=== PATIENT | male | born 1945 | race African-American/Black ===

== ENCOUNTER 2018-09-29 15:06 | Inpatient (IN) | payer MEDICARE, OTHER ==
[~2018-09-29] VITALS: Ht 177.8 cm; Wt 102.1 kg
--- NOTE | 2018-09-29 16:23 | NUR ---
REPORT GIVEN TO ISIDRO SANDOVAL FOR THAIS
[2018-09-29] MEDS ORDERED: ACET-73 PO (17:44)
[2018-09-29] MEDS ORDERED: AMLO10TA7 PO (17:44)
[2018-09-29] MEDS ORDERED: QUET25TA PO ×2 (17:44)
[2018-09-29] MEDS ORDERED: HYDR-3028 PO (17:44)
[2018-09-29] MEDS ORDERED: LOSA25TA27 PO (17:44)
[2018-09-29] MEDS ORDERED: PRED20TA PO (17:44)
[2018-09-29] MEDS ORDERED: MAG HYDROX/AL HYDROX/SIMETH 30 ML UDC PO PRN (18:30)
[2018-09-29] MEDS ORDERED: LORAZEPAM 0.5 MG TABLET PO PRN (18:30)
[2018-09-29] MEDS ORDERED: ACETAMINOPHEN 325 MG TABLET PO PRN (18:30)
--- NOTE | 2018-09-29 18:49 | NUR ---
GPS/RN-NOTES ADMITTED 73 YEARS OLD MALE PATIENT FROM [facility]. PATIENT ON 5150 FOR DTS AND GD. UPON FACE TO FACE INTERVIEW, PATIENT ALERT ORIENTED X2,GUARDED ,FLAT AFFECT, WHEELCHAIR BOUND,NEED ONE ASSIST WITH TRANSFER FROM WHEELCHAIR TO BED. PATIENT IS CALM AND COOPERATIVE DURING ADMISSION PROCESS. PATIENT DID NOT VERBALIZE SI/HI,DENIES VISUAL/AUDITORY HALLUCINATIONS AT THIS TIME. PARTIAL BODY ASSESSMENT DONE. MRSA DONE AND SEND TO LAB.PATIENT'S RIGHT WAS REVIEWED WITH PATIENT AND HANDBOOK WAS GIVEN TO THE PATIENT. PATIENT WAS ORIENTED IN THE UNIT AND UNIT POLICIES. CALL WOOD WITHIN REACH. DR. TALLEY( PSYCHIATRIST) MADE AWARE OF PATIENT ADMISSION WITH ORDERS. AAYUSH CHEN MADE AWARE OF THE ADMISSION. PATIENT'S BROTHER ALTHEA NAVARRETE [phone] MADE AWARE OF THE ADMISSION. ENDORSE TO INCOMING NURSE FOR CONTINUITY OF CARE AND ADMISSION PROCESS.
--- NOTE | 2018-09-29 20:00 | NUR ---
GPS RN NOTE, PATIENT SPO2 % 92 PAGED AASHISH CHUA. AASHISH CHUA ORDERED TO GIVE 2 LITERS OF O2 VIA NASAL CANNULA TO KEEP SPO2 ABOVE 94 % AND TO GIVE A ONE TO ONE SITTER IN THE MORNING. ALL ORDERS NOTED AND CARRIED OUT. WILL CONTINUE TO MONITOR THIS PATIENT.
[2018-09-29 20:08] VITALS: BP 156/56
[2018-09-29] MEDS: ZOLPIDEM TARTRATE 5 MG TABLET PO PRN (20:55)
--- NOTE | 2018-09-29 22:00 | NUR ---
AAYUSH Gomez came on the floor told him about med recon needs to be done for this patient, AAYUSH Holt said ok he will look at it. will endorse to the oncoming nurse to follow up.
[2018-09-30 08:00] VITALS: BP 139/87
--- NOTE | 2018-09-30 11:49 | NUR ---
BERLIN called Margarita ([phone]), button reclaimer of the pt's Independent Living, and confirmed that the pt can return upon his discharge from the hospital. She stated that she would like appropriate medication adjustments to be made before the pt can return to her facility. BERLIN stated that she will keep her updated in terms of his behavior.
--- NOTE | 2018-09-30 12:18 | NUR ---
GPS/RN-NOTES PATIENT SCREAMING AND YELLING WITH DR. TALLEY. PATIENT REFUSED LAB DRAW AND MEALS. STATED" YOU ALL WANT TO KILL ME". EXPLAINED RISK AND BENEFITS BUT PATIENT GETS ANGRY AND VERBALLY ABUSIVE WITH STAFF. DR. TALLEY ORDERED IM MEDICATIONS.
[2018-09-30] MEDS ORDERED: OLANZAPINE 10 MG VIAL IM ONE (12:30)
--- NOTE | 2018-09-30 16:12 | NUR ---
SW called the pt's brother, Demarcus ([phone]), and discussed the initial treatment plan and discharge plan. SW informed him about the objectives and the SW interventions. Pts brother stated that he understood and accepts the plan.
--- NOTE | 2018-09-30 16:19 | NUR ---
Initial Discharge Planning: Pt currently resides at an Independent Living located at [address] [place] [address]. Per pt, he would like to return to his home. BERLIN will work with the pt and the MD regarding appropriate discharge planning. SW will form a safe and proper discharge.
--- NOTE | 2018-09-30 16:42 | NUR ---
GPS/RN-NOTES PATIENT REFUSED LAB DRAW TODAY DESPITE FEW ATTEMPT BY THE LAB STAFF. EXPLAINED RISK AND BENEFITS BUT PATIENT STATED" I DON'T WANT ANYTHING FROM ANYBODY, DON'T CARE JUST LEAVE ME ALONE".
[2018-09-30] MEDS: BENZTROPINE MESYLATE (1 MG) 1 MG TABLET PO SCH (17:00)
[2018-09-30] MEDS: HALOPERIDOL 5 MG TABLET PO SCH (17:00)
--- NOTE | 2018-09-30 17:34 | NUR ---
GPS/RN-NOTES PATIENT REFUSED ALL 1700 MEDICATIONS DESPITE EXPLANATIONS RISK AND BENEFITS. PATIENT STATED" DON'T GIVE ME ANY MEDICATIONS,THAT'S ILLEGAL,I DON'T WANT IT". OFFERED X3 AAYUSH WRIGHT IN THE UNIT AND MADE AWARE OF PATIENT 'S BEHAVIOR. ALSO PER BREAD ICER HE WILL RECONCILE PT'S. MEDICATIONS. Addendum: 09/30/18 at 1809 by SWATHI LLAMAS RN IN ADDITION TO MY ABOVE NOTES AAYUSH WRIGHT GAVE T.O OF GIVE OXYGEN AT 2L/MIN TO KEEP O2 SATURATION ABOVE 90%.NOTED AND CARRIED OUT.
--- NOTE | 2018-09-30 18:55 | NUR ---
GPS/RN-NOTES PATIENT REFUSED TO EAT TODAY ,ATE ONLY OWN DONUT AND DRINK . EXPLAINED RISK AND BENEFITS OF PROPER MEAL BUT PATIENT GETS ANGRY AND ARGUMENTATIVE. PATIENT ALSO HAVE EPISODE OF DESATURATION, OXYGEN 2L/MIN NC GIVEN PRN ORDER.ENDORSE TO INCOMING NURSE FOR CONTINUITY OF CARE.
[2018-09-30 20:33] VITALS: BP 138/88
[2018-09-30] MEDS: DIVALPROEX SODIUM 500 MG TABLET.DR PO SCH (21:31)
[2018-10-01] MEDS: MAGNESIUM HYDROXIDE 30 ML UDC PO PRN (01:37)
[2018-10-01 08:00] VITALS: BP 157/74
[2018-10-01] MEDS: BENZTROPINE MESYLATE (1 MG) 1 MG TABLET PO SCH ×2 (08:33→16:55)
[2018-10-01] MEDS: AMLODIPINE BESYLATE 10 MG TABLET PO SCH (08:33)
[2018-10-01] MEDS: HALOPERIDOL 5 MG TABLET PO SCH ×2 (08:33→16:55)
[2018-10-01] MEDS: LOSARTAN POTASSIUM 25 MG TABLET PO SCH (08:34)
--- NOTE | 2018-10-01 15:59 | NUR ---
SW attempted to provide social service supportive counseling through individual therapy but the pt refused.
[2018-10-01 16:00] VITALS: BP 110/62
[2018-10-01] MEDS ORDERED: IPRATROPIUM NEB FS 0.5 MG/2.5 ML AMPUL.NEB NEB PRN (17:00)
[2018-10-01] MEDS ORDERED: ALBUTEROL FS 2.5 MG/0.5 ML VIAL.NEB NEB PRN (17:00)
[2018-10-01] MEDS: LEVOFLOXACIN (750 MG) 750 MG TABLET PO SCH (17:20)
--- NOTE | 2018-10-01 18:55 | NUR ---
RN NOTE: PATIENT REMAINS ALERT AWAKE ORIENTED. ON 2LPM O2 VIA NC, NO BREATHING DISTRESS NOTED. DENIES PAIN & DISCOMFORT. VERBALIZE FEELING WEAKNESS. CHEST X-RAY RESULTS RELAYED TO MD, RECEIVED NEW ORDERS, WILL FOLLOW. SAFETY MEASURES OBSERVED. 1:1 SITTER AT BEDSIDE.
[2018-10-01 20:00] VITALS: BP 137/71
[2018-10-01 20:28] LABS: CALCIUM, SERUM 8.2 mg/dL (8.5-10.1); CARBON DIOXIDE 29 mmol/L (21-32); CHLORIDE 110 mmol/L (98-107); CREATININE 1.4 mg/dL (0.6-1.3); GLUCOSE 97 mg/dL (74-106); POTASSIUM 3.8 mmol/L (3.5-5.1); SODIUM SERUM 146 mmol/L (136-145); UREA NITROGEN, BLOOD 29 mg/dL (7-18)
[2018-10-01 21:00] LABS: BASOPHILS % (AUTO) 0.7 % (0.0-2.0); EOSINOPHILS % (AUTO) 5.8 % (0.0-6.0); HEMATOCRIT 37 % (39-51); HEMOGLOBIN 12.2 g/dL (13.5-17.5); LYMPHOCYTES # (AUTO) 1.1 /CMM (0.8-4.8); LYMPHOCYTES % (AUTO) 26.3 % (20.0-44.0); MEAN CORPUSCULAR HGB CONC 33 g/dl (31.0-36.0); MEAN CORPUSCULAR VOLUME 90 fL (80-96); MONOCYTES # (AUTO) 0.4 /CMM (0.1-1.30); MONOCYTES % (AUTO) 10.2 % (2.0-12.0); NEUTROPHILS # (AUTO) 2.5 /CMM (1.8-8.9); PLATELET COUNT (AUTO) 167 /CMM (150-450); RED BLOOD CELL COUNT(AUTO) 4.11 MIL/uL (4.5-6.0); WHITE BLOOD COUNT (AUTO) 4.3 K/uL (4.3-11.0)
[2018-10-01] MEDS: DIVALPROEX SODIUM 500 MG TABLET.DR PO SCH (21:31)
[2018-10-01 21:42] LABS: THYROID STIMULATING HORMONE 1.514 uIU/mL (0.358-3.74)
[2018-10-02 08:00] VITALS: BP 130/74
[2018-10-02] MEDS: BENZTROPINE MESYLATE (1 MG) 1 MG TABLET PO SCH ×2 (09:19→17:19)
[2018-10-02] MEDS: LOSARTAN POTASSIUM 25 MG TABLET PO SCH (09:19)
[2018-10-02] MEDS: HALOPERIDOL 5 MG TABLET PO SCH ×2 (09:19→17:19)
[2018-10-02] MEDS: AMLODIPINE BESYLATE 10 MG TABLET PO SCH (09:19)
[2018-10-02 16:00] VITALS: BP 117/67
[2018-10-02 20:00] VITALS: BP 127/70
--- NOTE | 2018-10-02 20:29 | NUR ---
JAIME NOTES - LORAZEPAM 1MG RETURNED, WITNESSED BY RICCI GUZMÁN. Addendum: 10/02/18 at 2030 by PANCHO GROVE RN RECEIPT INCLUDED IN THE DRAWER UPON THE RETURN OF MED.
[2018-10-02] MEDS: DIVALPROEX SODIUM 500 MG TABLET.DR PO SCH (21:29)
[2018-10-02] MEDS: ZOLPIDEM TARTRATE 5 MG TABLET PO PRN (21:30)
[2018-10-03] MEDS: AMLODIPINE BESYLATE 10 MG TABLET PO SCH (07:59)
[2018-10-03 08:00] VITALS: BP 153/80
[2018-10-03] MEDS: HALOPERIDOL 5 MG TABLET PO SCH ×2 (08:00→16:26)
[2018-10-03] MEDS: LOSARTAN POTASSIUM 25 MG TABLET PO SCH (08:00)
[2018-10-03] MEDS: BENZTROPINE MESYLATE (1 MG) 1 MG TABLET PO SCH ×2 (08:00→16:26)
[2018-10-03 16:00] VITALS: BP 127/74
[2018-10-03] MEDS: LEVOFLOXACIN (750 MG) 750 MG TABLET PO SCH (16:26)
[2018-10-03 20:00] VITALS: BP 131/57
[2018-10-03] MEDS: DIVALPROEX SODIUM 500 MG TABLET.DR PO SCH (21:31)
[2018-10-04 08:00] VITALS: BP 117/74
[2018-10-04] MEDS: BENZTROPINE MESYLATE (1 MG) 1 MG TABLET PO SCH ×2 (09:11→17:24)
[2018-10-04] MEDS: HALOPERIDOL 5 MG TABLET PO SCH ×2 (09:12→17:23)
[2018-10-04] MEDS: LOSARTAN POTASSIUM 25 MG TABLET PO SCH (09:12)
[2018-10-04] MEDS: AMLODIPINE BESYLATE 10 MG TABLET PO SCH (09:13)
[2018-10-04 12:44] LABS: BASOPHILS % (AUTO) 0.5 % (0.0-2.0); EOSINOPHILS % (AUTO) 6.1 % (0.0-6.0); HEMATOCRIT 39 % (39-51); HEMOGLOBIN 12.8 g/dL (13.5-17.5); LYMPHOCYTES # (AUTO) 1.2 /CMM (0.8-4.8); LYMPHOCYTES % (AUTO) 27.3 % (20.0-44.0); MEAN CORPUSCULAR HGB CONC 33 g/dl (31.0-36.0); MEAN CORPUSCULAR VOLUME 90 fL (80-96); MONOCYTES # (AUTO) 0.4 /CMM (0.1-1.30); NEUTROPHILS # (AUTO) 2.5 /CMM (1.8-8.9); NEUTROPHILS % (AUTO) 56.1 % (43.0-81.0); PLATELET COUNT (AUTO) 159 /CMM (150-450); WHITE BLOOD COUNT (AUTO) 4.4 K/uL (4.3-11.0)
[2018-10-04 12:58] LABS: CALCIUM, SERUM 8.8 mg/dL (8.5-10.1); CARBON DIOXIDE 28 mmol/L (21-32); CHLORIDE 108 mmol/L (98-107); CREATININE 1.7 mg/dL (0.6-1.3); GLUCOSE 99 mg/dL (74-106); POTASSIUM 3.9 mmol/L (3.5-5.1); SODIUM SERUM 144 mmol/L (136-145); UREA NITROGEN, BLOOD 35 mg/dL (7-18)
[2018-10-04 16:00] VITALS: BP 116/58
[2018-10-04 19:53] VITALS: BP 119/70
[2018-10-04 20:00] VITALS: BP 119/70
[2018-10-04] MEDS: DIVALPROEX SODIUM 500 MG TABLET.DR PO SCH (22:12)
[2018-10-05] MEDS: ZOLPIDEM TARTRATE 5 MG TABLET PO PRN (01:56)
--- NOTE | 2018-10-05 01:56 | NUR ---
RN GPS NOTES PATIENT UNABLE TO SLEEP SUGGESTED SLEEP AIDE TO ASSIST IN SLEEPING PATIENT AGREED AND WANTS TO TAKE IT. AMBIEN PRN GIVEN ORDERED, WILL CONTINUE TO MONITOR FOR EFFECTIVENESS.
[2018-10-05 08:00] VITALS: BP 121/73
[2018-10-05] MEDS: LOSARTAN POTASSIUM 25 MG TABLET PO SCH (08:58)
[2018-10-05] MEDS: HALOPERIDOL 5 MG TABLET PO SCH ×2 (08:58→16:49)
[2018-10-05] MEDS: AMLODIPINE BESYLATE 10 MG TABLET PO SCH (08:59)
[2018-10-05] MEDS: BENZTROPINE MESYLATE (1 MG) 1 MG TABLET PO SCH ×2 (09:00→16:48)
[2018-10-05 16:00] VITALS: BP 109/65
[2018-10-05] MEDS: LEVOFLOXACIN (750 MG) 750 MG TABLET PO SCH (16:49)
[2018-10-05 20:11] VITALS: BP 117/68
[2018-10-05] MEDS: DIVALPROEX SODIUM 500 MG TABLET.DR PO SCH (21:28)
[2018-10-06] MEDS: ZOLPIDEM TARTRATE 5 MG TABLET PO PRN (00:32)
--- NOTE | 2018-10-06 01:06 | NUR ---
RN GPS NOTES PATIENT UNABLE TO SLEEP . MEDICATED WITH AMBIEN 1 TAB NEEDED GIVEN ORDERED. WILL CONTINUE TO MONITOR FOR EFFECTIVENESS.
[2018-10-06 08:00] VITALS: BP 189/92
[2018-10-06] MEDS: BENZTROPINE MESYLATE (1 MG) 1 MG TABLET PO SCH ×2 (09:21→17:23)
[2018-10-06] MEDS: HALOPERIDOL 5 MG TABLET PO SCH ×2 (09:21→17:23)
[2018-10-06] MEDS: DIVALPROEX SODIUM 250 MG TABLET.DR PO SCH (09:22)
[2018-10-06] MEDS: LOSARTAN POTASSIUM 25 MG TABLET PO SCH (09:22)
[2018-10-06] MEDS: AMLODIPINE BESYLATE 10 MG TABLET PO SCH (09:22)
--- NOTE | 2018-10-06 11:46 | NUR ---
SW spoke with the pts rights advocate about the pt needing a higher level of care and discussed the possibility of a SNF instead of the Independent Living that the pt came from because the pt does not appear to be fit to take care of himself at this time with his medical and physical needs.
--- NOTE | 2018-10-06 11:47 | NUR ---
BERLIN called Margarita ([phone]), director regulatory agency of the pt's Independent Living, and informed her that she may come to assess the pt on Thursday but also informed her that we are considering a SNF placement for him due to his medical and physical needs.
--- NOTE | 2018-10-06 13:00 | NUR ---
RN NOTES PATIENT REFUSED ANTIBIOTIC PRESCRIBED. PATIENT STATE "I DO NOT HAVE A INFECTION". CONTINUED MONITORING.
--- NOTE | 2018-10-06 13:13 | NUR ---
BERLIN faxed a referral to [facility] with attention to Yolanda to the fax number: [phone].
[2018-10-06] MEDS ORDERED: CLONIDINE HCL 0.1 MG TABLET PO PRN (16:00)
--- NOTE | 2018-10-06 16:17 | NUR ---
Group Therapy: SW prompted the pt to go to group but the pt refused due to his medical conditions (low oxygen).
--- NOTE | 2018-10-06 16:59 | NUR ---
RN NOTES TRANSFERRED PATIENT TO THE [facility] ROOM 325 BED 2, PATIENT STABLE, NO ACUTE RESPIRATORY DISTRESS, PATIENT ON 02-2L NC, REFUSED SOB AT THIS TIME, REFUSED PAIN. PATIENT TOTAL CARE, INCONTINENT. 1:1 SITTER NEXT TO THE BED FOR SAFETY. PATIENT MED COMPLIANT. REPORT GIVEN PRICILLA SANDOVAL FOR CONTINUES PLAN OF CARE.
--- NOTE | 2018-10-06 17:00 | NUR ---
RN NOTES PATIENT CAME FROM GPS, GPS OVERFLOW, A/OX2, NO DISTRESS NOTED AT THIS TIME, SITTER AT BEDSIDE. PATIENT CALM AND COOPERATIVE AT THIS TIME. PATIENT KEPT COMFORTABLE, WILL CONTINUE TO MONITOR.
--- NOTE | 2018-10-06 18:12 | NUR ---
PATIENT IN NO SIGNIFICANT DISTRESS. SITTER AT BEDSIDE, WILL ENDORSE TO BULK SUGAR HANDLER FOR THAIS.
[2018-10-06 18:23] VITALS: BP 112/59
--- NOTE | 2018-10-06 19:30 | NUR ---
MS RN NOTE RECEIVED PT IN STABLE CONDITION A&O X2, PT IS CURRENTLY ON 5250 HOLD WITH SITTER AT BEDSIDE. NO SIGNS OF SOB, OR DISTRESS, NO SI NOTED. PT IS CURRENTLY IN BED WATCHING TV. ALL NEEDS ATTENDED TO. SAFETY PRECAUTIONS IN PLACE: BED LOW, LOCKED, UPPER RAILS UP, AND CALL LIGHT WITHIN REACH. WILL CONT TO MONITOR.
[2018-10-06] MEDS: DIVALPROEX SODIUM 500 MG TABLET.DR PO SCH (21:16)
--- NOTE | 2018-10-07 06:37 | NUR ---
MS RN NOTE PT IN STABLE CONDITION A&O X2, PT IS CURRENTLY ON 5250 HOLD WITH SITTER AT BEDSIDE. NO SIGNS OF SOB, OR DISTRESS, NO SI/HI NOTED. PT IS CURRENTLY IN BED WATCHING TV. ALL NEEDS ATTENDED TO. Q15 MIN MONITORING DONE THROUGHOUT SHIFT. PT REPOSITIONED Q2H.SAFETY PRECAUTIONS IN PLACE: BED LOW, LOCKED, UPPER RAILS UP, AND CALL LIGHT WITHIN REACH. WILL CONT TO MONITOR, AND ENDORSE TO NEXT SHIFT FOR THAIS.
[2018-10-07 08:00] VITALS: BP 119/73
--- NOTE | 2018-10-07 08:06 | NUR ---
RN OPENING NOTE PT WAS RECEIVED IN BED AT LOWEST AND LOCKED POSITION WITH SIDE RAILS UP X2, A/O X2-3 WITH SITTER PRESENT AT BEDSIDE, NOTED TO HAVE LEFT SIDED WEAKNESS, NO S/S OF ANY DISTRESS OR PAIN, NO IV IN PLACE DUE TO GPS PROTOCOL AND MD AWARE. SAFETY PRECAUTIONS IN PLACE, CALL LIGHT WITHIN REACH, WILL MONITOR ACCORDINGLY
--- NOTE | 2018-10-07 08:25 | NUR ---
Emmie ([phone]) from [facility] stated that their facility would like to evaluate the pt before they can accept him. SW stated that was acceptable and set up a meeting for today.
[2018-10-07] MEDS: LOSARTAN POTASSIUM 25 MG TABLET PO SCH (08:34)
[2018-10-07] MEDS: AMLODIPINE BESYLATE 10 MG TABLET PO SCH (08:34)
[2018-10-07] MEDS: HALOPERIDOL 5 MG TABLET PO SCH ×2 (08:34→16:14)
[2018-10-07] MEDS: BENZTROPINE MESYLATE (1 MG) 1 MG TABLET PO SCH ×2 (08:34→16:14)
[2018-10-07] MEDS: DIVALPROEX SODIUM 250 MG TABLET.DR PO SCH (08:34)
--- NOTE | 2018-10-07 15:14 | NUR ---
Moira ([phone]) from [facility] contacted the SW and stated that the pt was accepted to their facility and his needs can be accommodated. SW informed her that the pt will be discharged to their facility on Thursday.
[2018-10-07 16:00] VITALS: BP 127/64
--- NOTE | 2018-10-07 18:51 | NUR ---
RN CLOSING NOTE PT IN BED AT LOWEST AND LOCKED POSITION WITH SIDE RAILS UP X2, A/O X2-3 WITH SITTER PRESENT AT BEDSIDE, NO S/S OF ANY DISTRESS OR PAIN, CURRENTLY SLEEPING IN BED. SAFETY PRECAUTIONS IN PLACE, CALL LIGHT WITHIN REACH, WILL ENDORSE TO ONCOMING HEAD OF ICT RN FOR THAIS.
--- NOTE | 2018-10-07 19:22 | NUR ---
RN OPENING NOTES RECEIVED BEDSIDE REPORT, PT IN BED, SLEEPING, EASILY AROUSED TO NAME CALL, BREATHING EVEN AND UNLABORED ON ROOM AIR. IN NO APPARENT PAIN OR DISCOMFORT AT THIS TIME. NO IV ACCESS PER GPS PROTOCOL. SITTER AT BEDSIDE, BED IN LOCKED POSITION, BED ALARM ACTIVATED, CALL LIGHT WITHIN REACH AT ALL TIMES, WILL CONTINUE TO MONITOR FREQUENTLY.
[2018-10-07] MEDS: DIVALPROEX SODIUM 500 MG TABLET.DR PO SCH (21:35)
[2018-10-08 01:29] VITALS: BP 102/58
--- NOTE | 2018-10-08 06:20 | NUR ---
RN CLOSING NOTES PT REMAINS IN BED, SLEEPING, EASILY AROUSED TO NAME CALL, BREATHING EVEN AND UNLABORED ON ROOM AIR. IN NO APPARENT PAIN OR DISCOMFORT AT THIS TIME. NO IV ACCESS PER GPS PROTOCOL. SITTER AT BEDSIDE, BED IN LOCKED POSITION, BED ALARM ACTIVATED, PT MAINTAINED CLEAN AND DRY. CALL LIGHT WITHIN REACH AT ALL TIMES, WILL ENDORSE TO DAY NURSE FOR THAIS
--- NOTE | 2018-10-08 07:30 | NUR ---
GPS RN Opening Notes Patient currently asleep, resting in bed. Semi-Fowlers position, supine. Alert and oriented x2-3, able to make needs known. Patient is legally blind. No complaints of shortness of breath or chest pain at this time. Respirations even and unlabored on room air, no acute distress noted. No peripheral IV access per GPS protocol. Updated patient on current plan of care and safety measures. Safety and fall precautions in place: bed in lowest and locked position, side rails up x2, bed alarm on, call light within reach. Room well lit and floor clear of items. GPS safety checks per protocol, 1:1 sitter at bedside for safety. Patient denies SI and/or HI at this time. [address] in [address] at this time. Patient currently clean, dry and comfortable. Will continue to monitor and intervene as needed. Addendum: 10/08/18 at 0818 by SKYLAR DICKSON RN Correction: patient is not legally blind, note for wrong patient.
[2018-10-08 08:00] VITALS: BP 128/71
--- NOTE | 2018-10-08 08:39 | NUR ---
gps asbestos worker: md visit seen and examined by abdi (acnp) at this time.
[2018-10-08] MEDS: BENZTROPINE MESYLATE (1 MG) 1 MG TABLET PO SCH ×2 (08:46→17:04)
[2018-10-08] MEDS: DIVALPROEX SODIUM 250 MG TABLET.DR PO SCH (08:46)
[2018-10-08] MEDS: LOSARTAN POTASSIUM 25 MG TABLET PO SCH (08:47)
[2018-10-08] MEDS: HALOPERIDOL 5 MG TABLET PO SCH ×2 (08:47→17:04)
[2018-10-08] MEDS: AMLODIPINE BESYLATE 10 MG TABLET PO SCH (08:47)
[2018-10-08] MEDS ORDERED: diphenhydrAMINE HCL/ZINC ACET CREAM 28.3 GM TUBE TP PRN (09:30)
--- NOTE | 2018-10-08 14:06 | NUR ---
BERLIN called Margarita ([phone]), line haul owner operator of the pt's Independent Living, and informed her that the pt will be discharged to a SNF on Thursday.
--- NOTE | 2018-10-08 14:15 | NUR ---
BERLIN called the pt's brother, Demarcus ([phone]), and informed him that the pt is going to be discharged [facility] on Thursday and he stated that he accepts the placement option.
[2018-10-08 16:00] VITALS: BP 123/62
--- NOTE | 2018-10-08 18:00 | NUR ---
gps radio tower technician: notes urine collected via clean catch. lab called, spoke maxx to bean picker machine operator specimen in refrigerator.
--- NOTE | 2018-10-08 18:21 | NUR ---
GPS RN Closing Notes Patient currently awake, resting in bed. Semi-Fowlers position, supine. Alert and oriented x2-3, able to make needs known. No complaints of shortness of breath or chest pain at this time. Respirations even and unlabored on room air, no acute distress noted. No peripheral IV access per GPS protocol. Updated patient on current plan of care and safety measures. Safety and fall precautions in place: bed in lowest and locked position, side rails up x2, bed alarm on, call light within reach. Room well lit and floor clear of items. GPS safety checks per protocol, 1:1 sitter at bedside for safety. Patient denies SI and/or HI at this time. [address] at this time. Patient currently clean, dry and comfortable. Respositioned every 2 hours for skin integrity. No acute events this shift, vital signs stable. Will endorse to assistant shift supervisor RN for continuity of care.
[2018-10-08 18:53] LABS: APPEARANCE,URINE SL CLOUDY (CLEAR); BILIRUBIN,URINE NEGATIVE (NEGATIVE); BLOOD, URINE NEGATIVE Ery/uL (NEGATIVE); COLOR,URINE DARK YELLO (YELLOW); KETONES,URINE 1+ (NEGATIVE); LEUKOCYTE ESTERASE ,URINE NEGATIVE (NEGATIVE); NITRITE, URINE NEGATIVE (NEGATIVE); PROTEIN,URINE TRACE mg/dl (NEGATIVE); UGLUCOSE NEGATIVE (NEGATIVE)
[2018-10-08 18:59] LABS: URINE TOTAL PROTEIN 23.4 mg/dL (0-11.9)
[2018-10-08 19:22] LABS: RBC,URINE 0-2 /HPF (0-2); WBC,URINE 0-2 /HPF (0-3)
[2018-10-08 19:23] LABS: BACTERIA,URINE Rare /HPF (None Seen); SQUAMOUS EPITHELIAL CELL,UR Few /HPF (None Seen)
[2018-10-08 19:49] VITALS: BP 111/60
[2018-10-08 20:16] LABS: EOSINOPHIL,URINE None Seen
[2018-10-08] MEDS: DIVALPROEX SODIUM 500 MG TABLET.DR PO SCH (21:20)
--- NOTE | 2018-10-09 07:30 | NUR ---
PT RECEIVED RESTING COMFORTABLY IN BED. NO S/S OR C/O PAIN OR DISTRESS NOTED. SIDE RAILS UP X2, CALL LIGHT LEFT WITHIN REACH. WILL CONTINUE PLAN OF CARE.
[2018-10-09 08:00] VITALS: BP 119/72
[2018-10-09] MEDS: LOSARTAN POTASSIUM 25 MG TABLET PO SCH (08:38)
[2018-10-09] MEDS: HALOPERIDOL 5 MG TABLET PO SCH ×2 (08:38→18:01)
[2018-10-09] MEDS: DIVALPROEX SODIUM 250 MG TABLET.DR PO SCH (08:38)
[2018-10-09] MEDS: AMLODIPINE BESYLATE 10 MG TABLET PO SCH (08:39)
[2018-10-09] MEDS: BENZTROPINE MESYLATE (1 MG) 1 MG TABLET PO SCH ×2 (08:39→18:01)
[2018-10-09 10:06] LABS: BASOPHILS % (AUTO) 0.5 % (0.0-2.0); EOSINOPHILS % (AUTO) 5.3 % (0.0-6.0); HEMATOCRIT 39 % (39-51); HEMOGLOBIN 12.9 g/dL (13.5-17.5); LYMPHOCYTES # (AUTO) 1.1 /CMM (0.8-4.8); LYMPHOCYTES % (AUTO) 26.9 % (20.0-44.0); MEAN CORPUSCULAR HGB CONC 33 g/dl (31.0-36.0); MEAN CORPUSCULAR VOLUME 89 fL (80-96); MONOCYTES # (AUTO) 0.4 /CMM (0.1-1.30); MONOCYTES % (AUTO) 9.8 % (2.0-12.0); NEUTROPHILS # (AUTO) 2.4 /CMM (1.8-8.9); NEUTROPHILS % (AUTO) 57.5 % (43.0-81.0); PLATELET COUNT (AUTO) 147 /CMM (150-450); RED BLOOD CELL COUNT(AUTO) 4.38 MIL/uL (4.5-6.0); WHITE BLOOD COUNT (AUTO) 4.2 K/uL (4.3-11.0)
[2018-10-09 10:34] LABS: ALANINE AMINOTRANSFERASE 21 U/L (12-78); ALBUMIN 2.9 g/dL (3.4-5.0); ALKALINE PHOSPHATASE 87 U/L (46-116); ASPARTATE AMINOTRANSFERASE 19 U/L (15-37); BILIRUBIN,TOTAL 0.5 mg/dL (0.2-1.0); CALCIUM, SERUM 8.7 mg/dL (8.5-10.1); CARBON DIOXIDE 27 mmol/L (21-32); CHLORIDE 109 mmol/L (98-107); CREATININE 1.2 mg/dL (0.6-1.3); GLUCOSE 120 mg/dL (74-106); MAGNESIUM 2.2 mg/dL (1.8-2.4); PHOSPHORUS 2.6 mg/dL (2.5-4.9); POTASSIUM 3.6 mmol/L (3.5-5.1); SODIUM SERUM 145 mmol/L (136-145); TOTAL PROTEIN, SERUM 6.7 g/dL (6.4-8.2); UREA NITROGEN, BLOOD 26 mg/dL (7-18)
[2018-10-09 10:49] LABS: VALPROIC ACID 54 ug/mL (50-100)
[2018-10-09 11:26] LABS: CREATINE KINASE, TOTAL 58 U/L (39-308)
[2018-10-09 16:00] VITALS: BP 108/60
--- NOTE | 2018-10-09 18:59 | NUR ---
CHANGE OF SHIFT REPORT PT RESTING COMFORTABLY IN BED. NO S/S OR C/O PAIN OR DISTRESS NOTED. SIDE RAILS UP X2, CALL LIGHT LEFT WITHIN REACH. NO SIGNIFICANT CHANGES SINCE PREVIOUS SHIFT. WILL GIVE REPORT TO HUMPHREY SANDOVAL.
[2018-10-09 20:00] VITALS: BP 115/72
[2018-10-09] MEDS: DIVALPROEX SODIUM 500 MG TABLET.DR PO SCH (21:32)
--- NOTE | 2018-10-10 06:24 | NUR ---
CHANGE OF SHIFT REPORT Patient in bed, slept well approximately 6 hours. Stable oxygen saturation on RA, denies SOB. Patient is irritable with angry behavior when medication is given, denies SI, no c/o pain. On 5250 Hold, danger to self and grave disability. Safety check continuous, 1:1 sitter. DC planning, CM following.
[2018-10-10 08:00] VITALS: BP 132/73
--- NOTE | 2018-10-10 08:00 | NUR ---
RN NOTES RECEIVED PATIENT IN THE BED A/O X2/3, PATIENT STABLE, V/S TAKEN, PATIENT HAS NO ACUTE RESPIRATORY DISTRESS. PATIENT DENIED SI/HI AT THIS TIME. PATIENT COOPERATIVE, REDIRECTABLE, ADMINISTERED SCHEDULED MEDICATION. ASSIST BY FURNITURE REPAIRER TO EAT. 1:1 SITTER NEXT TO THE BED FOR SAFETY. ASSIST TURN AND REPOSTION Q 2 HR. PATIENT INCONTINENT APPLIED Z-GUARD. CALL LIGHT WITHIN TO REACH. OFFERED FLUIDS TOLERATED. SAFETY PRECAUTION MAINTAINED ALL THE TIME.
[2018-10-10] MEDS: LOSARTAN POTASSIUM 25 MG TABLET PO SCH (10:13)
[2018-10-10] MEDS: HALOPERIDOL 5 MG TABLET PO SCH ×2 (10:13→17:20)
[2018-10-10] MEDS: DIVALPROEX SODIUM 250 MG TABLET.DR PO SCH (10:14)
[2018-10-10] MEDS: BENZTROPINE MESYLATE (1 MG) 1 MG TABLET PO SCH ×2 (10:14→17:20)
[2018-10-10] MEDS: AMLODIPINE BESYLATE 10 MG TABLET PO SCH (10:14)
[2018-10-10] MEDS: MAGNESIUM HYDROXIDE 30 ML UDC PO PRN (10:17)
--- NOTE | 2018-10-10 10:17 | NUR ---
RN NOTES ADMINISTERED MILK OF MAGNESIA FOR CONSTIPATION PER PATIENT REQUEST, CONTINUED MONITORING.
--- NOTE | 2018-10-10 13:00 | NUR ---
RN NOTES PATIENT STABLE RESTING IN THE BED, PATIENT EAT 20 % BECAUSE DOES NOT LIKE FOOD. ASSIST TURN AND REPOSTION Q 2 HR. PATIENT 5250 HOLD. PATIENT STABLE, REDIRECTABLE, ASSIST TURN AND REPOSTION Q 2 HR. ENCOURAGED TO INCREASE FLUID INTAKE TOLERATED. 1;1 SITTER NEXT TO THE BED FOR SAFETY. CONTINUED MONITORING.
--- NOTE | 2018-10-10 18:30 | NUR ---
RN NOTES PATIENT MED COMPLAINT, V/S STABLE,EAT DINNER 30%. MEDICATION WERE ADMINISTERED FOR CONSTIPATION NOT WORK YET. ASSIST TURN AND REPOSTION Q 2 HR. CALL LIGHT WITHIN TO REACH. ENDORSED ONCOMING NURSE FOR PLAN OF CARE.
--- NOTE | 2018-10-10 19:30 | NUR ---
RN OPENING NOTES PT RECEIVED ASLEEP, OPENS EYES TO NAME. CALM AT THIS TIME. NO BEHAVIORAL ISSUES NOTED. SITTER AT BEDSIDE. NO IV ACCESS PER PROTOCOL. ON ROOM AIR, BREATHING EVEN AND UNLABORED. IN NO ACUTE DISTRESS. NO FACIAL GRIMACING OR SIGNS OF PAIN AT THIS TIME. BED IN LOW/LOCKED POSITION WITH CALL LIGHT IN REACH, SIDE RAILS UPX3 AND BED ALARM ON FOR SAFETY. WILL CONTINUE TO MONITOR
[2018-10-10 20:00] VITALS: BP 118/56
[2018-10-10] MEDS: DIVALPROEX SODIUM 500 MG TABLET.DR PO SCH (21:45)
--- NOTE | 2018-10-11 07:22 | NUR ---
RN CLOSING NOTES PT AWAKE, RESTING COMFORTABLY IN BED. SITTER AT BEDSIDE. REMAINS ON ROOM AIR, BREATHING EVEN AND UNLABORED. DENIES SOB AND PAIN, IN NO ACUTE DISTRESS. NO IV ACCESS PER PROTOCOL. SLEPT WELL DURING SHIFT. ALL NEEDS MET. BED REMAINS IN LOW/LOCKED POSITION WITH CALL LIGHT IN REACH, SIDE RAILS UPX3 AND BED ALARM ON FOR SAFETY. ENDORSED TO DAY SHIFT RN THAIS.
[2018-10-11 08:00] VITALS: BP 122/68
--- NOTE | 2018-10-11 08:00 | NUR ---
gps insole reinforcer: initial assessment received pt in bed awake, a/ox3. no c/o pain or any discomfort. sitter at bedside. no distress noted. denies si/hi at this time. denies auditory/visual hallucinations at this time. will continue to monitor.
[2018-10-11] MEDS: DIVALPROEX SODIUM 250 MG TABLET.DR PO SCH (08:10)
[2018-10-11] MEDS: HALOPERIDOL 5 MG TABLET PO SCH (08:10)
[2018-10-11] MEDS: BENZTROPINE MESYLATE (1 MG) 1 MG TABLET PO SCH (08:11)
[2018-10-11] MEDS: LOSARTAN POTASSIUM 25 MG TABLET PO SCH (08:11)
[2018-10-11] MEDS: AMLODIPINE BESYLATE 10 MG TABLET PO SCH (08:11)
--- NOTE | 2018-10-11 09:29 | NUR ---
GPS LIAISON INSPECTION LABORATORY ASSISTANT: PSYCHE F/U SEEN BY DR. TALLEY WITH ORDER TO DISCHARGE BACK TO SNF. ORDER ACKNOWLEDGED. PT STABLE FOR DISCHARGE. PT DENIES SI/HI. NO AUDITORY/HALLUCINATIONS NOTED AT THIS TIME. ETA FOR AMBULANCE MAGNETOMETER OPERATOR THAT WAS ARRANGE BY STRAW HAT MACHINE OPERATOR IS AT 1445. PT AWARE. WILL CONTINUE TO MONITOR.
--- NOTE | 2018-10-11 10:00 | NUR ---
gps motor electrician: notes dr. bergeron here and informed md that pt is for discharge to [facility] at 1445 with order to continue home medications. orders carried out. sitter remains at bedside. will continue to monitor.
[2018-10-11 11:09] LABS: *SPE A/G RATIO 0.9 (0.7-1.7); *SPE ALPHA-1-GLOBULIN 0.2 g/dL (0.0-0.4); *SPE ALPHA-2-GLOBULIN 0.7 g/dL (0.4-1.0); *SPE GLOBULIN, TOTAL 3.2 g/dL (2.2-3.9); *SPE M-SPIKE Not Observed g/dL (Not Observed); *SPEGAMMA GLOBULIN 1.3 g/dL (0.4-1.8)
--- NOTE | 2018-10-11 11:34 | NUR ---
Pt was worried about his belonging that were left at his independent living. SW called Margarita ([phone]), vice president tax of the pt's Independent Living, and was informed that Margarita is to bring pts belonging with her when she visits pt at SNF.
--- NOTE | 2018-10-11 12:00 | NUR ---
m/s splicer operator: notes having lunch at this time. sitter remains at bedside. hob elevated. will continue to monitor.
--- NOTE | 2018-10-11 13:25 | NUR ---
gps washing machine mechanic: notes ambulance here and report given to one of the crew. pt stable for discharge. denies si/hi and auditory/visual hallucinations at time of discharge. all belongings returned and surrendered to emt. needs attended.
--- NOTE | 2018-10-11 14:00 | NUR ---
gps origination specialist: notes pt unable to sign all d'c papers due to cognitive impairment. 2 licensed staff signed all d'c papers. valuables returned to pt and will surrender to emt to give it to the nurse. report given to ashwini (bridgett) for continuity of care.
--- NOTE | 2018-10-11 15:15 | NUR ---
gps tire worker: notes donta (social work nurse) notified and informed her that ambulance is 30 minutes late and will f/u as stated. pt waiting in chair at this time. no distress noted. will monitor.
--- NOTE | 2018-10-11 15:30 | NUR ---
gps key worker: notes ambulance here and report given to one of the crew. pt stable for discharge. pt denies si/hi at time of discharge. denies auditory/visual hallucinations at time of discharge. all belongings/valuables returned to pt.
--- NOTE | 2018-10-11 15:39 | NUR ---
gps fire range technician: discharged discharged pt to snf in stable condition via gurney accompanied by 2 emt.
[2018-10-11 15:52] VITALS: BP 130/70
--- NOTE | 2018-10-11 16:06 | NUR ---
DISCHARGE NOTE: Pt was discharged at 3:30 to [facility] (SNF) [place] at [address] [place] [address]; ([phone]). Pt was transported via [facility] (Trip #[id number]) . Rm 22A. Pts brother, Demarcus ([phone]), was informed of the discharge. Vendors choice has been signed and completed, original filed in pts chart. Psychiatrist: Dr. Nielsen ([id number] [facility] [id number], [place] [address]; . Receivable Executive: Dr. Starkey ([id number] [facility], [id number], [place] [address], ). Pts mood was euthymic with congruent affect. Pt denies visual/auditory hallucination and denied suicidal/homicidal ideations. The multidisciplinary exit care form was done, printed, signed and given to pt.
[2018-10-12 13:08] LABS: PTH, INTACT 48 pg/mL (15-65)
== END 2018-10-11 15:40 | DRG 885 ==
LOC: ER 15:06 → GPS 16:23 → GPSOV 10-06 16:22 → MED 10-09 08:54 → GPSOV 10-09 13:35
PROVIDERS: ADMIT Psychiatry & Neurology Psychiatry; ATTEND Nurse Practitioner Acute Care
DX: F25.0 Schizoaffective disorder, bipolar type (principal); N18.9 Chronic kidney disease, unspecified; N17.9 Acute kidney failure, unspecified; J18.9 Pneumonia, unspecified organism; E87.0 Hyperosmolality and hypernatremia; E44.1 Mild protein-calorie malnutrition; F29 Unspecified psychosis not due to a substance or known physiological condition; F41.9 Anxiety disorder, unspecified; J44.9 Chronic obstructive pulmonary disease, unspecified; D64.9 Anemia, unspecified; I12.9 Hypertensive chronic kidney disease with stage 1 through stage 4 chronic kidney disease, or unspecified chronic kidney disease; Z68.32 Body mass index [BMI] 32.0-32.9, adult
CPT/HCPCS: 36415; 71045-TC; 76770-TC; 80048-TC; 80053-TC; 80164-TC; 81000-TC; 82550-TC; 82570-TC; 83735-TC; 83970; 84100-TC; 84155; 84155-TC; 84165; 84300-TC; 84443-TC; 85025-TC; 87081-TC; J3490

== ENCOUNTER 2018-10-30 09:00 | Inpatient (IN) | payer MEDICARE, OTHER ==
[~2018-10-30] VITALS: Ht 182.9 cm; Wt 91.6 kg
[~2018-10-30 09:00] MED LIST: ACET-73 PO; AMLO10TA7 PO; HYDR-3028 PO; LOSA25TA27 PO; PRED20TA PO; QUET25TA PO
--- NOTE | 2018-10-30 09:10 | NUR ---
PT FELICITA FROM [facility] C/O L SIDED PAIN (CHRONIC) PT STATES BEEN HURTING FOR THE PAST 3 YEARS. PER REPORT, PT ASKED TO GO TO HOSPITAL. GOWNED AND PLACED ON MONITOR. AWAITING MD DURÁN.
--- NOTE | 2018-10-30 09:11 | NUR ---
DR MCCRARY AT BEDSIDE FOR EVAL.
--- NOTE | 2018-10-30 09:20 | NUR ---
IV LINE STARTED BLOOD DRAWN AND SENT TO LAB.
[2018-10-30] MEDS ORDERED: HALO5TAB8 PO (09:26)
[2018-10-30] MEDS ORDERED: NA P133E RC (09:26)
[2018-10-30] MEDS ORDERED: BENZ0.5T43 PO (09:26)
[2018-10-30] MEDS ORDERED: ACET-868 PO (09:26)
[2018-10-30] MEDS ORDERED: CLON0.1T PO (09:26)
[2018-10-30] MEDS ORDERED: AMLO10TA4 PO (09:26)
[2018-10-30] MEDS ORDERED: DOCU-141 PO (09:26)
[2018-10-30] MEDS ORDERED: LORA-259 PO (09:26)
[2018-10-30] MEDS ORDERED: ZOLP5TAB2 PO (09:26)
[2018-10-30] MEDS ORDERED: [UNRECOGNIZED DRUG - CODE] PO (09:26)
[2018-10-30] MEDS ORDERED: BISA10SU8 RC (09:26)
[2018-10-30] MEDS ORDERED: IPRA3AMP23 IH (09:26)
[2018-10-30] MEDS ORDERED: AMIN30LI27 PO (09:26)
[2018-10-30] MEDS ORDERED: DIVA250T4 PO (09:26)
[2018-10-30] MEDS ORDERED: DIVA500T2 PO (09:26)
[2018-10-30] MEDS ORDERED: MAGN400O6 PO (09:26)
[2018-10-30] MEDS ORDERED: IV NS 0.9% 500 ML BAG IV ONE (09:30)
[2018-10-30 09:35] LABS: BASOPHILS % (AUTO) 0.6 % (0.0-2.0); EOSINOPHILS % (AUTO) 2.6 % (0.0-6.0); HEMATOCRIT 36 % (39-51); HEMOGLOBIN 11.7 g/dL (13.5-17.5); LYMPHOCYTES # (AUTO) 0.8 /CMM (0.8-4.8); LYMPHOCYTES % (AUTO) 14.6 % (20.0-44.0); MEAN CORPUSCULAR HGB CONC 33 g/dl (31.0-36.0); MEAN CORPUSCULAR VOLUME 91 fL (80-96); MONOCYTES # (AUTO) 0.6 /CMM (0.1-1.30); MONOCYTES % (AUTO) 9.7 % (2.0-12.0); NEUTROPHILS # (AUTO) 4.1 /CMM (1.8-8.9); NEUTROPHILS % (AUTO) 72.5 % (43.0-81.0); PLATELET COUNT (AUTO) 241 /CMM (150-450); RED BLOOD CELL COUNT(AUTO) 3.95 MIL/uL (4.5-6.0); WHITE BLOOD COUNT (AUTO) 5.7 K/uL (4.3-11.0)
--- NOTE | 2018-10-30 09:49 | NUR ---
RADIOLOGY AT BEDSIDE FOR CHEST XRAY.
[2018-10-30 09:58] LABS: CALCIUM, SERUM 8.8 mg/dL (8.5-10.1); CARBON DIOXIDE 31 mmol/L (21-32); CHLORIDE 106 mmol/L (98-107); CREATININE 1.2 mg/dL (0.6-1.3); GLUCOSE 106 mg/dL (74-106); SODIUM SERUM 143 mmol/L (136-145); UREA NITROGEN, BLOOD 24 mg/dL (7-18)
[2018-10-30 10:12] LABS: B-TYPE NATRIURETIC PEPTIDE 144 PG/ML (0-125)
[2018-10-30] MEDS ORDERED: IV NS 0.9% 1,000 ML IV PRN (10:13)
--- NOTE | 2018-10-30 10:17 | NUR ---
REPORT GIVEN TO DEMETRA SANDOVAL. PT AWAITING TRANSFER TO FLOOR.
[2018-10-30] MEDS ORDERED: HYDROCODONE/APAP 5/325MG 1 EACH TABLET PO PRN (10:30)
[2018-10-30] MEDS ORDERED: MAG HYDROX/AL HYDROX/SIMETH 30 ML UDC PO PRN (10:30)
[2018-10-30] MEDS ORDERED: ALBUTEROL FS 2.5 MG/3 ML VIAL.NEB NEB PRN (10:30)
[2018-10-30] MEDS ORDERED: MAGNESIUM HYDROXIDE 30 ML UDC PO PRN ×2 (10:30)
[2018-10-30] MEDS ORDERED: CLONIDINE HCL 0.1 MG TABLET PO PRN (10:30)
[2018-10-30] MEDS ORDERED: ACETAMINOPHEN 325 MG TABLET PO PRN ×2 (10:30)
[2018-10-30] MEDS ORDERED: BISACODYL SUPP (10 MG) 10 MG/SUPP.RECT SUPP.RECT RC PRN (10:30)
[2018-10-30] MEDS ORDERED: LORAZEPAM 1 MG TABLET PO PRN (10:30)
[2018-10-30] MEDS ORDERED: ZOLPIDEM TARTRATE 5 MG TABLET PO PRN (10:30)
[2018-10-30] MEDS ORDERED: IPRATROPIUM NEB FS 0.5 MG/2.5 ML AMPUL.NEB NEB PRN (10:30)
[2018-10-30] MEDS ORDERED: ONDANSETRON HCL/PF 4 MG/2 ML VIAL IVP PRN (10:30)
[2018-10-30 11:20] VITALS: BP 141/73
[2018-10-30 11:48] VITALS: BP 141/73
[2018-10-30] MEDS: ENSURE ENLIVE CHOC 237 ML CAN PO SCH ×2 (12:00→17:21)
[2018-10-30] MEDS: PANTOPRAZOLE 40 MG TABLET.DR PO SCH (13:42)
[2018-10-30] MEDS: DIVALPROEX SODIUM 250 MG TABLET.DR PO SCH (13:42)
[2018-10-30 16:00] VITALS: BP 134/61
[2018-10-30] MEDS: DOCUSATE SODIUM 100 MG CAPSULE PO SCH (17:13)
[2018-10-30] MEDS: HALOPERIDOL 5 MG TABLET PO SCH (17:13)
[2018-10-30] MEDS: BENZTROPINE MESYLATE (1 MG) 1 MG TABLET PO SCH (17:14)
--- NOTE | 2018-10-30 19:55 | NUR ---
MS RN RECEIVING NOTE PATIENT RECEIVED FROM ER. PATIENT A/O X 2-3, NO SOB OR ACUTE DISTRESS NOTED. PATIENT ON RA, SLEEPY, SKIN INTACT, RESTING COMFORTABLY. R HAND SL INTACT AND PATENT. WILL FOLLOW UP FOR NEW ORDERS AND MONITOR PATIENT.
--- NOTE | 2018-10-30 19:59 | NUR ---
MS RN CLOSING NOTE PATIENT IN BED. A/O X 2-3, NO SOB OR ACUTE DISTRESS NOTED. PATIENT ON RA, SLEEPY, SKIN INTACT, RESTING COMFORTABLY. R HAND SL INTACT AND PATENT. CARE ENDORSED TO GEOTHERMAL OPERATING ENGINEER RN..
[2018-10-30 20:00] VITALS: BP_SYST 122; BP_SYST 126; BP_DIAS 64; BP_DIAS 80
--- NOTE | 2018-10-30 20:00 | NUR ---
RN INITIAL NOTE PATIENT RECEIVED PATIENT IN BED. A/O X 2-3. NO SOB OR ACUTE DISTRESS NOTED. PATIENT ON RA, SLEEPY, SKIN INTACT, RESTING COMFORTABLY. R HAND SL INTACT AND PATENT. WILL CONT TO MONITOR.
[2018-10-30 21:00] VITALS: BP 142/70
[2018-10-30] MEDS: DIVALPROEX SODIUM 500 MG TABLET.DR PO SCH ×2 (22:00→23:43)
[2018-10-30] MEDS ORDERED: TEMAZEPAM 15 MG CAPSULE PO PRN (22:00)
[2018-10-30 22:45] VITALS: BP 142/70
[2018-10-31 05:00] VITALS: BP 133/65
[2018-10-31 06:56] LABS: BASOPHILS % (AUTO) 0.4 % (0.0-2.0); EOSINOPHILS % (AUTO) 2.3 % (0.0-6.0); HEMATOCRIT 33 % (39-51); HEMOGLOBIN 10.7 g/dL (13.5-17.5); LYMPHOCYTES # (AUTO) 1.2 /CMM (0.8-4.8); LYMPHOCYTES % (AUTO) 18.6 % (20.0-44.0); MEAN CORPUSCULAR HGB CONC 32 g/dl (31.0-36.0); MEAN CORPUSCULAR VOLUME 90 fL (80-96); MONOCYTES # (AUTO) 0.6 /CMM (0.1-1.30); MONOCYTES % (AUTO) 9.8 % (2.0-12.0); NEUTROPHILS # (AUTO) 4.4 /CMM (1.8-8.9); NEUTROPHILS % (AUTO) 68.9 % (43.0-81.0); PLATELET COUNT (AUTO) 191 /CMM (150-450); RED BLOOD CELL COUNT(AUTO) 3.67 MIL/uL (4.5-6.0); WHITE BLOOD COUNT (AUTO) 6.4 K/uL (4.3-11.0)
--- NOTE | 2018-10-31 07:00 | NUR ---
MS RN OPENING NOTES RECEIVED PT LYING ON BED,SLEEPY.ALERT/ORIENTED X1.ON ROOM AIR,TOLERATING WELL.NO SOB AND ACUTE DISTRESS NOTED.NO IV LINE PER BIOMEDICAL EQUIPMENT SUPPORT SPECIALIST RN,PT IS REFUSING TO INSERT AN IV.SAFETY IS MAINTAINED AT ALL TIMES.BED ALARM IS ON.BED IS IN LOW POSITION AND LOCKED.CALL LIGHT IS WITHIN REACH.WILL CONTINUE TO MONITOR THE PT CLOSELY.
[2018-10-31 07:07] LABS: CALCIUM, SERUM 8.8 mg/dL (8.5-10.1); CARBON DIOXIDE 26 mmol/L (21-32); CHLORIDE 108 mmol/L (98-107); CREATININE 1.3 mg/dL (0.6-1.3); GLUCOSE 84 mg/dL (74-106); MAGNESIUM 2.1 mg/dL (1.8-2.4); PHOSPHORUS 3.1 mg/dL (2.5-4.9); POTASSIUM 4.2 mmol/L (3.5-5.1); SODIUM SERUM 144 mmol/L (136-145); UREA NITROGEN, BLOOD 22 mg/dL (7-18)
--- NOTE | 2018-10-31 07:20 | NUR ---
RN NOTES NO IV PRESENT ON ASSESSMENT
--- NOTE | 2018-10-31 07:20 | NUR ---
RN CLOSING NOTE RECEIVED PATIENT IN BED. A/O X 1-2, NO SOB OR ACUTE DISTRESS NOTED. PATIENT ON RA, WILL ENDORSE TO AM SHIFT RN..
[2018-10-31 08:00] VITALS: BP 127/72
[2018-10-31] MEDS: PANTOPRAZOLE 40 MG TABLET.DR PO SCH (08:02)
[2018-10-31] MEDS: HALOPERIDOL 5 MG TABLET PO SCH ×2 (08:49→17:28)
[2018-10-31] MEDS: BENZTROPINE MESYLATE (1 MG) 1 MG TABLET PO SCH ×2 (08:49→17:28)
[2018-10-31] MEDS: DIVALPROEX SODIUM 250 MG TABLET.DR PO SCH (08:49)
[2018-10-31] MEDS: LOSARTAN POTASSIUM 25 MG TABLET PO SCH (08:49)
[2018-10-31] MEDS: PROSOURCE / PROSTAT (PYXIS) 30 ML UDC PO SCH (08:50)
[2018-10-31] MEDS: ENSURE ENLIVE CHOC 237 ML CAN PO SCH ×3 (08:50→18:13)
[2018-10-31] MEDS: AMLODIPINE BESYLATE 10 MG TABLET PO SCH (08:50)
--- NOTE | 2018-10-31 09:06 | NUR ---
MS RN NOTES OFFERED TO INSERT AN IV LINE,PT REFUSED.EXPLAIN THE RISK AND BENEFITS,STILL REFUSED.
[2018-10-31 09:50] VITALS: BP 127/72
--- NOTE | 2018-10-31 11:11 | NUR ---
MS RN NOTES PT STILL REFUSED TO REINSERT THE IV LINE,MD PORTILLO MADE AWARE.
--- NOTE | 2018-10-31 13:16 | NUR ---
MS RN NOTES MD BANDAR WRIGHT SEEN THE PT AND ORDERED PLAN TO D/C TOMORROW AND D/C IV NORMAL SALINE PT REFUSED TO HAVE IV INSERTION.
[2018-10-31 16:00] VITALS: BP 126/71
[2018-10-31] MEDS: DOCUSATE SODIUM 100 MG CAPSULE PO SCH (17:28)
--- NOTE | 2018-10-31 18:47 | NUR ---
MS RN CLOSING NOTES PT IS LYING ON BED.ON ROOM AIR,TOLERATING WELL.NO SOB AND ACUTE DISTRESS NOTED.NO PAIN NOTED.NO SIGNIFICANT CHANGES NOTED IN THE SHIFT.RESPIRATION IS EVEN AND NONLABORED .ENDORSED TO SPEEDER FRAME TENDER RN FOR THAIS.
--- NOTE | 2018-10-31 19:58 | NUR ---
MS RN NOTES RECEIVED PATIENT IS LYING IN BED.ON ROOM AIR,TOLERATING WELL.NO SOB NO SIGNS OF ACUTE RESPIRATORY DISTRESS NOTED, DENIES ANY PAIN AT THIS TIME.REPOSITIONED FOR COMFORT, SAFETY MEASURES IN PLACED, ASPIRATION PRECAUTION EMPHASIZED, ALL NEEDS ATTENDED, WILL CONTINUE TO MONITOR ACCORDINGLY.
[2018-10-31 21:00] VITALS: BP 122/64
[2018-10-31] MEDS: DIVALPROEX SODIUM 500 MG TABLET.DR PO SCH (21:51)
[2018-11-01] VITALS (7 sets, daily range): BP systolic 114–145; BP diastolic 65–79
--- NOTE | 2018-11-01 06:17 | NUR ---
RN NOTES ALL NEEDS ATTENDED AND MET, ABLE TO REST AND SLEEP AT INTERVALS, DENIES ANY PAIN OR DISCOMFORT, SAFETY MEASURES IN PLACED, ASPIRATION PRECAUTION EMPHASIZED, WILL ENDORSE TO AM NURSE FOR CONTINUITY OF CARE.
--- NOTE | 2018-11-01 07:30 | NUR ---
MS RN OPENING NOTE RECEIVED PT IN BED, ALERT AND ORIENTED X1-2. NO ACUTE DISTRESS NOTED AT THIS TIME, BREATHING IS EVEN AND UNLABORED ON ROOM AIR. PT HAS NO IV ACCESS, MD IS AWARE. ASPIRATION PRECAUTIONS MAINTAINED. BED IS LOCKED AND IN LOWEST POSITION, SIDE RAILS UP X2, BED ALARM ON, CALL LIGHT AND POSSESSIONS WITHIN REACH.
[2018-11-01] MEDS: DIVALPROEX SODIUM 250 MG TABLET.DR PO SCH (08:26)
[2018-11-01] MEDS: PANTOPRAZOLE 40 MG TABLET.DR PO SCH (08:26)
[2018-11-01] MEDS: HALOPERIDOL 5 MG TABLET PO SCH ×2 (08:26→16:31)
[2018-11-01] MEDS: BENZTROPINE MESYLATE (1 MG) 1 MG TABLET PO SCH ×2 (08:26→16:31)
[2018-11-01] MEDS: AMLODIPINE BESYLATE 10 MG TABLET PO SCH (08:26)
[2018-11-01] MEDS: PROSOURCE / PROSTAT (PYXIS) 30 ML UDC PO SCH (08:27)
[2018-11-01] MEDS: LOSARTAN POTASSIUM 25 MG TABLET PO SCH (08:27)
[2018-11-01] MEDS: ENSURE ENLIVE CHOC 237 ML CAN PO SCH ×3 (08:27→16:31)
--- NOTE | 2018-11-01 11:22 | NUR ---
MS RN NOTE PER DIETITIAN, CHANGE DIET TO 2GM NA DUE TO PT PAST MEDICAL HX. ORDERS CONFIRMED AND INITIATED.
--- NOTE | 2018-11-01 12:21 | NUR ---
MS RN PT TRANSFER PT TRANSFERRED TO 204-1. REPORT GIVEN TO JAIME ORTIZ FOR CONTINUITY OF CARE.
--- NOTE | 2018-11-01 12:25 | NUR ---
MS RN NOTES PATIENT TRANSFERRED TO ROOM 204-1 FROM [facility], REPORT RECEIVED FROM ERNIE SANDOVAL. PATIENT AWAKE, ALERT AND ORIENTED, VERBALLY RESPONSIVE AND RESPONDS TO VERBAL AND TACTILE STIMULI. NO ACUTE DISTRESS. DENIES ANY PAIN OR DISCOMFORT. NO IV ACCESS ON PATIENT, BANDAR WRIGHT DNP PRESENT AT UNIT AND AWARE. PATIENT ORIENTED TO UNIT, STAFF, PLAN OF CARE AND VERBALIZED UNDERSTANDING. WILL CONTINUE TO MONITOR. BED LOCKED AND IN LOW POSITION. BILATERAL UPPER SIDE RAILS UP AND LOCKED. CALL LIGHT WITHIN EASY REACH
[2018-11-01] MEDS: DOCUSATE SODIUM 100 MG CAPSULE PO SCH (17:17)
--- NOTE | 2018-11-01 18:50 | NUR ---
MS RN NOTES PATIENT RESTING INSIDE ROOM. AWAKE, ALERT AND ORIENTED, VERBALLY RESPONSIVE AND RESPONDS TO VERBAL AND TACTILE STIMULI. BREATHING EVEN AND UNLABORED. NO ACUTE DISTRESS, DENIES ANY PAIN OR DISCOMFORT AT THIS TIME. PATIENT KEPT CLEAN, DRY AND COMFORTABLE. PROVIDED WITH CALM, SAFE, HAZARD-FREE ENVIRONMENT. WILL ENDORSE TO INCOMING SHIFT FOR THAIS. BED LOCKED AND IN LOW POSITION. BILATERAL UPPER SIDE RAILS UP AND LOCKED. CALL LIGHT WITHIN EASY REACH
--- NOTE | 2018-11-01 19:45 | NUR ---
MS RN NOTE: PATIENT RESTING IN BED, NO ACUTE DISTRESS NOTED. BREATHING EVEN AND UNLABORED, NO SOB NOTED. BED LOCKED AND IN LOWEST POSITION, CALL LIGHT IN REACH. WILL CONTINUE TO MONITOR.
[2018-11-01] MEDS: DIVALPROEX SODIUM 500 MG TABLET.DR PO SCH (21:16)
--- NOTE | 2018-11-01 22:45 | NUR ---
MS RN NOTE: PATIENT AGITATED AND ANXIOUS, ATIVAN 1MG ORAL GIVEN PER MD ORDER. WILL CONTINUE TO MONITOR.
--- NOTE | 2018-11-02 06:15 | NUR ---
MS RN NOTE: PATIENT RESTING IN BED, NO ACUTE DISTRESS NOTED. BREATHING EVEN AND UNLABORED, NO SOB NOTED. BED LOCKED AND IN LOWEST POSITION, CALL LIGHT IN REACH. WILL ENDORSE TO DAY NURSE TO CONTINUE WITH PLAN OF CARE.
--- NOTE | 2018-11-02 07:57 | NUR ---
MS RN NOTES PATIENT RECEIVED RESTING INSIDE ROOM. SLEEPING, EASILY AROUSABLE THROUGH VERBAL AND TACTILE STIMULI. BREATHING EVEN AND UNLABORED. NO ACUTE DISTRESS NOTED AT THIS TIME. NO IV ACCESS, MD AWARE AND OK. SAFETY PRECAUTIONS IN PLACE. WILL CONTINUE TO MONITOR. BED LOCKED AND IN LOW POSITION. BILATERAL UPPER SIDE RAILS UP AND LOCKED. CALL LIGHT WITHIN EASY REACH
[2018-11-02 08:00] VITALS: BP 147/78
[2018-11-02] MEDS: ENSURE ENLIVE CHOC 237 ML CAN PO SCH ×3 (08:27→17:03)
[2018-11-02] MEDS: PROSOURCE / PROSTAT (PYXIS) 30 ML UDC PO SCH (08:27)
[2018-11-02] MEDS: HALOPERIDOL 5 MG TABLET PO SCH ×2 (08:27→17:03)
[2018-11-02] MEDS: LOSARTAN POTASSIUM 25 MG TABLET PO SCH (08:27)
[2018-11-02] MEDS: BENZTROPINE MESYLATE (1 MG) 1 MG TABLET PO SCH ×2 (08:28→17:03)
[2018-11-02] MEDS: DIVALPROEX SODIUM 250 MG TABLET.DR PO SCH (08:28)
[2018-11-02] MEDS: AMLODIPINE BESYLATE 10 MG TABLET PO SCH (08:28)
[2018-11-02] MEDS: PANTOPRAZOLE 40 MG TABLET.DR PO SCH (08:28)
[2018-11-02 16:00] VITALS: BP 135/74
--- NOTE | 2018-11-02 16:18 | NUR ---
MS RN NOTES PLACED CALL TO [facility] ([phone]), SPOKE TO ELOY SANDOVAL AND GAVE REPORT
[2018-11-02] MEDS: DOCUSATE SODIUM 100 MG CAPSULE PO SCH (17:03)
--- NOTE | 2018-11-02 17:55 | NUR ---
MS RN NOTES PATIENT TO DISCHARGE TODAY TO [facility]. DISCHARGE INSTRUCTIONS AND EDUCATION PROVIDED. PATIENT LEFT UNIT AT 1750 VIA GURNEY WITH EMT. PATIENT IN STABLE CONDITION. NO ACUTE DISTRESS. DENIES ANY PAIN OR DISCOMFORT. NO NEW SKIN BREAKDOWN. NO MISSING BELONGINGS ON DISCHARGE. MD AWARE
== END 2018-11-02 18:04 | DRG 682 ==
LOC: ER 09:04 → MEDSG1 10:15 → MEDSG2 11-01 12:22
PROVIDERS: ADMIT Nurse Practitioner Acute Care; ATTEND Internal Medicine
DX: N17.0 Acute kidney failure with tubular necrosis (principal); G93.41 Metabolic encephalopathy; D68.59 Other primary thrombophilia; E86.0 Dehydration; D63.8 Anemia in other chronic diseases classified elsewhere; I10 Essential (primary) hypertension; J44.9 Chronic obstructive pulmonary disease, unspecified; I70.0 Atherosclerosis of aorta; F29 Unspecified psychosis not due to a substance or known physiological condition; Z74.09 Other reduced mobility; Z79.899 Other long term (current) drug therapy; R09.02 Hypoxemia; F20.9 Schizophrenia, unspecified; F31.9 Bipolar disorder, unspecified
CPT/HCPCS: 36415; 71045-TC; 80048-TC; 83735-TC; 83880; 84100-TC; 84484-TC; 85025-TC; 85730-TC; 87081-TC; 97110-TC; 97530-TC; G0378; J7040

== ENCOUNTER 2018-11-14 15:16 | Inpatient (IN) | payer MEDICARE, OTHER ==
[~2018-11-14] VITALS: Ht 177.8 cm; Wt 84.4 kg
[~2018-11-14 15:16] MED LIST changes: -ACET-73 PO; +ACET-868 PO; +AMIN30LI27 PO; +AMLO10TA4 PO; -AMLO10TA7 PO; +BENZ0.5T43 PO; +BISA10SU8 RC; +CLON0.1T PO; +DIVA250T4 PO; +DIVA500T2 PO; +DOCU-141 PO; +HALO5TAB8 PO; -HYDR-3028 PO; +IPRA3AMP23 IH; +LORA-259 PO; +MAGN400O6 PO; +NA P133E RC; -PRED20TA PO; -QUET25TA PO; +ZOLP5TAB2 PO; +[UNRECOGNIZED DRUG - CODE] PO
--- NOTE | 2018-11-14 15:24 | NUR ---
PT BIBRA FROM SNF FOR GEN WEAKNESS, PT AAOX2-3, PT ON MONITOR, PT TO BED 8, VSS, NAD NOTED. PENDING MD DURÁN
[2018-11-14 16:00] LABS: BASOPHILS # (AUTO) 0.1 /CMM (0.0-0.2); BASOPHILS % (AUTO) 0.7 % (0.0-2.0); EOSINOPHILS % (AUTO) 5.2 % (0.0-6.0); HEMATOCRIT 38 % (39-51); LYMPHOCYTES # (AUTO) 1.5 /CMM (0.8-4.8); LYMPHOCYTES % (AUTO) 18.8 % (20.0-44.0); MEAN CORPUSCULAR HGB CONC 32 g/dl (31.0-36.0); MEAN CORPUSCULAR VOLUME 92 fL (80-96); MONOCYTES # (AUTO) 0.9 /CMM (0.1-1.30); MONOCYTES % (AUTO) 10.8 % (2.0-12.0); NEUTROPHILS # (AUTO) 5.3 /CMM (1.8-8.9); NEUTROPHILS % (AUTO) 64.5 % (43.0-81.0); PLATELET COUNT (AUTO) 162 /CMM (150-450); WHITE BLOOD COUNT (AUTO) 8.1 K/uL (4.3-11.0)
[2018-11-14] MEDS ORDERED: IV NS 0.9% 500 ML BAG IV ONE (16:00)
[2018-11-14 16:06] LABS: CARBON DIOXIDE 27 mmol/L (21-32); CHLORIDE 111 mmol/L (98-107); CREATININE 1.9 mg/dL (0.6-1.3); GLUCOSE 138 mg/dL (74-106); POTASSIUM 4.6 mmol/L (3.5-5.1); SODIUM SERUM 149 mmol/L (136-145); UREA NITROGEN, BLOOD 67 mg/dL (7-18)
[2018-11-14] MEDS ORDERED: PANT40TA2 PO (16:06)
[2018-11-14] MEDS ORDERED: ONDA4TAB5 PO (16:06)
[2018-11-14] MEDS ORDERED: HYDR-4384 PO (16:06)
[2018-11-14] MEDS ORDERED: MAG30ORA PO (16:06)
[2018-11-14 16:12] LABS: ALANINE AMINOTRANSFERASE 25 U/L (12-78); ALKALINE PHOSPHATASE 75 U/L (46-116); ASPARTATE AMINOTRANSFERASE 47 U/L (15-37); BILIRUBIN,DIRECT 0.1 mg/dL (0.0-0.2); BILIRUBIN,TOTAL 0.4 mg/dL (0.2-1.0); TOTAL PROTEIN, SERUM 7.8 g/dL (6.4-8.2)
[2018-11-14 16:13] LABS: ALCOHOL, BLOOD < 3 mg/dL (0-0)
[2018-11-14 16:32] LABS: SERUM AMMONIA < 11 umol/L (11-32)
[2018-11-14 16:43] LABS: THYROID STIMULATING HORMONE 2.407 uIU/mL (0.358-3.74)
[2018-11-14] MEDS ORDERED: IV NS 0.9% 1,000 ML BAG IV ONE (17:00)
--- NOTE | 2018-11-14 17:12 | NUR ---
EPIC PAGED ANDONIAN FOR ADMISSION
--- NOTE | 2018-11-14 17:28 | NUR ---
PT IS MORE AWAKE,UNABLE TO PROVIDE URINE SAMPLE AT THIS TIME, DR LINDSEY MADE AWARE. WILL TRY AGAIN FOR URINE COLLECTION
--- NOTE | 2018-11-14 17:29 | NUR ---
PER DR. LINDSEY, CANCEL ORDER FOR STRAIGHT CATH, AND JUST WAIT UNTIL PT IS ABLE TO GIVE URINE SAMPLE
--- NOTE | 2018-11-14 17:32 | NUR ---
113-2 TELE DX ENCEPHALOPATHY, DEHYDRATION, ANDONIAN MD
[2018-11-14] MEDS ORDERED: LORAZEPAM 1 MG TABLET PO PRN (18:00)
[2018-11-14] MEDS ORDERED: Medication Not On Formulary EA (Ondansetron Hcl (Zofran) 4 MG) PO PRN (18:00)
[2018-11-14] MEDS ORDERED: HYDROCODONE/APAP 5/325MG 1 EACH TABLET PO PRN ×2 (18:00)
[2018-11-14] MEDS ORDERED: ACETAMINOPHEN 325 MG TABLET PO PRN ×2 (18:00)
[2018-11-14] MEDS ORDERED: MAGNESIUM HYDROXIDE 30 ML UDC PO PRN ×2 (18:00)
[2018-11-14] MEDS ORDERED: BISACODYL SUPP (10 MG) 10 MG/SUPP.RECT SUPP.RECT RC PRN (18:00)
[2018-11-14] MEDS ORDERED: CLONIDINE HCL 0.1 MG TABLET PO PRN (18:00)
[2018-11-14] MEDS ORDERED: ZOLPIDEM TARTRATE 5 MG TABLET PO PRN ×2 (18:00)
[2018-11-14] MEDS ORDERED: Z GUARD REMEDY 2 OZ OINT TP PRN (18:00)
[2018-11-14] MEDS ORDERED: MAG HYDROX/AL HYDROX/SIMETH 30 ML UDC PO PRN ×2 (18:00)
[2018-11-14] MEDS ORDERED: ONDANSETRON HCL/PF 4 MG/2 ML VIAL IVP PRN (18:00)
[2018-11-14] MEDS ORDERED: NA PHOS,M-B/NA PHOS,DI-BA 1 EA ENEMA RC PRN (18:00)
--- NOTE | 2018-11-14 18:41 | NUR ---
REPORT GIVEN TO JAIME MACHUCA FOR THAIS; PT WILL BE TRANSPORTED TO 1ST FLOOR VIA ACLS PROTOCOL
[2018-11-14 18:49] LABS: BILIRUBIN,URINE Negative (NEGATIVE); BLOOD, URINE Trace-intact Ery/uL (NEGATIVE); COLOR,URINE Yellow (YELLOW); KETONES,URINE Trace (NEGATIVE); LEUKOCYTE ESTERASE ,URINE Moderate (NEGATIVE); NITRITE, URINE Negative (NEGATIVE); PROTEIN,URINE Trace mg/dl (NEGATIVE); UGLUCOSE Negative (NEGATIVE); UROBILINOGEN,URINE 0.2 EU/dL (0.2)
--- NOTE | 2018-11-14 18:49 | NUR ---
RECEIVED REPORT FROM AARON ZELAYA. WILL ENDORSE TO NOC.
[2018-11-14 18:51] LABS: APPEARANCE,URINE SLIGHTLY CLOUDY (CLEAR)
[2018-11-14 19:00] LABS: BACTERIA,URINE Many /HPF (None Seen); SQUAMOUS EPITHELIAL CELL,UR Few /HPF (None Seen); WBC,URINE 21-50 /HPF (0-3)
[2018-11-14] MEDS ORDERED: IPRATROPIUM NEB FS 0.5 MG/2.5 ML AMPUL.NEB NEB PRN (19:00)
--- NOTE | 2018-11-14 19:00 | NUR ---
URINE COLLECTED AND SENT TO LAB
--- NOTE | 2018-11-14 19:10 | NUR ---
CLINICAL SPECIALIST NOTE: PT ADMITTED FROM ER VIA [facility] WITH ADMITTING DIAGNOSIS OF ACUTE ENCEPHALOPATHY. PT IS ALERT AND ORIENTED X2, ABLE TO MAKE NEEDS KNOWN. NO APPARENT DISTRESS NOTED AT THIS TIME. DENIES PAIN AND DISCOMFORT AT THIS TIME. ON ROOM AIR, SATURATING WELL. ON TELE MONITOR SINUS RHYTHM 84BPM. PT HAS AN IV ON HIS RIGHT ANTECUBITAL #20 INTACT AND PATENT, FLUSHING WELL. PERTINENT ASSESSMENTS DONE. SKIN IS INTACT. BELONGINGS LIST DONE. CALL LIGHT PLACED WITHIN REACH. KEPT CLEAN, DRY AND COMFORTABLE. SAFETY AND FALL PRECAUTIONS OBSERVED AND MAINTAINED. WILL CONTINUE TO MONITOR PT.
--- NOTE | 2018-11-14 19:19 | NUR ---
REPORT ENDORSED TO NOC
[2018-11-14 20:00] VITALS: BP 108/71
[2018-11-14] MEDS: IV NS 0.9% 1,000 ML IV SCH (20:03)
[2018-11-14] MEDS: PROSOURCE / PROSTAT (PYXIS) 30 ML UDC PO SCH (20:06)
[2018-11-14] MEDS: DIVALPROEX SODIUM 500 MG TABLET.DR PO SCH (21:12)
[2018-11-15] VITALS: BP 138/85
[2018-11-15 04:00] VITALS: BP 123/72
[2018-11-15] MEDS: IV NS 0.9% 1,000 ML IV SCH (04:05)
[2018-11-15 06:27] LABS: BASOPHILS % (AUTO) 0.4 % (0.0-2.0); EOSINOPHILS % (AUTO) 5.9 % (0.0-6.0); HEMATOCRIT 36 % (39-51); HEMOGLOBIN 11.5 g/dL (13.5-17.5); LYMPHOCYTES # (AUTO) 1.3 /CMM (0.8-4.8); LYMPHOCYTES % (AUTO) 20.9 % (20.0-44.0); MEAN CORPUSCULAR HGB CONC 32 g/dl (31.0-36.0); MEAN CORPUSCULAR VOLUME 92 fL (80-96); MONOCYTES # (AUTO) 0.7 /CMM (0.1-1.30); MONOCYTES % (AUTO) 10.4 % (2.0-12.0); NEUTROPHILS % (AUTO) 62.4 % (43.0-81.0); PLATELET COUNT (AUTO) 137 /CMM (150-450); RED BLOOD CELL COUNT(AUTO) 3.96 MIL/uL (4.5-6.0); WHITE BLOOD COUNT (AUTO) 6.3 K/uL (4.3-11.0)
--- NOTE | 2018-11-15 06:41 | NUR ---
CARTON FILLING MACHINE OPERATOR NOTE: NO CHANGES NOTED THROUGHOUT THE SHIFT. NO APPARENT DISTRESS NOTED. NO COMPLAINTS OF PAIN OR DISCOMFORT AT THIS TIME. ON TELE MONITOR SINUS RHYTHM 86BPM. IV ON RIGHT ANTECUBITAL #20 INTACT AND PATENT, IVF INFUSING WELL. CALL LIGHT PLACED WITHIN REACH. KEPT CLEAN, DRY AND COMFORTABLE. SIDE RAILS UP X3. BED ALARM ON. BED LOCKED AND IN LOWEST POSITION. WILL ENDORSE TO DAY SHIFT RN FOR CONTINUITY OF CARE.
[2018-11-15 06:51] LABS: CALCIUM, SERUM 8.3 mg/dL (8.5-10.1); CARBON DIOXIDE 28 mmol/L (21-32); CHLORIDE 114 mmol/L (98-107); CREATININE 1.4 mg/dL (0.6-1.3); GLUCOSE 103 mg/dL (74-106); MAGNESIUM 2.6 mg/dL (1.8-2.4); PHOSPHORUS 3.3 mg/dL (2.5-4.9); POTASSIUM 4.5 mmol/L (3.5-5.1); SODIUM SERUM 150 mmol/L (136-145); UREA NITROGEN, BLOOD 59 mg/dL (7-18)
[2018-11-15 06:58] LABS: CHOLESTEROL 142 mg/dL (<200); HDL CHOLESTEROL 29 mg/dL (40-60); LDL 97 mg/dL (0-99); TRIGLYCERIDES 104 mg/dL (30-150)
--- NOTE | 2018-11-15 07:00 | NUR ---
RN NOTES RECEIVED PT ON BED, ALERT AND ORIENTED X2, ABLE TO MAKE NEEDS KNOWN. ON RA , NO SOB NOTED, ON TELE MONITOR SINUS RHYTHM HR IN 80'S , R AC IV SITE G 20 CLEAN, DRY AND INTACT WITH NS AT 100CC/HR RUNNING ,SR UP x3, CALL LIGHT WITHIN EASY REACH, BED LOCKED AND IN LOWEST POSITION , SAFETY AND FALL PRECAUTIONS OBSERVED AND MAINTAINED. WILL CONTINUE TO MONITOR CLOSELY.
[2018-11-15 08:00] VITALS: BP_SYST 128; BP_SYST 129; BP_DIAS 81
[2018-11-15] MEDS: ENSURE CLEAR 237 ML LIQUID (MIX BERRY) PO SCH ×4 (08:00→16:31)
[2018-11-15] MEDS: HALOPERIDOL 5 MG TABLET PO SCH ×2 (08:32→16:29)
[2018-11-15] MEDS: DOCUSATE SODIUM 100 MG CAPSULE PO SCH (08:32)
[2018-11-15] MEDS: BENZTROPINE MESYLATE (1 MG) 1 MG TABLET PO SCH ×2 (08:32→16:29)
[2018-11-15] MEDS: DIVALPROEX SODIUM 250 MG TABLET.DR PO SCH (08:33)
[2018-11-15] MEDS: AMLODIPINE BESYLATE 10 MG TABLET PO SCH (08:34)
[2018-11-15] MEDS: PANTOPRAZOLE 40 MG TABLET.DR PO SCH (08:34)
[2018-11-15] MEDS: LOSARTAN POTASSIUM 25 MG TABLET PO SCH (08:34)
[2018-11-15] MEDS: PROSOURCE / PROSTAT (PYXIS) 30 ML UDC PO SCH (08:38)
--- NOTE | 2018-11-15 11:00 | NUR ---
RN NOTES PT APPETITE, DR SMITH NOTIFIED , ENCOURAGED PO INTAKE .
[2018-11-15] MEDS: IV D5/0.45 NACL 1,000 ML IV SCH ×2 (11:39→21:15)
[2018-11-15] MEDS: CEFTRIAXONE 1 G in IV D5W 50 ML IV SCH (11:47)
[2018-11-15 12:00] VITALS: BP 124/72
[2018-11-15 16:00] VITALS: BP 131/82
--- NOTE | 2018-11-15 18:38 | NUR ---
RN NOTES NO SIGNIFICANT CHANGES NOTED ON THIS SHIFT, WILL ENDORSE TO TELEPHONE SERVICES SALES REPRESENTATIVE NURSE FOR CONTINUITY OF CARE
--- NOTE | 2018-11-15 19:57 | NUR ---
VASCULAR MANAGER NOTE: RECEIVED PT ON BED ALERT AND ORIENTED TO HIMSELF. NO APPARENT DISTRESS NOTED. NO COMPLAINTS OF PAIN OR DISCOMFORT AT THIS TIME. NO SOB NOTED. SINUS RHYTHM ON TELE MONITOR HR 90BPM. IV ON RIGHT ANTECUBITAL #20 INTACT AND PATENT, IVF INFUSING WELL. CALL LIGHT PLACED WITHIN REACH. KEPT CLEAN, DRY AND COMFORTABLE. SAFETY AND FALL PRECAUTIONS OBSERVED AND MAINTAINED. WILL CONTINUE TO MONITOR PT.
[2018-11-15 20:00] VITALS: BP 136/71
[2018-11-15] MEDS: DIVALPROEX SODIUM 500 MG TABLET.DR PO SCH (21:17)
[2018-11-16] VITALS: BP 118/65
[2018-11-16 04:00] VITALS: BP 130/65
--- NOTE | 2018-11-16 06:49 | NUR ---
SENIOR BENEFITS ANALYST NOTE: NO CHANGES NOTED THROUGHOUT THE SHIFT. PT HAD EPISODES OF AGITATION BUT NO COMPLAINTS OF PAIN OR DISCOMFORT AT THIS TIME. ON TELE MONITOR SINUS RHYTHM 80BPM. IV ON RIGHT ANTECUBITAL #20 INTACT AND PATENT, IVF INFUSING WELL. CALL LIGHT PLACED WITHIN REACH. KEPT CLEAN, DRY AND COMFORTABLE. SIDE RAILS UP X3. BED ALARM ON. BED LOCKED AND IN LOWEST POSITION. WILL ENDORSE TO DAY SHIFT RN FOR CONTINUITY OF CARE.
[2018-11-16] MEDS: IV D5/0.45 NACL 1,000 ML IV SCH (06:54)
--- NOTE | 2018-11-16 07:36 | NUR ---
DIAGNOSTICS TECH NOTE RECEIVED PT IN BED, ALERT AND ORIENTED TO SELF. NO ACUTE DISTRESS NOTED, BREATHING IS EVEN AND UNLABORED ON ROOM AIR. PT IS ON INDUSTRIAL AUTOMATION ENGINEER WITH SINUS RHYTHM WITH OCCASIONAL PVC, HR 86. RIGHT AC #20G IV IS INFUSING 1/2 NS @ 100ML/HR WITHOUT REDNESS OR SWELLING. PT IS REFUSING LAB DRAW AT THIS TIME, LEAD C DEVELOPER WILL ATTEMPT REDRAW LATER THIS MORNING. ASPIRATION PRECAUTIONS MAINTAINED. BED IS LOCKED AND IN LOWEST POSITION, SIDE RAILS UP X3, BED ALARM ON, CALL LIGHT AND POSSESSIONS WITHIN REACH.
[2018-11-16 07:48] LABS: BASOPHILS % (AUTO) 0.6 % (0.0-2.0); EOSINOPHILS % (AUTO) 4.5 % (0.0-6.0); HEMATOCRIT 37 % (39-51); HEMOGLOBIN 11.8 g/dL (13.5-17.5); LYMPHOCYTES # (AUTO) 1.3 /CMM (0.8-4.8); LYMPHOCYTES % (AUTO) 20.5 % (20.0-44.0); MEAN CORPUSCULAR HGB CONC 32 g/dl (31.0-36.0); MEAN CORPUSCULAR VOLUME 92 fL (80-96); MONOCYTES # (AUTO) 0.7 /CMM (0.1-1.30); MONOCYTES % (AUTO) 10.7 % (2.0-12.0); NEUTROPHILS % (AUTO) 63.7 % (43.0-81.0); PLATELET COUNT (AUTO) 128 /CMM (150-450); RED BLOOD CELL COUNT(AUTO) 4.06 MIL/uL (4.5-6.0); WHITE BLOOD COUNT (AUTO) 6.3 K/uL (4.3-11.0)
[2018-11-16 08:00] VITALS: BP 147/86
[2018-11-16] MEDS: HALOPERIDOL 5 MG TABLET PO SCH ×2 (08:19→16:27)
[2018-11-16] MEDS: PANTOPRAZOLE 40 MG TABLET.DR PO SCH (08:19)
[2018-11-16] MEDS: DOCUSATE SODIUM 100 MG CAPSULE PO SCH (08:20)
[2018-11-16] MEDS: DIVALPROEX SODIUM 250 MG TABLET.DR PO SCH (08:20)
[2018-11-16] MEDS: LOSARTAN POTASSIUM 25 MG TABLET PO SCH (08:20)
[2018-11-16] MEDS: AMLODIPINE BESYLATE 10 MG TABLET PO SCH (08:20)
[2018-11-16] MEDS: BENZTROPINE MESYLATE (1 MG) 1 MG TABLET PO SCH ×2 (08:20→16:27)
[2018-11-16] MEDS: ENSURE CLEAR 237 ML LIQUID (MIX BERRY) PO SCH ×3 (08:20→16:27)
[2018-11-16] MEDS: PROSOURCE / PROSTAT (PYXIS) 30 ML UDC PO SCH (08:21)
--- NOTE | 2018-11-16 10:00 | NUR ---
GRASSROOTS ORGANIZER NOTE INFORMED BY LAB THAT BLOOD SAMPLE HEMOLYZED AND ADDITIONAL LAB DRAW REQUIRED. PT REFUSING LAB DRAW AT THIS TIME. TECH WILL ATTEMPT AGAIN LATER.
--- NOTE | 2018-11-16 10:36 | NUR ---
HIGHWAY PAINTER NOTE PT STILL REFUSING LABS. WILL INFORM HOSPITALIST.
[2018-11-16] MEDS ORDERED: IV D5/0.45 NACL 1,000 ML IV PRN (11:00)
[2018-11-16] MEDS: CEFTRIAXONE 1 G in IV D5W 50 ML IV SCH (11:01)
[2018-11-16 12:00] VITALS: BP 146/90
[2018-11-16] MEDS: MEROPENEM 1 G in IV NS 0.9% 100 ML IV SCH ×2 (13:24→21:25)
[2018-11-16 16:00] VITALS: BP 140/78
--- NOTE | 2018-11-16 18:19 | NUR ---
SPOOL WINDER CLOSING NOTE PT IN BED, ALERT AND ORIENTED TO SELF. NO ACUTE DISTRESS NOTED, BREATHING IS EVEN AND UNLABORED ON ROOM AIR. PT IS ON AGRONOMY INTERNSHIP WITH SINUS TACH WITH OCCASIONAL PVC, HR 102 THROUGHOUT THE SHIFT. RIGHT AC #20G IV IS INFUSING 1/2 NS @ 100ML/HR WITHOUT REDNESS OR SWELLING. ADLS PROVIDED AND PT ASSISTED TO TURN AND REPOSITION Q2H FOR THE DURATION OF THE SHIFT. ASPIRATION PRECAUTIONS MAINTAINED. BED IS LOCKED AND IN LOWEST POSITION, SIDE RAILS UP X3, BED ALARM ON, CALL LIGHT AND POSSESSIONS WITHIN REACH. WILL ENDORSE TO UI LEAD DEVELOPER NURSE FOR CONTINUITY OF CARE.
--- NOTE | 2018-11-16 19:30 | NUR ---
INSTRUCTOR MILITARY SCIENCE NOTE: RECEIVED PT ON BED ALERT AND ORIENTED TO HIMSELF. NO APPARENT DISTRESS NOTED. NO COMPLAINTS OF PAIN OR DISCOMFORT AT THIS TIME. NO SOB NOTED. SINUS RHYTHM ON TELE MONITOR HR 75BPM. IV LINE GOT INFILTRATED, REINSERTED NEW IV LINE ON LEFT WRIST #22, NO SIGNS/SYMPOTMS OF INFILTRATION NOTED, FLUSHING WELL. CALL LIGHT PLACED WITHIN REACH. KEPT CLEAN, DRY AND COMFORTABLE. SAFETY AND FALL PRECAUTIONS OBSERVED AND MAINTAINED. WILL CONTINUE TO MONITOR PT.
[2018-11-16 20:00] VITALS: BP 135/74
[2018-11-16] MEDS: DIVALPROEX SODIUM 500 MG TABLET.DR PO SCH (21:25)
[2018-11-16 23:35] LABS: CALCIUM, SERUM 8.4 mg/dL (8.5-10.1); CARBON DIOXIDE 28 mmol/L (21-32); CHLORIDE 110 mmol/L (98-107); CREATININE 1.2 mg/dL (0.6-1.3); GLUCOSE 143 mg/dL (74-106); POTASSIUM 3.5 mmol/L (3.5-5.1); SODIUM SERUM 146 mmol/L (136-145); UREA NITROGEN, BLOOD 33 mg/dL (7-18)
[2018-11-17] VITALS: BP 123/69
[2018-11-17 04:00] VITALS: BP 144/70
[2018-11-17] MEDS: MEROPENEM 1 G in IV NS 0.9% 100 ML IV SCH ×2 (04:44→12:56)
--- NOTE | 2018-11-17 06:44 | NUR ---
CARTON COUNTER FEEDER NOTE: NO CHANGES NOTED THROUGHOUT THE SHIFT. NO APPARENT DISTRESS NOTED. DENIES PAIN AND DISCOMFORT AT THIS TIME. ON TELE MONITOR SINUS RHYTHM 80BPM. IV ON LEFT WRIST #22 INTACT AND PATENT, IVF INFUSING WELL. CALL LIGHT PLACED WITHIN REACH. KEPT CLEAN, DRY AND COMFORTABLE. SIDE RAILS UP X3. BED ALARM ON. BED LOCKED AND IN LOWEST POSITION. WILL ENDORSE TO DAY SHIFT RN FOR CONTINUITY OF CARE.
--- NOTE | 2018-11-17 07:10 | NUR ---
TRUCK ENGINE TECHNICIAN OPENING NOTES REPORT RECEIVED. NO CHANGES NOTED THROUGHOUT THE SHIFT. NO APPARENT DISTRESS NOTED. DENIES PAIN AND DISCOMFORT AT THIS TIME. ON TELE MONITOR SINUS RHYTHM 80BPM. IV ON LEFT WRIST #22 INTACT AND PATENT, IVF INFUSING WELL. CALL LIGHT PLACED WITHIN REACH. KEPT CLEAN, DRY AND COMFORTABLE. SIDE RAILS UP X3. BED ALARM ON. BED LOCKED AND IN LOWEST POSITION. WILL CONTINUE TO MONITOR.
[2018-11-17 08:00] VITALS: BP 144/77
[2018-11-17 09:32] VITALS: BP 144/77
[2018-11-17] MEDS: HALOPERIDOL 5 MG TABLET PO SCH (09:32)
[2018-11-17] MEDS: LOSARTAN POTASSIUM 25 MG TABLET PO SCH (09:32)
[2018-11-17] MEDS: AMLODIPINE BESYLATE 10 MG TABLET PO SCH (09:32)
[2018-11-17] MEDS: DIVALPROEX SODIUM 250 MG TABLET.DR PO SCH (09:32)
[2018-11-17] MEDS: BENZTROPINE MESYLATE (1 MG) 1 MG TABLET PO SCH (09:32)
[2018-11-17] MEDS: DOCUSATE SODIUM 100 MG CAPSULE PO SCH (09:32)
[2018-11-17] MEDS: PANTOPRAZOLE 40 MG TABLET.DR PO SCH (09:32)
[2018-11-17] MEDS: ENSURE CLEAR 237 ML LIQUID (MIX BERRY) PO SCH ×2 (09:33→12:56)
[2018-11-17] MEDS: PROSOURCE / PROSTAT (PYXIS) 30 ML UDC PO SCH (09:33)
--- NOTE | 2018-11-17 15:53 | NUR ---
RN D/C NOTES PT SKIN INTACT. REPORT GIVEN TO LEAH SANDOVAL AT [facility] RECEIVING [facility]AC[facility]. PT IV REMOVED. BELONGINGS GIVEN TO EMT'S WAS REPORT AND EXITCARE. PT DENIES ANY SOB AT PRESENT TIME. LAST VITALS TAKEN BP 138/78 HR78 SPO2 98% RR18. PT IS BEING TRANSPORTED BY AMBULANCE.
== END 2018-11-17 15:55 | DRG 682 ==
LOC: ER 15:17 → TELE1 18:07
PROVIDERS: ADMIT Family Medicine; ATTEND Nurse Practitioner Acute Care
DX: N17.0 Acute kidney failure with tubular necrosis (principal); G93.41 Metabolic encephalopathy; N39.0 Urinary tract infection, site not specified; E44.1 Mild protein-calorie malnutrition; E87.0 Hyperosmolality and hypernatremia; I69.354 Hemiplegia and hemiparesis following cerebral infarction affecting left non-dominant side; N18.9 Chronic kidney disease, unspecified; I12.9 Hypertensive chronic kidney disease with stage 1 through stage 4 chronic kidney disease, or unspecified chronic kidney disease; R26.9 Unspecified abnormalities of gait and mobility; Z91.018 Allergy to other foods; Z79.899 Other long term (current) drug therapy; E86.1 Hypovolemia; R73.9 Hyperglycemia, unspecified; F20.9 Schizophrenia, unspecified; F41.9 Anxiety disorder, unspecified; F31.9 Bipolar disorder, unspecified; J44.9 Chronic obstructive pulmonary disease, unspecified; E83.41 Hypermagnesemia; D63.8 Anemia in other chronic diseases classified elsewhere; B96.89 Other specified bacterial agents as the cause of diseases classified elsewhere; W05.0XXA Fall from non-moving wheelchair, initial encounter; Y92.129 Unspecified place in nursing home as the place of occurrence of the external cause
CPT/HCPCS: 36415; 70450-TC; 71045-TC; 72125-TC; 80048-TC; 80061-TC; 80076-TC; 80164-TC; 80305; 81000-TC; 82140-TC; 83735-TC; 84100-TC; 84443-TC; 84484-TC; 85025-TC; 85730-TC; 87081-TC; 87086-TC; 87186-TC; G0378; G0480; J0696; J2185; J3490; J7030; J7040; J7050; J7060

== ENCOUNTER 2018-11-28 12:38 | Inpatient (IN) | payer MEDICARE, OTHER ==
[~2018-11-28] VITALS: Ht 182.9 cm; Wt 86.6 kg
[~2018-11-28 12:38] MED LIST changes: +BISA10SU11 RC; -BISA10SU8 RC; +HYDR-4384 PO; +MAG30ORA PO; +ONDA4TAB5 PO; +PANT40TA2 PO
--- NOTE | 2018-11-28 12:47 | NUR ---
PT BIBPA FROM SNF FOR LETHARGY AND POOR PO INTAKE; PT VERBALLY RESPONSIVE, PT TO BED 6, PT ON MONITOR, VSS, NAD NOTED, PENDING MD DURÁN
[2018-11-28] MEDS ORDERED: PIPERACILLIN /TAZOBACTAM 3.375 G in IV D5W 50 ML IV ONE (13:00)
[2018-11-28] MEDS ORDERED: PIPERACILLIN /TAZOBACTAM 3.375 G VIAL IV ONE (13:27)
[2018-11-28 13:43] LABS: BASOPHILS % (AUTO) 0.5 % (0.0-2.0); EOSINOPHILS % (AUTO) 1.9 % (0.0-6.0); HEMATOCRIT 40 % (39-51); HEMOGLOBIN 12.9 g/dL (13.5-17.5); LYMPHOCYTES # (AUTO) 0.9 /CMM (0.8-4.8); LYMPHOCYTES % (AUTO) 11.1 % (20.0-44.0); MEAN CORPUSCULAR HGB CONC 32 g/dl (31.0-36.0); MEAN CORPUSCULAR VOLUME 89 fL (80-96); MONOCYTES # (AUTO) 0.7 /CMM (0.1-1.30); MONOCYTES % (AUTO) 7.9 % (2.0-12.0); NEUTROPHILS # (AUTO) 6.7 /CMM (1.8-8.9); NEUTROPHILS % (AUTO) 78.6 % (43.0-81.0); PLATELET COUNT (AUTO) 281 /CMM (150-450); RED BLOOD CELL COUNT(AUTO) 4.48 MIL/uL (4.5-6.0); WHITE BLOOD COUNT (AUTO) 8.5 K/uL (4.3-11.0)
--- NOTE | 2018-11-28 13:53 | NUR ---
CALLED [facility]. SENIOR ECONOMIST WAS PAGED
[2018-11-28 13:54] LABS: CALCIUM, SERUM 9.1 mg/dL (8.5-10.1); CARBON DIOXIDE 24 mmol/L (21-32); CHLORIDE 104 mmol/L (98-107); CREATININE 1.1 mg/dL (0.6-1.3); GLUCOSE 106 mg/dL (74-106); POTASSIUM 4.3 mmol/L (3.5-5.1); SODIUM SERUM 142 mmol/L (136-145); UREA NITROGEN, BLOOD 23 mg/dL (7-18)
--- NOTE | 2018-11-28 13:54 | NUR ---
Dawood goodson in [facility] - 11/28/18 at 1354 by VICKIE CALLED [employer]OO[address]OR[address] DR GISELLE BAR
[2018-11-28 13:59] LABS: ALANINE AMINOTRANSFERASE 50 U/L (12-78); ALBUMIN 2.4 g/dL (3.4-5.0); ALKALINE PHOSPHATASE 86 U/L (46-116); ASPARTATE AMINOTRANSFERASE 28 U/L (15-37); BILIRUBIN,DIRECT 0.2 mg/dL (0.0-0.2); BILIRUBIN,TOTAL 0.7 mg/dL (0.2-1.0); TOTAL PROTEIN, SERUM 7.4 g/dL (6.4-8.2)
--- NOTE | 2018-11-28 14:01 | NUR ---
CALLED [facility] FOR TELE BED
[2018-11-28 14:14] LABS: APPEARANCE,URINE Clear (CLEAR); BILIRUBIN,URINE SMALL (NEGATIVE); BLOOD, URINE Negative Ery/uL (NEGATIVE); COLOR,URINE Yellow (YELLOW); KETONES,URINE 40 (NEGATIVE); LEUKOCYTE ESTERASE ,URINE Negative (NEGATIVE); NITRITE, URINE Negative (NEGATIVE); PROTEIN,URINE 100 mg/dl (NEGATIVE); UGLUCOSE Negative (NEGATIVE); UROBILINOGEN,URINE 0.2 EU/dL (0.2)
--- NOTE | 2018-11-28 14:28 | NUR ---
TELE BED 312-1 GIVEN
--- NOTE | 2018-11-28 14:45 | NUR ---
DEMETRIUS TGIVEN TO FARHAT SANDOVAL FOR THAIS; PT WILL BE TRANSPORTED TO [address] [place] [address] VIA ACLS PROTOCOL
[2018-11-28 15:00] VITALS: BP 137/94
[2018-11-28] MEDS ORDERED: BISACODYL SUPP (10 MG) 10 MG/SUPP.RECT SUPP.RECT RC PRN (15:00)
[2018-11-28] MEDS ORDERED: CEFTRIAXONE 1 G in IV D5W 50 ML IV SCH (15:00)
[2018-11-28] MEDS ORDERED: NA PHOS,M-B/NA PHOS,DI-BA 1 EA ENEMA RC PRN (15:00)
[2018-11-28] MEDS ORDERED: CLONIDINE HCL 0.1 MG TABLET PO PRN (15:00)
[2018-11-28] MEDS ORDERED: ZOLPIDEM TARTRATE 5 MG TABLET PO PRN (15:00)
[2018-11-28] MEDS ORDERED: ACETAMINOPHEN 325 MG TABLET PO PRN (15:00)
[2018-11-28] MEDS ORDERED: Z GUARD REMEDY 2 OZ OINT TP PRN (15:00)
[2018-11-28] MEDS ORDERED: MAG HYDROX/AL HYDROX/SIMETH 30 ML UDC PO PRN ×2 (15:00)
[2018-11-28] MEDS ORDERED: MAGNESIUM HYDROXIDE 30 ML UDC PO PRN ×2 (15:00)
[2018-11-28] MEDS ORDERED: ONDANSETRON HCL/PF 4 MG/2 ML VIAL IVP PRN (15:00)
[2018-11-28] MEDS ORDERED: HYDROCODONE/APAP 5/325MG 1 EACH TABLET PO PRN (15:00)
[2018-11-28] MEDS ORDERED: LORAZEPAM 1 MG TABLET PO PRN (15:00)
--- NOTE | 2018-11-28 15:05 | NUR ---
BASEBALL PITCHER NOTES RECEIVED REPORT FROM AARON SANDOVAL FOR THAIS. RECEIVED PATIENT IN BED, AWAKE AND RESPONSIVE TO VERBAL STIMULI. PATIENT IS ALERT TO SELF. PATIENT SPEECH IS INCOHERENT WITH MUMBLING SPEECH. PATIENT ON OXYGEN NC 2L SATURATING AT 100%. PATIENT BREATHING IS EVEN. PATIENT IN NO ACUTE DISTRESS. VITAL SIGNS STABLE. PATIENT ON CARDIAC MONITORING, SINUS TACHYCARDIA 122. CONTACTED MD OF PATIENTS ARRIVAL. PATIENT BED IS LOCKED AND IN LOWEST POSITION. BED ALARM ON. PATIENT CALL LIGHT IS WITHIN REACH. WILL CONTINUE TO MONITOR.
[2018-11-28] MEDS ORDERED: ALBUTEROL FS 2.5 MG/3 ML VIAL.NEB NEB PRN (15:30)
[2018-11-28 16:00] VITALS: BP 123/72
[2018-11-28] MEDS ORDERED: MEROPENEM 500 MG in IV NS 0.9% 50 ML IV ONE (16:30)
[2018-11-28] MEDS: IV D5/0.45 NACL 1,000 ML IV PRN (16:47)
[2018-11-28] MEDS: PROSOURCE / PROSTAT (PYXIS) 30 ML UDC PO SCH (17:00)
[2018-11-28] MEDS: HALOPERIDOL 5 MG TABLET PO SCH (18:27)
[2018-11-28] MEDS: BENZTROPINE MESYLATE (1 MG) 1 MG TABLET PO SCH (18:27)
[2018-11-28] MEDS: ENOXAPARIN SODIUM 40 MG/0.4 ML DISP.SYRIN SQ SCH (18:28)
--- NOTE | 2018-11-28 19:39 | NUR ---
TELE/RN OPENING NOTES RECEIVED PATIENT IN BED. RESTING COMFORTABLY IN BED, RESPIRATIONS EVEN AND UNLABORED. SKIN WARM TO TOUCH, ON OXYGEN VIA NASAL CANULA AT 2L, TELE ST 112, INCONTINENTM SOME MOOD CHANGES DUE TO PSYCH HISTORY, BIPOLAR, REQUIRE ASSISTANCE AND MONITORING, WILL KEEP SKIN INTACT AND DRY, RECEIVED REPORT FROM AM RN FOR THAIS. IN ON LEFT HAND PATENT WITH IV D5 1/2 NS AT 75 CC/HR, . BED LOCKED, CALL LIGHTS, BED ALARM ON.
--- NOTE | 2018-11-28 19:40 | NUR ---
OPTOMECHANICAL TECHNICIAN NOTES PATIENT RESTING IN BED, PATIENT BREATHING ON OXYGEN NC AT 2L. PATIENT BREATHING IS EVEN AND UNLABORED. PATIENT IN NO ACUTE DISTRESS. NO SOB NOTED. PATIENT KEPT CLEAN, DRY, AND COMFORTABLE. PATIENT IV IS INTACT. PATIENT BED ALARM IS ON. PATIENT IS ON CARDIAC MONITORING WITH SINUS TACHYCARDIA 117. PATIENT BED IS LOCKED AND IN LOW POSITION. ALL NURSING NEEDS MET. SAFETY PRECAUTIONS IN PLACE. PATIENT CALL LIGHT WITHIN REACH. ENDORSED CARE TO PM SHIFT FOR THAIS.
[2018-11-28 20:00] VITALS: BP 113/67
[2018-11-28 20:13] VITALS: BP 113/67
[2018-11-28] MEDS: DIVALPROEX SODIUM 500 MG TABLET.DR PO SCH (21:18)
[2018-11-29] VITALS (7 sets, daily range): BP systolic 113–141; BP diastolic 66–76
--- NOTE | 2018-11-29 02:01 | NUR ---
TELE/READING PATIENT ASLEEP ,INCONTINENT HAD URINATED IN DIAPER.
[2018-11-29] MEDS: MEROPENEM 500 MG in IV NS 0.9% 100 ML IV SCH ×2 (05:16→16:58)
--- NOTE | 2018-11-29 05:21 | NUR ---
TELE/READING ANDONIAN MADE AWARE REGARDING PATIENT COMPLAIN OF ABDOMINAL PAIN, , UNABLE TO URINATE ADEQUATELY DURING THE SHIFT, S/P MD AKIL ORDER FOR BLADDER SCAN AND MAY USE STRAIGHT CATHERIZATION IF URINE RETENTION IS GRATER OR EQUAL TO 200 CC, PATINET URINE RETENTION OF 273 AND STRAIGHT CATHERIZATION DONE WITH URINE OUT PUT OF 300ML. PATIENT TOLERATED PROCEDURE. WILL MONITOR.
[2018-11-29 06:33] LABS: BASOPHILS % (AUTO) 0.3 % (0.0-2.0); EOSINOPHILS % (AUTO) 5.5 % (0.0-6.0); HEMATOCRIT 33 % (39-51); HEMOGLOBIN 10.6 g/dL (13.5-17.5); LYMPHOCYTES # (AUTO) 1.5 /CMM (0.8-4.8); LYMPHOCYTES % (AUTO) 17.5 % (20.0-44.0); MEAN CORPUSCULAR HGB CONC 32 g/dl (31.0-36.0); MEAN CORPUSCULAR VOLUME 88 fL (80-96); MONOCYTES # (AUTO) 0.8 /CMM (0.1-1.30); MONOCYTES % (AUTO) 9.5 % (2.0-12.0); NEUTROPHILS # (AUTO) 5.6 /CMM (1.8-8.9); NEUTROPHILS % (AUTO) 67.2 % (43.0-81.0); PLATELET COUNT (AUTO) 250 /CMM (150-450); RED BLOOD CELL COUNT(AUTO) 3.74 MIL/uL (4.5-6.0); WHITE BLOOD COUNT (AUTO) 8.3 K/uL (4.3-11.0)
[2018-11-29 06:39] LABS: APPEARANCE,URINE SL CLOUDY (CLEAR); BILIRUBIN,URINE 1+ (NEGATIVE); BLOOD, URINE 2+ Ery/uL (NEGATIVE); KETONES,URINE TRACE (NEGATIVE); LEUKOCYTE ESTERASE ,URINE NEGATIVE (NEGATIVE); NITRITE, URINE NEGATIVE (NEGATIVE); PROTEIN,URINE TRACE mg/dl (NEGATIVE); UGLUCOSE NEGATIVE (NEGATIVE); UROBILINOGEN,URINE 0.2 EU/dL (0.2)
[2018-11-29 06:44] LABS: CALCIUM, SERUM 8.3 mg/dL (8.5-10.1); CARBON DIOXIDE 26 mmol/L (21-32); CHLORIDE 107 mmol/L (98-107); CREATININE 1.2 mg/dL (0.6-1.3); GLUCOSE 112 mg/dL (74-106); PHOSPHORUS 3.9 mg/dL (2.5-4.9); POTASSIUM 3.7 mmol/L (3.5-5.1); SODIUM SERUM 142 mmol/L (136-145); UREA NITROGEN, BLOOD 27 mg/dL (7-18)
[2018-11-29 06:53] LABS: COLOR,URINE DARK YELLOW (YELLOW)
[2018-11-29 06:56] LABS: BACTERIA,URINE Few /HPF (None Seen); HYALINE CASTS, URINE Few /LPF (None Seen); MUCUS,URINE Few /LPF (None Seen); RBC,URINE 51-80 /HPF (0-2); SQUAMOUS EPITHELIAL CELL,UR Few /HPF (None Seen)
--- NOTE | 2018-11-29 07:34 | NUR ---
312-1T/TELE/RN NOTES PATIENT ABLE TO SLEEP DURING THE NIGHT, MONITORED FOR ANY CHANGES, KEPT COMFORTABLE, IV FLUIDS RUNNING, REQUIRE MONITORING. BED LOCKED, CALL LIGHTS WITHIN REACH. WILL ENDORSE TO AM RN FOR THAIS.
[2018-11-29] MEDS: IV D5/0.45 NACL 1,000 ML IV PRN (07:56)
--- NOTE | 2018-11-29 08:00 | NUR ---
INTERNAL CONTROL MANAGER OPENING NOTES Received Patient asleep and comfortable in bed. A/O x 1. VS stable with no acute distress. Breathing even and unlabored on 2LPM via NC SPO2 94%. Denies pain. Telemonitor in place and operational, reading SINUS TACH HR-108. 20g PIV on LEFT HAND clean, dry, intact and flushing well with IVF D51/2NS running at 75ml/hr. Sacral wound noted. Applied Z-guard and Mepilex on Sacrum and repositioned on right side. Safety precautions in place. Bed locked and set to lowest position with side rails x 3 up. All needs rendered at this time. Will continue to monitor.
[2018-11-29] MEDS: BENZTROPINE MESYLATE (1 MG) 1 MG TABLET PO SCH ×2 (08:56→16:58)
[2018-11-29] MEDS: PANTOPRAZOLE 40 MG TABLET.DR PO SCH (08:56)
[2018-11-29] MEDS: DOCUSATE SODIUM 100 MG CAPSULE PO SCH (08:56)
[2018-11-29] MEDS: HALOPERIDOL 5 MG TABLET PO SCH ×2 (08:57→16:58)
[2018-11-29] MEDS: DIVALPROEX SODIUM 250 MG TABLET.DR PO SCH (08:57)
[2018-11-29] MEDS: AMLODIPINE BESYLATE 10 MG TABLET PO SCH (08:57)
[2018-11-29] MEDS: LOSARTAN POTASSIUM 25 MG TABLET PO SCH (08:58)
[2018-11-29] MEDS: PROSOURCE / PROSTAT (PYXIS) 30 ML UDC PO SCH (09:07)
--- NOTE | 2018-11-29 10:00 | NUR ---
MS RN NOTES Noted LEFT HEEL DTI. Pictures taken and placed in chart. Will continue to monitor.
[2018-11-29] MEDS: MULTIVITAMINS,THERAGRAN 1 UDTAB TABLET PO SCH (10:30)
[2018-11-29] MEDS: ENSURE ENLIVE 237 ML LIQUID (VANILLA) PO SCH ×2 (10:30→16:58)
[2018-11-29] MEDS: HYDROGEL DRESSING 90 GM TUBE TP SCH ×2 (18:13→21:10)
[2018-11-29] MEDS: NEOMY SULF/BACITRAC ZN/POLY 15 GM TUBE TP SCH (18:14)
--- NOTE | 2018-11-29 19:26 | NUR ---
MS RN NOTES Performed Bladder Scan, resulted 329ml. Performed In N Out Cath, removed 400ml of tea coloured urine. Patient tolerated well. Will continue to monitor.
--- NOTE | 2018-11-29 19:27 | NUR ---
MS RN CLOSING NOTES Patient resting in bed. A/O x 1. VS stable with no acute distress. Breathing even and unlabored on 2LPM via NC SPO2 94%. Denies pain. 20g PIV on LEFT HAND clean, dry, intact and flushing well with IVF D51/2NS running at 40ml/hr. Safety precautions in place. Bed locked and set to lowest position with side rails x 3 up. All needs rendered at this time. Will endorse plan of care to oncoming shift.
--- NOTE | 2018-11-29 19:30 | NUR ---
MS RN OPENING NOTES Patient A/O x1, asleep, easily awaken on bed. On O2 inhalation via NC @ 2LPM, saturating well, no SOB/respiratory distress noted. Kept bed low and locked, siderails up, call light within easy reach. Will continue to monitor accordingly.
[2018-11-29] MEDS: ENOXAPARIN SODIUM 40 MG/0.4 ML DISP.SYRIN SQ SCH (21:00)
[2018-11-29] MEDS: DIVALPROEX SODIUM 500 MG TABLET.DR PO SCH (21:10)
[2018-11-30] MEDS: MEROPENEM 500 MG in IV NS 0.9% 100 ML IV SCH (04:04)
--- NOTE | 2018-11-30 06:29 | NUR ---
MS RN CLOSING NOTES Patient remained clean and dry throughout the shift. Scanned bladder, >300ml urinary retention noted. Straight catheter done, no urine outp noted. upon pulling off the catheter, blood clots noted plugging the catheter, patient then noted with gush of tea colored urine about 300ml. Perineal care done, changed diaper. Kept patient clean, dry and comfortable. On fall precautions, call light within easy reach. No new unusualities noted. Afebrile the whole shift. Endorsed to the next shift.
[2018-11-30 06:38] LABS: BASOPHILS % (AUTO) 0.6 % (0.0-2.0); EOSINOPHILS % (AUTO) 6.8 % (0.0-6.0); HEMATOCRIT 30 % (39-51); HEMOGLOBIN 9.8 g/dL (13.5-17.5); LYMPHOCYTES # (AUTO) 1.4 /CMM (0.8-4.8); LYMPHOCYTES % (AUTO) 20.8 % (20.0-44.0); MEAN CORPUSCULAR HGB CONC 33 g/dl (31.0-36.0); MEAN CORPUSCULAR VOLUME 89 fL (80-96); MONOCYTES # (AUTO) 0.6 /CMM (0.1-1.30); MONOCYTES % (AUTO) 8.7 % (2.0-12.0); NEUTROPHILS # (AUTO) 4.1 /CMM (1.8-8.9); NEUTROPHILS % (AUTO) 63.1 % (43.0-81.0); PLATELET COUNT (AUTO) 231 /CMM (150-450); RED BLOOD CELL COUNT(AUTO) 3.35 MIL/uL (4.5-6.0); WHITE BLOOD COUNT (AUTO) 6.5 K/uL (4.3-11.0)
[2018-11-30 07:15] LABS: CARBON DIOXIDE 28 mmol/L (21-32); CHLORIDE 109 mmol/L (98-107); CREATININE 0.9 mg/dL (0.6-1.3); GLUCOSE 102 mg/dL (74-106); MAGNESIUM 2.1 mg/dL (1.8-2.4); PHOSPHORUS 3.5 mg/dL (2.5-4.9); POTASSIUM 3.7 mmol/L (3.5-5.1); SODIUM SERUM 144 mmol/L (136-145); UREA NITROGEN, BLOOD 25 mg/dL (7-18)
--- NOTE | 2018-11-30 07:30 | NUR ---
MS RN NOTES RECEIVED PT IN BED, A/OX1. PT IS STABLE WITH D5 1/2 NS RUNNING VIA [employer] #20. C/D/P/I. WILL TRY TO CONTACT FAMILY TODAY FOR PROCEDURAL CONSENT. PT IS ABLE TO MAKE NEEDS KNOWN. BED IN LOCKED/LOWEST POSITION. CALL LIGHT IN REACH. WILL CONT TO MONITOR.
[2018-11-30 08:00] VITALS: BP 128/70
[2018-11-30] MEDS: ENSURE ENLIVE 237 ML LIQUID (VANILLA) PO SCH ×2 (08:34→16:24)
[2018-11-30] MEDS: HALOPERIDOL 5 MG TABLET PO SCH ×2 (08:34→16:24)
[2018-11-30] MEDS: BENZTROPINE MESYLATE (1 MG) 1 MG TABLET PO SCH ×2 (08:35→16:24)
[2018-11-30] MEDS: DIVALPROEX SODIUM 250 MG TABLET.DR PO SCH (08:35)
[2018-11-30] MEDS: DOCUSATE SODIUM 100 MG CAPSULE PO SCH (08:35)
[2018-11-30] MEDS: AMLODIPINE BESYLATE 10 MG TABLET PO SCH (08:36)
[2018-11-30] MEDS: PANTOPRAZOLE 40 MG TABLET.DR PO SCH (08:36)
[2018-11-30] MEDS: MULTIVITAMINS,THERAGRAN 1 UDTAB TABLET PO SCH (08:37)
[2018-11-30] MEDS: HYDROGEL DRESSING 90 GM TUBE TP SCH ×2 (08:37→21:03)
[2018-11-30] MEDS: LOSARTAN POTASSIUM 25 MG TABLET PO SCH (08:37)
[2018-11-30] MEDS: PROSOURCE / PROSTAT (PYXIS) 30 ML UDC PO SCH (08:37)
[2018-11-30] MEDS: NEOMY SULF/BACITRAC ZN/POLY 15 GM TUBE TP SCH ×2 (08:38→16:25)
--- NOTE | 2018-11-30 13:45 | NUR ---
MS RN NOTES PT TOLERATED BEDSIDE BUTTOCKS DEBRIDEMENT.
[2018-11-30] MEDS: IV D5/0.45 NACL 1,000 ML IV PRN (15:34)
[2018-11-30 16:00] VITALS: BP 90/50
--- NOTE | 2018-11-30 18:16 | NUR ---
MS RN NOTES SWALLOW EVAL DONE BY THERAPIST: PT CAN TOLERATE NECTAR THICK LIQUIDS WITH SOFT DIET.
--- NOTE | 2018-11-30 18:29 | NUR ---
MS RN END OF SHIFT NOTES PT STABLE IN BED. NO C/O PAIN. NO S/SX OF RESP DISTRESS. WILL ENDORSE TO PM NURSE FOR THAIS.
[2018-11-30 20:00] VITALS: BP 112/60
[2018-11-30] MEDS: DIVALPROEX SODIUM 500 MG TABLET.DR PO SCH (21:02)
[2018-11-30] MEDS: ENOXAPARIN SODIUM 40 MG/0.4 ML DISP.SYRIN SQ SCH (21:04)
--- NOTE | 2018-11-30 22:41 | NUR ---
MS/RN ON INITIAL ROUND AT 1930, PATIENT WAS AWAKE, ALERT, ORIENTED TO PERSON ONLY, COMFORTABLE, NO C/O PAIN, NO DISTRESS NOTED, CALL LIGHT IN REACH. FALL PRECAUTION PER PROTOCOL. WILL MONITOR.
--- NOTE | 2018-12-01 | NUR ---
MS/RN PATIENT IS SLEEPING AT THIS TIME, AROUSABLE, APPEAR COMFORTABLE, NO SIGNS OF DISTRESS NOTED, CALL LIGHT IN REACH. WILL CONTINUE TO MONITOR.
--- NOTE | 2018-12-01 07:04 | NUR ---
MS/RN PATIENT IS AWAKE AND ALERT, COMFORTABLE, NO SIGNS OF DISTRESS NOTED, BLADDER SCAN DONE ORDERED, 201 MLS. STRAIGHT CATH WAS DONE, 250 MARY KAY URINE OUTPUT. ALL NEEDS ATTENDED AT THIS TIME, WILL CONTINUE TO MONITOR.
[2018-12-01] MEDS: PANTOPRAZOLE 40 MG TABLET.DR PO SCH (07:30)
[2018-12-01 08:00] VITALS: BP 143/78
[2018-12-01] MEDS: AMLODIPINE BESYLATE 10 MG TABLET PO SCH (08:49)
[2018-12-01] MEDS: MULTIVITAMINS,THERAGRAN 1 UDTAB TABLET PO SCH (08:49)
[2018-12-01] MEDS: DOCUSATE SODIUM 100 MG CAPSULE PO SCH (08:49)
[2018-12-01] MEDS: LOSARTAN POTASSIUM 25 MG TABLET PO SCH (08:50)
[2018-12-01] MEDS: BENZTROPINE MESYLATE (1 MG) 1 MG TABLET PO SCH ×2 (08:50→17:16)
[2018-12-01] MEDS: DIVALPROEX SODIUM 250 MG TABLET.DR PO SCH (08:50)
[2018-12-01] MEDS: HALOPERIDOL 5 MG TABLET PO SCH ×2 (08:50→17:16)
[2018-12-01] MEDS: PROSOURCE / PROSTAT (PYXIS) 30 ML UDC PO SCH (09:26)
[2018-12-01] MEDS: NEOMY SULF/BACITRAC ZN/POLY 15 GM TUBE TP SCH ×2 (09:26→17:16)
[2018-12-01] MEDS: HYDROGEL DRESSING 90 GM TUBE TP SCH ×2 (09:26→22:28)
[2018-12-01] MEDS: ENSURE ENLIVE 237 ML LIQUID (VANILLA) PO SCH ×2 (09:26→17:16)
--- NOTE | 2018-12-01 11:09 | NUR ---
WOUND CARE CONSULT WOUND CARE RECEIVED CONSULT FOR RIGHT HEEL DTI AND SACRAL WOUND. WOUND CARE WILL DEFER CONSULT AND TREATMENT PLANS TO PLASTIC SURGICAL TEAM INCLUDING DPM DR PAZ WHO ARE CURRENTLY FOLLOWING THIS PATIENT. PATIENT WITH WHITLEY AT 7, ALL PRESSURE ULCER PREVENTION MEASURES ARE NOTED TO BE IN PLACE. WILL SEE PRN.
[2018-12-01 16:00] VITALS: BP 138/75
[2018-12-01 20:00] VITALS: BP 134/64
--- NOTE | 2018-12-01 20:02 | NUR ---
MS/RN RECEIVE PATIENT AWAKE, ALERT, CONFUSED, NO C/O PAIN, NO DISTRESS NOTED, CALL LIGHT IN REACH. FALL PRECAUTIONS PER PROTOCOL. WILL MONITOR.
[2018-12-01] MEDS: DIVALPROEX SODIUM 500 MG TABLET.DR PO SCH (22:25)
[2018-12-01] MEDS: ENOXAPARIN SODIUM 40 MG/0.4 ML DISP.SYRIN SQ SCH (22:27)
--- NOTE | 2018-12-02 01:12 | NUR ---
MS/RN PATIENT IS SLEEPING AT THIS TIME, AROUSABLE, APPEAR COMFORTABLE, NO SIGNS OF DISTRESS NOTED, CALL LIGHT IN REACH. WILL CONTINUE TO MONITOR.
--- NOTE | 2018-12-02 06:00 | NUR ---
MS/RN PATIENT IS AWAKE, ALERT, COMFORTABLE, NO C/O PAIN, NO DISTRESS NOTED. REFUSED BLADDER SCAN ALL NEEDS ATTENDED AT THIS TIME, WILL CONTINUE TO MONITOR.
--- NOTE | 2018-12-02 07:36 | NUR ---
RN OPENING NOTES PT RESTING IN BED. NO APPARENT S/S OF PAIN, DISTRESS OR SOB AT THIS TIME. PT HAS LEFT HAND #20 IV RUNNING D5 1/2NS @40 ML/HR. PER DAY SHIFT NURSE PT REFUSED BLADDER SCAN, WILL CONTINUE TO FOLLOW UP. SAFETY PRECAUTIONS IN PLACE, BED IN LOWEST LOCKED POSITION, X3 SIDE RAILS UP AND CALL LIGHT WITHIN REACH. WILL CONTINUE TO MONITOR.
[2018-12-02 08:00] VITALS: BP 144/70
[2018-12-02] MEDS: PANTOPRAZOLE 40 MG TABLET.DR PO SCH (08:15)
[2018-12-02] MEDS: HYDROGEL DRESSING 90 GM TUBE TP SCH ×2 (08:21→21:15)
[2018-12-02] MEDS: NEOMY SULF/BACITRAC ZN/POLY 15 GM TUBE TP SCH ×2 (08:21→16:44)
[2018-12-02] MEDS: PROSOURCE / PROSTAT (PYXIS) 30 ML UDC PO SCH (08:21)
[2018-12-02] MEDS: ENSURE ENLIVE 237 ML LIQUID (VANILLA) PO SCH ×2 (08:21→16:44)
[2018-12-02] MEDS: DOCUSATE SODIUM 100 MG CAPSULE PO SCH (08:24)
[2018-12-02] MEDS: MULTIVITAMINS,THERAGRAN 1 UDTAB TABLET PO SCH (08:24)
[2018-12-02] MEDS: LOSARTAN POTASSIUM 25 MG TABLET PO SCH (08:25)
[2018-12-02] MEDS: BENZTROPINE MESYLATE (1 MG) 1 MG TABLET PO SCH ×2 (08:25→16:47)
[2018-12-02] MEDS: DIVALPROEX SODIUM 250 MG TABLET.DR PO SCH (08:25)
[2018-12-02] MEDS: AMLODIPINE BESYLATE 10 MG TABLET PO SCH (08:25)
[2018-12-02] MEDS: HALOPERIDOL 5 MG TABLET PO SCH ×2 (08:25→16:44)
[2018-12-02] MEDS: IV D5/0.45 NACL 1,000 ML IV PRN (17:28)
--- NOTE | 2018-12-02 18:37 | NUR ---
RN CLOSING NOTES PT RESTING IN BED. NO COMPLAINTS OF PAIN, DISTRESS OR SOB DURING SHIFT. PT HAS LEFT HAND #20 IV RUNNING D5 1/2NS @40 ML/HR. PT TOLERATING WELL. PT ALLOWED BLADDER SCAN, <200. STRAIGHT CATHETER OUTPUT OF 300ML. PT CONTINUES TO HAVE POOR PO INTACT, ONLY DRINKING ENSURE AND A FEW BITES OF BREAKFAST. ALL PATIENT NEEDS MET DURING SHIFT. SAFETY PRECAUTIONS IN PLACE, BED IN LOWEST LOCKED POSITION, X3 SIDE RAILS UP AND CALL LIGHT WITHIN REACH. WILL ENDORSE TO BLUEPRINT MACHINE OPERATOR NURSE FOR CONTINUITY OF CARE.
--- NOTE | 2018-12-02 19:23 | NUR ---
MS RN RECEIVE PT IN BED A/O X 1-2, RESPIRATIONS EVEN AND UNLABORED,STABLE, NO S/S OF DISTRESS, SAFETY MEASURES IN PLACE. WILL CONTINUE TO MONITOR
--- NOTE | 2018-12-02 19:52 | NUR ---
ENDORSE TO NEXT SHIFT RN PLAN OF CARE
--- NOTE | 2018-12-02 19:55 | NUR ---
RN NOTES REPORT GIVEN BY JAIME BARRIOS, RECEIVED PATIENT IN BED ALERT ORIENTED X 1-2, RESPIRATIONS EVEN AND UNLABORED, NO SIGNS OF ACUTE RESPIRATORY DISTRESS NOTED, NO APPARENT DISTRESS AT THIS TIME, SAFETY MEASURES IN PLACE. ASPIRATION PRECAUTION EMPHASIZE, WILL CONTINUE TO MONITOR ACCORDINGLY.
[2018-12-02 20:00] VITALS: BP 157/71
[2018-12-02] MEDS: ENOXAPARIN SODIUM 40 MG/0.4 ML DISP.SYRIN SQ SCH (21:12)
--- NOTE | 2018-12-02 21:18 | NUR ---
RN NOTES DUE MEDS GIVEN, PATIENT C/O GENERALIZED PAIN 12/29, NORCO 5-325MG GIVEN PRN PER MD ORDER, ALL NEEDS ATTENDED, SAFETY MEASURES IN PLACE, CALL LIGHT WITHIN EASY REACH. WILL MONITOR.
[2018-12-02] MEDS: DIVALPROEX SODIUM 500 MG TABLET.DR PO SCH (21:53)
--- NOTE | 2018-12-02 22:00 | NUR ---
RN INITIAL NOTES RECEIVED PT RESTING IN BED. NO APPARENT S/S OF PAIN, DISTRESS OR SOB AT THIS TIME. PT HAS LEFT HAND #20 IV RUNNING D5 1/2NS @40 ML/HR. SAFETY PRECAUTIONS IN PLACE, BED IN LOWEST LOCKED POSITION, X3 SIDE RAILS UP AND CALL LIGHT WITHIN REACH. WILL CONTINUE TO MONITOR.
--- NOTE | 2018-12-02 22:00 | NUR ---
RN NOTES REPORT GIVEN TO JAIME MINA. ALL NEEDS ATTENDED, PATIENT RESTING COMFORTABLY AT THIS TIME, ENDORSED FOR CONTINUITY OF CARE.
[2018-12-03] MEDS: IV D5/0.45 NACL 1,000 ML IV PRN ×2 (05:09→16:59)
--- NOTE | 2018-12-03 05:50 | NUR ---
Rn notes BS SHOWS 250 , STRAIGHT CATH [id number]
--- NOTE | 2018-12-03 06:40 | NUR ---
RN CLOSING NOTES PT RESTING IN BED. NO COMPLAINTS OF PAIN, DISTRESS OR SOB DURING SHIFT. PT HAS LEFT HAND #20 IV RUNNING D5 1/2NS @40 ML/HR. BLADDER SCAN, <200. STRAIGHT CATHETER OUTPUT OF 400ML. ALL NEEDS MET DURING SHIFT. SAFETY PRECAUTIONS IN PLACE, BED IN LOWEST LOCKED POSITION, X3 SIDE RAILS UP AND CALL LIGHT WITHIN REACH. WILL ENDORSE TO AM SHIFT NURSE FOR CONTINUITY OF CARE.
[2018-12-03 06:46] LABS: BASOPHILS % (AUTO) 0.4 % (0.0-2.0); EOSINOPHILS % (AUTO) 8.3 % (0.0-6.0); HEMATOCRIT 27 % (39-51); LYMPHOCYTES # (AUTO) 1.2 /CMM (0.8-4.8); LYMPHOCYTES % (AUTO) 27.2 % (20.0-44.0); MEAN CORPUSCULAR HGB CONC 33 g/dl (31.0-36.0); MEAN CORPUSCULAR VOLUME 88 fL (80-96); MONOCYTES # (AUTO) 0.5 /CMM (0.1-1.30); MONOCYTES % (AUTO) 10.3 % (2.0-12.0); NEUTROPHILS # (AUTO) 2.5 /CMM (1.8-8.9); NEUTROPHILS % (AUTO) 53.8 % (43.0-81.0); PLATELET COUNT (AUTO) 197 /CMM (150-450); RED BLOOD CELL COUNT(AUTO) 3.09 MIL/uL (4.5-6.0); WHITE BLOOD COUNT (AUTO) 4.6 K/uL (4.3-11.0)
[2018-12-03 07:08] LABS: CALCIUM, SERUM 8.1 mg/dL (8.5-10.1); CARBON DIOXIDE 30 mmol/L (21-32); CHLORIDE 107 mmol/L (98-107); CREATININE 0.8 mg/dL (0.6-1.3); GLUCOSE 104 mg/dL (74-106); PHOSPHORUS 3.3 mg/dL (2.5-4.9); POTASSIUM 3.5 mmol/L (3.5-5.1); SODIUM SERUM 144 mmol/L (136-145); UREA NITROGEN, BLOOD 22 mg/dL (7-18)
--- NOTE | 2018-12-03 07:27 | NUR ---
Nurse Notes: received report from the night nurse Alexandra Kumar RN. patient is asleep, IV is infusing at 40 cc per hour, new bag was not changed, 500 cc left in bag at present time. In no respiratory distress. oxygen on nasal cannula 2 liter per minute.
--- NOTE | 2018-12-03 07:40 | NUR ---
Rn notes iv fluids was scanned but was not started because it was scanned too early.
[2018-12-03 07:50] VITALS: BP 112/65
[2018-12-03 08:00] VITALS: BP_SYST 112; BP_DIAS 63; BP_DIAS 65
[2018-12-03] MEDS: LOSARTAN POTASSIUM 25 MG TABLET PO SCH (08:08)
[2018-12-03 09:15] VITALS: BP 125/65
[2018-12-03] MEDS: DOCUSATE SODIUM 100 MG CAPSULE PO SCH (09:28)
[2018-12-03] MEDS: HALOPERIDOL 5 MG TABLET PO SCH ×2 (09:28→17:15)
[2018-12-03] MEDS: MULTIVITAMINS,THERAGRAN 1 UDTAB TABLET PO SCH (09:30)
[2018-12-03] MEDS: BENZTROPINE MESYLATE (1 MG) 1 MG TABLET PO SCH ×2 (09:30→17:15)
--- NOTE | 2018-12-03 09:30 | NUR ---
Nurse Notes: sleeping all morning, awakened, and will take pills whole on applesauce. Nurse fed patient pancakes, and meds given in applsauce.
[2018-12-03] MEDS: DIVALPROEX SODIUM 250 MG TABLET.DR PO SCH (09:31)
[2018-12-03] MEDS: AMLODIPINE BESYLATE 10 MG TABLET PO SCH (09:31)
[2018-12-03] MEDS: ENSURE ENLIVE 237 ML LIQUID (VANILLA) PO SCH ×2 (09:32→17:18)
[2018-12-03] MEDS: NEOMY SULF/BACITRAC ZN/POLY 15 GM TUBE TP SCH ×2 (09:36→17:18)
[2018-12-03] MEDS: PROSOURCE / PROSTAT (PYXIS) 30 ML UDC PO SCH (09:41)
[2018-12-03] MEDS: PANTOPRAZOLE 40 MG TABLET.DR PO SCH (09:41)
[2018-12-03] MEDS: HYDROGEL DRESSING 90 GM TUBE TP SCH ×2 (09:42→20:52)
--- NOTE | 2018-12-03 15:30 | NUR ---
Nurse Notes: patient had no bowel movement or urine, patient was dry, linen was changed by MARKETING EFFECTIVENESS MANAGER, remains on IV fluids at 40 cc per hour.
[2018-12-03 16:00] VITALS: BP 127/64
--- NOTE | 2018-12-03 17:18 | NUR ---
Nurse Notes: report given to Adrian SANDOVAL, patient taking his evening medications. Patient needs to be bladder scan at 1800, straight cath needs to be done at 1800. No complaints of pain given.
--- NOTE | 2018-12-03 17:31 | NUR ---
RN NOTES REPORT RECEIVED FROM NURSE MATEUS JENSEN FOR CONTINUITY OF CARE. PT IN BED AWAKE AND ALERT WITH NO SIGNS OF DISTRESS NOTED. WILL CONTINUE TO MONITOR.
--- NOTE | 2018-12-03 17:56 | NUR ---
RN NOTES BLADDER SCAN DONE AND SHOWED 370 ML. STRAIGHT CATHETERIZATION DONE ORDERED AND OBTAINED 500ML CLEAR YELLOW URINE OUTPUT. WILL CONTINUE TO MONITOR.
--- NOTE | 2018-12-03 18:37 | NUR ---
MS RN CLOSING NOTES PT IN BED LYING AT MODERATE HIGH BACKREST POSITION. A/O X2-3. VERBALLY RESPONSIVE. ON SUPPLEMENTAL 02 VIA N/C AT 2LPM, TOLERATING WELL WITH NO ACUTE RESPIRATORY DISTRESS NOTED. IV ACCESS ON LEFT HAND G#20 INTACT AND PATENT, IVF OF D5 1/2NS @ 40 ML/HR INFUSING WELL, NO S/S OF INFILTRATIONS NOTED. ALL DUE NURSING CARE DONE. SAFETY PRECAUTIONS IN PLACE. BED IN LOWEST LOCKED POSITION WITH SIDE-RAILS UP X3. CALL LIGHT WITHIN REACH. WILL ENDORSE TO COMMUNICATIONS DEPARTMENT CHAIR NURSE FOR CONTINUITY OF CARE.
--- NOTE | 2018-12-03 19:18 | NUR ---
MS RN RECEIVE PT IN BED A/O X 2. RESPIRATIONS EVEN AND UNLABORED, STABLE, NO S/S OF DISTRESS, SAFETY MEASURES IN PLACE. WILL CONTINUE TO MONITOR
[2018-12-03 20:00] VITALS: BP 133/68
[2018-12-03] MEDS: ENOXAPARIN SODIUM 40 MG/0.4 ML DISP.SYRIN SQ SCH (20:51)
[2018-12-03] MEDS: DIVALPROEX SODIUM 500 MG TABLET.DR PO SCH (21:04)
--- NOTE | 2018-12-04 06:17 | NUR ---
MS RN ASLEEP AND EASILY AWAKEN, RESPIRATION EVEN AND UNLABORED. TREATMENT ORDERED, GOOD SKIN CARE PROVIDED. NO SIGNIFICANT CHANGES THROUGHOUT THE SHIFT. KEPT CLEAN AND DRY AND COMFORTABLE. NEEDS ATTENDED AND ANTICIPATED, NURSING CARE RENDERED, REPOSITIONED EVERY 2 HOURS, OFFLOAD HEELS AND ELBOWS. SAFETY MEASURES AT ALL TIMES. ENDORSE TO THE NEXT SHIFT.
--- NOTE | 2018-12-04 06:30 | NUR ---
BLADDER SCAN DONE 240 ML. STRAIGHT CATHETERIZATION 250 ML ORDERED STERILE TECHNIQUE CLEAR YELLOW URINE OUTPUT.
--- NOTE | 2018-12-04 07:30 | NUR ---
Nurse Notes: report from the night nurse Lennie Liang RN, patient was received awakened, no complaints of pain given, In no respiratory distress. IV is infusing at 40 cc per hour.
[2018-12-04 07:39] LABS: BASOPHILS % (AUTO) 0.7 % (0.0-2.0); EOSINOPHILS % (AUTO) 8.5 % (0.0-6.0); HEMATOCRIT 29 % (39-51); HEMOGLOBIN 9.5 g/dL (13.5-17.5); LYMPHOCYTES % (AUTO) 23.3 % (20.0-44.0); MEAN CORPUSCULAR HGB CONC 33 g/dl (31.0-36.0); MEAN CORPUSCULAR VOLUME 89 fL (80-96); MONOCYTES # (AUTO) 0.4 /CMM (0.1-1.30); MONOCYTES % (AUTO) 10.1 % (2.0-12.0); NEUTROPHILS # (AUTO) 2.4 /CMM (1.8-8.9); NEUTROPHILS % (AUTO) 57.4 % (43.0-81.0); PLATELET COUNT (AUTO) 212 /CMM (150-450); RED BLOOD CELL COUNT(AUTO) 3.29 MIL/uL (4.5-6.0); WHITE BLOOD COUNT (AUTO) 4.1 K/uL (4.3-11.0)
[2018-12-04 07:50] LABS: CALCIUM, SERUM 8.3 mg/dL (8.5-10.1); CARBON DIOXIDE 31 mmol/L (21-32); CHLORIDE 105 mmol/L (98-107); CREATININE 0.7 mg/dL (0.6-1.3); GLUCOSE 102 mg/dL (74-106); MAGNESIUM 1.9 mg/dL (1.8-2.4); PHOSPHORUS 3.1 mg/dL (2.5-4.9); POTASSIUM 3.8 mmol/L (3.5-5.1); SODIUM SERUM 142 mmol/L (136-145); UREA NITROGEN, BLOOD 20 mg/dL (7-18)
[2018-12-04 08:00] VITALS: BP 140/72
[2018-12-04] MEDS: PANTOPRAZOLE 40 MG TABLET.DR PO SCH (08:15)
[2018-12-04] MEDS: PROSOURCE / PROSTAT (PYXIS) 30 ML UDC PO SCH (09:00)
[2018-12-04] MEDS: AMLODIPINE BESYLATE 10 MG TABLET PO SCH (09:03)
[2018-12-04] MEDS: HALOPERIDOL 5 MG TABLET PO SCH ×2 (09:03→17:51)
[2018-12-04] MEDS: BENZTROPINE MESYLATE (1 MG) 1 MG TABLET PO SCH ×2 (09:04→17:51)
[2018-12-04] MEDS: DIVALPROEX SODIUM 250 MG TABLET.DR PO SCH (09:05)
[2018-12-04] MEDS: MULTIVITAMINS,THERAGRAN 1 UDTAB TABLET PO SCH (09:05)
[2018-12-04] MEDS: DOCUSATE SODIUM 100 MG CAPSULE PO SCH (09:05)
[2018-12-04] MEDS: LOSARTAN POTASSIUM 25 MG TABLET PO SCH (09:06)
[2018-12-04] MEDS: HYDROGEL DRESSING 90 GM TUBE TP SCH ×2 (09:08→21:41)
[2018-12-04] MEDS: ENSURE ENLIVE 237 ML LIQUID (VANILLA) PO SCH ×2 (09:12→17:51)
--- NOTE | 2018-12-04 10:30 | NUR ---
Nurse Notes: IV is leaking, patient is very mobiled, moving hands and turning self. IV was turn off.
[2018-12-04] MEDS: NEOMY SULF/BACITRAC ZN/POLY 15 GM TUBE TP SCH ×2 (10:48→17:51)
--- NOTE | 2018-12-04 11:45 | NUR ---
MS RN NOTES RECEIVED PATIENT LYING IN BED, NO ACUTE DISTRESS NOTED. REPORT GIVEN BY MATEUS SANDOVAL. SAFETY MEASURES IN PLACE. CALL LIGHT WITHIN REACH. WILL CONTINUE TO MONITOR ACCORDINGLY.
--- NOTE | 2018-12-04 11:45 | NUR ---
Nurse Notes: report given to [place] SANDOVAL, IV line needs to be changed. Nurse is flex off at 1130, next nurse needs to start IV line, T-connector was changed, still leaking at the skin site. Patient wants to move his bowels, [employer] is aware.
--- NOTE | 2018-12-04 12:00 | NUR ---
MS RN NOTES INSERTED IV LINE TO RIGHT FOREARM G20 X 1 ATTEMPT WITH GOOD BLOOD RETURN. PATIENT TOLERATED WELL. SECURED WITH TRANSPARENT DRESSING , SIGNED AND DATED.
[2018-12-04 16:00] VITALS: BP 133/69
--- NOTE | 2018-12-04 19:00 | NUR ---
MS RN NOTES PATIENT IN BED ALERT ORIENTED X 1-2. NO ACUTE DISTRESS NOTED. BREATHING UNLABORED. NO SOB NOTED. DENIED ANY PAIN AT THIS TIME. IV ACCESS PATENT AND INTACT, NO REDNESS OR SWELLING NOTED. DUE MEDICATIONS GIVEN, NO ASE NOTED. NEEDS ATTENDED AND ANTICIPATED. SAFETY MEASURES IN PLACE. CALL LIGHT WITHIN REACH. WILL ENDORSE TO NIGHT NURSE FOR CONTINUITY OF CARE.
--- NOTE | 2018-12-04 19:31 | NUR ---
MS RN RECEIVE PT IN BED AWAKE WATCHING TV NO SOB A/O X 1, STABLE, NO S/S OF DISTRESS, SAFETY MEASURES IN PLACE. WILL CONTINUE TO MONITOR
[2018-12-04 20:00] VITALS: BP 151/82
[2018-12-04] MEDS: IV D5/0.45 NACL 1,000 ML IV PRN (20:58)
[2018-12-04] MEDS: ENOXAPARIN SODIUM 40 MG/0.4 ML DISP.SYRIN SQ SCH (21:38)
[2018-12-04] MEDS: DIVALPROEX SODIUM 500 MG TABLET.DR PO SCH (21:38)
--- NOTE | 2018-12-05 06:19 | NUR ---
BLADDER SCAN ORDERED 120 ML.
--- NOTE | 2018-12-05 06:20 | NUR ---
MS RN ASLEEP AND EASILY AWAKEN, AM CARE RENDERED. TREATMENT ORDERED, GOOD SKIN CARE PROVIDED. SLEPT WELL THROUGHOUT THE NIGHT. KEPT CLEAN AND DRY AND COMFORTABLE. NEEDS ATTENDED AND ANTICIPATED, REPOSITIONED EVERY 2 HOURS, OFFLOAD HEELS AND ELBOWS. SAFETY MEASURES AT ALL TIMES. ENDORSE TO THE NEXT SHIFT. PT REFUSING AM LABS BLOOD DRAW PER PATIENT "TRY AGAIN IN THE MORNING" DESPITE EXPLAINING RISKS AND BENEFITS. WILL TRY AGAIN LATER AND ENDORSE
[2018-12-05 07:18] LABS: BASOPHILS % (AUTO) 0.4 % (0.0-2.0); EOSINOPHILS % (AUTO) 6.7 % (0.0-6.0); HEMATOCRIT 29 % (39-51); HEMOGLOBIN 9.7 g/dL (13.5-17.5); LYMPHOCYTES # (AUTO) 1.3 /CMM (0.8-4.8); LYMPHOCYTES % (AUTO) 26.7 % (20.0-44.0); MEAN CORPUSCULAR HGB CONC 33 g/dl (31.0-36.0); MEAN CORPUSCULAR VOLUME 88 fL (80-96); MONOCYTES # (AUTO) 0.5 /CMM (0.1-1.30); MONOCYTES % (AUTO) 10.8 % (2.0-12.0); NEUTROPHILS # (AUTO) 2.7 /CMM (1.8-8.9); NEUTROPHILS % (AUTO) 55.4 % (43.0-81.0); PLATELET COUNT (AUTO) 231 /CMM (150-450); RED BLOOD CELL COUNT(AUTO) 3.35 MIL/uL (4.5-6.0)
[2018-12-05 07:23] LABS: CALCIUM, SERUM 8.2 mg/dL (8.5-10.1); CARBON DIOXIDE 30 mmol/L (21-32); CHLORIDE 105 mmol/L (98-107); CREATININE 0.8 mg/dL (0.6-1.3); GLUCOSE 103 mg/dL (74-106); MAGNESIUM 1.8 mg/dL (1.8-2.4); PHOSPHORUS 3.2 mg/dL (2.5-4.9); POTASSIUM 3.8 mmol/L (3.5-5.1); SODIUM SERUM 142 mmol/L (136-145); UREA NITROGEN, BLOOD 15 mg/dL (7-18)
--- NOTE | 2018-12-05 07:35 | NUR ---
M/S RN NOTES PATIENT RESTING, LYING IN BED. ALERT AND ORIENTED X 2, NO RESPIRATORY DISTRESS NOTED. NO C/O PAIN AT THIS TIME. IV OF D5 1/2NS INFUSING ON THE RFA #20G AT 40ML/HR. IV SITE INTACT AND PATENT, NO REDNESS, NO INFILTRATION. SKIN WARM TO TOUCH. PATIENT'S NEEDS ATTENDED. BED ON LOWEST LOCKED POSITION, CALL LIGHT WITHIN REACH. WILL CONTINUE TO MONITOR.
[2018-12-05 08:18] VITALS: BP 148/87
[2018-12-05 08:22] VITALS: BP 148/87
[2018-12-05] MEDS: DOCUSATE SODIUM 100 MG CAPSULE PO SCH (08:22)
[2018-12-05] MEDS: LOSARTAN POTASSIUM 25 MG TABLET PO SCH (08:22)
[2018-12-05] MEDS: DIVALPROEX SODIUM 250 MG TABLET.DR PO SCH (08:22)
[2018-12-05] MEDS: PANTOPRAZOLE 40 MG TABLET.DR PO SCH (08:22)
[2018-12-05] MEDS: HALOPERIDOL 5 MG TABLET PO SCH (08:22)
[2018-12-05] MEDS: AMLODIPINE BESYLATE 10 MG TABLET PO SCH (08:22)
[2018-12-05] MEDS: BENZTROPINE MESYLATE (1 MG) 1 MG TABLET PO SCH (08:23)
[2018-12-05] MEDS: MULTIVITAMINS,THERAGRAN 1 UDTAB TABLET PO SCH (08:23)
[2018-12-05] MEDS: ENSURE ENLIVE 237 ML LIQUID (VANILLA) PO SCH (09:31)
[2018-12-05] MEDS: HYDROGEL DRESSING 90 GM TUBE TP SCH (09:31)
[2018-12-05] MEDS: PROSOURCE / PROSTAT (PYXIS) 30 ML UDC PO SCH (09:31)
[2018-12-05] MEDS: NEOMY SULF/BACITRAC ZN/POLY 15 GM TUBE TP SCH (09:32)
--- NOTE | 2018-12-05 16:25 | NUR ---
M/R FINANCIAL ADVISOR TRAINEE NOTES PATIENT DISCHARGED IN STABLE CONDITION. VSS, NO RESPIRATORY DISTRESS, NO C/O PAIN. PATIENT'S IV REMOVED AND APPLIED PRESSURE DRESSING. SKIN ASSESSED AND PHOTOS TAKEN AND PLACED IN THE CHART. WOUND TX DONE AND DRESSINGS CLEAN, DRY AND INTACT. REPORT GIVEN TO JAIME JULIEN AT [facility] AND ALSO TO AMBULANCE STAFF. PATIENT LEFT VIA GURNEY AND ESCORTED BY TWO AMBULANCE STAFF.
[2018-12-18] MEDS ORDERED: MERO1VIA IV (11:07)
== END 2018-12-05 16:15 | DRG 622 ==
LOC: ER 12:44 → TELE 14:47 → MED 11-29 10:59
PROVIDERS: ADMIT Internal Medicine; ATTEND Internal Medicine
PROC: 0JB90ZZ Excision of Buttock Subcutaneous Tissue and Fascia, Open Approach (ICD-10-PCS; principal; 2018-11-30)
DX: R62.7 Adult failure to thrive (principal); L89.313 Pressure ulcer of right buttock, stage 3; L89.323 Pressure ulcer of left buttock, stage 3; N17.0 Acute kidney failure with tubular necrosis; G81.94 Hemiplegia, unspecified affecting left nondominant side; E87.2 Acidosis; I12.9 Hypertensive chronic kidney disease with stage 1 through stage 4 chronic kidney disease, or unspecified chronic kidney disease; N18.9 Chronic kidney disease, unspecified; I25.10 Atherosclerotic heart disease of native coronary artery without angina pectoris; F41.9 Anxiety disorder, unspecified; E78.5 Hyperlipidemia, unspecified; Z86.73 Personal history of transient ischemic attack (TIA), and cerebral infarction without residual deficits; Z79.899 Other long term (current) drug therapy; Z74.01 Bed confinement status; R26.9 Unspecified abnormalities of gait and mobility; Z91.018 Allergy to other foods; Z79.51 Long term (current) use of inhaled steroids; F20.9 Schizophrenia, unspecified; F31.9 Bipolar disorder, unspecified; S00.81XA Abrasion of other part of head, initial encounter; X58.XXXA Exposure to other specified factors, initial encounter; Y92.9 Unspecified place or not applicable; L89.620 Pressure ulcer of left heel, unstageable; L89.610 Pressure ulcer of right heel, unstageable; F03.90 Unspecified dementia, unspecified severity, without behavioral disturbance, psychotic disturbance, mood disturbance, and anxiety
CPT/HCPCS: 36415; 71045-TC; 80048-TC; 80076-TC; 81000-TC; 83605-TC; 83735-TC; 84100-TC; 84484-TC; 85025-TC; 85730-TC; 87040-TC; 87081-TC; 87086-TC; 92526; 92611-TC; 94799-TC; 97530-TC; A4216; A6248; G0378; J0696; J1650; J2185; J2543; J3490; J7030; J7042; J7060; J7070

== ENCOUNTER 2018-12-12 15:31 | Inpatient (IN) | payer MEDICARE, OTHER ==
[~2018-12-12] VITALS: Ht 182.9 cm; Wt 84.4 kg
[~2018-12-12 15:31] MED LIST changes: -BISA10SU11 RC; +BISA10SU8 RC; -ONDA4TAB5 PO
--- NOTE | 2018-12-12 15:36 | NUR ---
FELICITA FROM [facility] FOR FAILURE TO THRIVE, POOR PO INTAKE X1 WEEK. TO ER BED 4, HOOKED TO MONITOR, CHANGED TO GOWN, COOLING MEASURES DONE, AWAITING MD DURÁN.
--- NOTE | 2018-12-12 15:52 | NUR ---
DR LINDSEY AT BEDSIDE
[2018-12-12] MEDS ORDERED: ONDANSETRON HCL/PF 4 MG/2 ML VIAL IVP ONE (16:00)
[2018-12-12] MEDS ORDERED: ACETAMINOPHEN ES 500 MG TABLET PO ONE (16:00)
[2018-12-12] MEDS ORDERED: ACETAMINOPHEN ES 500 MG TABLET ONE ×2 (16:00→16:03)
[2018-12-12] MEDS ORDERED: ONDANSETRON HCL/PF 4 MG/2 ML VIAL ONE (16:00)
[2018-12-12] MEDS ORDERED: IV NS 0.9% 1,000 ML BAG IV ONE (16:00)
[2018-12-12 16:02] LABS: BASOPHILS # (AUTO) 0.1 /CMM (0.0-0.2); BASOPHILS % (AUTO) 0.8 % (0.0-2.0); EOSINOPHILS % (AUTO) 4.6 % (0.0-6.0); HEMATOCRIT 30 % (39-51); HEMOGLOBIN 9.7 g/dL (13.5-17.5); LYMPHOCYTES # (AUTO) 1.5 /CMM (0.8-4.8); MEAN CORPUSCULAR HGB CONC 33 g/dl (31.0-36.0); MEAN CORPUSCULAR VOLUME 89 fL (80-96); MONOCYTES # (AUTO) 0.9 /CMM (0.1-1.30); MONOCYTES % (AUTO) 9.9 % (2.0-12.0); NEUTROPHILS # (AUTO) 5.8 /CMM (1.8-8.9); NEUTROPHILS % (AUTO) 67.7 % (43.0-81.0); PLATELET COUNT (AUTO) 233 /CMM (150-450); RED BLOOD CELL COUNT(AUTO) 3.34 MIL/uL (4.5-6.0); WHITE BLOOD COUNT (AUTO) 8.6 K/uL (4.3-11.0)
[2018-12-12] MEDS ORDERED: ZINC220C8 PO (16:08)
[2018-12-12] MEDS ORDERED: ACET-868 PO (16:08)
[2018-12-12] MEDS ORDERED: MULT-24 PO (16:08)
[2018-12-12] MEDS ORDERED: MIRT15TA7 PO (16:08)
[2018-12-12] MEDS ORDERED: ASCO500T9 PO (16:08)
[2018-12-12 16:13] LABS: CALCIUM, SERUM 8.8 mg/dL (8.5-10.1); CARBON DIOXIDE 28 mmol/L (21-32); CHLORIDE 107 mmol/L (98-107); CREATININE 0.8 mg/dL (0.6-1.3); GLUCOSE 94 mg/dL (74-106); SODIUM SERUM 144 mmol/L (136-145); UREA NITROGEN, BLOOD 25 mg/dL (7-18)
[2018-12-12 16:25] LABS: ALANINE AMINOTRANSFERASE 21 U/L (12-78); ALBUMIN 2.2 g/dL (3.4-5.0); ALKALINE PHOSPHATASE 70 U/L (46-116); ASPARTATE AMINOTRANSFERASE 21 U/L (15-37); BILIRUBIN,DIRECT 0.1 mg/dL (0.0-0.2); BILIRUBIN,TOTAL 0.5 mg/dL (0.2-1.0); LIPASE 325 U/L (73-393); TOTAL PROTEIN, SERUM 7.1 g/dL (6.4-8.2)
--- NOTE | 2018-12-12 16:33 | NUR ---
URINE SAMPLE SENT TO LAB
[2018-12-12 16:38] LABS: APPEARANCE,URINE Clear (CLEAR); BILIRUBIN,URINE Negative (NEGATIVE); BLOOD, URINE Trace-lysed Ery/uL (NEGATIVE); COLOR,URINE Yellow (YELLOW); KETONES,URINE 80 (NEGATIVE); LEUKOCYTE ESTERASE ,URINE Small (NEGATIVE); NITRITE, URINE Positive (NEGATIVE); PROTEIN,URINE 30 mg/dl (NEGATIVE); UGLUCOSE Negative (NEGATIVE)
[2018-12-12 16:47] LABS: BACTERIA,URINE 1+ /HPF (None Seen); SQUAMOUS EPITHELIAL CELL,UR Rare /HPF (None Seen)
[2018-12-12] MEDS ORDERED: CEFTRIAXONE 1GM BAG (ER ONLY) 1 GM/50 ML PIGGYBACK IV ONE (17:00)
[2018-12-12] MEDS ORDERED: CEFTRIAXONE 1GM BAG (ER ONLY) 50 ML IV ONE (17:13)
--- NOTE | 2018-12-12 17:15 | NUR ---
CALLED [facility], PAGED EMELINA
--- NOTE | 2018-12-12 17:45 | NUR ---
REPORT GIVEN TO ALICIA SANDOVAL OF TELE UNIT
--- NOTE | 2018-12-12 18:30 | NUR ---
PATIENT ARRIVED TO UNIT, ADM TO ROOM 323-2, TELE. SR 84. ON O2 2L VIA NC SATURATING ABOVE 96%. VS ARE STABLE , AFEBRILE. PATIENT ORIENTED X1.PATIENT CLEANED AND NOTE WITH SACRAL ULCER. WILL ENDOESE TO NEXT SHIFT FOR THAIS.
[2018-12-12 19:00] VITALS: BP 133/75
[2018-12-12] MEDS ORDERED: HYDROCODONE/APAP 5/325MG 1 EACH TABLET PO PRN (19:00)
[2018-12-12] MEDS ORDERED: ONDANSETRON HCL/PF 4 MG/2 ML VIAL IVP PRN (19:00)
[2018-12-12] MEDS ORDERED: ACETAMINOPHEN 325 MG TABLET PO PRN (19:00)
[2018-12-12] MEDS ORDERED: MAG HYDROX/AL HYDROX/SIMETH 30 ML UDC PO PRN (19:00)
[2018-12-12] MEDS ORDERED: IPRATROPIUM NEB FS 0.5 MG/2.5 ML AMPUL.NEB NEB PRN (19:00)
[2018-12-12] MEDS ORDERED: ZOLPIDEM TARTRATE 5 MG TABLET PO PRN (19:00)
[2018-12-12] MEDS ORDERED: MAGNESIUM HYDROXIDE 30 ML UDC PO PRN (19:00)
[2018-12-12] MEDS ORDERED: Z GUARD REMEDY 2 OZ OINT TP PRN (19:00)
[2018-12-12] MEDS ORDERED: ALBUTEROL FS 2.5 MG/3 ML VIAL.NEB NEB PRN (19:00)
--- NOTE | 2018-12-12 19:10 | NUR ---
RN MS OPENING ADMISSION NOTES RECEIVED PATIENT IN BED AWAKE ALERT AND ORIENTED X1-2 , NOTED WITH PERIODS OF FORGETFULNESS AND CONFUSION , ABLE TO ANSWER SIMPLE QUESTIONS, AND FOLLOW SIMPLE DIRECTIONS, ON 2L VIA NC NO SOB, RESPIRATIONS EVEN AND UNLABORED WITH EQUAL RISE AND FALL OF CHEST, APPEARS TO BE COMFORTABLE, MD AWARE OF ADMISSION AWAITING MD ORDERS, INCONTINENT, BODY ASSESSMENT DONE NOTED WITH SACRAL PRESSURE , BOTH HEELS WITH DTI'S AND SCATTERED DTI TO LEFT AND RIGHT FOOT, AND RASH, ON CONTACT PRECAUTIONS AT THIS TIME FOR RASH, R/O SCABIES, BELONGINGS LIST DONE NONE, WOUND PHOTOS TAKEN, ALL NEEDS ATTENDED AT THIS TIME, REPOSITIONED AND CLEANED, WILL CONTINUE TO MONITOR AND ATTEND TO NEEDS, REPOSITIONED OFFLOADED HEELS.
[2018-12-12] MEDS ORDERED: NA PHOS,M-B/NA PHOS,DI-BA 1 EA ENEMA RC PRN (19:30)
[2018-12-12] MEDS ORDERED: CLONIDINE HCL 0.1 MG TABLET PO PRN (19:30)
[2018-12-12] MEDS ORDERED: LORAZEPAM 1 MG TABLET PO PRN (19:30)
[2018-12-12] MEDS: MIRTAZAPINE 15 MG TABLET PO SCH (21:57)
[2018-12-12] MEDS: DIVALPROEX SODIUM 250 MG TABLET.DR PO SCH (21:57)
--- NOTE | 2018-12-12 22:00 | NUR ---
CLARIFICATION OF NOTE DATE 12/12/18 AT 2200. ADMISSION NOTES Addendum: 12/13/18 at 0011 by JUAN RAMON YAN RN Amended: Links added.
[2018-12-13] VITALS: BP 156/84
[2018-12-13 04:00] VITALS: BP 122/75
--- NOTE | 2018-12-13 06:34 | NUR ---
RN MS CLOSING NOTES PATIENT IN BED AWAKE ALERT AND ORIENTED X1-2 , NOTED WITH PERIODS OF FORGETFULNESS AND CONFUSION , ABLE TO ANSWER SIMPLE QUESTIONS, AND FOLLOW SIMPLE DIRECTIONS, ON 2L VIA NC NO SOB, RESPIRATIONS EVEN AND UNLABORED WITH EQUAL RISE AND FALL OF CHEST, APPEARS TO BE COMFORTABLE, INCONTINENT, PERINEAL CARE PROVIDED NEEDED, SACRAL PRESSURE , BOTH HEELS WITH DTI'S AND SCATTERED DTI TO LEFT AND RIGHT FOOT, DRESSINGS CLEAN DRY AND INTACT AND RASH, ON CONTACT PRECAUTIONS AT THIS TIME FOR RASH, R/O SCABIES, ALL NEEDS ATTENDED AT THIS TIME, REPOSITIONED AND CLEANED, WILL CONTINUE TO MONITOR AND ATTEND TO NEEDS, REPOSITIONED OFFLOADED HEELS REMAINS COMFORTABLE , AFEBRILE THROUGHOUT SHIFT. WILL CONTINUE TO MONITOR AND ENDORSE TO NEXT SHIFT
--- NOTE | 2018-12-13 07:48 | NUR ---
rn initial notes received pt awake, noted with confusion. no acute distress noted, on o2 inh. saline lock in place. call light within reach and bed alarm on, safety ensured. positioned for comofort. remains on isolation precaution.
[2018-12-13 08:00] VITALS: BP 130/71
[2018-12-13 08:45] LABS: BASOPHILS % (AUTO) 0.2 % (0.0-2.0); EOSINOPHILS % (AUTO) 2.5 % (0.0-6.0); HEMATOCRIT 29 % (39-51); HEMOGLOBIN 9.4 g/dL (13.5-17.5); LYMPHOCYTES # (AUTO) 0.8 /CMM (0.8-4.8); LYMPHOCYTES % (AUTO) 8.3 % (20.0-44.0); MEAN CORPUSCULAR HGB CONC 32 g/dl (31.0-36.0); MEAN CORPUSCULAR VOLUME 89 fL (80-96); MONOCYTES # (AUTO) 0.8 /CMM (0.1-1.30); MONOCYTES % (AUTO) 8.7 % (2.0-12.0); NEUTROPHILS # (AUTO) 7.7 /CMM (1.8-8.9); NEUTROPHILS % (AUTO) 80.3 % (43.0-81.0); PLATELET COUNT (AUTO) 231 /CMM (150-450); RED BLOOD CELL COUNT(AUTO) 3.28 MIL/uL (4.5-6.0); WHITE BLOOD COUNT (AUTO) 9.5 K/uL (4.3-11.0)
[2018-12-13] MEDS: HALOPERIDOL 5 MG TABLET PO SCH ×2 (08:58→17:59)
[2018-12-13] MEDS: DIVALPROEX SODIUM 250 MG TABLET.DR PO SCH ×2 (08:58→21:32)
[2018-12-13] MEDS: DOCUSATE SODIUM 100 MG CAPSULE PO SCH (08:58)
[2018-12-13] MEDS: MULTIVITAMINS,THERAGRAN 1 UDTAB TABLET PO SCH (08:59)
[2018-12-13] MEDS: AMLODIPINE BESYLATE 10 MG TABLET PO SCH (08:59)
[2018-12-13] MEDS: LOSARTAN POTASSIUM 25 MG TABLET PO SCH (08:59)
[2018-12-13] MEDS: BENZTROPINE MESYLATE (1 MG) 1 MG TABLET PO SCH ×2 (09:00→18:00)
[2018-12-13] MEDS: PANTOPRAZOLE 40 MG TABLET.DR PO SCH (09:03)
[2018-12-13 09:15] LABS: CHOLESTEROL 136 mg/dL (<200); HDL CHOLESTEROL 26 mg/dL (40-60); LDL 91 mg/dL (0-99); THYROID STIMULATING HORMONE 1.544 uIU/mL (0.358-3.74); TRIGLYCERIDES 88 mg/dL (30-150)
[2018-12-13 09:19] LABS: ALANINE AMINOTRANSFERASE 20 U/L (12-78); ALKALINE PHOSPHATASE 64 U/L (46-116); ASPARTATE AMINOTRANSFERASE 17 U/L (15-37); BILIRUBIN,TOTAL 0.4 mg/dL (0.2-1.0); CALCIUM, SERUM 8.7 mg/dL (8.5-10.1); CARBON DIOXIDE 28 mmol/L (21-32); CHLORIDE 107 mmol/L (98-107); CREATININE 0.9 mg/dL (0.6-1.3); GLUCOSE 96 mg/dL (74-106); MAGNESIUM 1.9 mg/dL (1.8-2.4); PHOSPHORUS 3.8 mg/dL (2.5-4.9); SODIUM SERUM 145 mmol/L (136-145); TOTAL PROTEIN, SERUM 6.6 g/dL (6.4-8.2); UREA NITROGEN, BLOOD 20 mg/dL (7-18)
[2018-12-13] MEDS: HYDROGEL DRESSING 90 GM TUBE TP SCH ×2 (11:39→21:40)
[2018-12-13 16:00] VITALS: BP 131/80
[2018-12-13] MEDS ORDERED: CEFTRIAXONE 1 G in IV D5W 50 ML IV SCH (17:00)
[2018-12-13] MEDS: ENSURE CLEAR 237 ML LIQUID (MIX BERRY) PO SCH ×2 (17:00→17:59)
[2018-12-13] MEDS: ZINC SULFATE 220 MG CAPSULE PO SCH (17:59)
[2018-12-13] MEDS: ASCORBIC ACID 500 MG TABLET PO SCH (18:00)
--- NOTE | 2018-12-13 19:00 | NUR ---
RN MS OPENING NOTES RECEIVED PATIENT IN BED AWAKE ALERT AND VERBALLY RESPONSIVE, X1, ON 2 L VIA NC, RESPIRATIONS EVEN AND UNLABORED WITH EQUAL RISE AND FALL OF CHEST, APPEARS TO BE COMFORTABLE AT THIS TIME, NO FACIAL GRIMACING PRESENT, DENIES PAIN AT THIS TIME , WILL CONTINUE TO MONITOR AND REPOSITION. ON CONTACT PRECAUTIONS FOR RASH, BOTH HEELS OFFLOADED WITH PILLOWS, HEAD OF BED ELEVATED FOR ASPIRATION PRECAUTIONS, IV SITE TO LEFT HAND #20G SL , NO REDNESS, NO INFILTRATION , INTACT AND PATENT AND FLUSHING WELL, OFFERED FLUIDS, ALL NEEDS ATTENDED AT THIS TIME, WILL CONTINUE TO MONITOR AND ATTEND TO NEEDS, WILL CONTINUE TO MONITOR.
--- NOTE | 2018-12-13 19:40 | NUR ---
RN CLOSING NOTES NO SIGNIFICANT CHANGE DURING THIS SHIFT. TURNED AND REPOSITIONED. MEDS GIVEN. ENDORSED TO NEXT SHIFT RN FOR CONTINUITY OF CARE IN STABLE CONDITION
[2018-12-13 20:00] VITALS: BP 149/90
--- NOTE | 2018-12-13 21:08 | NUR ---
RN MS NOTES CALLED FAMILY PROVIDED ON FACESHEET ALTHEA AT [phone] ATTEMPTED TO OBTAIN CONSENT FOR DEBRIDEMENT OF SACRUM AND BILATERAL BUTTOCKS , UNABLE TO REACH, MAILBOX IF FULL UNABLE TO LEAVE CALL BACK NUMBER.
[2018-12-13] MEDS: MIRTAZAPINE 15 MG TABLET PO SCH (21:32)
--- NOTE | 2018-12-14 06:34 | NUR ---
RN MS CLOSING NOTES PATIENT IN BED AWAKE ALERT AND VERBALLY RESPONSIVE, X1, ON 2 L VIA NC, RESPIRATIONS EVEN AND UNLABORED WITH EQUAL RISE AND FALL OF CHEST, APPEARS TO BE COMFORTABLE AT THIS TIME, NO FACIAL GRIMACING PRESENT, DENIES PAIN AT THIS TIME , REPOSITIONED AND OFFLOADED AFFECTED WOUND SITES AND HEELS, DRESSING REMAIN CLEAN DRY AND INTACT, DONE ORDERED, TOLERATED WELL. ON CONTACT PRECAUTIONS FOR RASH, BOTH HEELS OFFLOADED WITH PILLOWS, HEAD OF BED ELEVATED FOR ASPIRATION PRECAUTIONS, IV SITE TO LEFT HAND #20G SL , NO REDNESS, NO INFILTRATION , INTACT AND PATENT AND FLUSHING WELL, OFFERED FLUIDS THROUGHOUT SHIFT , ORAL CARE PROVIDED, ALL NEEDS ATTENDED AT THIS TIME, WILL CONTINUE TO MONITOR AND ENDORSE TO NEXT SHIFT, PATIENT LEFT SAFE , NO CHANGES THROUGHOUT SHIFT.
--- NOTE | 2018-12-14 07:24 | NUR ---
RN MS OPENING NOTES RECEIVED PATIENT IN BED ASLEEP, ON 2 L VIA NC, RESPIRATIONS EVEN AND UNLABORED APPEARS TO BE COMFORTABLE AT THIS TIME, DRESSING REMAIN CLEAN DRY AND INTACT. ON CONTACT PRECAUTIONS FOR RASH, BOTH HEELS OFFLOADED WITH PILLOWS, HEAD OF BED ELEVATED FOR ASPIRATION PRECAUTIONS, IV SITE ON LEFT HAND #20G SL , NO REDNESS, NO INFILTRATION , INTACT AND PATENT AND FLUSHING WELL. ALL NEEDS ATTENDED AT THIS TIME, WILL CONTINUE TO MONITOR.
[2018-12-14 07:35] LABS: BASOPHILS % (AUTO) 0.2 % (0.0-2.0); EOSINOPHILS % (AUTO) 3.6 % (0.0-6.0); HEMATOCRIT 28 % (39-51); HEMOGLOBIN 8.9 g/dL (13.5-17.5); LYMPHOCYTES % (AUTO) 12.1 % (20.0-44.0); MEAN CORPUSCULAR HGB CONC 32 g/dl (31.0-36.0); MEAN CORPUSCULAR VOLUME 88 fL (80-96); MONOCYTES # (AUTO) 0.9 /CMM (0.1-1.30); MONOCYTES % (AUTO) 11.4 % (2.0-12.0); NEUTROPHILS # (AUTO) 5.7 /CMM (1.8-8.9); NEUTROPHILS % (AUTO) 72.7 % (43.0-81.0); PLATELET COUNT (AUTO) 238 /CMM (150-450); RED BLOOD CELL COUNT(AUTO) 3.17 MIL/uL (4.5-6.0); WHITE BLOOD COUNT (AUTO) 7.9 K/uL (4.3-11.0)
[2018-12-14] MEDS: PANTOPRAZOLE 40 MG TABLET.DR PO SCH (07:41)
[2018-12-14 07:43] LABS: CALCIUM, SERUM 8.6 mg/dL (8.5-10.1); CARBON DIOXIDE 30 mmol/L (21-32); CHLORIDE 108 mmol/L (98-107); CREATININE 0.9 mg/dL (0.6-1.3); GLUCOSE 87 mg/dL (74-106); POTASSIUM 3.7 mmol/L (3.5-5.1); SODIUM SERUM 146 mmol/L (136-145); UREA NITROGEN, BLOOD 26 mg/dL (7-18)
--- NOTE | 2018-12-14 07:59 | NUR ---
MS RN NOTES TRIED TO CALL FAMILY (ALTHEA) AT [phone] TO ASKED FOR CONSENT FOR DEBRIDMENT OF SACRAL WOUND BUT IT WAS STRAIGHT TO VOICEMAIL AND THE VOICEMAIL WAS FULL, WILL FOLLOW UP AGAIN.
[2018-12-14 08:00] VITALS: BP 126/66
[2018-12-14] MEDS: ENSURE CLEAR 237 ML LIQUID (MIX BERRY) PO SCH (08:05)
[2018-12-14] MEDS: MULTIVITAMINS,THERAGRAN 1 UDTAB TABLET PO SCH (08:32)
[2018-12-14] MEDS: LOSARTAN POTASSIUM 25 MG TABLET PO SCH (08:32)
[2018-12-14] MEDS: HALOPERIDOL 5 MG TABLET PO SCH ×2 (08:32→16:59)
[2018-12-14] MEDS: DOCUSATE SODIUM 100 MG CAPSULE PO SCH (08:33)
[2018-12-14] MEDS: DIVALPROEX SODIUM 250 MG TABLET.DR PO SCH ×2 (08:33→21:27)
[2018-12-14] MEDS: BENZTROPINE MESYLATE (1 MG) 1 MG TABLET PO SCH ×2 (08:33→16:59)
[2018-12-14] MEDS: HYDROGEL DRESSING 90 GM TUBE TP SCH ×2 (08:34→21:27)
[2018-12-14] MEDS: AMLODIPINE BESYLATE 10 MG TABLET PO SCH (08:36)
--- NOTE | 2018-12-14 12:44 | NUR ---
WOUND CARE CONSULT: PT FOLLOWED BY PLASTIC SURGERY TEAM AND PODIATRY TEAM FOR WOUNDS. DEFER TO SURGICAL TEAMS FOR WOUND TREATMENT PLAN. WILL SEE PRN. SKIN PROTECTION DISCUSSED WITH NURSING STAFF. CURRENT WHITLEY SCORE IS 11. Addendum: 12/14/18 at 1301 by NEVILLE WALTERS WNDNU FIRST STEP LOW AIRLOSS MATTRESS ORDERED.
--- NOTE | 2018-12-14 13:28 | NUR ---
RN NOTES PATIENT WAS PLACED TO ISOFLEX BED PER WOUND NURSE. WILL CONTINUE TO MONITOR.
--- NOTE | 2018-12-14 14:12 | NUR ---
RN NOTES PT FOR WOUND DEBRIDEMENT OF SACRAL AND B/L BUTTOCKS. UN-ABLE TO GET CONSENT FROM PT'S FAMILY. CONSENT SIGNED BY TWO MD'S. DEBRIDEMENT DONE BY JACOBO ARCHULETA WILL CONTINUE TO MONITOR
--- NOTE | 2018-12-14 14:48 | NUR ---
RN NOTES CONSENT FOR SKIN BIOPSY AND SCRAPPING FOR SCABIES SIGNED BY TWO MD'S. DR. VAUGHN OBTAINED SPECIMEN FROM LEFT UPPER BACK, INCISION SITE SUTURED AND DRESSING APPLIED. WILL MONITOR INCISION SITE FOR BLEEDING.
[2018-12-14 16:00] VITALS: BP 98/58
[2018-12-14] MEDS ORDERED: MEROPENEM 1 G in IV NS 0.9% 100 ML IV ONE (16:00)
--- NOTE | 2018-12-14 16:01 | NUR ---
RN NOTES RECEIVED CALL FROM LAB AND WAS INFORMED THAT PT IS NEGATIVE FOR SCABIES.
[2018-12-14] MEDS: ZINC SULFATE 220 MG CAPSULE PO SCH (16:59)
[2018-12-14] MEDS: ASCORBIC ACID 500 MG TABLET PO SCH (16:59)
[2018-12-14] MEDS: PROSOURCE / PROSTAT (PYXIS) 30 ML UDC GT SCH (17:12)
[2018-12-14] MEDS: ENSURE CLEAR 237 ML LIQUID (MIX BERRY) GT SCH (17:13)
--- NOTE | 2018-12-14 18:42 | NUR ---
RN MS CLOSING NOTES PATIENT IN BED AWAKE ALERT AND VERBALLY RESPONSIVE, X1, ON 2 L VIA NC, RESPIRATIONS EVEN AND UNLABORED, APPEARS TO BE COMFORTABLE AT THIS TIME. DENIES PAIN AT THIS TIME , REPOSITIONED AND OFFLOADED AFFECTED WOUND SITES AND HEELS, DRESSING REMAIN CLEAN DRY AND INTACT, DONE ORDERED, TOLERATED WELL. HEAD OF BED ELEVATED FOR ASPIRATION PRECAUTIONS, IV SITE TO LEFT HAND #20G SL , NO REDNESS, NO INFILTRATION , INTACT AND PATENT AND FLUSHING WELL. ALL NEEDS ATTENDED AT THIS TIME, WILL CONTINUE TO MONITOR AND ENDORSE TO RADIATION / CHEMISTRY TECHNICIAN FOR THAIS.
[2018-12-14 20:00] VITALS: BP 126/68
--- NOTE | 2018-12-14 20:32 | NUR ---
MS JAIME NOTES RECEIVED PATIENT IN BED ASLEEP BUT AWOKEN VERBALLY OR BY TOUCH. PT A/O X1. RESPIRATIONS EVEN AND UNLABORED WITH NO S/S OF ACUTE DISTRESS OR SOB NOTED. PT DENIES PAIN AT THIS TIME. PT ON 2 L VIA NC TOLERATING WELL. PT WITH LAC#20G PATENT AND INTACT SL. BED IN LOWEST LOCKED POSITION WITH SIDE RAILS UP X2. CALL LIGHT WITHIN REACH. WILL CONTINUE TO MONITOR. Addendum: 12/14/18 at 2037 by VERONICA ANGULO RN PT WITH LHAND #20G SL.
[2018-12-14] MEDS: MIRTAZAPINE 15 MG TABLET PO SCH (21:27)
[2018-12-14] MEDS: MEROPENEM 1 G in IV NS 0.9% 100 ML IV SCH (23:01)
--- NOTE | 2018-12-15 07:41 | NUR ---
RN MS NOTES Patient remains on 1L o2, no sob noted. Patient shows no s/s of pain at this time. Patient's LAC #20 gauge intact and is working. bed in lowest setting, call light within reach.
--- NOTE | 2018-12-15 07:45 | NUR ---
MS RN NOTES PATIENT IN BED ASLEEP BUT AWOKEN VERBALLY OR BY TOUCH. PT A/O X1-2 WITH PERIODS OF CONFUSION. RESPIRATIONS EVEN AND UNLABORED WITH NO S/S OF ACUTE DISTRESS OR SOB NOTED THROUGHOUT SHIFT. PT DENIES PAIN AT THIS TIME. PT ON 1 L VIA NC TOLERATING WELL. PT WITH LHAND #20G PATENT AND INTACT SL. BED IN LOWEST LOCKED POSITION WITH SIDE RAILS UP X2. PT KEPT CLEAN, DRY, AND COMFORTABLE. PT TURNED Q2HRS. CALL LIGHT WITHIN REACH. WILL ENDORSE TO ONCOMING NURSE FOR THAIS.
[2018-12-15 08:00] VITALS: BP 128/71
[2018-12-15] MEDS: MULTIVITAMINS,THERAGRAN 1 UDTAB TABLET PO SCH (08:46)
[2018-12-15] MEDS: AMLODIPINE BESYLATE 10 MG TABLET PO SCH (08:46)
[2018-12-15] MEDS: HALOPERIDOL 5 MG TABLET PO SCH ×2 (08:46→16:56)
[2018-12-15] MEDS: BENZTROPINE MESYLATE (1 MG) 1 MG TABLET PO SCH ×2 (08:46→16:56)
[2018-12-15] MEDS: PANTOPRAZOLE 40 MG TABLET.DR PO SCH (08:47)
[2018-12-15] MEDS: DIVALPROEX SODIUM 250 MG TABLET.DR PO SCH ×2 (08:47→21:21)
[2018-12-15] MEDS: LOSARTAN POTASSIUM 25 MG TABLET PO SCH (08:47)
[2018-12-15] MEDS: DOCUSATE SODIUM 100 MG CAPSULE PO SCH (08:48)
[2018-12-15] MEDS: PROSOURCE / PROSTAT (PYXIS) 30 ML UDC GT SCH ×3 (08:49→16:56)
[2018-12-15] MEDS: HYDROGEL DRESSING 90 GM TUBE TP SCH ×2 (08:49→21:21)
[2018-12-15] MEDS: ENSURE CLEAR 237 ML LIQUID (MIX BERRY) GT SCH ×3 (08:49→16:57)
[2018-12-15] MEDS: MEROPENEM 1 G in IV NS 0.9% 100 ML IV SCH ×2 (08:53→15:09)
[2018-12-15] MEDS ORDERED: IV NS 0.9% 500 ML IV ONE (10:00)
[2018-12-15] MEDS: IV 1/2NS 1000 ML 1,000 ML IV PRN (12:50)
--- NOTE | 2018-12-15 14:09 | NUR ---
RN MS NOTES Patient refuses blood draw, this is the third time that the patient has refused blood draw. Explained to the patient that it is necessary, but patient still refuses.
[2018-12-15 16:00] VITALS: BP 110/62
[2018-12-15] MEDS: ZINC SULFATE 220 MG CAPSULE PO SCH (16:56)
[2018-12-15] MEDS: ASCORBIC ACID 500 MG TABLET PO SCH (16:56)
--- NOTE | 2018-12-15 18:24 | NUR ---
RN MS CLOSING NOTES Patient remains on 2L nasal cannula, no sob noted. Patient denies pain at this time. Left hand #20 gauge remains intact and is free flowing, no obstruction noted. Currently infusing 80 mL per hour of 1/2 NS solution. Patient refused blood draw today, 3x. Explained to the patient the benefits, patient still refused. Bed at the lowest setting, call light within reach.
--- NOTE | 2018-12-15 19:30 | NUR ---
RN NOTES RECEIVED PT. AWAKE ON BED, A/OX2, NO PAIN NOTED AT THIS TIME, NO SOB, CALL LIGHT WITHIN REACH, CALL [id number] WITHIN REACH,.SIDERAILSUPX2, CONTINUE TO MONITOR
[2018-12-15 20:00] VITALS: BP 100/44
[2018-12-15] MEDS: MIRTAZAPINE 15 MG TABLET PO SCH (21:21)
[2018-12-16] MEDS: MEROPENEM 1 G in IV NS 0.9% 100 ML IV SCH ×3 (00:12→17:21)
[2018-12-16] MEDS: IV 1/2NS 1000 ML 1,000 ML IV PRN (00:17)
--- NOTE | 2018-12-16 06:23 | NUR ---
RN NOTES SLEEPING BUT AROUSABLE, NO PAIN NOTED, NO SOB, MORNING CARE RENDERED, SIDERAILSUPX2, PT. NEEDS ATTENDED
[2018-12-16 06:24] LABS: BASOPHILS % (AUTO) 0.4 % (0.0-2.0); EOSINOPHILS % (AUTO) 4.8 % (0.0-6.0); HEMATOCRIT 25 % (39-51); HEMOGLOBIN 8.1 g/dL (13.5-17.5); LYMPHOCYTES # (AUTO) 1.3 /CMM (0.8-4.8); LYMPHOCYTES % (AUTO) 14.3 % (20.0-44.0); MEAN CORPUSCULAR HGB CONC 32 g/dl (31.0-36.0); MEAN CORPUSCULAR VOLUME 88 fL (80-96); MONOCYTES # (AUTO) 0.7 /CMM (0.1-1.30); MONOCYTES % (AUTO) 7.2 % (2.0-12.0); NEUTROPHILS # (AUTO) 6.7 /CMM (1.8-8.9); NEUTROPHILS % (AUTO) 73.3 % (43.0-81.0); PLATELET COUNT (AUTO) 228 /CMM (150-450); RED BLOOD CELL COUNT(AUTO) 2.84 MIL/uL (4.5-6.0); WHITE BLOOD COUNT (AUTO) 9.2 K/uL (4.3-11.0)
[2018-12-16 06:35] LABS: CALCIUM, SERUM 8.2 mg/dL (8.5-10.1); CARBON DIOXIDE 29 mmol/L (21-32); CHLORIDE 109 mmol/L (98-107); CREATININE 0.9 mg/dL (0.6-1.3); GLUCOSE 115 mg/dL (74-106); PHOSPHORUS 3.1 mg/dL (2.5-4.9); SODIUM SERUM 145 mmol/L (136-145); UREA NITROGEN, BLOOD 31 mg/dL (7-18)
--- NOTE | 2018-12-16 07:30 | NUR ---
MS RN RECEIVED ON BED, AWAKE,ALERT,ORIENTED X2,CONFUSED AT TIMES, NOT IN ANY FORM OF DISTRESS, RESPIRATIONS EVEN AND UNLABORED,O SOB NOTED, LUNGS ARE CLEAR,ABDOMEN SOFT,POSITIVE BOWEL SOUNDS,DENIES PAIN AT THIS TIME, WILL MONITOR PATIENT'S CONDITION.
[2018-12-16 08:00] VITALS: BP 128/71
--- NOTE | 2018-12-16 09:30 | NUR ---
MS SANDOVAL BREAKFAST SERVED,DUE MEDS GIVEN,TOLERATED WELL.
--- NOTE | 2018-12-16 10:00 | NUR ---
MS RN DID PT, ONLY SITTING ON BEDSIDE,NO DISTRESS NOTED.
[2018-12-16] MEDS: POTASSIUM CHLORIDE 20 MEQ TAB.PRT.SR PO SCH ×3 (10:03→17:21)
[2018-12-16] MEDS: MULTIVITAMINS,THERAGRAN 1 UDTAB TABLET PO SCH (10:03)
[2018-12-16] MEDS: DOCUSATE SODIUM 100 MG CAPSULE PO SCH (10:03)
[2018-12-16] MEDS: HALOPERIDOL 5 MG TABLET PO SCH ×2 (10:03→17:20)
[2018-12-16] MEDS: BENZTROPINE MESYLATE (1 MG) 1 MG TABLET PO SCH ×2 (10:03→17:20)
[2018-12-16] MEDS: DIVALPROEX SODIUM 250 MG TABLET.DR PO SCH ×2 (10:03→21:14)
[2018-12-16] MEDS: LOSARTAN POTASSIUM 25 MG TABLET PO SCH (10:04)
[2018-12-16] MEDS: AMLODIPINE BESYLATE 10 MG TABLET PO SCH (10:04)
[2018-12-16] MEDS: PANTOPRAZOLE 40 MG TABLET.DR PO SCH (10:07)
[2018-12-16] MEDS: PROSOURCE / PROSTAT (PYXIS) 30 ML UDC GT SCH ×3 (10:11→17:23)
[2018-12-16] MEDS: ENSURE CLEAR 237 ML LIQUID (MIX BERRY) GT SCH ×3 (10:11→17:25)
[2018-12-16 16:00] VITALS: BP 127/66
[2018-12-16] MEDS: ZINC SULFATE 220 MG CAPSULE PO SCH (17:20)
[2018-12-16] MEDS: ASCORBIC ACID 500 MG TABLET PO SCH (17:20)
[2018-12-16] MEDS: HYDROGEL DRESSING 90 GM TUBE TP SCH ×2 (17:28→21:15)
--- NOTE | 2018-12-16 19:30 | NUR ---
MS RN NOTES RECEIVED ON BED A/O X1-2,PALE LOOKING,IV ACCIDENTALLY PULLED OUT.NEW SALINE LOCK PLACE ON RIGHT HAND #22.SAME IV ABX RE STARTED.WITH IVF 1/2 NS AT 80ML/HR RATE.ISOLATION PRECAUTION FOR ESBL URINE.BILATERAL FOOT DRESSING INTACT AND DRY.ON GEL BED FOR WOUND MANAGEMENT.CALL LIGHT IN REACH,NEEDS ANTICIPATED.
[2018-12-16 20:00] VITALS: BP 141/67
[2018-12-16 20:14] VITALS: BP 141/67
[2018-12-16] MEDS: MIRTAZAPINE 15 MG TABLET PO SCH (21:15)
--- NOTE | 2018-12-17 | NUR ---
MS RN NOTES DUE IV ABX MERREM AZIZA,INFUSING AT 33.3ML/HR RATE VIA IV PUMP ON RIGHT HAND.
[2018-12-17] MEDS: MEROPENEM 1 G in IV NS 0.9% 100 ML IV SCH ×4 (00:06→23:16)
[2018-12-17] MEDS: IV 1/2NS 1000 ML 1,000 ML IV PRN ×2 (02:57→23:20)
--- NOTE | 2018-12-17 03:05 | NUR ---
MS RN NOTES MORNING CARE RENDERED,TOLERATED WELL.DRESSING CHANGE ON SACRAL AREA,REPOSITION PER PROTOCOL.BILATERAL FOOT ELEVATED ON PILLOWS,OFFLOAD FROM BED MATTRESS.
--- NOTE | 2018-12-17 06:06 | NUR ---
MS RN NOTES LAYING COMFORTABLY ON BED,BREATHING NON LABORED.O2 IN USED TO KEEP O2 SAT ABOVE 90%.IVF IN PROGRESS.REPOSITION PER PROTOCOL.BOTH LEGS ELEVATED ON PILLOWS.IN NO ACUTE DISTRESS.WILL ENDORSE TO DAY NURSE FOR CONTINUITY OF CARE.
--- NOTE | 2018-12-17 07:25 | NUR ---
MS/RN OPENING NOTE PATIENT IN BED IN STABLE CONDITION. A/O X 1-2. NO SIGNS OF ACUTE DISTRESS. NO COMPLAIN OF PAIN OR DISCOMFORT. ON CONTACT ISOLATION SECONDARY TO ESBL/ECOLI OF URINE. ALL NEEDS ATTENDED TO. CALL LIGHT WITHIN REACH. WILL CONTINUE TO MONITOR TO ENSURE SAFETY.
[2018-12-17 08:00] VITALS: BP 126/79
[2018-12-17] MEDS: BENZTROPINE MESYLATE (1 MG) 1 MG TABLET PO SCH ×3 (08:27→16:53)
[2018-12-17] MEDS: PROSOURCE / PROSTAT (PYXIS) 30 ML UDC GT SCH ×4 (08:27→16:53)
[2018-12-17] MEDS: DOCUSATE SODIUM 100 MG CAPSULE PO SCH (08:27)
[2018-12-17] MEDS: PANTOPRAZOLE 40 MG TABLET.DR PO SCH (08:27)
[2018-12-17] MEDS: LOSARTAN POTASSIUM 25 MG TABLET PO SCH (08:28)
[2018-12-17] MEDS: DIVALPROEX SODIUM 250 MG TABLET.DR PO SCH ×3 (08:28→22:04)
[2018-12-17] MEDS: AMLODIPINE BESYLATE 10 MG TABLET PO SCH (08:28)
[2018-12-17] MEDS: HALOPERIDOL 5 MG TABLET PO SCH ×3 (08:28→16:53)
[2018-12-17] MEDS: ENSURE CLEAR 237 ML LIQUID (MIX BERRY) GT SCH ×3 (08:28→16:45)
[2018-12-17] MEDS: MULTIVITAMINS,THERAGRAN 1 UDTAB TABLET PO SCH (08:28)
[2018-12-17] MEDS: HYDROGEL DRESSING 90 GM TUBE TP SCH ×2 (08:29→22:05)
[2018-12-17 11:05] LABS: BASOPHILS % (AUTO) 0.6 % (0.0-2.0); EOSINOPHILS % (AUTO) 7.8 % (0.0-6.0); HEMATOCRIT 27 % (39-51); HEMOGLOBIN 8.6 g/dL (13.5-17.5); LYMPHOCYTES # (AUTO) 1.1 /CMM (0.8-4.8); LYMPHOCYTES % (AUTO) 16.5 % (20.0-44.0); MEAN CORPUSCULAR HGB CONC 32 g/dl (31.0-36.0); MEAN CORPUSCULAR VOLUME 88 fL (80-96); MONOCYTES # (AUTO) 0.6 /CMM (0.1-1.30); MONOCYTES % (AUTO) 8.9 % (2.0-12.0); NEUTROPHILS # (AUTO) 4.5 /CMM (1.8-8.9); NEUTROPHILS % (AUTO) 66.2 % (43.0-81.0); PLATELET COUNT (AUTO) 252 /CMM (150-450); RED BLOOD CELL COUNT(AUTO) 3.02 MIL/uL (4.5-6.0); WHITE BLOOD COUNT (AUTO) 6.9 K/uL (4.3-11.0)
[2018-12-17 11:30] LABS: CALCIUM, SERUM 8.5 mg/dL (8.5-10.1); CARBON DIOXIDE 29 mmol/L (21-32); CHLORIDE 110 mmol/L (98-107); CREATININE 0.9 mg/dL (0.6-1.3); GLUCOSE 106 mg/dL (74-106); MAGNESIUM 1.9 mg/dL (1.8-2.4); PHOSPHORUS 2.8 mg/dL (2.5-4.9); POTASSIUM 3.2 mmol/L (3.5-5.1); SODIUM SERUM 146 mmol/L (136-145); UREA NITROGEN, BLOOD 24 mg/dL (7-18)
[2018-12-17] MEDS: POTASSIUM CHLORIDE 20 MEQ TAB.PRT.SR PO SCH ×2 (12:11→13:10)
[2018-12-17 16:00] VITALS: BP 142/71
[2018-12-17] MEDS: ASCORBIC ACID 500 MG TABLET PO SCH ×2 (16:45→16:53)
[2018-12-17] MEDS: ZINC SULFATE 220 MG CAPSULE PO SCH ×2 (16:45→16:53)
--- NOTE | 2018-12-17 17:00 | NUR ---
MS/RN REFUSE EVENING MEDICATION AND PO MEAL INTAKE OFFERED X 3 WITH RISKS AND BENEFITS EXPLAINED CONTINUE TO REFUSE, AND PATIENT REFUSE TO OPEN HIS MOUTH. WILL CONTINUE TO MONITOR TO ENSURE SAFETY AND FOR FURTHER CHANGES.
--- NOTE | 2018-12-17 18:15 | NUR ---
MS/RN CLOSING NOTE PATIENT IN BED IN STABLE CONDITION. A/O X 1-2, NO SIGNS OF ACUTE DISTRESS. NO COMPLAIN OF PAIN OR DISCOMFORT. ON CONTACT ISOLATION SECONDARY TO ESBL AND ECOLI OF URINE. ALL NEEDS ATTENDED TO. CALL LIGHT WITHIN REACH. WILL ENDORSE TO NEXT SHIFT FOR CONTINUITY OF CARE.
[2018-12-17 20:00] VITALS: BP 126/65
[2018-12-17 20:30] VITALS: BP 126/65
[2018-12-17] MEDS: MIRTAZAPINE 15 MG TABLET PO SCH ×2 (22:00→22:04)
[2018-12-18 01:26] VITALS: BP 126/65
--- NOTE | 2018-12-18 06:38 | NUR ---
MS RN CLOSING NOTES: PATIENT IS IN BED COMFORTABLE, AWAKE, ALERT AND ORIENTED X2. NO SOB NOTED. TURNED TO SIDES AND CHANGED POSITION DURING THE SHIFT. SLEPT THROUGHOUT THE NIGHT. NO ACUTE EVENTS OVERNIGHT. BED IN LOW AND LOCKED POSITION. CALL LIGHT WITHIN REACH. SACRAL DRESSING MEPILEX CHANGED THIS AM. BED ALARM ON. HEMODYNAMICS AND RESPIRATORY STATUS ARE STABLE.
[2018-12-18] MEDS: PANTOPRAZOLE 40 MG TABLET.DR PO SCH ×2 (07:30→08:44)
--- NOTE | 2018-12-18 07:43 | NUR ---
MS RN OPENING NOTES PATIENT IN BED RESTING COMFORTABLY. PATIENT IS AWAKE, ALERT AND ORIENTED X2. PATIENT BREATHING ON OXYGEN NC AT 3L. PATIENT SATURATING AT >95% 02. PATIENT BREATHING IS EVEN AND UNLABORED. PATIENT IN NO ACUTE DISTRESS. NO FACIAL GRIMACING NOTED. PATIENT MAINTAINED ON CONTACT ISOLATION PRECAUTIONS. BED IS LOCKED AND IN LOWEST POSITION. PATIENT CALL LIGHT WITHIN REACH. WILL CONTINUE TO MONITOR.
[2018-12-18 07:49] LABS: CALCIUM, SERUM 8.5 mg/dL (8.5-10.1); CARBON DIOXIDE 27 mmol/L (21-32); CHLORIDE 109 mmol/L (98-107); CREATININE 0.8 mg/dL (0.6-1.3); GLUCOSE 103 mg/dL (74-106); POTASSIUM 3.7 mmol/L (3.5-5.1); SODIUM SERUM 144 mmol/L (136-145); UREA NITROGEN, BLOOD 23 mg/dL (7-18)
[2018-12-18 08:00] VITALS: BP 132/66
[2018-12-18] MEDS: DOCUSATE SODIUM 100 MG CAPSULE PO SCH ×2 (08:44→09:00)
[2018-12-18] MEDS: DIVALPROEX SODIUM 250 MG TABLET.DR PO SCH ×2 (08:44→09:00)
[2018-12-18] MEDS: BENZTROPINE MESYLATE (1 MG) 1 MG TABLET PO SCH ×2 (08:45→09:00)
[2018-12-18] MEDS: HALOPERIDOL 5 MG TABLET PO SCH ×2 (08:45→09:00)
[2018-12-18] MEDS: MULTIVITAMINS,THERAGRAN 1 UDTAB TABLET PO SCH ×2 (08:45→09:00)
[2018-12-18] MEDS: LOSARTAN POTASSIUM 25 MG TABLET PO SCH ×2 (08:47→09:00)
[2018-12-18] MEDS: AMLODIPINE BESYLATE 10 MG TABLET PO SCH ×2 (08:47→09:00)
[2018-12-18 09:00] VITALS: BP 139/70
[2018-12-18] MEDS: ENSURE CLEAR 237 ML LIQUID (MIX BERRY) GT SCH ×2 (09:00→13:00)
[2018-12-18] MEDS: PROSOURCE / PROSTAT (PYXIS) 30 ML UDC GT SCH ×2 (09:00→13:00)
--- NOTE | 2018-12-18 09:07 | NUR ---
MS RN NOTES PATIENT REFUSED AM MEDICATIONS. EXPLAINED RISKS AND BENEFITS. PATIENT CONTINUED TO REFUSE AFTER OFFERING MEDICATIONS MULTIPLE TIMES. PATIENT STATES " I DONT WANT YOU GIVING ME ANY OF THOSE MEDICATIONS". PATIENT IS IN NO ACUTE DISTRESS. WILL CONTINUE TO MONITOR.
[2018-12-18] MEDS: MEROPENEM 1 G in IV NS 0.9% 100 ML IV SCH (09:50)
[2018-12-18] MEDS: HYDROGEL DRESSING 90 GM TUBE TP SCH (09:51)
[2018-12-18] MEDS ORDERED: MERO1VIA IV (11:07)
--- NOTE | 2018-12-18 13:30 | NUR ---
MS RN NOTES PATIENT KEPT CLEAN, DRY, AND REPOSITIONED. PATIENT IS RESTING COMFORTABLY IN BED. PATIENT IN NO ACUTE DISTRESS. DRESSINGS KEPT CLEAN AND DRY. PATIENT REFUSED PROSTAT AND ENSURE. WILL CONTINUE TO MONITOR
--- NOTE | 2018-12-18 14:00 | NUR ---
MS RN NOTES PATIENT NOTED WITH LEFT UPPER BACK SKIN BIOPSY INCISION. SUTURES IN PLACE. DRESSING KEPT CLEAN AND DRY. SURROUNDING SKIN KEPT CLEAN AND DRY. PICTURE TAKEN. NO SIGNS OF SWELLING. WILL CONTINUE TO MONITOR.
--- NOTE | 2018-12-18 16:00 | NUR ---
MS RN CLOSING NOTES PATIENT IN STABLE CONDITION. REPORT GIVEN TO YOVANI SANDOVAL AT [facility]. PATIENT IN NO ACUTE DISTRESS. NO SOB NOTED. PATIENT BREATHING IS EVEN AND UNLABORED. PATIENT WAS KEPT CLEAN, DRY, AND REPOSITIONED DURING HOSPITALIZATION. DRESSINGS ON PATIENT KEPT CLEAN AND DRY. PATIENT WAS NONCOMPLIANT DURING MY SHIFT WITH AM MEDICATIONS, PATIENT REFUSED. PATIENT VERBALIZED YES TO THE IV ANTIBIOTICS. IV IS INTACT FOR CONTINUED IV ANTIBIOTICS AT [facility]. PATIENT ID BAND REMOVED. BELONGINGS LIST IS SIGNED BY TWO NURSES, DUE TO PATIENT UNABLE TO SIGN. DISCHARGE PACKET WAS SIGNED BY TWO NURSES DUE TO PATIENT UNABLE TO SIGN. PATIENT GIVEN DISCHARGE INSTRUCTIONS, PATIENT UNABLE TO COMPREHEND. SKIN WAS ASSESSED, NO NEW SKIN BREAKDOWN. REPORT GIVEN TO EMT. PATIENT LEFT IN A GURNEY WITH EMT. MD AWARE OF DISCHARGE.
== END 2018-12-18 16:15 | DRG 673 ==
LOC: ER 15:33 → TELE 17:23 → MED 12-13 08:43
PROVIDERS: ADMIT Hospitalist; ATTEND Nurse Practitioner Acute Care
PROC: 0JB70ZZ Excision of Back Subcutaneous Tissue and Fascia, Open Approach (ICD-10-PCS; principal; 2018-12-14)
PROC: 0JB90ZZ Excision of Buttock Subcutaneous Tissue and Fascia, Open Approach (ICD-10-PCS; 2018-12-14)
DX: N39.0 Urinary tract infection, site not specified (principal); L89.153 Pressure ulcer of sacral region, stage 3; L89.323 Pressure ulcer of left buttock, stage 3; L89.313 Pressure ulcer of right buttock, stage 3; E43 Unspecified severe protein-calorie malnutrition; I69.354 Hemiplegia and hemiparesis following cerebral infarction affecting left non-dominant side; R65.10 Systemic inflammatory response syndrome (SIRS) of non-infectious origin without acute organ dysfunction; E87.0 Hyperosmolality and hypernatremia; E86.0 Dehydration; F03.90 Unspecified dementia, unspecified severity, without behavioral disturbance, psychotic disturbance, mood disturbance, and anxiety; F41.9 Anxiety disorder, unspecified; I25.10 Atherosclerotic heart disease of native coronary artery without angina pectoris; I12.9 Hypertensive chronic kidney disease with stage 1 through stage 4 chronic kidney disease, or unspecified chronic kidney disease; N18.9 Chronic kidney disease, unspecified; R26.9 Unspecified abnormalities of gait and mobility; R62.7 Adult failure to thrive; Z91.018 Allergy to other foods; Z79.899 Other long term (current) drug therapy; D63.8 Anemia in other chronic diseases classified elsewhere; J44.9 Chronic obstructive pulmonary disease, unspecified; E78.5 Hyperlipidemia, unspecified; F31.9 Bipolar disorder, unspecified; F20.9 Schizophrenia, unspecified; F29 Unspecified psychosis not due to a substance or known physiological condition; L89.620 Pressure ulcer of left heel, unstageable; L89.610 Pressure ulcer of right heel, unstageable; L89.890 Pressure ulcer of other site, unstageable; Z74.01 Bed confinement status; Z74.09 Other reduced mobility; G89.29 Other chronic pain; Z16.12 Extended spectrum beta lactamase (ESBL) resistance; B96.20 Unspecified Escherichia coli [E. coli] as the cause of diseases classified elsewhere; E87.6 Hypokalemia; E83.51 Hypocalcemia
CPT/HCPCS: 36415; 71045-TC; 80048-TC; 80053-TC; 80061-TC; 80076-TC; 81000-TC; 83605-TC; 83690-TC; 83735-TC; 84100-TC; 84443-TC; 85025-TC; 87040-TC; 87081-TC; 87086-TC; 87186-TC; 88305-TC; 88312-TC; 94799-TC; 97110-TC; 97112-TC; 97530-TC; A6248; A6402; A6403; G0378; J0696; J2185; J2405; J3490; J7030; J7040; J7060

== ENCOUNTER 2018-12-30 10:07 | Inpatient (IN) | payer MEDICARE, OTHER ==
[~2018-12-30] VITALS: Ht 182.9 cm; Wt 76.7 kg
[~2018-12-30 10:07] MED LIST changes: +ASCO500T9 PO; -BISA10SU8 RC; -DIVA500T2 PO; +MERO1VIA IV; +MIRT15TA7 PO; +MULT-24 PO; +ZINC220C8 PO
--- NOTE | 2018-12-30 10:16 | NUR ---
PT ERWIN FROM SNF FOR POSSIBLE PEG PLACEMENT; PT AAOX0, -SOB, NAD NOTED. PT TO BED 13, VSS, PENDING MD DURÁN
[2018-12-30 11:48] LABS: BASOPHILS # (AUTO) 0.1 /CMM (0.0-0.2); BASOPHILS % (AUTO) 0.5 % (0.0-2.0); EOSINOPHILS % (AUTO) 6.4 % (0.0-6.0); HEMATOCRIT 35 % (39-51); HEMOGLOBIN 10.4 g/dL (13.5-17.5); LYMPHOCYTES # (AUTO) 1.3 /CMM (0.8-4.8); LYMPHOCYTES % (AUTO) 9.6 % (20.0-44.0); MEAN CORPUSCULAR HGB CONC 30 g/dl (31.0-36.0); MEAN CORPUSCULAR VOLUME 92 fL (80-96); MONOCYTES % (AUTO) 7.1 % (2.0-12.0); NEUTROPHILS # (AUTO) 10.2 /CMM (1.8-8.9); NEUTROPHILS % (AUTO) 76.4 % (43.0-81.0); PLATELET COUNT (AUTO) 256 /CMM (150-450); RED BLOOD CELL COUNT(AUTO) 3.79 MIL/uL (4.5-6.0); WHITE BLOOD COUNT (AUTO) 13.4 K/uL (4.3-11.0)
[2018-12-30 11:57] LABS: CALCIUM, SERUM 8.9 mg/dL (8.5-10.1); CARBON DIOXIDE 30 mmol/L (21-32); CHLORIDE 113 mmol/L (98-107); CREATININE 1.2 mg/dL (0.6-1.3); GLUCOSE 117 mg/dL (74-106); SODIUM SERUM 154 mmol/L (136-145); UREA NITROGEN, BLOOD 39 mg/dL (7-18)
[2018-12-30 12:04] LABS: ALANINE AMINOTRANSFERASE 34 U/L (12-78); ALBUMIN 2.1 g/dL (3.4-5.0); ALKALINE PHOSPHATASE 75 U/L (46-116); ASPARTATE AMINOTRANSFERASE 94 U/L (15-37); BILIRUBIN,DIRECT 0.1 mg/dL (0.0-0.2); BILIRUBIN,TOTAL 0.6 mg/dL (0.2-1.0); TOTAL PROTEIN, SERUM 8.3 g/dL (6.4-8.2)
[2018-12-30] MEDS ORDERED: IV NS 0.9% 1,000 ML BAG IV ONE (12:30)
[2018-12-30 13:17] LABS: APPEARANCE,URINE CLOUDY (CLEAR); COLOR,URINE ORANGE (YELLOW)
[2018-12-30 13:18] LABS: BILIRUBIN,URINE 1+ (NEGATIVE); BLOOD, URINE 3+ Ery/uL (NEGATIVE); KETONES,URINE TRACE (NEGATIVE); PH,URINE 5.5 (5.0-8.0); PROTEIN,URINE 2+ mg/dl (NEGATIVE); UGLUCOSE NEG (NEGATIVE); UROBILINOGEN,URINE 0.2 EU/dL (0.2)
[2018-12-30 13:19] LABS: LEUKOCYTE ESTERASE ,URINE 2+ (NEGATIVE); NITRITE, URINE POSITIVE (NEGATIVE)
[2018-12-30] MEDS ORDERED: BISA10SU11 RC (13:37)
--- NOTE | 2018-12-30 13:51 | NUR ---
CALLED PSYCHIATRIC, PAGED MD ELI
[2018-12-30 13:53] LABS: BACTERIA,URINE Few /HPF (None Seen); SQUAMOUS EPITHELIAL CELL,UR Rare /HPF (None Seen)
--- NOTE | 2018-12-30 13:58 | NUR ---
BED 329 M/S
--- NOTE | 2018-12-30 14:00 | NUR ---
AUBREY LOONEY PICC/MID LINE NURSE AT BEDSIDE
--- NOTE | 2018-12-30 14:18 | NUR ---
LT UPPER ARM 18G MID LINE STARTED
--- NOTE | 2018-12-30 14:25 | NUR ---
REPORT GIVEN TO MARIA SANDOVAL FOR THAIS; PT WILL BE TRANSPORTED TO 3RD FLOOR VIA ACLS PROTOCOL
[2018-12-30] MEDS ORDERED: MAGNESIUM HYDROXIDE 30 ML UDC PO PRN ×2 (15:30)
[2018-12-30] MEDS ORDERED: CLONIDINE HCL 0.1 MG TABLET PO PRN (15:30)
[2018-12-30] MEDS ORDERED: ACETAMINOPHEN 325 MG TABLET PO PRN ×2 (15:30)
[2018-12-30] MEDS ORDERED: ONDANSETRON HCL/PF 4 MG/2 ML VIAL IVP PRN (15:30)
[2018-12-30] MEDS ORDERED: Z GUARD REMEDY 2 OZ OINT TP PRN (15:30)
[2018-12-30] MEDS ORDERED: Medication Not On Formulary EA (Ipratropium/Albuterol Sulfate (Duoneb 2.5-0.5 Mg/3 Ml So IH PRN (15:30)
[2018-12-30] MEDS ORDERED: HYDROCODONE/APAP 5/325MG 1 EACH TABLET PO PRN (15:30)
[2018-12-30] MEDS ORDERED: BISACODYL SUPP (10 MG) 10 MG/SUPP.RECT SUPP.RECT RC PRN (15:30)
[2018-12-30] MEDS ORDERED: MAG HYDROX/AL HYDROX/SIMETH 30 ML UDC PO PRN ×2 (15:30)
[2018-12-30] MEDS ORDERED: ZOLPIDEM TARTRATE 5 MG TABLET PO PRN (15:30)
[2018-12-30] MEDS ORDERED: NA PHOS,M-B/NA PHOS,DI-BA 1 EA ENEMA RC PRN (15:30)
[2018-12-30] MEDS ORDERED: LORAZEPAM 1 MG TABLET PO PRN (15:30)
--- NOTE | 2018-12-30 16:00 | NUR ---
ADMISSION NOTE PT BROUGHT UP AT THIS TIME VIA GURNEY. A/O X2 BREATHING EVEN AND UNALBORED ON 3L VIA NC, NO CURRENT COMPLAINT OF ANY DISTRESS OR PAIN, JOSEFINA MIDLINE IS PATENT AND INTACT, ADMITTED TO [facility], NOTED TO HAVE SACRAL WOUND AND BLE HEEL REDNESS, SAFETY PRECAUTIONS IN PLACE, CALL LIGHT WITHIN REACH, WILL MONITOR ACCORDINGLY
[2018-12-30] MEDS ORDERED: IPRATROPIUM NEB FS 0.5 MG/2.5 ML AMPUL.NEB NEB PRN (16:30)
[2018-12-30] MEDS ORDERED: ALBUTEROL FS 2.5 MG/0.5 ML VIAL.NEB NEB PRN (16:30)
[2018-12-30] MEDS: ASCORBIC ACID 500 MG TABLET PO SCH (16:50)
[2018-12-30] MEDS: ZINC SULFATE 220 MG CAPSULE PO SCH (16:50)
[2018-12-30] MEDS: BENZTROPINE MESYLATE (1 MG) 1 MG TABLET PO SCH (16:50)
[2018-12-30] MEDS: HALOPERIDOL 5 MG TABLET PO SCH (16:50)
[2018-12-30] MEDS ORDERED: ENSURE ENLIVE 237 ML LIQUID (VANILLA) PO SCH (17:00)
--- NOTE | 2018-12-30 18:47 | NUR ---
RN CLOSING NOTE PT IN BED AT LOWEST AND LOCKED POSITION WITH SIDE RAILS UP X2, A/O X1-2 BREATHING EVEN AND UNLABORED ON 3L VIA N/C, NO S/S OF ANY DISTRESS OR PAIN, MIDLINE IS PATENT AND INTACT, WOUNDS WERE DRESSED AND TREATED WITH WOUND CONSULT ORDERED, SAFETY PRECAUTIONS IN PLACE, CALL LIGHT WITHIN REACH, ALL NEEDS ATTENDED TO, WILL ENDORSE TO NIGHT RN FOR THAIS.
[2018-12-30 20:00] VITALS: BP 128/68
[2018-12-30] MEDS: MIRTAZAPINE 15 MG TABLET PO SCH (21:24)
--- NOTE | 2018-12-31 01:00 | NUR ---
MS RN NOTES PT SLEEPING. EASILY AROUSABLE. NOT IN ANY DISTRESS. NO SOB NOTED. NO S/X OF ANY PAIN OR DISCOMFORT AT THIS TIME. WITH MIDLINE PATENT & INTACT. MONITORED ACCORDINGLY. CALL LIGHT WITHIN REACH. BED IN LOWEST POSITION. SR UP X 3 FOR SAFETY. REPORT GIVEN TO PAMELA SANDOVAL FOR CONTINUITY OF CARE.
--- NOTE | 2018-12-31 01:05 | NUR ---
MS/RN NOTES RECEIVED REPORT AND PATIENT FROM JAIME PARSONS. PT. IS LYING IN BED RESTING. BREATHING EVEN AND UNLABORED ON 4LPM O2 VIA NC. NO SOB, RESPIRATORY DISTRESS OR S/S OF PAIN NOTED AT THIS TIME. BED LOCKED AND IN LOWEST POSITION, SIDE RAILS UP X3, BED ALARM ON, CALL LIGHT WITHIN REACH, WILL CONTINUE TO MONITOR.
[2018-12-31 06:53] LABS: CALCIUM, SERUM 8.5 mg/dL (8.5-10.1); CARBON DIOXIDE 31 mmol/L (21-32); CHLORIDE 116 mmol/L (98-107); CREATININE 1.2 mg/dL (0.6-1.3); GLUCOSE 121 mg/dL (74-106); MAGNESIUM 2.3 mg/dL (1.8-2.4); PHOSPHORUS 3.6 mg/dL (2.5-4.9); POTASSIUM 3.5 mmol/L (3.5-5.1); UREA NITROGEN, BLOOD 39 mg/dL (7-18)
[2018-12-31 06:55] LABS: CHOLESTEROL 97 mg/dL (<200); HDL CHOLESTEROL 24 mg/dL (40-60); LDL 60 mg/dL (0-99); TRIGLYCERIDES 86 mg/dL (30-150)
[2018-12-31 07:01] LABS: SODIUM SERUM 156 mmol/L (136-145)
--- NOTE | 2018-12-31 07:05 | NUR ---
MS/RN NOTES PT. IS LYING IN BED RESTING. BREATHING EVEN AND UNLABORED ON 4LPM O2 VIA NC. NO SOB, RESPIRATORY DISTRESS OR S/S OF PAIN NOTED AT THIS TIME. PT. WITH MIDLINE PRESENT, PATENT AND INTACT. ALL PT. NEEDS MET. PT. OFFLOADED, TURNED AND REPOSITIONED Q2H AND NEEDED. BED LOCKED AND IN LOWEST POSITION, SIDE RAILS UP X3, BED ALARM ON, CALL LIGHT WITHIN REACH, WILL ENDORSE TO DAYSHIFT NURSE FOR CONTINUITY OF CARE.
[2018-12-31 07:08] LABS: BASOPHILS % (AUTO) 0.2 % (0.0-2.0); EOSINOPHILS % (AUTO) 2.6 % (0.0-6.0); HEMATOCRIT 28 % (39-51); HEMOGLOBIN 8.5 g/dL (13.5-17.5); LYMPHOCYTES # (AUTO) 1.1 /CMM (0.8-4.8); LYMPHOCYTES % (AUTO) 9.1 % (20.0-44.0); MEAN CORPUSCULAR HGB CONC 31 g/dl (31.0-36.0); MEAN CORPUSCULAR VOLUME 89 fL (80-96); MONOCYTES # (AUTO) 1.2 /CMM (0.1-1.30); MONOCYTES % (AUTO) 10.1 % (2.0-12.0); NEUTROPHILS # (AUTO) 9.6 /CMM (1.8-8.9); PLATELET COUNT (AUTO) 217 /CMM (150-450); WHITE BLOOD COUNT (AUTO) 12.3 K/uL (4.3-11.0)
--- NOTE | 2018-12-31 07:45 | NUR ---
M/S RN NOTES PATIENT AWAKE IN BED, ALERT AND ORIENTED X1, NO RESPIRATORY DISTRESS, NO C/O PAIN AT THIS TIME. SKIN WARM TO TOUCH. PATIENT'S NEEDS ATTENDED. ISOLATION PRECAUTION MAINTAINED. BED ON LOWEST LOCKED POSITION, CALL LIGHT WITHIN REACH.
[2018-12-31 08:00] VITALS: BP 117/70
[2018-12-31] MEDS ORDERED: IV D5W 1,000 ML IV SCH (08:00)
[2018-12-31] MEDS: PANTOPRAZOLE 40 MG TABLET.DR PO SCH (08:27)
[2018-12-31] MEDS ORDERED: ENSURE CLEAR 237 ML LIQUID (MIX BERRY) PO SCH ×2 (08:30→08:38)
[2018-12-31] MEDS: MULTIVITAMINS,THERAGRAN 1 UDTAB TABLET PO SCH (09:14)
[2018-12-31] MEDS: HALOPERIDOL 5 MG TABLET PO SCH ×2 (09:14→16:14)
[2018-12-31] MEDS: DOCUSATE SODIUM 100 MG CAPSULE PO SCH (09:16)
[2018-12-31] MEDS: BENZTROPINE MESYLATE (1 MG) 1 MG TABLET PO SCH ×2 (09:16→16:14)
[2018-12-31] MEDS: ACETAMINOPHEN 325 MG TABLET PO SCH (09:16)
[2018-12-31] MEDS: PROSOURCE / PROSTAT (PYXIS) 30 ML UDC PO SCH (09:17)
[2018-12-31] MEDS: AMLODIPINE BESYLATE 10 MG TABLET PO SCH (09:17)
--- NOTE | 2018-12-31 09:30 | NUR ---
M/S RN NOTES PATIENT ATE 50% OF BREAKFAST PLUS ENSURE AND PROSTAT, TOLERATED WELL.
[2018-12-31] MEDS ORDERED: CEFEPIME 1 GM VIAL IM SCH (14:00)
[2018-12-31] MEDS ORDERED: CEFEPIME 1 GM in IV D5W 50 ML IV SCH (15:00)
[2018-12-31 16:00] VITALS: BP 121/70
[2018-12-31] MEDS: ASCORBIC ACID 500 MG TABLET PO SCH (16:14)
[2018-12-31] MEDS: ZINC SULFATE 220 MG CAPSULE PO SCH (16:14)
[2018-12-31] MEDS: ENSURE ENLIVE 237 ML LIQUID (VANILLA) PO SCH (16:19)
--- NOTE | 2018-12-31 16:45 | NUR ---
Patient has hx of dementia and schizophrenia. He resides at [facility] [phone]. He is confined to chair and requires max assist with adl's. Current dc plan is to return to SNF once discharge. Addendum: 12/31/18 at 1645 by LYNDA LOPEZ RN Amended: Links added.
--- NOTE | 2018-12-31 18:45 | NUR ---
M/S RN NOTES PATIENT RESTING, LYING IN BED, NO RESPIRATORY DISTRESS, NO C/O PAIN. SKIN WARM TO TOUCH. PATIENT DRANK 25% OF ENSURE VANILLA FOR DINNER. IV ACCESS SITE INTACT AND PATENT. PATIENT'S NEEDS ATTENDED. BED ON LOWEST LOCKED POSITION, CALL LIGHT WITHIN REACH. WILL ENDORSE TO ONCOMING NURSE.
--- NOTE | 2018-12-31 19:35 | NUR ---
MSRN ASLEEP, APPEARS COMFORTABLE. CLOSELY WATCHED. TO CONTINUE
[2018-12-31 20:15] VITALS: BP 114/63
--- NOTE | 2018-12-31 20:20 | NUR ---
MSRN NEED CONSENT FOR DEBRIDEMENT OF SACRAL WOUND. PLACED CALL TO BROTHER OF PATIENT ALTHEA NAVARRETE TEL NO. . LEFT MESSAGE.
--- NOTE | 2018-12-31 22:35 | NUR ---
MSRN HS CARE STARTED, SACRAL WOUND CLEANSED WITH SALINE, PAT DRY COVERED WITH MEPILEX ORDERED.. REPOSITIONED, KEPT DRY CLEAN AND COMFORTABLE. BOTH HEELS OFFLOAD MATRESS.
[2018-12-31] MEDS: HYDROGEL DRESSING 90 GM TUBE TP SCH (22:57)
[2018-12-31] MEDS: MIRTAZAPINE 15 MG TABLET PO SCH (23:00)
--- NOTE | 2018-12-31 23:00 | NUR ---
msrn refused to take remeron. refused to take anything by mouth at this time
[2019-01-01] MEDS: IV D5W 1,000 ML IV PRN ×2 (03:21→19:15)
--- NOTE | 2019-01-01 06:00 | NUR ---
MSRN REMAINS UNCHANGE CLOSELY WATCHED.
--- NOTE | 2019-01-01 07:04 | NUR ---
YESSI VALDEZ TO DRAW PATIENT LATER. WILL ENDORSE TO INCOMING RN.
[2019-01-01 07:50] LABS: BASOPHILS % (AUTO) 0.4 % (0.0-2.0); EOSINOPHILS % (AUTO) 9.4 % (0.0-6.0); HEMATOCRIT 29 % (39-51); HEMOGLOBIN 8.8 g/dL (13.5-17.5); MEAN CORPUSCULAR HGB CONC 31 g/dl (31.0-36.0); MEAN CORPUSCULAR VOLUME 90 fL (80-96); MONOCYTES # (AUTO) 0.8 /CMM (0.1-1.30); MONOCYTES % (AUTO) 7.9 % (2.0-12.0); NEUTROPHILS # (AUTO) 7.1 /CMM (1.8-8.9); NEUTROPHILS % (AUTO) 72.3 % (43.0-81.0); PLATELET COUNT (AUTO) 221 /CMM (150-450); RED BLOOD CELL COUNT(AUTO) 3.18 MIL/uL (4.5-6.0); WHITE BLOOD COUNT (AUTO) 9.8 K/uL (4.3-11.0)
--- NOTE | 2019-01-01 07:54 | NUR ---
MS RN NOTES RECEIVED PATIENT IN BED RESTING COMFORTABLY. PATIENT ALERT, ORIENTED X1-2. ON IVF OF D5W ON JOSEFINA MIDLINE @50ML/HR . INTACT AND PATENT. ON OXYGEN 2LPM VIA NASAL CANULA. SAFETY MEASURES IN PLACE, BED IN LOW LOCKED POSITION, CALL LIGHT WITHIN REACH, WILL CONTINUE TO MONITOR ACCORDINGLY.
[2019-01-01 08:02] LABS: CALCIUM, SERUM 8.6 mg/dL (8.5-10.1); CARBON DIOXIDE 33 mmol/L (21-32); CHLORIDE 114 mmol/L (98-107); GLUCOSE 127 mg/dL (74-106); MAGNESIUM 2.4 mg/dL (1.8-2.4); POTASSIUM 3.5 mmol/L (3.5-5.1); UREA NITROGEN, BLOOD 37 mg/dL (7-18)
[2019-01-01 08:06] LABS: SODIUM SERUM 157 mmol/L (136-145)
[2019-01-01 08:23] VITALS: BP 127/65
[2019-01-01] MEDS: ACETAMINOPHEN 325 MG TABLET PO SCH (09:19)
[2019-01-01] MEDS: DOCUSATE SODIUM 100 MG CAPSULE PO SCH (09:20)
[2019-01-01] MEDS: HALOPERIDOL 5 MG TABLET PO SCH ×2 (09:20→17:34)
[2019-01-01] MEDS: AMLODIPINE BESYLATE 10 MG TABLET PO SCH (09:20)
[2019-01-01] MEDS: PROSOURCE / PROSTAT (PYXIS) 30 ML UDC PO SCH (09:20)
[2019-01-01] MEDS: MULTIVITAMINS,THERAGRAN 1 UDTAB TABLET PO SCH (09:20)
[2019-01-01] MEDS: ENSURE ENLIVE 237 ML LIQUID (VANILLA) PO SCH ×3 (09:21→17:35)
[2019-01-01] MEDS: PANTOPRAZOLE 40 MG TABLET.DR PO SCH (09:26)
[2019-01-01] MEDS: HYDROGEL DRESSING 90 GM TUBE TP SCH ×2 (09:28→21:50)
[2019-01-01] MEDS: BENZTROPINE MESYLATE (1 MG) 1 MG TABLET PO SCH ×2 (09:40→17:35)
--- NOTE | 2019-01-01 11:06 | NUR ---
MS RN NOTES PATIENT SEEN AND EXAMINED BY DR. ELI, AWARE OF SODIUM LEVEL OF 157. WITH NEW ORDER TO INCREASE D5W FROM 50 TO 100CC/HR. ORDER NOTED AND CARRIED OUT. PATIENT MADE AWARE AND VERBALIZED UNDERSTANDING. WILL CONTINUE TO MONITOR
[2019-01-01] MEDS: MEROPENEM 1 G in IV NS 0.9% 100 ML IV SCH ×2 (12:38→19:51)
[2019-01-01 16:00] VITALS: BP 122/70
--- NOTE | 2019-01-01 17:05 | NUR ---
MS RN NOTES PLACED CALL TO [facility] ([phone]) AND LEFT MESSAGE ON VOICEMAIL, AWAITING CALL BACK
[2019-01-01] MEDS: ZINC SULFATE 220 MG CAPSULE PO SCH (17:34)
[2019-01-01] MEDS: ASCORBIC ACID 500 MG TABLET PO SCH (17:35)
--- NOTE | 2019-01-01 19:02 | NUR ---
MS RN NOTES MAITAINED ISOLATION PRECAUTIONS. WILL ENDORSE TO INCOMING SHIFT FOR THAIS
--- NOTE | 2019-01-01 19:05 | NUR ---
MS RN CLOSING NOTES PATIENT IN ROOM RESTING IN BED AT MODERATE HIGH BACK REST POSITION. A/O X 2-3. ON OXYGEN 3LPM VIA NC. NO SOB NOTED. IV ACCESS ON LEFT UPPER ARM MIDLINE WITH D5W @100ML/HR. PATENT AND INTACT. NO S/S OF INFILTRATED NOTED. ALL NEEDS AND CARE ATTENDED WELL. SAFETY MEASURES KEPT IN PLACE. BED IN LOW LOCKED POSITION WITH SIDE RAILS X2. BEDSIDE TABLE AND CALL LIGHT WITHIN EASY REACH. WILL ENDORSE TO FLOW WORKER NURSE FOR THAIS.
[2019-01-01 20:00] VITALS: BP 124/60
--- NOTE | 2019-01-01 20:19 | NUR ---
RN NOTES CALLED ALTHEA NAVARRETE , PATIENT NEXT OF KIN AND LEFT A LEFT A MESSAGE TO CALL US BACK..(FOR CONSENT OF SACRUM DEBRIDEMENT)
[2019-01-01] MEDS: MIRTAZAPINE 15 MG TABLET PO SCH ×2 (21:50→22:00)
--- NOTE | 2019-01-01 22:00 | NUR ---
RN NOTES PT. REFUSED HIS REMERON 15MG PO.." PT STATED THAT WERE GIVING HIM TOO MUCH MEDICATION", EXPLAINED THE BENEFITS AND IMPORTANCE OF THIS MEDICATION BUT PT. STILL REFUSING
[2019-01-02] MEDS: MEROPENEM 1 G in IV NS 0.9% 100 ML IV SCH ×3 (04:51→20:11)
[2019-01-02] MEDS: IV D5W 1,000 ML IV PRN (06:05)
--- NOTE | 2019-01-02 06:40 | NUR ---
RN NOTES SLEEPING BUT AROUSABLE, NO PAIN NOTED, MORNING CARE RENDERED, NO SOB, CALL LIGHT WITHIN REACH, [id number], PT. NEEDS ATTENDED
[2019-01-02 07:24] LABS: BASOPHILS % (AUTO) 0.2 % (0.0-2.0); EOSINOPHILS % (AUTO) 12.8 % (0.0-6.0); HEMATOCRIT 24 % (39-51); HEMOGLOBIN 7.6 g/dL (13.5-17.5); LYMPHOCYTES # (AUTO) 0.8 /CMM (0.8-4.8); MEAN CORPUSCULAR HGB CONC 32 g/dl (31.0-36.0); MEAN CORPUSCULAR VOLUME 88 fL (80-96); MONOCYTES # (AUTO) 0.6 /CMM (0.1-1.30); MONOCYTES % (AUTO) 7.3 % (2.0-12.0); NEUTROPHILS # (AUTO) 5.3 /CMM (1.8-8.9); NEUTROPHILS % (AUTO) 68.7 % (43.0-81.0); PLATELET COUNT (AUTO) 196 /CMM (150-450); RED BLOOD CELL COUNT(AUTO) 2.72 MIL/uL (4.5-6.0); WHITE BLOOD COUNT (AUTO) 7.7 K/uL (4.3-11.0)
--- NOTE | 2019-01-02 07:28 | NUR ---
MS RN NOTES PATIENT RECEIVED RESTING INSIDE ROOM. SLEEPING, AROUSABLE THROUGH VERBAL AND TACTILE STIMULI. ALERT AND ORIENTED X 2, VERBALLY RESPONSIVE. NO ACUTE DISTRESS. DENIES ANY PAIN OR DISCOMFORT. MAINTAINED ISOLATION PRECAUTIONS. WILL CONTINUE TO MONITOR. BED LOCKED AND IN LOW POSITION. BILATERAL UPPER SIDE RAILS UP AND LOCKED. CALL LIGHT WITHIN EASY REACH
[2019-01-02] MEDS: PANTOPRAZOLE 40 MG TABLET.DR PO SCH (07:41)
[2019-01-02 07:48] LABS: CALCIUM, SERUM 8.1 mg/dL (8.5-10.1); CARBON DIOXIDE 31 mmol/L (21-32); CHLORIDE 110 mmol/L (98-107); GLUCOSE 133 mg/dL (74-106); MAGNESIUM 2.1 mg/dL (1.8-2.4); PHOSPHORUS 3.1 mg/dL (2.5-4.9); POTASSIUM 3.1 mmol/L (3.5-5.1); SODIUM SERUM 149 mmol/L (136-145); UREA NITROGEN, BLOOD 30 mg/dL (7-18)
[2019-01-02 08:00] VITALS: BP 127/71
--- NOTE | 2019-01-02 08:26 | NUR ---
MS RN NOTES PATIENT SEEN AND EXAMINED BY DR HEARN. WITH NEW ORDERS TO INCREASE REMERON TO 30MG PO QHS, POTASSIUM 40 MEQ PO X 1, DC HALDOL, AND FOR STOOL OB. ORDERS NOTED AND CARRIED OUT. PATIENT MADE AWARE AND VERBALIZED UNDERSTANDING. WILL CONTINUE TO MONITOR
[2019-01-02] MEDS ORDERED: POTASSIUM CHLORIDE 20 MEQ TAB.PRT.SR PO ONE (08:30)
[2019-01-02] MEDS: BENZTROPINE MESYLATE (1 MG) 1 MG TABLET PO SCH ×2 (08:53→17:09)
[2019-01-02] MEDS: AMLODIPINE BESYLATE 10 MG TABLET PO SCH (08:53)
[2019-01-02] MEDS: ACETAMINOPHEN 325 MG TABLET PO SCH (08:54)
[2019-01-02] MEDS: DOCUSATE SODIUM 100 MG CAPSULE PO SCH (08:54)
[2019-01-02] MEDS: MULTIVITAMINS,THERAGRAN 1 UDTAB TABLET PO SCH (08:54)
[2019-01-02] MEDS: PROSOURCE / PROSTAT (PYXIS) 30 ML UDC PO SCH (08:55)
[2019-01-02] MEDS: HYDROGEL DRESSING 90 GM TUBE TP SCH ×2 (08:56→20:13)
[2019-01-02] MEDS: ENSURE ENLIVE 237 ML LIQUID (VANILLA) PO SCH ×3 (08:56→17:10)
[2019-01-02] MEDS: Potassium Chloride 40 MEQ in IV D5W 1,000 ML IV PRN (12:53)
[2019-01-02 16:00] VITALS: BP 111/45
[2019-01-02] MEDS: MUPIROCIN OINT 2% 22 GM TUBE SCH ×2 (17:09→20:13)
[2019-01-02] MEDS: ZINC SULFATE 220 MG CAPSULE PO SCH (17:10)
[2019-01-02] MEDS: ASCORBIC ACID 500 MG TABLET PO SCH (17:10)
--- NOTE | 2019-01-02 18:45 | NUR ---
MS RN CLOSING NOTES PATIENT RESTING COMFORTABLY IN BED AT MODERATE HIGH BACK REST POSITION. A/O X 2. ON OXYGEN 3LPM VIA NC. NO SIGNS OF RESPIRATORY DISTRESS. NO SIGNS OF SHORTNESS OF BREATH. NO SIGNS OF FACIAL GRIMACING OR DISCOMFORT TO INDICATE PAIN. IVF ON LEFT UA MIDLINE D5W WITH POTASSIUM CHLORIDE 40 MEQ @ 100MLS/HR. PATENT AND INTACT. NO INFILTRATION NOTED. PATIENT KEPT CLEAN DRY, AND COMFORTABLE. SAFETY PRECAUTIONS IMPLEMENTED; CALL LIGHT WITHIN REACH, BED LOW, BED LOCKED, SIDE RAILS UP. WILL ENDORSE TO ENERGY ECONOMIST NURSE FOR CONTINUITY OF CARE.
--- NOTE | 2019-01-02 19:15 | NUR ---
MS RN NOTE RECEIVED PT IN STABLE CONDITION, A&O X2, WITH TIMES OF CONFUSION. CURRENTLY RESTING IN BED. NO SIGNS OF SOB OR DISTRESS, NO INDICATION OF PAIN. ON O2 NC 3L TOLERATING WELL. MIDLINE IN L ARM PATENT, WITH IVF INFUSING. ALL CURRENT NEEDS MET. BED LOW, LOCKED, UPPER RAILS UP, AND CALL LIGHT WITHIN REACH. WILL REPOSITION PT. PER UNIT PROTOCOL. WILL CONT. TO MONITOR. STILL AWAITING FOR BROTHER TO CALL FOR PROCEDURAL CONSENTS. WILL CONT TO MONITOR.
[2019-01-02 20:00] VITALS: BP 125/62
[2019-01-02 20:25] VITALS: BP 125/62
[2019-01-02] MEDS: MIRTAZAPINE 15 MG TABLET PO SCH (22:24)
[2019-01-03] MEDS: Potassium Chloride 40 MEQ in IV D5W 1,000 ML IV PRN ×2 (02:08→20:46)
[2019-01-03] MEDS: MEROPENEM 1 G in IV NS 0.9% 100 ML IV SCH ×3 (04:06→20:45)
--- NOTE | 2019-01-03 06:21 | NUR ---
MS RN NOTE PT IN STABLE CONDITION, A&O X2, WITH TIMES OF CONFUSION. CURRENTLY RESTING IN BED. NO SIGNS OF SOB OR DISTRESS, NO INDICATION OF PAIN. ON O2 NC 3L TOLERATING WELL. MIDLINE IN L ARM PATENT, WITH IVF INFUSING. ALL CURRENT NEEDS MET. BED LOW, LOCKED, UPPER RAILS UP, AND CALL LIGHT WITHIN REACH. PT. REPOSITIONED PER UNIT PROTOCOL. WILL CONT. TO MONITOR AND ENDORSE TO NEXT SHIFT FOR THAIS.
--- NOTE | 2019-01-03 07:42 | NUR ---
MS RN OPENING NOTES RECEIVED PATIENT RESTING COMFORTABLY IN BED AT MODERATE HIGH BACK REST POSITION. A/O X 2. ON OXYGEN 3LPM VIA NC. NO SIGNS OF RESPIRATORY DISTRESS. NO SIGNS OF SHORTNESS OF BREATH. NO SIGNS OF FACIAL GRIMACING OR DISCOMFORT TO INDICATE PAIN AT THIS TIME. IVF ON LEFT UA MIDLINE D5W WITH POTASSIUM CHLORIDE 40 MEQ @ 100MLS/HR. PATENT AND INTACT. NO INFILTRATION NOTED. CALL LIGHT WITHIN REACH, BED LOW, BED LOCKED, SIDE RAILS UP. WILL CONTINUE TO MONITOR.
[2019-01-03 08:00] VITALS: BP 142/80
[2019-01-03] MEDS: PROSOURCE / PROSTAT (PYXIS) 30 ML UDC PO SCH (08:04)
[2019-01-03] MEDS: PANTOPRAZOLE 40 MG TABLET.DR PO SCH (08:04)
[2019-01-03] MEDS: ENSURE ENLIVE 237 ML LIQUID (VANILLA) PO SCH ×4 (08:04→21:00)
[2019-01-03] MEDS: MULTIVITAMINS,THERAGRAN 1 UDTAB TABLET PO SCH (08:05)
[2019-01-03] MEDS: ACETAMINOPHEN 325 MG TABLET PO SCH (08:05)
[2019-01-03] MEDS: BENZTROPINE MESYLATE (1 MG) 1 MG TABLET PO SCH ×2 (08:05→17:03)
[2019-01-03] MEDS: DOCUSATE SODIUM 100 MG CAPSULE PO SCH (08:06)
[2019-01-03] MEDS: AMLODIPINE BESYLATE 10 MG TABLET PO SCH (08:07)
[2019-01-03] MEDS: MUPIROCIN OINT 2% 22 GM TUBE SCH ×2 (08:13→20:48)
[2019-01-03] MEDS: HYDROGEL DRESSING 90 GM TUBE TP SCH ×2 (08:14→21:13)
[2019-01-03 09:19] LABS: CALCIUM, SERUM 8.3 mg/dL (8.5-10.1); CARBON DIOXIDE 31 mmol/L (21-32); CHLORIDE 106 mmol/L (98-107); CREATININE 0.8 mg/dL (0.6-1.3); GLUCOSE 123 mg/dL (74-106); POTASSIUM 4.4 mmol/L (3.5-5.1); SODIUM SERUM 144 mmol/L (136-145); UREA NITROGEN, BLOOD 24 mg/dL (7-18)
[2019-01-03 16:00] VITALS: BP 135/82
[2019-01-03] MEDS: ZINC SULFATE 220 MG CAPSULE PO SCH (17:03)
[2019-01-03] MEDS: ASCORBIC ACID 500 MG TABLET PO SCH (17:03)
[2019-01-03 18:13] LABS: OCCULT BLOOD STOOL NEGATIVE (NEGATIVE)
--- NOTE | 2019-01-03 19:06 | NUR ---
MS RN NOTE PT IN STABLE CONDITION, A&O X2, WITH TIMES OF CONFUSION. CURRENTLY RESTING IN BED. NO SIGNS OF SOB OR DISTRESS, NO INDICATION OF PAIN. ON O2 NC 3L TOLERATING WELL. MIDLINE IN L ARM PATENT, WITH IVF INFUSING. ALL CURRENT NEEDS MET. BED LOW, LOCKED, UPPER RAILS UP, AND CALL LIGHT WITHIN REACH. WILL REPOSITION PT. PER UNIT PROTOCOL. WILL CONT. TO MONITOR. STILL AWAITING FOR BROTHER TO CALL FOR PROCEDURAL CONSENTS. WILL CONT TO MONITOR.
--- NOTE | 2019-01-03 19:30 | NUR ---
MS RN NOTES PATIENT RESTING INSIDE ROOM. AWAKE, ALERT AND ORIENTED X 2, VERBALLY RESPONSIVE AND RESPONDS TO VERBAL AND TACTILE STIMULI. PATIENT KEPT CLEAN, DRY AND COMFORTABLE. MAINTAINED ASPIRATION PRECAUTIONS. MAINTAINED ISOLATION PRECAUTIONS. WOUND TX DONE ORDERED. ENDORSED TO INCOMING SHIFT FOR THAIS.BED LOCEKD AND IN LOW POSITION. BILATERAL UPPER SIDE RAILS UP AND LOCKED. CALL LIGHT WITHIN EASY REACH
[2019-01-03 20:00] VITALS: BP 147/77
[2019-01-03 20:14] VITALS: BP 147/77
--- NOTE | 2019-01-03 20:26 | NUR ---
MS/RN NOTES BEDSIDE REPORT RECEIVED FROM RNWERNER. PT IS ASLEEP, RESPONSIVE TO NAME. A/OX2. ON 3L O2 VIA NC, BREATHING EVEN AND UNLABORED. NO S/S OF SOB OR NO FACIAL GRIMACING. PT DENIES PAIN AT THIS TIME. JOSEFINA MIDLINE RUNNING IVF ORDERED. HOB ELEVATED. BED IN LOW/LOCKED POSITION WITH CALL LIGHT IN REACH. SIDE RAILS UPX3 AND BED ALARM ON FOR SAFETY. WILL CONTINUE TO MONITOR
[2019-01-03] MEDS: MIRTAZAPINE 15 MG TABLET PO SCH (21:16)
--- NOTE | 2019-01-04 03:58 | NUR ---
MS/RN NOTES PT ASLEEP, BREATHING EVEN AND UNLABORED. IN NO ACUTE DISTRESS. HOB ELEVATED. WILL CONTINUE TO MONITOR
[2019-01-04] MEDS: MEROPENEM 1 G in IV NS 0.9% 100 ML IV SCH ×2 (04:15→12:46)
--- NOTE | 2019-01-04 06:38 | NUR ---
MS/RN CLOSING NOTES PT AWAKE, SITTING UP IN BED WATCHING TV. A/OX2. ON 3L O2 VIA NC, BREATHING EVEN AND UNLABORED. DENIES PAIN, NO SOB OR ACUTE RESPIRATORY DISTRESS NOTED. JOSEFINA MIDLINE PATENT AND INTACT RUNNING IVF ORDERED. TURNED/REPOSITIONED Q2H. HEELS OFFLOADED. FREQUENTLY ENCOURAGED PO INTAKE, ONLY ATE 1 VANILLA PUDDING AND APPROX 300 CC OF CRANBERRY JUICE AND WATER. ASPIRATION AND ISOLATION PRECAUTIONS IMPLEMENTED. ALL NEEDS MET AND ANTICIPATED. BED REMAINS IN LOW/LOCKED POSITION WITH CALL LIGHT IN REACH. HOB ELEVATED, SIDE RAILS UPX3. WILL ENDORSE TO DAY SHIFT RN THAIS.
--- NOTE | 2019-01-04 07:53 | NUR ---
MS RN OPENING NOTES RECEIVED REPORT FROM PM NURSE.PATIENT RESTING COMFORTABLY IN BED . A/O X 2. ON OXYGEN 3LPM VIA NC. NO SIGNS OF RESPIRATORY DISTRESS. NO SIGNS OF SHORTNESS OF BREATH. NO SIGNS OF FACIAL GRIMACING OR DISCOMFORT TO INDICATE PAIN AT THIS TIME. IVF ON LEFT UA MIDLINE D5W WITH POTASSIUM CHLORIDE 40 MEQ @ 100MLS/HR. PATENT AND INTACT. NO INFILTRATION NOTED. CALL LIGHT WITHIN REACH, BED LOW, BED LOCKED, SIDE RAILS UP. WILL CONTINUE TO MONITOR.
[2019-01-04 08:00] VITALS: BP 158/74
--- NOTE | 2019-01-04 08:00 | NUR ---
MS RN NOTE SEEN BY ,GOT NEW ORDER FOR DISCHARGE.
[2019-01-04] MEDS: MULTIVITAMINS,THERAGRAN 1 UDTAB TABLET PO SCH (08:50)
[2019-01-04] MEDS: DOCUSATE SODIUM 100 MG CAPSULE PO SCH (08:50)
[2019-01-04] MEDS: BENZTROPINE MESYLATE (1 MG) 1 MG TABLET PO SCH (08:50)
[2019-01-04] MEDS: ACETAMINOPHEN 325 MG TABLET PO SCH (08:50)
[2019-01-04 08:51] VITALS: BP 158/74
[2019-01-04] MEDS: ENSURE ENLIVE 237 ML LIQUID (VANILLA) PO SCH ×2 (08:51→13:00)
[2019-01-04] MEDS: PANTOPRAZOLE 40 MG TABLET.DR PO SCH (08:51)
[2019-01-04] MEDS: AMLODIPINE BESYLATE 10 MG TABLET PO SCH (08:51)
[2019-01-04] MEDS: HYDROGEL DRESSING 90 GM TUBE TP SCH (08:52)
[2019-01-04] MEDS: MUPIROCIN OINT 2% 22 GM TUBE SCH (08:52)
[2019-01-04] MEDS: PROSOURCE / PROSTAT (PYXIS) 30 ML UDC PO SCH (09:00)
[2019-01-04] MEDS: Potassium Chloride 40 MEQ in IV D5W 1,000 ML IV PRN (09:55)
--- NOTE | 2019-01-04 13:15 | NUR ---
MS RN NOTE REPORT GIVEN TO LEAH SANDOVAL AT [facility].MADE AWARE ABOUT TO CONTINUE ANTIBIOTICS FOR X7 MORE DAYS AND PLAN OF CARE.WILL CONTINUE TO MONITOR.
--- NOTE | 2019-01-04 15:55 | NUR ---
MS BUSINESS DEAN NOTE PATIENT DISCHARGED TO [facility] IN STABLE CONDITION.PATIENT AXOX2.ON 3L NASAL CANULA.NO SOB NO DISTRESS NOTED. 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
== END 2019-01-04 15:55 | DRG 640 ==
LOC: ER 10:13 → MED 14:03
PROVIDERS: ADMIT Internal Medicine; ATTEND Internal Medicine
PROC: 05HC33Z Insertion of Infusion Device into Left Basilic Vein, Percutaneous Approach (ICD-10-PCS; principal; 2018-12-30)
DX: E87.0 Hyperosmolality and hypernatremia (principal); L89.153 Pressure ulcer of sacral region, stage 3; N39.0 Urinary tract infection, site not specified; E44.1 Mild protein-calorie malnutrition; I69.354 Hemiplegia and hemiparesis following cerebral infarction affecting left non-dominant side; R62.7 Adult failure to thrive; I12.9 Hypertensive chronic kidney disease with stage 1 through stage 4 chronic kidney disease, or unspecified chronic kidney disease; N18.9 Chronic kidney disease, unspecified; I25.10 Atherosclerotic heart disease of native coronary artery without angina pectoris; F41.9 Anxiety disorder, unspecified; R13.10 Dysphagia, unspecified; E86.0 Dehydration; R26.9 Unspecified abnormalities of gait and mobility; Z91.018 Allergy to other foods; Z79.51 Long term (current) use of inhaled steroids; Z79.899 Other long term (current) drug therapy; G30.9 Alzheimer's disease, unspecified; B96.20 Unspecified Escherichia coli [E. coli] as the cause of diseases classified elsewhere; F20.9 Schizophrenia, unspecified; F31.9 Bipolar disorder, unspecified; J44.9 Chronic obstructive pulmonary disease, unspecified; K21.9 Gastro-esophageal reflux disease without esophagitis; Z74.01 Bed confinement status; T14.8XXA Other injury of unspecified body region, initial encounter; X58.XXXA Exposure to other specified factors, initial encounter; Y92.129 Unspecified place in nursing home as the place of occurrence of the external cause; L89.620 Pressure ulcer of left heel, unstageable; Z86.59 Personal history of other mental and behavioral disorders; L89.610 Pressure ulcer of right heel, unstageable; L89.890 Pressure ulcer of other site, unstageable; F02.80 Dementia in other diseases classified elsewhere, unspecified severity, without behavioral disturbance, psychotic disturbance, mood disturbance, and anxiety; Z22.322 Carrier or suspected carrier of Methicillin resistant Staphylococcus aureus; E78.5 Hyperlipidemia, unspecified; Z16.12 Extended spectrum beta lactamase (ESBL) resistance; F39 Unspecified mood [affective] disorder
CPT/HCPCS: 36415; 71045-TC; 80048-TC; 80061-TC; 80076-TC; 81000-TC; 82272-TC; 83605-TC; 83735-TC; 84100-TC; 84484-TC; 85025-TC; 85730-TC; 87040-TC; 87081-TC; 87086-TC; 87186-TC; 94799-TC; A6248; A6253; A6402; A6403; G0378; J0692; J2185; J3480; J7030; J7050; J7060; J7070

== ENCOUNTER 2019-01-24 11:22 | Inpatient (IN) | payer MEDICARE, OTHER ==
[~2019-01-24] VITALS: Ht 177.8 cm; Wt 83.5 kg
[~2019-01-24 11:22] MED LIST changes: +BISA10SU11 RC; -DIVA250T4 PO; -MERO1VIA IV
--- NOTE | 2019-01-24 11:43 | NUR ---
ERWIN FROM [facility], SENT BY PMD DUE TO ABNORMAL LAB K 2.7. HAS BARNARD CATH AND 18G PICC LINE IN PLACE. SKIN INTACT, NO ACUTE DISTRESS NOTED. ON 4L O2 VIA NC. LEGS CONTRACTED. PRESSURE ULCERS ON BILATERAL HEELS PER FACILITY, WRAPPED IN GAUZE. NO COMPLAINTS AT THIS TIME. ON MONITOR, MADE COMFORTABLE AND READY FOR EVAL.
[2019-01-24] MEDS ORDERED: CRAN3875 PO (11:52)
[2019-01-24] MEDS ORDERED: CRAN450C PO (11:52)
[2019-01-24] MEDS ORDERED: FERR325T23 PO (11:52)
[2019-01-24 12:08] LABS: BASOPHILS % (AUTO) 0.6 % (0.0-2.0); EOSINOPHILS % (AUTO) 19.5 % (0.0-6.0); HEMATOCRIT 28 % (39-51); HEMOGLOBIN 8.8 g/dL (13.5-17.5); LYMPHOCYTES # (AUTO) 1.3 /CMM (0.8-4.8); LYMPHOCYTES % (AUTO) 22.3 % (20.0-44.0); MEAN CORPUSCULAR HGB CONC 32 g/dl (31.0-36.0); MEAN CORPUSCULAR VOLUME 85 fL (80-96); MONOCYTES # (AUTO) 0.5 /CMM (0.1-1.30); MONOCYTES % (AUTO) 7.7 % (2.0-12.0); NEUTROPHILS # (AUTO) 2.9 /CMM (1.8-8.9); NEUTROPHILS % (AUTO) 49.9 % (43.0-81.0); PLATELET COUNT (AUTO) 214 /CMM (150-450); RED BLOOD CELL COUNT(AUTO) 3.27 MIL/uL (4.5-6.0); WHITE BLOOD COUNT (AUTO) 5.9 K/uL (4.3-11.0)
[2019-01-24 12:28] LABS: ALANINE AMINOTRANSFERASE 12 U/L (12-78); ALBUMIN 1.7 g/dL (3.4-5.0); ALKALINE PHOSPHATASE 92 U/L (46-116); ASPARTATE AMINOTRANSFERASE 18 U/L (15-37); B-TYPE NATRIURETIC PEPTIDE 523 PG/ML (0-125); BILIRUBIN,DIRECT 0.1 mg/dL (0.0-0.2); BILIRUBIN,TOTAL 0.4 mg/dL (0.2-1.0); CALCIUM, SERUM 7.9 mg/dL (8.5-10.1); CARBON DIOXIDE 31 mmol/L (21-32); CHLORIDE 109 mmol/L (98-107); CREATININE 0.6 mg/dL (0.6-1.3); GLUCOSE 103 mg/dL (74-106); SODIUM SERUM 146 mmol/L (136-145); TOTAL PROTEIN, SERUM 5.9 g/dL (6.4-8.2); UREA NITROGEN, BLOOD 4 mg/dL (7-18)
[2019-01-24 12:38] LABS: POTASSIUM 2.5 mmol/L (3.5-5.1)
[2019-01-24] MEDS ORDERED: POTASSIUM CL. PREMIX PERIPHER. 100 ML ONE (12:53)
[2019-01-24] MEDS: POTASSIUM CL. PREMIX PERIPHER. 50 ML IV SCH ×2 (12:55→14:05)
--- NOTE | 2019-01-24 12:55 | NUR ---
MED GIVEN PER ORDER, PT TOLERATING WELL. WILL CONT TO MONITOR.
--- NOTE | 2019-01-24 13:12 | NUR ---
CALLED [employer] SENIOR POWER PLANT OPERATOR WAS PAGED.
--- NOTE | 2019-01-24 13:54 | NUR ---
GOT BED 313-1
--- NOTE | 2019-01-24 14:54 | NUR ---
REPORT GIVEN TO JAIME GONZALEZ FOR 313-1 TELE.
--- NOTE | 2019-01-24 15:45 | NUR ---
[facility]
--- NOTE | 2019-01-24 15:50 | NUR ---
MS MATERIAL LIAISON NOTES Received Patient resting in bed. A/O x 3. VS stable with no acute distress. Breathing even and unlabored on 4LPM via NC, SPO2 100%. Denies pain. Wound assessment pictures done and placed in chart. Toussaint Cath in place and operational with clear yellow output noted. PICC Line on NANCY clean, dry, intact and flushing well with NS running at 75ml/hr. Safety precautions in place. Bed locked and set to lowest position with side rails x 2 up. All needs rendered at this time. Will continue to monitor.
[2019-01-24] MEDS ORDERED: CLONIDINE HCL 0.1 MG TABLET PO PRN (17:30)
[2019-01-24] MEDS ORDERED: NA PHOS,M-B/NA PHOS,DI-BA 1 EA ENEMA RC PRN (17:30)
[2019-01-24] MEDS ORDERED: BISACODYL SUPP (10 MG) 10 MG/SUPP.RECT SUPP.RECT RC PRN (17:30)
[2019-01-24] MEDS ORDERED: ONDANSETRON HCL/PF 4 MG/2 ML VIAL IVP PRN (17:30)
[2019-01-24] MEDS ORDERED: IPRATROPIUM NEB FS 0.5 MG/2.5 ML AMPUL.NEB NEB PRN (17:30)
[2019-01-24] MEDS ORDERED: MAGNESIUM HYDROXIDE 30 ML UDC PO PRN (17:30)
[2019-01-24] MEDS ORDERED: MAG HYDROX/AL HYDROX/SIMETH 30 ML UDC PO PRN (17:30)
[2019-01-24] MEDS ORDERED: Z GUARD REMEDY 2 OZ OINT TP PRN (17:30)
[2019-01-24] MEDS ORDERED: HYDROCODONE/APAP 5/325MG 1 EACH TABLET PO PRN (17:30)
[2019-01-24] MEDS ORDERED: ALBUTEROL FS 2.5 MG/3 ML VIAL.NEB NEB PRN (17:30)
[2019-01-24] MEDS ORDERED: ACETAMINOPHEN 325 MG TABLET PO PRN (17:30)
[2019-01-24] MEDS: BENZTROPINE MESYLATE (1 MG) 1 MG TABLET PO SCH (18:42)
[2019-01-24] MEDS: ENSURE CLEAR 237 ML LIQUID (MIX BERRY) PO SCH (18:42)
--- NOTE | 2019-01-24 19:34 | NUR ---
MS RN CLOSING NOTES Patient resting and asleep in bed. A/O x 3. VS stable with no acute distress. Breathing even and unlabored on 4LPM via NC, SPO2 100%. Denies pain. Wound dressings clean, dry and intact. Toussaint Cath in place and operational with clear yellow output noted. PICC Line on NANCY clean, dry, intact and flushing well with NS running at 75ml/hr. Safety precautions in place. Bed locked and set to lowest position with side rails x 2 up. All needs rendered at this time. Will endorse plan of care to oncoming shift.
[2019-01-24] MEDS: IV NS 0.9% 1,000 ML IV PRN (19:39)
--- NOTE | 2019-01-24 19:43 | NUR ---
RN OPENING NOTES RECEIVED PATIENT RESTING IN BED COMFORTABLY. PATIENT IS ASLEEP AT THIS TIME. NO SIGNS OF RESPIRATORY DISTRESS. NO SIGNS OF SHORTNESS OF BREATH AT THIS TIME. NO SIGNS OF FACIAL GRIMACING INDICATING PAIN OR DISCOMFORT AT THIS TIME. BARNARD CATHETER IN PLACE, DRAINING CLEAR YELLOW OUTPUT. PICC LINE ON NANCY CLEAN, DRY, AND INTACT AND FLUSHING WELL. SAFETY PRECAUTIONS IMPLEMENTED; CALL LIGHT WITHIN REACH, BED LOW, BED LOCKED, SIDE RAILS UP X2. WILL CONTINUE TO MONITOR PATIENT.
[2019-01-24 20:04] VITALS: BP 145/73
[2019-01-24] MEDS: MIRTAZAPINE 15 MG TABLET PO SCH (21:18)
[2019-01-25 06:37] LABS: BASOPHILS % (AUTO) 0.6 % (0.0-2.0); EOSINOPHILS % (AUTO) 15.3 % (0.0-6.0); HEMATOCRIT 27 % (39-51); HEMOGLOBIN 8.5 g/dL (13.5-17.5); LYMPHOCYTES % (AUTO) 16.6 % (20.0-44.0); MEAN CORPUSCULAR HGB CONC 32 g/dl (31.0-36.0); MEAN CORPUSCULAR VOLUME 85 fL (80-96); MONOCYTES # (AUTO) 0.5 /CMM (0.1-1.30); MONOCYTES % (AUTO) 7.5 % (2.0-12.0); NEUTROPHILS # (AUTO) 3.7 /CMM (1.8-8.9); PLATELET COUNT (AUTO) 229 /CMM (150-450); RED BLOOD CELL COUNT(AUTO) 3.17 MIL/uL (4.5-6.0); WHITE BLOOD COUNT (AUTO) 6.2 K/uL (4.3-11.0)
--- NOTE | 2019-01-25 06:47 | NUR ---
RN CLOSING NOTES PATIENT RESTING IN BED COMFORTABLY, ASLEEP. AROUSABLE TO VERBAL STIMULI. PATIENT CURRENTLY STABLE. NO SIGNS OF RESPIRATORY DISTRESS. BREATHING EVEN AND UNLABORED. NO SIGNS OF FACIAL GRIMACING OR DISCOMFORT INDICATING PAIN AT THIS TIME. WOUND DRESSINGS CLEAN, DRY AND INTACT. BARNARD CATHETER IN PLACE WITH CLEAR YELLOW URINE NOTED, LAST OUTPUT:550 ML. PICC LINE ON NANCY CLEAN, DRY, INTACT AND FLUSHING WELL WITH NS RUNNING AT 75 ML/HR, NO SIGNS OF INFECTION. SAFETY PRECAUTIONS IMPLEMENTED; CALL LIGHT WITHIN REACH, BED LOWEST POSITION, BED LOCKED, SIDE RAILS UP X2. PATIENT TURNED EVERY 2 HOURS. ALL NEEDS ATTENDED TO AT THIS TIME. WILL ENDORSE TO DAY RN FOR CONTINUITY OF CARE.
[2019-01-25 07:04] LABS: ALANINE AMINOTRANSFERASE 15 U/L (12-78); ALBUMIN 1.7 g/dL (3.4-5.0); ALKALINE PHOSPHATASE 87 U/L (46-116); ASPARTATE AMINOTRANSFERASE 19 U/L (15-37); BILIRUBIN,TOTAL 0.5 mg/dL (0.2-1.0); CALCIUM, SERUM 7.7 mg/dL (8.5-10.1); CARBON DIOXIDE 30 mmol/L (21-32); CHLORIDE 102 mmol/L (98-107); CREATININE 0.5 mg/dL (0.6-1.3); GLUCOSE 86 mg/dL (74-106); PHOSPHORUS 3.1 mg/dL (2.5-4.9); SODIUM SERUM 144 mmol/L (136-145); UREA NITROGEN, BLOOD 4 mg/dL (7-18)
[2019-01-25 07:11] LABS: CHOLESTEROL 124 mg/dL (<200); HDL CHOLESTEROL 22 mg/dL (40-60); LDL 85 mg/dL (0-99); THYROID STIMULATING HORMONE 1.662 uIU/mL (0.358-3.74); TRIGLYCERIDES 93 mg/dL (30-150)
[2019-01-25 07:32] LABS: MAGNESIUM 0.9 mg/dL (1.8-2.4); POTASSIUM 2.4 mmol/L (3.5-5.1)
--- NOTE | 2019-01-25 07:50 | NUR ---
m/s metal lather: notes called epic at 0740 and was on hold for a couple of times and finally isobutylene operator chief pick up driver the call and lyric echavarria ([facility]) was paged re: critical labs.
--- NOTE | 2019-01-25 07:54 | NUR ---
m/s outpatient physical therapist: notes lyric echavarria ([facility]) called back and made aware of abnormal labs with order to give magnesium sulfate 3 grams iv, potassium chloride 40meq iv and potassium chloride 40 meq po x 1. orders read back and carried out and acknowledged.
[2019-01-25 08:00] VITALS: BP 151/81
[2019-01-25] MEDS: POTASSIUM CL. PREMIX PERIPHER. 50 ML IV SCH ×4 (08:25→11:36)
[2019-01-25] MEDS: PANTOPRAZOLE 40 MG TABLET.DR PO SCH (08:31)
[2019-01-25] MEDS: BENZTROPINE MESYLATE (1 MG) 1 MG TABLET PO SCH ×2 (08:31→16:40)
[2019-01-25] MEDS: MULTIVITAMINS,THERAGRAN 1 UDTAB TABLET PO SCH (08:32)
[2019-01-25] MEDS: HALOPERIDOL 5 MG TABLET PO SCH ×2 (08:32→16:40)
[2019-01-25] MEDS: FERROUS SULFATE (325 MG) 325 MG/TAB TABLET PO SCH ×2 (08:32→16:40)
[2019-01-25] MEDS: AMLODIPINE BESYLATE 10 MG TABLET PO SCH (08:32)
[2019-01-25] MEDS: DOCUSATE SODIUM 100 MG CAPSULE PO SCH (08:32)
[2019-01-25] MEDS: LOSARTAN POTASSIUM 25 MG TABLET PO SCH (08:38)
[2019-01-25] MEDS: IV NS 0.9% 1,000 ML IV PRN (08:38)
[2019-01-25] MEDS: Magnesium 1GM/D5W 100ML PREMIX 100 ML IV SCH ×3 (08:49→11:02)
[2019-01-25] MEDS ORDERED: POTASSIUM CHLORIDE 20 MEQ TAB.PRT.SR PO ONE (09:00)
--- NOTE | 2019-01-25 09:00 | NUR ---
m/s junior architect: md visit seen and [facility]
[2019-01-25] MEDS: ENSURE CLEAR 237 ML LIQUID (MIX BERRY) PO SCH ×2 (09:14→17:00)
--- NOTE | 2019-01-25 12:00 | NUR ---
m/s training administrator: notes turned and repositioned. kept comfortable. lunch served with hob elevated and assisted by human resources trainee. will continue to monitor.
--- NOTE | 2019-01-25 13:50 | NUR ---
m/s window installation subcontractor: dpm consult seen and examined by dr. PAZ with tx orders. orders acknowledged. tx done as ordered.
--- NOTE | 2019-01-25 14:00 | NUR ---
m/s radial drill press operator for plastic: plastic surgeon consult seen and examined by KATHE REYES PAC with tx order. order carried out and acknowledged. initial tx done as ordered. turned and repositioned. kept comfortable. hydrogel ordered. kci mattress ordered. will continue to monitor.
[2019-01-25] MEDS: IV D5/ 0.9% NACL 1,000 ML IV PRN (15:19)
[2019-01-25 16:00] VITALS: BP 142/80
--- NOTE | 2019-01-25 16:00 | NUR ---
m/s cathodic protection technician: notes incontinent care rendered. kept clean and dry. kci mattress provided, kept comfortable. will continue to monitor.
[2019-01-25] MEDS: ZINC SULFATE 220 MG CAPSULE PO SCH (16:40)
[2019-01-25] MEDS: ASCORBIC ACID 500 MG TABLET PO SCH (16:40)
[2019-01-25] MEDS: HYDROGEL DRESSING 90 GM TUBE TP SCH (16:44)
--- NOTE | 2019-01-25 18:00 | NUR ---
m/s email marketing manager: notes resting comfortable in bed. needs attended. will continue to monitor.
--- NOTE | 2019-01-25 19:25 | NUR ---
m/s correction officer: notes bedside report given to albina (rn) for continuity of care.
--- NOTE | 2019-01-25 19:42 | NUR ---
RN NOTES WOUND DRESSING ON BILATERAL LOWER EXTREMITIES INTACT AND PATENT, OFFLOADING, MEPILEX INTACT AND IN PLACE ON HIS SACRAL AREA, KEEP AREA CLEAN AND DRY,WILL MONITOR ACCORDINGLY.
--- NOTE | 2019-01-25 19:50 | NUR ---
RN NOTES RECEIVED PATIENT AWAKE RESTING COMFORTABLY, NO SIGNS OF DISTRESS, IV ACCESS INTACT AND PATENT, BARNARD CATHETER INTACT AND PATENT, SAFETY MEASURES IN PLACE, ASPIRATION PRECAUTION EMPHASIZE, ALL NEEDS ATTENDED CALL LIGHT WITHIN EASY REACH, WILL MONITOR ACCORDINGLY.
[2019-01-25 20:30] VITALS: BP 141/70
[2019-01-25] MEDS ORDERED: LIDOCAINE 1%-EPI 1:100,000 20 ML VIAL TP ONE (21:30)
[2019-01-25] MEDS: MIRTAZAPINE 15 MG TABLET PO SCH (22:41)
[2019-01-26] MEDS: IV D5/ 0.9% NACL 1,000 ML IV PRN (05:00)
[2019-01-26 06:19] LABS: BASOPHILS # (AUTO) 0.1 /CMM (0.0-0.2); BASOPHILS % (AUTO) 0.8 % (0.0-2.0); EOSINOPHILS % (AUTO) 12.9 % (0.0-6.0); HEMATOCRIT 28 % (39-51); LYMPHOCYTES # (AUTO) 1.1 /CMM (0.8-4.8); LYMPHOCYTES % (AUTO) 13.5 % (20.0-44.0); MEAN CORPUSCULAR HGB CONC 32 g/dl (31.0-36.0); MEAN CORPUSCULAR VOLUME 85 fL (80-96); MONOCYTES # (AUTO) 0.6 /CMM (0.1-1.30); MONOCYTES % (AUTO) 6.9 % (2.0-12.0); NEUTROPHILS # (AUTO) 5.5 /CMM (1.8-8.9); NEUTROPHILS % (AUTO) 65.9 % (43.0-81.0); PLATELET COUNT (AUTO) 236 /CMM (150-450); RED BLOOD CELL COUNT(AUTO) 3.36 MIL/uL (4.5-6.0); WHITE BLOOD COUNT (AUTO) 8.4 K/uL (4.3-11.0)
--- NOTE | 2019-01-26 06:51 | NUR ---
RN NOTES ALL NEEDS ATTENDED, CALLED PATIENT'S BROTHER ALTHEA NAVARRETE ) TO OBTAIN CONSENT FOR WOUND DEBRIDEMENT OF SACRUM, ALTHEA NOT AVAILABLE, PHONE DOESN'T WANT TO RECEIVE VOICE MESSAGES. WILL ENDORSE TO AM NURSE FOR CONTINUITY OF CARE.
[2019-01-26 07:13] LABS: CALCIUM, SERUM 7.6 mg/dL (8.5-10.1); CARBON DIOXIDE 31 mmol/L (21-32); CHLORIDE 107 mmol/L (98-107); CREATININE 0.5 mg/dL (0.6-1.3); GLUCOSE 118 mg/dL (74-106); MAGNESIUM 1.4 mg/dL (1.8-2.4); SODIUM SERUM 144 mmol/L (136-145); UREA NITROGEN, BLOOD 3 mg/dL (7-18)
[2019-01-26 07:27] LABS: POTASSIUM 2.6 mmol/L (3.5-5.1)
--- NOTE | 2019-01-26 07:30 | NUR ---
MS RN OPENING NOTES RECEIVED PATIENT ALERT AND AWAKE, VERBALLY RESPONSIVE. HOB ELEVATED. DENIES ANY C/O PAIN NOR DISCOMFORT AT THIS TIME. NANCY PICC AGGIE INTACT AND PATENT INFUSING D5 NS @ 75 ML/HR. BED IN LOWEST POSITION, CALL LIGHT WITHIN REACH. BED ALARM ON. ON SAÚL MATTRESS IN PLACE.
[2019-01-26 08:00] VITALS: BP 145/73
--- NOTE | 2019-01-26 08:00 | NUR ---
MS RN NOTES CALLED [facility] AND SPOKE TO LEAH SANDOVAL SUP REGARDING IF THEY HAD ANY CONTACT WITH PATIENT'S BROTHER DUE TO CONSENT NEEDED FOR DEBRIDEMENT OF WOUND. PER LEAH THEY HAVE BEEN TRYING TO GET A HOLD OF THE BROTHER ALTHEA BUT TO NO AVAIL. SPOKE TO CONSTRUCTION ESTIMATOR CATHIE Capellan AT [facility], PER CATHIE, IT HAS BEEN SEVERAL MONTHS THEIR FACILITY HAS BEEN TRYING TO GET A HOLD OF PATIENT'S BROTHER AND THE ONLY CONTACT NUMBER THEY HAVE IS THE ONE ON FILE. PATIENT IS UNDER FACILITY IDT AND PER SAVANNA THEY HAD REFERRED PATIENT TO [facility] 2-3 WEEKS AGO AND IS CURRENTLY WAITING FOR RESPONSE FROM [facility].
[2019-01-26] MEDS: PANTOPRAZOLE 40 MG TABLET.DR PO SCH (08:37)
[2019-01-26] MEDS: HYDROGEL DRESSING 90 GM TUBE TP SCH (10:13)
[2019-01-26] MEDS: BENZTROPINE MESYLATE (1 MG) 1 MG TABLET PO SCH ×2 (10:14→17:55)
[2019-01-26] MEDS: DOCUSATE SODIUM 100 MG CAPSULE PO SCH (10:14)
[2019-01-26] MEDS: HALOPERIDOL 5 MG TABLET PO SCH ×2 (10:14→17:54)
[2019-01-26] MEDS: AMLODIPINE BESYLATE 10 MG TABLET PO SCH (10:14)
[2019-01-26] MEDS: MULTIVITAMINS,THERAGRAN 1 UDTAB TABLET PO SCH (10:14)
[2019-01-26] MEDS: FERROUS SULFATE (325 MG) 325 MG/TAB TABLET PO SCH ×2 (10:14→17:54)
[2019-01-26] MEDS: LOSARTAN POTASSIUM 25 MG TABLET PO SCH (10:15)
[2019-01-26] MEDS: ENSURE CLEAR 237 ML LIQUID (MIX BERRY) PO SCH ×2 (10:15→17:55)
[2019-01-26] MEDS: Magnesium 1GM/D5W 100ML PREMIX 100 ML IV SCH ×4 (11:23→16:09)
[2019-01-26] MEDS ORDERED: POTASSIUM CHLORIDE 20 MEQ TAB.PRT.SR PO ONE (11:30)
[2019-01-26 11:40] LABS: APPEARANCE,URINE SL CLOUDY (CLEAR); BILIRUBIN,URINE NEGATIVE (NEGATIVE); BLOOD, URINE TRACE Ery/uL (NEGATIVE); COLOR,URINE YELLOW (YELLOW); KETONES,URINE NEGATIVE (NEGATIVE); LEUKOCYTE ESTERASE ,URINE 3+ (NEGATIVE); NITRITE, URINE POSITIVE (NEGATIVE); PROTEIN,URINE NEGATIVE (NEGATIVE); UGLUCOSE NEGATIVE (NEGATIVE); UROBILINOGEN,URINE 0.2 EU/dL (0.2)
[2019-01-26 11:56] LABS: BACTERIA,URINE Many /HPF (None Seen)
[2019-01-26 11:57] LABS: SQUAMOUS EPITHELIAL CELL,UR Few /HPF (None Seen); URINE AMORPHOUS URATE Few /HPF (None Seen)
[2019-01-26] MEDS: POTASSIUM CL. PREMIX PERIPHER. 50 ML IV SCH ×4 (12:14→14:52)
[2019-01-26 16:00] VITALS: BP 143/75
[2019-01-26] MEDS: ZINC SULFATE 220 MG CAPSULE PO SCH (17:54)
[2019-01-26] MEDS: ASCORBIC ACID 500 MG TABLET PO SCH (17:54)
--- NOTE | 2019-01-26 18:45 | NUR ---
MS RN CLOSING NOTES PATIENT ALERT AND AWAKE X1. ORIENTED TO SELF. VERBALLY RESPONSIVE. HOB ELEVATED. NO SOB OBSERVED. DENIES ANY C/O PAIN NOR DISCOMFORT AT THIS TIME. NANCY PICC LINE INTACT AND PATENT INFUSING D5 NS @ 75 ML/HR. BARNARD CATHETER INTACT AND PATENT DRAINING YELLOW COLORED URINE VIA BEDSIDE, VIA GRAVITY. MAGNESIUM SULFATE ORDERED REPLACED TOTAL OF 4 BAGS AND POTASSIUM CHLORIDE ORDERED REPLACED. X4 BAGS JUAN WELL WIHTOUT S/S OF COMPLICATIONS OBSERVED. BED IN LOWEST POSITION, CALL LIGHT WITHIN REACH. BED ALARM ON. ON SAÚL MATTRESS IN PLACE. IN NO APPARENT DISTRESS.
--- NOTE | 2019-01-26 19:20 | NUR ---
RN OPEN NOTES RECEIVED PATIENT RESTING IN BED, EASILY AROUSABLE. A/OX1. NO SIGNS OF DISTRESS OR DISCOMFORT. BREATHING EVEN AND UNLABORED. HAS NANCY PICC LINE WITH D5NS INFUSING, PATENT AND INTACT, NO SIGNS OF REDNESS OR INFILTRATION. HAS F/C INTACT DRAINING CLEAR YELLOW FLUID. BED IN LOW LOCKED POSITION WITH SIDE RAILS X2. HOB ELEVATED. CALL LIGHT WITHIN REACH. WILL CONTINUE TO MONITOR.
[2019-01-26 20:00] VITALS: BP 133/57
[2019-01-26] MEDS: MIRTAZAPINE 15 MG TABLET PO SCH (21:28)
[2019-01-27] MEDS: IV D5/ 0.9% NACL 1,000 ML IV PRN (04:47)
--- NOTE | 2019-01-27 07:40 | NUR ---
RN CLOSING NOTES PATIENT RESTING IN BED, EASILY AROUSABLE. A/OX1. NO SIGNS OF DISTRESS OR DISCOMFORT. BREATHING EVEN AND UNLABORED. ON 2LPM O2 VIA NC. HAS NANCY PICC LINE WITH D5NS INFUSING, PATENT AND INTACT, NO SIGNS OF REDNESS OR INFILTRATION. HAS F/C INTACT DRAINING CLEAR YELLOW FLUID. ALL NEEDS MET. NO SIGNIFICANT CHANGES THROUGH THE NIGHT. REPOSITIONED Q2H AND PRN. BED IN LOW LOCKED POSITION WITH SIDE RAILS X2. HOB ELEVATED. CALL LIGHT WITHIN REACH. ENDORSED TO AM SHIFT FOR THAIS.
[2019-01-27 08:00] VITALS: BP 147/73
--- NOTE | 2019-01-27 08:00 | NUR ---
MS RN OPENING NOTES Received Patient resting and asleep in bed. A/O x 1 with episodes of confusion. VS stable with no acute distress. Breathing even and unlabored on 2LPM via NC with no respiratory distress. Denies pain. Toussaint Cath in place and operational. PICC Line on NANCY clean, dry, intact and flushing well with D5NS running at 75ml/hr. Safety precautions in place. Bed locked and set to lowest position with side rails x 3 up. All needs rendered at this time. Call light within reach. Will continue to monitor.
[2019-01-27] MEDS: BENZTROPINE MESYLATE (1 MG) 1 MG TABLET PO SCH ×2 (09:13→16:47)
[2019-01-27] MEDS: PANTOPRAZOLE 40 MG TABLET.DR PO SCH (09:13)
[2019-01-27] MEDS: DOCUSATE SODIUM 100 MG CAPSULE PO SCH (09:14)
[2019-01-27] MEDS: LOSARTAN POTASSIUM 25 MG TABLET PO SCH (09:14)
[2019-01-27] MEDS: FERROUS SULFATE (325 MG) 325 MG/TAB TABLET PO SCH ×2 (09:14→16:47)
[2019-01-27] MEDS: HALOPERIDOL 5 MG TABLET PO SCH ×2 (09:14→16:47)
[2019-01-27] MEDS: MULTIVITAMINS,THERAGRAN 1 UDTAB TABLET PO SCH (09:14)
[2019-01-27] MEDS: AMLODIPINE BESYLATE 10 MG TABLET PO SCH (09:14)
[2019-01-27] MEDS: HYDROGEL DRESSING 90 GM TUBE TP SCH (09:15)
[2019-01-27] MEDS: ENSURE CLEAR 237 ML LIQUID (MIX BERRY) PO SCH ×2 (09:15→17:15)
[2019-01-27 10:54] LABS: CALCIUM, SERUM 7.7 mg/dL (8.5-10.1); CARBON DIOXIDE 31 mmol/L (21-32); CHLORIDE 104 mmol/L (98-107); CREATININE 0.6 mg/dL (0.6-1.3); GLUCOSE 148 mg/dL (74-106); MAGNESIUM 1.6 mg/dL (1.8-2.4); PHOSPHORUS 2.9 mg/dL (2.5-4.9); POTASSIUM 2.9 mmol/L (3.5-5.1); SODIUM SERUM 142 mmol/L (136-145); UREA NITROGEN, BLOOD 1 mg/dL (7-18)
[2019-01-27 11:43] LABS: BASOPHILS % (AUTO) 0.3 % (0.0-2.0); EOSINOPHILS % (AUTO) 9.1 % (0.0-6.0); HEMATOCRIT 26 % (39-51); HEMOGLOBIN 8.2 g/dL (13.5-17.5); LYMPHOCYTES # (AUTO) 1.2 /CMM (0.8-4.8); LYMPHOCYTES % (AUTO) 11.7 % (20.0-44.0); MEAN CORPUSCULAR HGB CONC 32 g/dl (31.0-36.0); MEAN CORPUSCULAR VOLUME 85 fL (80-96); MONOCYTES # (AUTO) 0.8 /CMM (0.1-1.30); NEUTROPHILS # (AUTO) 7.4 /CMM (1.8-8.9); NEUTROPHILS % (AUTO) 70.9 % (43.0-81.0); PLATELET COUNT (AUTO) 248 /CMM (150-450); RED BLOOD CELL COUNT(AUTO) 3.06 MIL/uL (4.5-6.0); WHITE BLOOD COUNT (AUTO) 10.5 K/uL (4.3-11.0)
[2019-01-27] MEDS: Magnesium 1GM/D5W 100ML PREMIX 100 ML IV SCH ×2 (15:03→16:08)
[2019-01-27] MEDS: POTASSIUM CL. PREMIX PERIPHER. 50 ML IV SCH ×4 (15:03→20:24)
[2019-01-27 16:00] VITALS: BP 154/89
[2019-01-27] MEDS: ZINC SULFATE 220 MG CAPSULE PO SCH (16:47)
[2019-01-27] MEDS: ASCORBIC ACID 500 MG TABLET PO SCH (16:47)
--- NOTE | 2019-01-27 19:35 | NUR ---
MS RN OPENING NOTES Received patient resting in bed, asleep, easily arousable. Breathing even and unlabored. Not in any distress. On O2 at 2LPM via nasal cannula. NANCY PICC line, intact and patent with IV of potassium chloride infusing at 100mL/Hr. Toussaint catheter in place, draining well. Safety measures in place; call light within reach. Bed in low, locked position. Patient for discharge to [facility]. Report was already given by JAIME Don to JAIME Hurley. Will continue to monitor accordingly
--- NOTE | 2019-01-27 20:00 | NUR ---
MS RN NOTES Prepared discharge paperworks. Wound assessment pictures taken and placed in chart. Report given to Mei SANDOVAL from [facility]. Will endorse discharge plan to oncoming shift.
--- NOTE | 2019-01-27 20:01 | NUR ---
MS RN CLOSING NOTES Patient resting and asleep in bed. A/O x 2-3 with episodes of confusion. VS stable with no acute distress. Breathing even and unlabored on 2LPM via NC with no respiratory distress. Denies pain. Toussaint Cath in place and operational with cloudy yellow urine output. PICC Line on NANCY clean, dry, intact and flushing well. Safety precautions in place. Bed locked and set to lowest position with side rails x 3 up. All needs rendered at this time. Call light within reach. Discharge paperworks completed. Wound care done and wound assessment pictures taken and placed in chart. [facility] Will endorse continuation of discharge plan to oncoming shift.
[2019-01-27] MEDS: MIRTAZAPINE 15 MG TABLET PO SCH (21:37)
--- NOTE | 2019-01-27 21:50 | NUR ---
MS DICE TABLE PERSON NOTES Patient discharged to [facility]. Discharge papers given to [facility] staff. ID band removed. Discharged in stable condition
== END 2019-01-27 21:50 | DRG 640 ==
LOC: ER 11:22 → MED 15:26
PROVIDERS: ADMIT Hospitalist; ATTEND Hospitalist
PROC: 02HV33Z Insertion of Infusion Device into Superior Vena Cava, Percutaneous Approach (ICD-10-PCS; principal; 2019-01-24)
PROC: B548ZZA Ultrasonography of Superior Vena Cava, Guidance (ICD-10-PCS; 2019-01-24)
DX: E87.6 Hypokalemia (principal); L89.153 Pressure ulcer of sacral region, stage 3; E43 Unspecified severe protein-calorie malnutrition; I69.354 Hemiplegia and hemiparesis following cerebral infarction affecting left non-dominant side; I13.0 Hypertensive heart and chronic kidney disease with heart failure and stage 1 through stage 4 chronic kidney disease, or unspecified chronic kidney disease; D68.59 Other primary thrombophilia; F02.80 Dementia in other diseases classified elsewhere, unspecified severity, without behavioral disturbance, psychotic disturbance, mood disturbance, and anxiety; D63.8 Anemia in other chronic diseases classified elsewhere; N18.9 Chronic kidney disease, unspecified; R62.7 Adult failure to thrive; Z91.19 Patient's noncompliance with other medical treatment and regimen; R26.9 Unspecified abnormalities of gait and mobility; Z91.018 Allergy to other foods; Z79.51 Long term (current) use of inhaled steroids; Z79.899 Other long term (current) drug therapy; I25.10 Atherosclerotic heart disease of native coronary artery without angina pectoris; I50.9 Heart failure, unspecified; J44.9 Chronic obstructive pulmonary disease, unspecified; G30.9 Alzheimer's disease, unspecified; F31.9 Bipolar disorder, unspecified; E78.5 Hyperlipidemia, unspecified; E83.42 Hypomagnesemia; E87.0 Hyperosmolality and hypernatremia; F20.9 Schizophrenia, unspecified; F41.9 Anxiety disorder, unspecified; F29 Unspecified psychosis not due to a substance or known physiological condition; L89.629 Pressure ulcer of left heel, unspecified stage; L89.619 Pressure ulcer of right heel, unspecified stage; L89.510 Pressure ulcer of right ankle, unstageable; L89.890 Pressure ulcer of other site, unstageable; Z74.01 Bed confinement status; Z74.09 Other reduced mobility
CPT/HCPCS: 36415; 71045-TC; 80048-TC; 80053-TC; 80061-TC; 80076-TC; 81000-TC; 83735-TC; 83880; 84100-TC; 84443-TC; 84484-TC; 85025-TC; 85730-TC; 87081-TC; 87086-TC; 87186-TC; A6248; A6253; G0378; J3475; J3480; J3490; J7030; J7042; J7050

== ENCOUNTER 2019-02-01 19:47 | Inpatient (IN) | payer MEDICARE, OTHER ==
[~2019-02-01] VITALS: Ht 177.8 cm; Wt 76.2 kg
[~2019-02-01 19:47] MED LIST changes: +CRAN3875 PO; +CRAN450C PO; +FERR325T23 PO; -LORA-259 PO; -ZOLP5TAB2 PO
--- NOTE | 2019-02-01 19:55 | NUR ---
LAWSON FROM SNF FOR C/O SOB. PT ON NON- REBREATHER AT 10LPM SATTING 88-89%. alert and responsive. f/c in place draining. placed on a monitor,
[2019-02-01] MEDS ORDERED: CLINDAMYCIN 600 MG in IV D5W 100 ML IV ONE (20:00)
[2019-02-01] MEDS ORDERED: IV NS 0.9% 1,000 ML BAG IV ONE (20:00)
[2019-02-01] MEDS ORDERED: CEFTRIAXONE 1GM BAG (ER ONLY) 50 ML IV ONE (20:00)
[2019-02-01 20:19] LABS: BASOPHILS % (AUTO) 0.3 % (0.0-2.0); EOSINOPHILS % (AUTO) 0.5 % (0.0-6.0); HEMATOCRIT 24 % (39-51); HEMOGLOBIN 7.6 g/dL (13.5-17.5); LYMPHOCYTES # (AUTO) 1.7 /CMM (0.8-4.8); LYMPHOCYTES % (AUTO) 11.8 % (20.0-44.0); MEAN CORPUSCULAR HGB CONC 31 g/dl (31.0-36.0); MEAN CORPUSCULAR VOLUME 85 fL (80-96); MONOCYTES # (AUTO) 1.8 /CMM (0.1-1.30); MONOCYTES % (AUTO) 12.2 % (2.0-12.0); NEUTROPHILS # (AUTO) 10.8 /CMM (1.8-8.9); NEUTROPHILS % (AUTO) 75.2 % (43.0-81.0); PLATELET COUNT (AUTO) 291 /CMM (150-450); RED BLOOD CELL COUNT(AUTO) 2.87 MIL/uL (4.5-6.0); WHITE BLOOD COUNT (AUTO) 14.4 K/uL (4.3-11.0)
[2019-02-01 20:31] LABS: CALCIUM, SERUM 8.2 mg/dL (8.5-10.1); CARBON DIOXIDE 34 mmol/L (21-32); CHLORIDE 107 mmol/L (98-107); CREATININE 0.9 mg/dL (0.6-1.3); GLUCOSE 122 mg/dL (74-106); POTASSIUM 3.3 mmol/L (3.5-5.1); SODIUM SERUM 148 mmol/L (136-145); UREA NITROGEN, BLOOD 32 mg/dL (7-18)
[2019-02-01] MEDS ORDERED: ACETAMINOPHEN ES 500 MG TABLET ONE (20:41)
[2019-02-01 20:46] LABS: ALANINE AMINOTRANSFERASE 27 U/L (12-78); ALBUMIN 1.7 g/dL (3.4-5.0); ALKALINE PHOSPHATASE 95 U/L (46-116); ASPARTATE AMINOTRANSFERASE 57 U/L (15-37); BILIRUBIN,DIRECT 0.2 mg/dL (0.0-0.2); BILIRUBIN,TOTAL 0.6 mg/dL (0.2-1.0); TOTAL PROTEIN, SERUM 6.4 g/dL (6.4-8.2)
--- NOTE | 2019-02-01 20:55 | NUR ---
RECIEVED BED 102
[2019-02-01 20:58] LABS: APPEARANCE,URINE Cloudy (CLEAR); BILIRUBIN,URINE MODERATE (NEGATIVE); BLOOD, URINE Large Ery/uL (NEGATIVE); COLOR,URINE Dark (YELLOW); KETONES,URINE Trace (NEGATIVE); LEUKOCYTE ESTERASE ,URINE Large (NEGATIVE); NITRITE, URINE Positive (NEGATIVE); PH,URINE 5.5 (5.0-8.0); PROTEIN,URINE 100 mg/dl (NEGATIVE); UGLUCOSE Negative (NEGATIVE)
[2019-02-01] MEDS ORDERED: ACETAMINOPHEN ES 500 MG TABLET PO ONE (21:00)
[2019-02-01 21:07] LABS: BACTERIA,URINE Many /HPF (None Seen); RBC,URINE 21-50 /HPF (0-2); SQUAMOUS EPITHELIAL CELL,UR Few /HPF (None Seen); WBC,URINE 21-50 /HPF (0-3)
[2019-02-01 21:08] LABS: MUCUS,URINE Moderate /LPF (None Seen)
--- NOTE | 2019-02-01 21:11 | NUR ---
report given sofie osman at [facility]
--- NOTE | 2019-02-01 21:55 | NUR ---
RN BLUE ADMITTING NOTE PT RECEIVED FROM ER, PRIMARY IMPRESSION ASPIRATION PNA, AOX1, UNCLEAR SPEECH, NO SIGN OF PAIN, SR ON MONITOR, NANCY PICC LINE NOTED FROM FACILITY, INDWELLING F/C FROM SNF NOTED WITH TEA COLOR URINE, PT UA (+) FOR UTI, SKIN ISSUES NOTED, SACRAL AND BILAT LE ULCERS, PHOTOS TAKEN, ADMITTING ORDERS ENTERED BY MD KIANA Dumont,PER PROTOCOL, KEPT CLEAN AND DRY, WELL REPOSITIONED, SAFETY PROTOCOL FOLLOWED.
--- NOTE | 2019-02-01 21:57 | NUR ---
[facility] PT WILL BE ADMITTED
--- NOTE | 2019-02-01 21:58 | NUR ---
PT WAS TRANSFERRED TO [facility] UNDER ACLS PROTOCOL
[2019-02-01 22:00] VITALS: BP 134/74
[2019-02-01] MEDS ORDERED: NA PHOS,M-B/NA PHOS,DI-BA 1 EA ENEMA RC PRN (22:00)
[2019-02-01] MEDS ORDERED: BISACODYL SUPP (10 MG) 10 MG/SUPP.RECT SUPP.RECT RC PRN (22:00)
[2019-02-01] MEDS ORDERED: CLONIDINE HCL 0.1 MG TABLET PO PRN (22:00)
[2019-02-01] MEDS ORDERED: IPRATROPIUM NEB FS 0.5 MG/2.5 ML AMPUL.NEB NEB PRN (22:30)
[2019-02-01] MEDS ORDERED: MAG HYDROX/AL HYDROX/SIMETH 30 ML UDC PO PRN (22:30)
[2019-02-01] MEDS ORDERED: HYDROCODONE/APAP 5/325MG 1 EACH TABLET PO PRN (22:30)
[2019-02-01] MEDS ORDERED: POTASSIUM CHLORIDE 20 MEQ TAB.PRT.SR PO ONE (22:30)
[2019-02-01] MEDS ORDERED: Z GUARD REMEDY 2 OZ OINT TP PRN (22:30)
[2019-02-01] MEDS ORDERED: ALBUTEROL FS 2.5 MG/3 ML VIAL.NEB NEB PRN (22:30)
[2019-02-01] MEDS ORDERED: ZOLPIDEM TARTRATE 5 MG TABLET PO PRN (22:30)
[2019-02-01] MEDS ORDERED: ONDANSETRON HCL/PF 4 MG/2 ML VIAL IVP PRN (22:30)
[2019-02-01] MEDS ORDERED: MAGNESIUM HYDROXIDE 30 ML UDC PO PRN (22:30)
[2019-02-01] MEDS ORDERED: MORPHINE SULFATE INJ 2 MG/ML DISP.SYRIN IV PRN (22:30)
[2019-02-01] MEDS ORDERED: ACETAMINOPHEN 325 MG TABLET PO PRN (22:30)
[2019-02-01] MEDS ORDERED: PIPERACILLIN /TAZOBACTAM 3.375 G in IV D5W 50 ML IV SCH (23:00)
[2019-02-01] MEDS ORDERED: PIPERACILLIN /TAZOBACTAM 3.375 G VIAL IV ONE (23:54)
[2019-02-02] VITALS (8 sets, daily range): BP systolic 104–133; BP diastolic 56–74
[2019-02-02] MEDS ORDERED: PIPERACILLIN /TAZOBACTAM 3.375 G in IV D5W 50 ML IV SCH ×2
[2019-02-02] MEDS ORDERED: AZITHROMYCIN 500 MG VIAL ONE (00:08)
[2019-02-02] MEDS: MIRTAZAPINE 15 MG TABLET PO SCH ×2 (00:17→21:15)
[2019-02-02] MEDS: AZITHROMYCIN 500 MG in IV D5W 250 ML IV SCH ×2 (00:18→21:31)
[2019-02-02] MEDS: PIPERACILLIN /TAZOBACTAM 3.375 G in IV D5W 50 ML IV SCH ×2 (00:19→05:41)
[2019-02-02] MEDS: ENOXAPARIN SODIUM 40 MG/0.4 ML DISP.SYRIN SQ SCH ×2 (00:21→21:32)
[2019-02-02] MEDS ORDERED: PIPERACILLIN /TAZOBACTAM 3.375 G VIAL IV ONE (05:11)
--- NOTE | 2019-02-02 06:01 | NUR ---
RN BLUE CLOSING NOTE ENDORSED PT CONT' ON NONREBREATHER MASK, TRIED TO TITRATE TO SIMPLE MASK, NOT ABLE TO TOLERATE, DESAT' TO 73%, WILL CONT' TO TITRATE TOLERATED, NO SIGN OF PAIN NOTED, APPEARS CONGESTED, WILL ENDORSE TO AM RN TO F/U WITH RT FOR POSSIBLE SUCTION NASAL, TO IMPROVE SAT'.
[2019-02-02 06:32] LABS: BASOPHILS % (AUTO) 0.4 % (0.0-2.0); EOSINOPHILS % (AUTO) 1.3 % (0.0-6.0); HEMATOCRIT 28 % (39-51); HEMOGLOBIN 8.6 g/dL (13.5-17.5); LYMPHOCYTES # (AUTO) 0.9 /CMM (0.8-4.8); LYMPHOCYTES % (AUTO) 9.7 % (20.0-44.0); MEAN CORPUSCULAR HGB CONC 31 g/dl (31.0-36.0); MEAN CORPUSCULAR VOLUME 85 fL (80-96); MONOCYTES # (AUTO) 1.1 /CMM (0.1-1.30); MONOCYTES % (AUTO) 11.9 % (2.0-12.0); NEUTROPHILS # (AUTO) 7.2 /CMM (1.8-8.9); NEUTROPHILS % (AUTO) 76.7 % (43.0-81.0); PLATELET COUNT (AUTO) 217 /CMM (150-450); RED BLOOD CELL COUNT(AUTO) 3.25 MIL/uL (4.5-6.0); WHITE BLOOD COUNT (AUTO) 9.4 K/uL (4.3-11.0)
[2019-02-02 06:51] LABS: ALANINE AMINOTRANSFERASE 32 U/L (12-78); ALBUMIN 1.6 g/dL (3.4-5.0); ALKALINE PHOSPHATASE 95 U/L (46-116); ASPARTATE AMINOTRANSFERASE 60 U/L (15-37); BILIRUBIN,TOTAL 0.6 mg/dL (0.2-1.0); CARBON DIOXIDE 29 mmol/L (21-32); CHLORIDE 108 mmol/L (98-107); CREATININE 0.8 mg/dL (0.6-1.3); GLUCOSE 106 mg/dL (74-106); MAGNESIUM 1.6 mg/dL (1.8-2.4); PHOSPHORUS 3.4 mg/dL (2.5-4.9); POTASSIUM 3.3 mmol/L (3.5-5.1); SODIUM SERUM 146 mmol/L (136-145); TOTAL PROTEIN, SERUM 6.2 g/dL (6.4-8.2); UREA NITROGEN, BLOOD 29 mg/dL (7-18)
[2019-02-02] MEDS: BENZTROPINE MESYLATE (1 MG) 1 MG TABLET PO SCH ×2 (08:25→17:17)
[2019-02-02] MEDS: AMLODIPINE BESYLATE 10 MG TABLET PO SCH (08:27)
[2019-02-02] MEDS: DOCUSATE SODIUM 100 MG CAPSULE PO SCH (08:27)
[2019-02-02] MEDS: HALOPERIDOL 5 MG TABLET PO SCH ×2 (08:28→17:17)
[2019-02-02] MEDS: FERROUS SULFATE (325 MG) 325 MG/TAB TABLET PO SCH ×2 (08:28→17:17)
[2019-02-02] MEDS: MULTIVITAMINS,THERAGRAN 1 UDTAB TABLET PO SCH (08:28)
[2019-02-02] MEDS: PANTOPRAZOLE 40 MG TABLET.DR PO SCH (08:28)
[2019-02-02] MEDS: LOSARTAN POTASSIUM 25 MG TABLET PO SCH (08:28)
[2019-02-02] MEDS: PROSOURCE / PROSTAT (PYXIS) 30 ML UDC PO SCH (09:00)
[2019-02-02] MEDS: ENSURE ENLIVE 237 ML LIQUID (VANILLA) PO SCH ×2 (09:00→18:36)
--- NOTE | 2019-02-02 09:58 | NUR ---
JADEN FROM LAB CALLED RE: BLOOD CULTURE RESULTS. CALL PLACED TO EPIC
[2019-02-02] MEDS ORDERED: PIPERACILLIN /TAZOBACTAM 3.375 G in IV D5W 100 ML IV SCH (10:00)
--- NOTE | 2019-02-02 10:09 | NUR ---
BOBBY VAUGHN DNP ON UNIT, MADE AWARE OF BLOOD CULTURE RESULTS.
[2019-02-02] MEDS: Magnesium 1GM/D5W 100ML PREMIX 100 ML IV SCH ×3 (11:32→20:30)
[2019-02-02] MEDS ORDERED: KETOROLAC TROMETHAMINE 15 MG/ML VIAL ONE (11:36)
[2019-02-02] MEDS ORDERED: POTASSIUM CHLORIDE 20 MEQ TAB.PRT.SR PO SCH (12:00)
[2019-02-02] MEDS: HYDROGEL DRESSING 90 GM TUBE TP SCH (13:08)
--- NOTE | 2019-02-02 13:53 | NUR ---
BERLIN contacted [facility] and spoke to Emmie in admitting inquiring if pt. has a public guardian. Per Emmie, they have applied for a Public Guardian two to three weeks ago and is pending. At the [facility], the Interdisciplinary team makes medical decisions for the pt and consents when needed. Pt. requires peg placement and there is no public guardian assigned at this time, bioethics needs to be arranged for consent for peg placement. BERLIN informed wrapper caser Patricia who will consult with NAE Brownlee and Dr. Orozco.
[2019-02-02] MEDS ORDERED: FEE PK DOSING 1 MIN EA MC ONE (15:14)
[2019-02-02] MEDS: VANCOMYCIN 0.75 GM in IV D5W 250 ML IV SCH (17:07)
[2019-02-02] MEDS: ASCORBIC ACID 500 MG TABLET PO SCH (17:17)
[2019-02-02] MEDS: ZINC SULFATE 220 MG CAPSULE PO SCH (17:17)
--- NOTE | 2019-02-02 18:00 | NUR ---
AKIL GONZALEZ NP ORDER Addendum: 02/02/19 at 2004 by CHARLEEN DUNCAN RN CHARTED IN ERROR
--- NOTE | 2019-02-02 18:01 | NUR ---
choi was replaced per ID RADIO REPAIR TEACHER order.
[2019-02-02] MEDS: MEROPENEM 1 G in IV NS 0.9% 100 ML IV SCH (18:36)
--- NOTE | 2019-02-02 19:20 | NUR ---
PYRIDINE OPERATOR NOTES, PATIENT IN BED RESTING COMFORTABLY AT THIS TIME. NO S/S OF ACUTE DISTRESS NOTED. RESPIRATION EVEN AND UNLABORED. NO SOB NOTED. PATIENT ALERT AND ORIENTED X2, DENIES ANY PAIN OR DISCOMFORT AT THIS TIME. PATIENT ON O2 5 LPM VIA NC, SATURATING 96 % AT THIS TIME. F/C IN PLACE, PATENT, DRAINING WELL WITH CLEAR, YELLOW URINE. NANCY PICC LINE IN PLACE, PATENT, NO S/S OF INFECTION NOTED AT THE SITE, RUNNING WITH NS @75 ML/HR. PATIENT ON TELE MONITORING WITH SINUS TACHY AT 102. HOB KEPT ELEVATED AT ALL THE TIME. SAFETY MAINTAINED, BED AT THE LOWEST LOCKED POSITION. CALL LIGHT WITHIN REACH. WILL CONTINUE TO MONITOR PATIENT CONDITION PER PLAN OF CARE. Addendum: 02/02/19 at 2039 by TAMIKO CALVO RN CHARTED BY ERROR
[2019-02-03] VITALS (8 sets, daily range): BP systolic 94–136; BP diastolic 56–78
[2019-02-03] MEDS: MEROPENEM 1 G in IV NS 0.9% 100 ML IV SCH ×3 (01:36→19:33)
[2019-02-03] MEDS: IV NS 0.9% 1,000 ML IV PRN (01:44)
[2019-02-03] MEDS: VANCOMYCIN 0.75 GM in IV D5W 250 ML IV SCH ×2 (04:39→16:54)
[2019-02-03 06:33] LABS: BASOPHILS % (AUTO) 0.3 % (0.0-2.0); EOSINOPHILS % (AUTO) 2.5 % (0.0-6.0); HEMATOCRIT 21 % (39-51); LYMPHOCYTES # (AUTO) 1.2 /CMM (0.8-4.8); LYMPHOCYTES % (AUTO) 12.8 % (20.0-44.0); MEAN CORPUSCULAR HGB CONC 31 g/dl (31.0-36.0); MEAN CORPUSCULAR VOLUME 85 fL (80-96); MONOCYTES # (AUTO) 0.7 /CMM (0.1-1.30); MONOCYTES % (AUTO) 7.4 % (2.0-12.0); NEUTROPHILS # (AUTO) 7.5 /CMM (1.8-8.9); PLATELET COUNT (AUTO) 250 /CMM (150-450); RED BLOOD CELL COUNT(AUTO) 2.45 MIL/uL (4.5-6.0); WHITE BLOOD COUNT (AUTO) 9.7 K/uL (4.3-11.0)
--- NOTE | 2019-02-03 06:51 | NUR ---
SIDEHAND EXIT NOTES, PATIENT IN BED RESTING COMFORTABLY AT THIS TIME. NO S/S OF ACUTE DISTRESS NOTED. RESPIRATION EVEN AND UNLABORED. NO SOB NOTED, NO S/S OF PAIN NOTED. PATIENT ON O2 5 LPM VIA NC, SATURATING 96 % AT THIS TIME. F/C IN PLACE, PATENT, DRAINING WELL WITH CLEAR, YELLOW URINE, OUTPUT NOTED 400. NO BLADDER DISTENTION NOTED UPON PALPATION. NANCY PICC LINE IN PLACE, PATENT, NO S/S OF INFECTION NOTED AT THE SITE, RUNNING WITH NS @75 ML/HR. PATIENT ON TELE MONITORING WITH SINUS RHYTHM, SINUS TACHY. HOB KEPT ELEVATED AT ALL THE TIME. SAFETY MAINTAINED, BED AT THE LOWEST LOCKED POSITION. CALL LIGHT WITHIN REACH. WILL ENDORSE TO AM SHIFT NURSE FOR THAIS.
[2019-02-03 07:05] LABS: HEMOGLOBIN 6.5 g/dL (13.5-17.5)
--- NOTE | 2019-02-03 07:05 | NUR ---
LABS CALLED AT THIS TIME, REALYED THAT PATIENT HEMOGLOBIN IS 6.5 CRITICALLY LOW, ENDORSED TO AM SHIFT CHARGE NURSE AND AM SHIFT NURSE FOR THE PATIENT
[2019-02-03 07:09] LABS: POTASSIUM 2.9 mmol/L (3.5-5.1); SODIUM SERUM 145 mmol/L (136-145)
[2019-02-03 07:10] LABS: CALCIUM, SERUM 7.7 mg/dL (8.5-10.1); CARBON DIOXIDE 32 mmol/L (21-32); CHLORIDE 107 mmol/L (98-107); CREATININE 0.8 mg/dL (0.6-1.3); GLUCOSE 129 mg/dL (74-106); PHOSPHORUS 2.8 mg/dL (2.5-4.9); UREA NITROGEN, BLOOD 22 mg/dL (7-18)
[2019-02-03 08:06] LABS: BAND % (MANUAL) 1 % (0.0-5.0); LYMPHOCYTES % (MANUAL) 15 % (16-48); MONOCYTES % (MANUAL) 10 % (0-11.0); NEUTROPHILS % (MANUAL) 74 (42-76)
--- NOTE | 2019-02-03 08:08 | NUR ---
Tel nurse , Dr arce was notified re; patient's HGB 6.5 and hct 21 received orders 1 units prbc today and carried out
[2019-02-03] MEDS: HALOPERIDOL 5 MG TABLET PO SCH ×2 (08:43→17:29)
[2019-02-03] MEDS: AMLODIPINE BESYLATE 10 MG TABLET PO SCH (08:43)
[2019-02-03] MEDS: DOCUSATE SODIUM 100 MG CAPSULE PO SCH (08:43)
[2019-02-03] MEDS: MULTIVITAMINS,THERAGRAN 1 UDTAB TABLET PO SCH (08:48)
[2019-02-03] MEDS: LOSARTAN POTASSIUM 25 MG TABLET PO SCH (08:49)
[2019-02-03] MEDS: FERROUS SULFATE (325 MG) 325 MG/TAB TABLET PO SCH ×2 (08:49→17:32)
[2019-02-03] MEDS: BENZTROPINE MESYLATE (1 MG) 1 MG TABLET PO SCH ×2 (08:49→17:30)
[2019-02-03] MEDS: PANTOPRAZOLE 40 MG TABLET.DR PO SCH (08:49)
[2019-02-03] MEDS: HYDROGEL DRESSING 90 GM TUBE TP SCH (08:50)
--- NOTE | 2019-02-03 11:49 | NUR ---
WOUND CARE CONSULT WOUND CARE RECEIVED CONSULT FOR WOUND EVAL. WOUND CARE WILL DEFER CONSULT AND TREATMENT PLANS TO PLASTIC SURGICAL TEAM INCLUDING DPM DR PAZ, WHO ARE ALL CURRENTLY FOLLOWING THIS PATIENT. PATIENT WITH WHITLEY AT 11, ALL PRESSURE ULCER PREVENTION MEASURES ARE NOTED TO BE IN PLACE AT THIS TIME. WILL SEE PRN.
[2019-02-03] MEDS: ENSURE ENLIVE 237 ML LIQUID (VANILLA) PO SCH ×2 (12:07→17:00)
[2019-02-03] MEDS: PROSOURCE / PROSTAT (PYXIS) 30 ML UDC PO SCH (12:07)
[2019-02-03] MEDS: POTASSIUM CHLORIDE 20 MEQ TAB.PRT.SR PO SCH ×3 (13:00→14:13)
[2019-02-03] MEDS: ZINC SULFATE 220 MG CAPSULE PO SCH (17:30)
[2019-02-03] MEDS: LACTOBACILLUS RHAMNOSUS GG 1 EACH CAP.SPRINK PO SCH (17:31)
[2019-02-03] MEDS: ASCORBIC ACID 500 MG TABLET PO SCH (17:32)
[2019-02-03 18:25] LABS: BASOPHILS % (AUTO) 0.2 % (0.0-2.0); EOSINOPHILS % (AUTO) 3.5 % (0.0-6.0); HEMATOCRIT 25 % (39-51); HEMOGLOBIN 7.8 g/dL (13.5-17.5); LYMPHOCYTES # (AUTO) 1.2 /CMM (0.8-4.8); LYMPHOCYTES % (AUTO) 11.8 % (20.0-44.0); MEAN CORPUSCULAR HGB CONC 32 g/dl (31.0-36.0); MEAN CORPUSCULAR VOLUME 85 fL (80-96); MONOCYTES # (AUTO) 0.7 /CMM (0.1-1.30); NEUTROPHILS % (AUTO) 77.5 % (43.0-81.0); PLATELET COUNT (AUTO) 280 /CMM (150-450); RED BLOOD CELL COUNT(AUTO) 2.87 MIL/uL (4.5-6.0); WHITE BLOOD COUNT (AUTO) 10.3 K/uL (4.3-11.0)
[2019-02-03 19:20] LABS: CALCIUM, SERUM 7.3 mg/dL (8.5-10.1); CARBON DIOXIDE 27 mmol/L (21-32); CHLORIDE 109 mmol/L (98-107); CREATININE 0.7 mg/dL (0.6-1.3); GLUCOSE 126 mg/dL (74-106); POTASSIUM 3.1 mmol/L (3.5-5.1); SODIUM SERUM 145 mmol/L (136-145); UREA NITROGEN, BLOOD 17 mg/dL (7-18)
--- NOTE | 2019-02-03 19:20 | NUR ---
MS/RN NOTES, PATIENT IN BED RESTING COMFORTABLY AT THIS TIME. NO S/S OF ACUTE DISTRESS NOTED. RESPIRATION EVEN AND UNLABORED. NO SOB NOTED. PATIENT ALERT AND ORIENTED X2, NO S/S OF PAIN NOTED AT THIS TIME. PATIENT ON O2 5 LPM VIA NC, SATURATING 96 % AT THIS TIME. F/C IN PLACE, PATENT, DRAINING WELL WITH CLEAR, YELLOW URINE. JOSEFINA MIDLINE IN PLACE, PATENT, NO S/S OF INFECTION NOTED AT THE SITE, RUNNING WITH NS @75 ML/HR. HOB KEPT ELEVATED AT ALL THE TIME. SAFETY MAINTAINED, BED AT THE LOWEST LOCKED POSITION. CALL LIGHT WITHIN REACH. ISOLATION PRECAUTIONS MAINTAINED AND STRICTLY OBSERVED. WILL CONTINUE TO MONITOR PATIENT CONDITION PER PLAN OF CARE.
[2019-02-03 20:10] LABS: OCCULT BLOOD STOOL NEGATIVE (NEGATIVE)
[2019-02-03] MEDS: ENOXAPARIN SODIUM 40 MG/0.4 ML DISP.SYRIN SQ SCH (21:33)
[2019-02-03] MEDS: MIRTAZAPINE 15 MG TABLET PO SCH (21:34)
--- NOTE | 2019-02-03 21:36 | NUR ---
HELD LOVENOX DUE TO POSSIBLE PROCEDURE IN AM.
--- NOTE | 2019-02-03 23:25 | NUR ---
CALLED DR CINTRON AT THIS TIME AND RELAYED THAT PATIENT WAS GIVEN 60 MEQ K- DUR PO THIS MORNING FOR POTASSIUM 2.9. REPEATED BPM AROUND 1900 HIS POTASSIUM IS STILL LOW 3.1. DR CINTRON WITH NEW ORDER TO GIVE PATIENT 60 MEQ K-DUR PO ONE MORE TIME AND REPEAT CBC, BMP IN AM. ORDER NOTED AND CARRIED OUT.
[2019-02-03] MEDS ORDERED: POTASSIUM CHLORIDE 20 MEQ TAB.PRT.SR PO ONE (23:30)
--- NOTE | 2019-02-03 23:40 | NUR ---
PATIENT DENIES TAKING PO POTASSIUM ORDER, PATIENT IS VERY SLEEPY AND NOT COOPERATIVE. RISKS AND BENEFITS EXPLAINED. PATIENT STILL DENIED. WASTED MEDICATION AT THIS TIME
--- NOTE | 2019-02-03 23:58 | NUR ---
CALLED DR CINTRON AT THIS TIME AND MADE AWARE, DR CINTRON WITH NEW ORDER TO GIVE POTASSIUM IV 60MEQ. ORDER NOTED
[2019-02-04] MEDS ORDERED: POTASSIUM CHLORIDE 10 MEQ/50 ML PREMIXED IVPB FOR PERIPHERAL LINE IV ONE ×2 (00:30→01:00)
[2019-02-04] MEDS: MEROPENEM 1 G in IV NS 0.9% 100 ML IV SCH ×3 (01:09→16:25)
[2019-02-04] MEDS: POTASSIUM CL. PREMIX PERIPHER. 50 ML IV SCH ×6 (01:18→06:45)
[2019-02-04] MEDS: IV NS 0.9% 1,000 ML IV PRN (03:23)
[2019-02-04] MEDS: VANCOMYCIN 0.75 GM in IV D5W 250 ML IV SCH ×3 (04:50→20:43)
[2019-02-04 05:00] VITALS: BP 132/69
[2019-02-04 06:31] LABS: BASOPHILS % (AUTO) 0.3 % (0.0-2.0); EOSINOPHILS % (AUTO) 4.6 % (0.0-6.0); HEMATOCRIT 23 % (39-51); HEMOGLOBIN 7.2 g/dL (13.5-17.5); LYMPHOCYTES # (AUTO) 1.2 /CMM (0.8-4.8); LYMPHOCYTES % (AUTO) 13.2 % (20.0-44.0); MEAN CORPUSCULAR HGB CONC 32 g/dl (31.0-36.0); MEAN CORPUSCULAR VOLUME 86 fL (80-96); MONOCYTES # (AUTO) 0.7 /CMM (0.1-1.30); MONOCYTES % (AUTO) 7.4 % (2.0-12.0); NEUTROPHILS # (AUTO) 6.7 /CMM (1.8-8.9); NEUTROPHILS % (AUTO) 74.5 % (43.0-81.0); PLATELET COUNT (AUTO) 248 /CMM (150-450); RED BLOOD CELL COUNT(AUTO) 2.64 MIL/uL (4.5-6.0); WHITE BLOOD COUNT (AUTO) 9.1 K/uL (4.3-11.0)
--- NOTE | 2019-02-04 06:54 | NUR ---
MS/RN NOTES, PATIENT IN BED RESTING COMFORTABLY AT THIS TIME. NO S/S OF ACUTE DISTRESS NOTED. RESPIRATION EVEN AND UNLABORED. NO SOB NOTED. NO S/S OF PAIN NOTED AT THIS TIME. PATIENT ON O2 @ 5 LPM VIA NC, SATURATING 98 % AT THIS TIME. F/C IN PLACE, PATENT, DRAINING WELL WITH CLEAR, YELLOW URINE. JOSEFINA MIDLINE IN PLACE, PATENT, NO S/S OF INFECTION NOTED AT THE SITE, RUNNING WITH NS @75 ML/HR. ALL DUE MEDS GIVEN ORDERED, TOLERATED WELL HOB KEPT ELEVATED AT ALL THE TIME. SAFETY MAINTAINED, BED AT THE LOWEST LOCKED POSITION. CALL LIGHT WITHIN REACH. ISOLATION PRECAUTIONS MAINTAINED AND STRICTLY OBSERVED. ENDORSED TO AM SHIFT NURSE FOR THAIS.
--- NOTE | 2019-02-04 07:00 | NUR ---
MS RN OPENING NOTES RECEIVED PT LYING ON BED.SLEEPING.ALERT/ORIENTED X1.ON NC 5LPM O2.TOLERATING WELL.NO SOB AND ACUTE DISTRESS NOTED.BARNARD CATH IS IN PLACE WITH YELLOW COLOR URINE.LEFT UPPER ARM MIDLINE PRESENT WITH IV NS @75CC/HR IS RUNNING.SITE IS CLEAN,DRY AND INTACT.NO INFILTRATION NOTED.BED IS IN LOW POSITION AND LOCKED.CALL LIGHT IS WITHIN REACH.WILL CONTINUE TO MONITOR THE PT CLOSELY.
[2019-02-04 07:21] LABS: CALCIUM, SERUM 7.8 mg/dL (8.5-10.1); CARBON DIOXIDE 30 mmol/L (21-32); CHLORIDE 109 mmol/L (98-107); CREATININE 0.6 mg/dL (0.6-1.3); GLUCOSE 102 mg/dL (74-106); MAGNESIUM 1.7 mg/dL (1.8-2.4); PHOSPHORUS 2.8 mg/dL (2.5-4.9); SODIUM SERUM 144 mmol/L (136-145); UREA NITROGEN, BLOOD 15 mg/dL (7-18)
[2019-02-04 08:00] VITALS: BP 131/61
[2019-02-04] MEDS: PROSOURCE / PROSTAT (PYXIS) 30 ML UDC PO SCH (09:00)
[2019-02-04] MEDS: ENSURE ENLIVE 237 ML LIQUID (VANILLA) PO SCH ×2 (09:00→16:25)
[2019-02-04] MEDS: DOCUSATE SODIUM 100 MG CAPSULE PO SCH (09:09)
[2019-02-04] MEDS: FERROUS SULFATE (325 MG) 325 MG/TAB TABLET PO SCH ×2 (09:09→16:25)
[2019-02-04] MEDS: PANTOPRAZOLE 40 MG TABLET.DR PO SCH (09:10)
[2019-02-04] MEDS: AMLODIPINE BESYLATE 10 MG TABLET PO SCH (09:10)
[2019-02-04] MEDS: LOSARTAN POTASSIUM 25 MG TABLET PO SCH (09:10)
[2019-02-04] MEDS: LACTOBACILLUS RHAMNOSUS GG 1 EACH CAP.SPRINK PO SCH ×2 (09:10→16:26)
[2019-02-04] MEDS: BENZTROPINE MESYLATE (1 MG) 1 MG TABLET PO SCH ×2 (09:10→16:25)
[2019-02-04] MEDS: HALOPERIDOL 5 MG TABLET PO SCH ×2 (09:10→16:25)
[2019-02-04] MEDS: MULTIVITAMINS,THERAGRAN 1 UDTAB TABLET PO SCH (09:10)
[2019-02-04] MEDS: Magnesium 1GM/D5W 100ML PREMIX 100 ML IV SCH ×2 (10:25→12:02)
[2019-02-04] MEDS: HYDROGEL DRESSING 90 GM TUBE TP SCH (10:26)
[2019-02-04 16:00] VITALS: BP 129/60
[2019-02-04] MEDS: ASCORBIC ACID 500 MG TABLET PO SCH (16:25)
[2019-02-04] MEDS: ZINC SULFATE 220 MG CAPSULE PO SCH (16:25)
--- NOTE | 2019-02-04 18:50 | NUR ---
MS RN NOTES GUITAR INSTRUCTOR VERNON SAID WILL PLANNING TO DO PEG PLACEMENT ON THURSDAY PROBABLY,WILL LET US KNOW THAT.AND ORDERED TO DO SWALLOW EVAL PRIOR TO RESUME THE DIET.NEW ORDERS NOTED AND CARRIED OUT.
--- NOTE | 2019-02-04 19:10 | NUR ---
MS RN CLOSING NOTES PT IS LYING ON BED.RESPIRATION IS EVEN AND NONLABORED.PT IS CLEAN AND DRY.NO SIGNIFICANT CHANGES NOTED IN THE SHIFT.ENDORSED TO HOUSE DETECTIVE RN FOR THAIS.
--- NOTE | 2019-02-04 19:15 | NUR ---
MS RN NOTES RECEIVED PT IN BED AND AWAKE. PT A/O X1-2 WITH PERIODS OF CONFUSION. RESPIRATIONS EVEN AND UNLABORED WITH NO S/S OF ACUTE DISTRESS OR SOB NOTED. PT ON NC 5LPM O2 TOLERATING WELL. PT WITH BARNARD CATH IS IN PLACE WITH YELLOW COLOR URINE DRAINING. PT WITH LEFT UPPER ARM MIDLINE PATENT AND INTACT WITH NS RUNNING @75CC/HR. SAFETY MEASURES IN PLACE WITH BED IN LOWEST LOCKED POSITION WITH SIDE RAILS UP X2. CALL LIGHT WITHIN REACH. WILL CONTINUE TO MONITOR.
[2019-02-04 20:00] VITALS: BP 147/75
[2019-02-04 21:00] VITALS: BP 147/75
[2019-02-04] MEDS: ENOXAPARIN SODIUM 40 MG/0.4 ML DISP.SYRIN SQ SCH ×2 (22:30→23:15)
[2019-02-04] MEDS: MIRTAZAPINE 15 MG TABLET PO SCH (23:00)
[2019-02-05] MEDS: MEROPENEM 1 G in IV NS 0.9% 100 ML IV SCH ×3 (01:40→17:28)
[2019-02-05] MEDS: IV NS 0.9% 1,000 ML IV PRN (03:36)
[2019-02-05 04:00] VITALS: BP 144/76
[2019-02-05] MEDS: VANCOMYCIN 0.75 GM in IV D5W 250 ML IV SCH ×3 (04:44→20:33)
[2019-02-05 05:00] VITALS: BP 144/76
--- NOTE | 2019-02-05 06:59 | NUR ---
MS RN NOTES LAB WAS UNABLE GET BLOOD. WILL SEND ANOTHER TECH TO RETRY AND GET BLOOD DRAW.
--- NOTE | 2019-02-05 07:10 | NUR ---
MS RN OPENING NOTES RECEIVED PT LYING ON BED.SLEEPING.ALERT/ORIENTED X2,PERIODS OF CONFUSION NOTED.ON NC 5LPM O2.TOLERATING WELL.NO SOB AND ACUTE DISTRESS NOTED.BARNARD CATH IS IN PLACE WITH YELLOW COLOR URINE.LEFT UPPER ARM MIDLINE PRESENT WITH IV NS @75CC/HR IS RUNNING.SITE IS CLEAN,DRY AND INTACT.NO INFILTRATION NOTED.BED IS IN LOW POSITION AND LOCKED.CALL LIGHT IS WITHIN REACH.WILL CONTINUE TO MONITOR THE PT CLOSELY.
--- NOTE | 2019-02-05 07:32 | NUR ---
MS RN NOTES PT IN BED SLEEPING BUT EASILY AWOKEN VERBALLY OR BY TOUCH. PT A/O X1-2 WITH PERIODS OF CONFUSION. RESPIRATIONS EVEN AND UNLABORED WITH NO S/S OF ACUTE DISTRESS OR SOB NOTED THROUGHOUT SHIFT. PT ON NC 5LPM O2 TOLERATING WELL. PT WITH BARNARD CATH IS IN PLACE WITH YELLOW COLOR URINE DRAINING. PT WITH LEFT UPPER ARM MIDLINE PATENT AND INTACT WITH NS RUNNING @75CC/HR. TURNED PT Q2HRS. PT KEPT CLEAN, DRY, AND COMFORTABLE. SAFETY MEASURES IN PLACE WITH BED IN LOWEST LOCKED POSITION WITH SIDE RAILS UP X2. CALL LIGHT WITHIN REACH. WILL ENDORSE TO ONCOMING NURSE FOR THAIS.
[2019-02-05 08:00] VITALS: BP 143/67
[2019-02-05] MEDS: PROSOURCE / PROSTAT (PYXIS) 30 ML UDC PO SCH (09:00)
[2019-02-05] MEDS: ENSURE ENLIVE 237 ML LIQUID (VANILLA) PO SCH ×2 (09:00→17:00)
[2019-02-05] MEDS: PANTOPRAZOLE 40 MG TABLET.DR PO SCH (09:08)
[2019-02-05] MEDS: MULTIVITAMINS,THERAGRAN 1 UDTAB TABLET PO SCH (09:08)
[2019-02-05] MEDS: DOCUSATE SODIUM 100 MG CAPSULE PO SCH (09:08)
[2019-02-05] MEDS: LACTOBACILLUS RHAMNOSUS GG 1 EACH CAP.SPRINK PO SCH ×2 (09:08→17:28)
[2019-02-05] MEDS: BENZTROPINE MESYLATE (1 MG) 1 MG TABLET PO SCH ×2 (09:08→17:29)
[2019-02-05] MEDS: HALOPERIDOL 5 MG TABLET PO SCH ×2 (09:08→17:28)
[2019-02-05] MEDS: FERROUS SULFATE (325 MG) 325 MG/TAB TABLET PO SCH ×2 (09:08→17:29)
[2019-02-05] MEDS: LOSARTAN POTASSIUM 25 MG TABLET PO SCH (09:09)
[2019-02-05] MEDS: AMLODIPINE BESYLATE 10 MG TABLET PO SCH (09:09)
[2019-02-05] MEDS: HYDROGEL DRESSING 90 GM TUBE TP SCH (09:10)
[2019-02-05 12:04] LABS: CALCIUM, SERUM 7.6 mg/dL (8.5-10.1); CARBON DIOXIDE 26 mmol/L (21-32); CHLORIDE 107 mmol/L (98-107); CREATININE 0.6 mg/dL (0.6-1.3); GLUCOSE 95 mg/dL (74-106); MAGNESIUM 1.7 mg/dL (1.8-2.4); PHOSPHORUS 2.5 mg/dL (2.5-4.9); POTASSIUM 3.7 mmol/L (3.5-5.1); SODIUM SERUM 139 mmol/L (136-145); UREA NITROGEN, BLOOD 9 mg/dL (7-18)
[2019-02-05 12:05] LABS: BASOPHILS # (AUTO) 0.1 /CMM (0.0-0.2); BASOPHILS % (AUTO) 0.6 % (0.0-2.0); EOSINOPHILS % (AUTO) 6.5 % (0.0-6.0); HEMATOCRIT 25 % (39-51); HEMOGLOBIN 7.7 g/dL (13.5-17.5); LYMPHOCYTES # (AUTO) 1.1 /CMM (0.8-4.8); LYMPHOCYTES % (AUTO) 11.5 % (20.0-44.0); MEAN CORPUSCULAR HGB CONC 32 g/dl (31.0-36.0); MEAN CORPUSCULAR VOLUME 87 fL (80-96); MONOCYTES # (AUTO) 0.6 /CMM (0.1-1.30); MONOCYTES % (AUTO) 6.7 % (2.0-12.0); NEUTROPHILS # (AUTO) 6.9 /CMM (1.8-8.9); NEUTROPHILS % (AUTO) 74.7 % (43.0-81.0); PLATELET COUNT (AUTO) 288 /CMM (150-450); RED BLOOD CELL COUNT(AUTO) 2.83 MIL/uL (4.5-6.0); WHITE BLOOD COUNT (AUTO) 9.2 K/uL (4.3-11.0)
--- NOTE | 2019-02-05 12:25 | NUR ---
MS RN NOTES PRACTICE ADVISOR JOHANA RAFAEL SAID TO KEEP PT ON NPO UNTIL THE PROCEDURE FOR PEG PLACEMENT DONE AAS PT IS HIGH RISK FOR ASPIRATION AND D/C ST EVALUATION,CHANGE IV TO D5NS @80ML/HR.NEW ORDERS NOTED AND CARRIED OUT.
[2019-02-05] MEDS: IV D5/ 0.9% NACL 1,000 ML IV SCH (13:56)
[2019-02-05 16:00] VITALS: BP 136/73
[2019-02-05] MEDS: ASCORBIC ACID 500 MG TABLET PO SCH (17:28)
[2019-02-05] MEDS: ZINC SULFATE 220 MG CAPSULE PO SCH (17:28)
--- NOTE | 2019-02-05 18:46 | NUR ---
MS RN CLOSING NOTES PT IS LYING ON BED.PT OS CLEAN AND DRY.ON NC 5LPM O2,NO SOB AND ACUTE DISTRESS NOTED.IV LINE IS IN PLACE WITH IV FLUID IS RUNNING.NO SIGNIFICANT CHANGES NOTED IN THE SHIFT.RESPIRATION IS EVEN AND NONLABORED.WILL ENDORSE TO INDUSTRIAL SPRAY PAINTER RN FOR THAIS.
[2019-02-05 20:00] VITALS: BP 155/72
[2019-02-05] MEDS: MIRTAZAPINE 15 MG TABLET PO SCH (21:12)
[2019-02-05] MEDS: ENOXAPARIN SODIUM 40 MG/0.4 ML DISP.SYRIN SQ SCH (21:38)
[2019-02-06] MEDS: MEROPENEM 1 G in IV NS 0.9% 100 ML IV SCH ×4 (01:19→16:35)
[2019-02-06] MEDS: IV D5/ 0.9% NACL 1,000 ML IV SCH ×2 (02:30→15:30)
[2019-02-06 04:00] VITALS: BP 114/63
[2019-02-06] MEDS: VANCOMYCIN 0.75 GM in IV D5W 250 ML IV SCH ×3 (04:43→19:55)
[2019-02-06 06:36] LABS: CALCIUM, SERUM 8.1 mg/dL (8.5-10.1); CARBON DIOXIDE 24 mmol/L (21-32); CHLORIDE 105 mmol/L (98-107); CREATININE 0.7 mg/dL (0.6-1.3); GLUCOSE 112 mg/dL (74-106); MAGNESIUM 1.4 mg/dL (1.8-2.4); PHOSPHORUS 2.8 mg/dL (2.5-4.9); POTASSIUM 3.6 mmol/L (3.5-5.1); SODIUM SERUM 138 mmol/L (136-145); UREA NITROGEN, BLOOD 7 mg/dL (7-18)
[2019-02-06 06:42] LABS: BASOPHILS # (AUTO) 0.1 /CMM (0.0-0.2); BASOPHILS % (AUTO) 0.5 % (0.0-2.0); EOSINOPHILS % (AUTO) 7.5 % (0.0-6.0); HEMATOCRIT 27 % (39-51); HEMOGLOBIN 8.5 g/dL (13.5-17.5); LYMPHOCYTES # (AUTO) 1.5 /CMM (0.8-4.8); LYMPHOCYTES % (AUTO) 13.8 % (20.0-44.0); MEAN CORPUSCULAR HGB CONC 32 g/dl (31.0-36.0); MEAN CORPUSCULAR VOLUME 85 fL (80-96); MONOCYTES # (AUTO) 0.8 /CMM (0.1-1.30); MONOCYTES % (AUTO) 7.5 % (2.0-12.0); NEUTROPHILS # (AUTO) 7.7 /CMM (1.8-8.9); NEUTROPHILS % (AUTO) 70.7 % (43.0-81.0); PLATELET COUNT (AUTO) 419 /CMM (150-450); RED BLOOD CELL COUNT(AUTO) 3.13 MIL/uL (4.5-6.0); WHITE BLOOD COUNT (AUTO) 10.9 K/uL (4.3-11.0)
--- NOTE | 2019-02-06 06:52 | NUR ---
RN NOTES IN BED, SLEEPING WITH NO DISTRESS NOTED. BREATHING EVEN AND UNLABORED. ALERT AND RESPONSIVE WITH CONFUSION. ABLE TO FOLLOW COMMANDS. NO SIGNIFICANT CHANGE OF CONDITION. WILL ENDORSE TO NEXT SHIFT FOR CONTINUITY OF CARE
--- NOTE | 2019-02-06 07:20 | NUR ---
RN OPENING NOTES RECEIVED PATIENT RESTING IN BED, AOX2, NON-AMBULATORY. HE IS ON 5L OF OXYGEN VIA NC, SHOWS NO SIGNS/SYMPTOMS OR RESP DISTRESS OR SOB. HE HAS A NANCY MIDLINE AND IS NPO, HE HAS A BARNARD CATHETER, INTACT AND PATENT, CLEAR YELLOW URINE. HE HAS BLE ULCERS ON HIS HEELS AND A STAGE 3 SACRAL WOUND. HE HAS BEEN APPROVED FOR G-TUBE PLACEMENT BY THE ETHICS COMMITTEE THAT WILL BE PLACED ON WEDNESDAY 02/07. SAFETY MEASURES HAVE BEEN IMPLEMENTED, CALL LIGHT WITHIN REACH, BED IN LOWEST AND LOCKED POSITION, HOB ELEVATED TO 35 DEGREES, WILL CONTINUE TO MONITOR FOR ANY CHANGES.
[2019-02-06] MEDS: PANTOPRAZOLE 40 MG TABLET.DR PO SCH (07:42)
[2019-02-06 08:00] VITALS: BP_SYST 142; BP_SYST 143; BP_DIAS 81
[2019-02-06] MEDS: HYDROGEL DRESSING 90 GM TUBE TP SCH (09:00)
[2019-02-06] MEDS: ENSURE ENLIVE 237 ML LIQUID (VANILLA) PO SCH ×2 (09:00→17:00)
[2019-02-06] MEDS: AMLODIPINE BESYLATE 10 MG TABLET PO SCH (09:11)
[2019-02-06] MEDS: BENZTROPINE MESYLATE (1 MG) 1 MG TABLET PO SCH ×2 (09:11→16:30)
[2019-02-06] MEDS: DOCUSATE SODIUM 100 MG CAPSULE PO SCH (09:12)
[2019-02-06] MEDS: FERROUS SULFATE (325 MG) 325 MG/TAB TABLET PO SCH ×2 (09:12→16:31)
[2019-02-06] MEDS: LOSARTAN POTASSIUM 25 MG TABLET PO SCH (09:12)
[2019-02-06] MEDS: HALOPERIDOL 5 MG TABLET PO SCH ×2 (09:12→16:30)
[2019-02-06] MEDS: LACTOBACILLUS RHAMNOSUS GG 1 EACH CAP.SPRINK PO SCH ×2 (09:12→16:30)
[2019-02-06] MEDS: MULTIVITAMINS,THERAGRAN 1 UDTAB TABLET PO SCH (09:12)
[2019-02-06] MEDS: PROSOURCE / PROSTAT (PYXIS) 30 ML UDC PO SCH (09:20)
[2019-02-06] MEDS: Magnesium 1GM/D5W 100ML PREMIX 100 ML IV SCH ×4 (11:56→15:23)
[2019-02-06 16:00] VITALS: BP 150/82
[2019-02-06] MEDS: ASCORBIC ACID 500 MG TABLET PO SCH (16:30)
[2019-02-06] MEDS: ZINC SULFATE 220 MG CAPSULE PO SCH (16:31)
--- NOTE | 2019-02-06 19:31 | NUR ---
RN CLOSING NOTES PATIENT IS RESTING IN BED COMFORTABLY. HE IS AOX2, SOMETIMES CONFUSED, NONAMBULATORY. HE IS ON 5L OF OXYGEN, TOLERATING WELL, NO SOB OR RESP DISTRESS. HE HAS A NANCY MIDLINE LINE, PATENT AND INTACT. SACRAL WOUND AND WOUNDS ON HEELS HAVE BEEN CHANGED, PATIENT WAS TURNED ROUTINELY. HE IS TO HAVE A PEG PLACEMENT TOMORROW, 02/07/2019. SAFETY MEASURES HAVE BEEN IMPLEMENTED, CALL LIGHT WITHIN REACH, BED IN LOWEST AND LOCKED POSITION, SIDE RAILS UP X2. PATIENT HAS BEEN ENDORSED TO NIGHTSHIFT NURSE
[2019-02-06 20:00] VITALS: BP 114/64
--- NOTE | 2019-02-06 20:00 | NUR ---
MS RN NOTES RECEIVED PT ON BED. A/O X 1. ON [employer] CANNULA 1LPM NO RESPIRATORY DISTRESS NOTED. ON BARNARD CATH DRAINING YELLOW URINE. IV ACCESS ON NANCY PICC D5NS @80CC/HR. HEAD OF BED ELEVATED. SIDE RAILS UP. CALL LIGHT WITHIN REACH. BED ALARM ON. WILL CONTINUE TO MONITOR PT CLOSELY.
--- NOTE | 2019-02-06 20:01 | NUR ---
MS RN NOTES CALLED [facility] ([facility]) FOR VANCO LEVEL OF 21. HOLDING VANCO FOR NOW. PER PHARMACIST, SHE WILL ORDER RANDOM VANCO AT 0300 AND CALL AGAIN FOR THE RESULTS.
[2019-02-06] MEDS: MIRTAZAPINE 15 MG TABLET PO SCH (21:11)
[2019-02-06] MEDS: ENOXAPARIN SODIUM 40 MG/0.4 ML DISP.SYRIN SQ SCH (21:11)
--- NOTE | 2019-02-06 21:12 | NUR ---
MS RN NOTES LOVENOX NOT GIVEN, PT FOR PEG PLACEMENT TOMORROW
[2019-02-07] MEDS: MEROPENEM 1 G in IV NS 0.9% 100 ML IV SCH ×2 (00:12→11:32)
[2019-02-07] MEDS: IV D5/ 0.9% NACL 1,000 ML IV SCH ×2 (02:15→16:32)
--- NOTE | 2019-02-07 02:25 | NUR ---
MS RN NOTES OKAY TO GIVEN GONZALO PER PHARMACIST
[2019-02-07] MEDS: VANCOMYCIN 0.75 GM in IV D5W 250 ML IV SCH ×2 (03:34→21:25)
[2019-02-07 04:00] VITALS: BP 153/80
--- NOTE | 2019-02-07 06:19 | NUR ---
MS RN NOTES NO ACUTE CHANGES NOTED DURING THE SHIFT. PROVIDED COMFORT AND SAFETY. WILL ENDORSE TO THE AM NURSE FOR CONTINUITY OF CARE.
[2019-02-07 06:49] LABS: CALCIUM, SERUM 7.8 mg/dL (8.5-10.1); CARBON DIOXIDE 26 mmol/L (21-32); CHLORIDE 107 mmol/L (98-107); CREATININE 0.6 mg/dL (0.6-1.3); GLUCOSE 99 mg/dL (74-106); POTASSIUM 3.5 mmol/L (3.5-5.1); SODIUM SERUM 141 mmol/L (136-145); UREA NITROGEN, BLOOD 5 mg/dL (7-18)
[2019-02-07] MEDS ORDERED: ANESTHESIA TRAY IN PYXIS 1 EA TRAY MC ONE ×2 (07:18→07:22)
[2019-02-07 08:00] VITALS: BP 142/73
[2019-02-07] MEDS: ENSURE ENLIVE 237 ML LIQUID (VANILLA) PO SCH (09:00)
[2019-02-07 11:00] VITALS: BP 123/87
--- NOTE | 2019-02-07 11:00 | NUR ---
rn note pt arrived from or with peg tube in place, no bleeding, vs stable, pt co chest pain but points to peg tube site. abdi rocha seen tht pt, will order morphine. will carry ou orders and monitor.
[2019-02-07] MEDS ORDERED: MORPHINE SULFATE INJ 2 MG/ML DISP.SYRIN IV PRN (11:30)
[2019-02-07] MEDS: LOSARTAN POTASSIUM 25 MG TABLET PO SCH (13:25)
[2019-02-07] MEDS: AMLODIPINE BESYLATE 10 MG TABLET PO SCH (13:25)
[2019-02-07] MEDS: MULTIVITAMINS,THERAGRAN 1 UDTAB TABLET PO SCH (13:25)
[2019-02-07] MEDS: JEVITY 1.2 CAL 1,000 ML BOTTLE GT PRN (13:25)
[2019-02-07] MEDS: LACTOBACILLUS RHAMNOSUS GG 1 EACH CAP.SPRINK PO SCH ×2 (13:26→16:22)
[2019-02-07] MEDS: DOCUSATE SODIUM 100 MG CAPSULE PO SCH (13:26)
[2019-02-07] MEDS: FERROUS SULFATE (325 MG) 325 MG/TAB TABLET PO SCH ×2 (13:26→16:22)
[2019-02-07] MEDS: PANTOPRAZOLE 40 MG TABLET.DR PO SCH (13:26)
[2019-02-07] MEDS: HALOPERIDOL 5 MG TABLET PO SCH ×2 (13:26→16:22)
[2019-02-07] MEDS: BENZTROPINE MESYLATE (1 MG) 1 MG TABLET PO SCH ×2 (13:27→16:22)
[2019-02-07] MEDS: HYDROGEL DRESSING 90 GM TUBE TP SCH (13:28)
[2019-02-07] MEDS: PROSOURCE / PROSTAT (PYXIS) 30 ML UDC PO SCH (13:28)
[2019-02-07 16:00] VITALS: BP 130/73
[2019-02-07] MEDS: ASCORBIC ACID 500 MG TABLET PO SCH (16:22)
[2019-02-07] MEDS: ZINC SULFATE 220 MG CAPSULE PO SCH (16:22)
--- NOTE | 2019-02-07 19:50 | NUR ---
MS RN NOTE: PATIENT RESTING IN BED, NO ACUTE DISTRESS NOTED. BREATHING EVEN AND UNLABORED, NO SOB NOTED. MIDLINE LINE TO NANCY IN PLACE, INFUSING D5NS AT 75ML/HR. G-TUBE IN PLACE WITH NO RESIDUAL, INCREASE FEEDING OF JEVITY 1.2 UP TO 25ML/HR. WILL CONTINUE TO MONITOR FOR RESIDUAL. HOB ELEVATED. ISOLATION PRECAUTION OBSERVED. BED LOCK AND IN LOWEST POSITION, CALL LIGHT IN REACH. WILL CONTINUE TO MONITOR. Addendum: 02/08/19 at 0618 by AURELIO KURTZ RN MIDLINE TO JOSEFINA
[2019-02-07 20:00] VITALS: BP 136/78
[2019-02-07 20:30] VITALS: BP 136/78
[2019-02-07] MEDS: MIRTAZAPINE 15 MG TABLET PO SCH (21:25)
[2019-02-07] MEDS: ENOXAPARIN SODIUM 40 MG/0.4 ML DISP.SYRIN SQ SCH (21:39)
--- NOTE | 2019-02-08 01:00 | NUR ---
MS RN NOTE: PATIENT TOLERATING CURRENT G-TUBE FEEDING WITH NO RESIDUAL, INCREASED UP TO 30ML/HR. WILL CONTINUE TO MONITOR.
[2019-02-08 04:00] VITALS: BP 148/65
[2019-02-08 04:30] VITALS: BP 148/65
[2019-02-08] MEDS: IV D5/ 0.9% NACL 1,000 ML IV SCH ×2 (05:04→12:44)
[2019-02-08] MEDS ORDERED: VANCOMYCIN 0.75 GM in IV D5W 250 ML IV SCH (06:00)
--- NOTE | 2019-02-08 06:15 | NUR ---
MS RN NOTE: PATIENT RESTING IN BED, NO ACUTE DISTRESS NOTED. BREATHING EVEN AND UNLABORED, NO SOB NOTED. MIDLINE LINE TO JOSEFINA IN PLACE, INFUSING D5NS AT 75ML/HR. G-TUBE IN PLACE, INFUSING JEVITY 1.2 AT 30ML/HR. HOB ELEVATED. ISOLATION PRECAUTION OBSERVED. BED LOCK AND IN LOWEST POSITION, CALL LIGHT IN REACH. WILL ENDORSE TO DAY NURSE TO CONTINUE WITH PLAN OF CARE.
[2019-02-08 06:42] LABS: CALCIUM, SERUM 8.3 mg/dL (8.5-10.1); CARBON DIOXIDE 26 mmol/L (21-32); CHLORIDE 110 mmol/L (98-107); CREATININE 0.6 mg/dL (0.6-1.3); GLUCOSE 104 mg/dL (74-106); POTASSIUM 3.5 mmol/L (3.5-5.1); SODIUM SERUM 145 mmol/L (136-145); UREA NITROGEN, BLOOD 7 mg/dL (7-18)
[2019-02-08 08:00] VITALS: BP 139/72
--- NOTE | 2019-02-08 08:00 | NUR ---
MS1/RN AM SHIFT INITIAL NOTES RECEIVED PT ASLEEP IN BED, HARD TO AROUSED BUT OPEN EYES, NO GRIMACING OR DISTRESS NOTED. ON 2L VIA N/C SATURATING @ 100%, RESPIRATIONS EVEN AND UNLABORED, LUNG SOUNDS CLEAR. WITH ON GOING IV INFUSION OF D5NS @ 75CC/HR, IV SITE PATENT WITH NO S/S OF INFECTION. GT FEEDING ON GOING @ 30CC/HR, NO GASTRIC RESIDUAL, FLUSHED, PATENT. WILL INCREASE RATE TOLERATED. BARNARD CATHETER INTACT WITH YELLOW URINE OUTPUT. PT IS COMFORTABLE, SCHEDULED AM MEDS TO BE GIVEN. CL WITHIN REACHED, SAFETY MAINTAINED AND ISOLATION OBSERVED. ON GOING MONITORING.
[2019-02-08] MEDS: DOCUSATE SODIUM LIQ 100 MG/10 ML UDC GT SCH (09:15)
[2019-02-08] MEDS: PANTOPRAZOLE 40 MG/PACK PACK GT SCH (09:16)
[2019-02-08] MEDS: FERROUS SULFATE (325 MG) 325 MG/TAB TABLET PO SCH ×2 (09:16→16:56)
[2019-02-08] MEDS: BENZTROPINE MESYLATE (1 MG) 1 MG TABLET PO SCH ×2 (09:16→16:56)
[2019-02-08] MEDS: AMLODIPINE BESYLATE 10 MG TABLET PO SCH (09:16)
[2019-02-08] MEDS: LOSARTAN POTASSIUM 25 MG TABLET PO SCH (09:17)
[2019-02-08] MEDS: LACTOBACILLUS RHAMNOSUS GG 1 EACH CAP.SPRINK PO SCH ×2 (09:17→16:56)
[2019-02-08] MEDS: MULTIVITAMINS,THERAGRAN 1 UDTAB TABLET PO SCH (09:17)
[2019-02-08] MEDS: HYDROGEL DRESSING 90 GM TUBE TP SCH (09:19)
[2019-02-08] MEDS: HALOPERIDOL 5 MG TABLET PO SCH ×2 (09:19→16:56)
[2019-02-08] MEDS: PROSOURCE / PROSTAT (PYXIS) 30 ML UDC PO SCH (09:19)
[2019-02-08 16:00] VITALS: BP 148/73
[2019-02-08] MEDS: ZINC SULFATE 220 MG CAPSULE PO SCH (16:56)
[2019-02-08] MEDS: ASCORBIC ACID 500 MG TABLET PO SCH (16:56)
[2019-02-08] MEDS: VANCOMYCIN 0.75 GM in IV D5W 250 ML IV SCH (17:12)
[2019-02-08] MEDS: JEVITY 1.2 CAL 1,000 ML BOTTLE GT PRN (17:12)
--- NOTE | 2019-02-08 19:30 | NUR ---
MS1/RN AM SHIFT END NOTES ALL NEEDS MET. NO ACUTE CHANGE OF CONDITION NOTED DURING THE SHIFT. PT TOLERATING GT FEEDING, INCREASED RATE 50CC/HR. PT ENDORSED TO PM NURSE TO CONTINUE CARE.
[2019-02-08 20:00] VITALS: BP 136/75
[2019-02-08] MEDS: MIRTAZAPINE 15 MG TABLET PO SCH (21:39)
[2019-02-08] MEDS: ENOXAPARIN SODIUM 40 MG/0.4 ML DISP.SYRIN SQ SCH (21:40)
[2019-02-09] MEDS: IV D5/ 0.9% NACL 1,000 ML IV SCH (02:35)
[2019-02-09 04:00] VITALS: BP 133/71
[2019-02-09 06:23] LABS: BASOPHILS % (AUTO) 0.4 % (0.0-2.0); EOSINOPHILS % (AUTO) 8.1 % (0.0-6.0); HEMATOCRIT 25 % (39-51); HEMOGLOBIN 7.9 g/dL (13.5-17.5); LYMPHOCYTES # (AUTO) 1.2 /CMM (0.8-4.8); LYMPHOCYTES % (AUTO) 12.1 % (20.0-44.0); MEAN CORPUSCULAR HGB CONC 31 g/dl (31.0-36.0); MEAN CORPUSCULAR VOLUME 85 fL (80-96); MONOCYTES # (AUTO) 0.9 /CMM (0.1-1.30); NEUTROPHILS # (AUTO) 6.9 /CMM (1.8-8.9); NEUTROPHILS % (AUTO) 70.4 % (43.0-81.0); PLATELET COUNT (AUTO) 378 /CMM (150-450); RED BLOOD CELL COUNT(AUTO) 2.95 MIL/uL (4.5-6.0); WHITE BLOOD COUNT (AUTO) 9.8 K/uL (4.3-11.0)
[2019-02-09 07:04] LABS: CALCIUM, SERUM 8.2 mg/dL (8.5-10.1); CARBON DIOXIDE 26 mmol/L (21-32); CHLORIDE 108 mmol/L (98-107); CREATININE 0.5 mg/dL (0.6-1.3); GLUCOSE 111 mg/dL (74-106); POTASSIUM 3.2 mmol/L (3.5-5.1); SODIUM SERUM 143 mmol/L (136-145); UREA NITROGEN, BLOOD 7 mg/dL (7-18)
--- NOTE | 2019-02-09 07:20 | NUR ---
RN OPENING NOTES PT IS IN BED RECEIVING G-TUBE FEEDING AT 60 ML/HR . REPORT RECEIVED FROM ACID TESTER RN. PT BARNARD DRAINING URINE TO GRAVITY. HOB ELEVATED. BED IS LOCKED AND IN LOWEST POSITION WITH CALL LIGHT IN REACH WILL CONTINUE TO MONITOR.
[2019-02-09 08:00] VITALS: BP 166/64
[2019-02-09] MEDS: PANTOPRAZOLE 40 MG/PACK PACK GT SCH (09:29)
[2019-02-09] MEDS: DOCUSATE SODIUM LIQ 100 MG/10 ML UDC GT SCH (09:29)
[2019-02-09] MEDS: MULTIVITAMINS,THERAGRAN 1 UDTAB TABLET PO SCH (09:29)
[2019-02-09] MEDS: BENZTROPINE MESYLATE (1 MG) 1 MG TABLET PO SCH (09:30)
[2019-02-09] MEDS: LOSARTAN POTASSIUM 25 MG TABLET PO SCH (09:30)
[2019-02-09] MEDS: HALOPERIDOL 5 MG TABLET PO SCH (09:30)
[2019-02-09] MEDS: LACTOBACILLUS RHAMNOSUS GG 1 EACH CAP.SPRINK PO SCH (09:30)
[2019-02-09] MEDS: FERROUS SULFATE (325 MG) 325 MG/TAB TABLET PO SCH (09:30)
[2019-02-09] MEDS: AMLODIPINE BESYLATE 10 MG TABLET PO SCH (09:31)
[2019-02-09] MEDS: PROSOURCE / PROSTAT (PYXIS) 30 ML UDC PO SCH (09:36)
[2019-02-09] MEDS: POTASSIUM CHLORIDE 20 MEQ POWDER PACKET GT SCH ×2 (09:38→10:19)
[2019-02-09] MEDS: HYDROGEL DRESSING 90 GM TUBE TP SCH (09:40)
[2019-02-09] MEDS: VANCOMYCIN 0.75 GM in IV D5W 250 ML IV SCH (09:56)
--- NOTE | 2019-02-09 12:30 | NUR ---
REPORT GIVEN TO LEAH SANDOVAL RESPIRATORY THERAPY TECHNICIAN AT [facility]. PHOTOS TAKEN AND PLACED IN CHART.
--- NOTE | 2019-02-09 15:57 | NUR ---
D/C NOTES PT REPORT AND EXITCARE GIVEN TO EMT'S. PT NOT ABLE TO SIGN BELONGINGS LIST. BARNARD AND MIDLINE GOING WITH PT TO CONTINUE ANTIBIOTIC TX. PHOTOS TAKEN OF WOUNDS PLACED IN CHART. PT LEFT WITHOUT INCIDENT ON [facility].
[2019-02-09 16:00] VITALS: BP 164/81
[2019-02-10] MEDS ORDERED: AMLODIPINE BESYLATE 10 MG TABLET PO SCH (09:00)
== END 2019-02-09 15:56 | DRG 871 ==
LOC: ER 19:47 → TELE-TD 21:07 → TELE1 02-02 08:30 → MEDSG1 02-03 09:30
PROVIDERS: ADMIT Nurse Practitioner Acute Care; ATTEND Internal Medicine
PROC: 30233N1 Transfusion of Nonautologous Red Blood Cells into Peripheral Vein, Percutaneous Approach (ICD-10-PCS; 2019-02-03)
PROC: 05H633Z Insertion of Infusion Device into Left Subclavian Vein, Percutaneous Approach (ICD-10-PCS; 2019-02-03)
PROC: 0DH63UZ Insertion of Feeding Device into Stomach, Percutaneous Approach (ICD-10-PCS; principal; 2019-02-07)
DX: A41.9 Sepsis, unspecified organism (principal); L89.153 Pressure ulcer of sacral region, stage 3; J69.0 Pneumonitis due to inhalation of food and vomit; E43 Unspecified severe protein-calorie malnutrition; R53.2 Functional quadriplegia; N17.0 Acute kidney failure with tubular necrosis; J96.91 Respiratory failure, unspecified with hypoxia; J15.9 Unspecified bacterial pneumonia; I33.0 Acute and subacute infective endocarditis; N39.0 Urinary tract infection, site not specified; I69.354 Hemiplegia and hemiparesis following cerebral infarction affecting left non-dominant side; E87.0 Hyperosmolality and hypernatremia; J44.0 Chronic obstructive pulmonary disease with (acute) lower respiratory infection; J91.8 Pleural effusion in other conditions classified elsewhere; N18.9 Chronic kidney disease, unspecified; B96.20 Unspecified Escherichia coli [E. coli] as the cause of diseases classified elsewhere; D63.8 Anemia in other chronic diseases classified elsewhere; E83.42 Hypomagnesemia; E83.51 Hypocalcemia; I25.10 Atherosclerotic heart disease of native coronary artery without angina pectoris; E87.6 Hypokalemia; E88.09 Other disorders of plasma-protein metabolism, not elsewhere classified; I12.9 Hypertensive chronic kidney disease with stage 1 through stage 4 chronic kidney disease, or unspecified chronic kidney disease; F02.80 Dementia in other diseases classified elsewhere, unspecified severity, without behavioral disturbance, psychotic disturbance, mood disturbance, and anxiety; G30.9 Alzheimer's disease, unspecified; F20.9 Schizophrenia, unspecified; F31.9 Bipolar disorder, unspecified; F41.9 Anxiety disorder, unspecified; Z74.01 Bed confinement status; L89.620 Pressure ulcer of left heel, unstageable; L89.610 Pressure ulcer of right heel, unstageable; R13.10 Dysphagia, unspecified; E86.0 Dehydration; L89.510 Pressure ulcer of right ankle, unstageable; R62.7 Adult failure to thrive; Z86.14 Personal history of Methicillin resistant Staphylococcus aureus infection; Z87.01 Personal history of pneumonia (recurrent); Z87.440 Personal history of urinary (tract) infections; B95.62 Methicillin resistant Staphylococcus aureus infection as the cause of diseases classified elsewhere; Z16.12 Extended spectrum beta lactamase (ESBL) resistance
CPT/HCPCS: 36415; 43246; 71045-TC; 80048-TC; 80053-TC; 80076-TC; 80202-TC; 81000-TC; 82272-TC; 82962-TC; 83605-TC; 83735-TC; 84100-TC; 85025-TC; 85730-TC; 86850-TC; 86921-TC; 87040-TC; 87070-TC; 87081-TC; 87086-TC; 87186-TC; 87806; 92526; 92611-TC; 93307-TC; 94799-TC; 97530-TC; A6248; A6253; A6403; G0378; J0456; J0696; J1650; J1885; J2185; J2270; J2543; J2704; J3370; J3475; J3480; J3490; J7030; J7042; J7060; P9016-BL

== ENCOUNTER 2019-03-24 19:15 | Inpatient (IN) | payer MEDICARE, OTHER ==
[~2019-03-24] VITALS: Ht 172.7 cm; Wt 73.0 kg
[~2019-03-24 19:15] MED LIST changes: +ACET-868 GT; +AMIN30LI27 GT; -AMIN30LI27 PO; +AMLO10TA4 GT; -AMLO10TA4 PO; +ASCO500T9 GT; -ASCO500T9 PO; +BENZ0.5T43 GT; -BENZ0.5T43 PO; +CLON0.1T GT; -CLON0.1T PO; +DOCU-141 GT; -DOCU-141 PO; +HALO5TAB8 GT; -HALO5TAB8 PO; +HYDR-4384 GT; -HYDR-4384 PO; +LOSA25TA27 GT; -LOSA25TA27 PO; +MAGN400O6 GT; -MAGN400O6 PO; +MULT-24 GT; -MULT-24 PO; +ZINC220C8 GT; -ZINC220C8 PO
--- NOTE | 2019-03-24 19:42 | NUR ---
ERWIN FROM [facility] FOR ABNORMAL LABS HGB 5.9, HCT 21.8 LABS DRAWN 03/24/19 AT 1500
[2019-03-24 20:19] LABS: BASOPHILS # (AUTO) 0.1 /CMM (0.0-0.2); BASOPHILS % (AUTO) 0.6 % (0.0-2.0); EOSINOPHILS % (AUTO) 1.9 % (0.0-6.0); HEMATOCRIT 22 % (39-51); LYMPHOCYTES # (AUTO) 1.1 /CMM (0.8-4.8); LYMPHOCYTES % (AUTO) 7.2 % (20.0-44.0); MEAN CORPUSCULAR HGB CONC 30 g/dl (31.0-36.0); MEAN CORPUSCULAR VOLUME 76 fL (80-96); MONOCYTES # (AUTO) 1.5 /CMM (0.1-1.30); MONOCYTES % (AUTO) 9.8 % (2.0-12.0); NEUTROPHILS # (AUTO) 12.6 /CMM (1.8-8.9); NEUTROPHILS % (AUTO) 80.5 % (43.0-81.0); PLATELET COUNT (AUTO) 347 /CMM (150-450); RED BLOOD CELL COUNT(AUTO) 2.92 MIL/uL (4.5-6.0); WHITE BLOOD COUNT (AUTO) 15.7 K/uL (4.3-11.0)
[2019-03-24 20:23] LABS: HEMOGLOBIN 6.6 g/dL (13.5-17.5)
[2019-03-24 20:30] LABS: CALCIUM, SERUM 8.9 mg/dL (8.5-10.1); CARBON DIOXIDE 29 mmol/L (21-32); CHLORIDE 102 mmol/L (98-107); GLUCOSE 100 mg/dL (74-106); POTASSIUM 4.6 mmol/L (3.5-5.1); SODIUM SERUM 138 mmol/L (136-145); UREA NITROGEN, BLOOD 39 mg/dL (7-18)
[2019-03-24] MEDS ORDERED: IV NS 0.9% 1,000 ML BAG IV ONE (20:30)
[2019-03-24 20:36] LABS: ALANINE AMINOTRANSFERASE 54 U/L (12-78); ALBUMIN 1.7 g/dL (3.4-5.0); ALKALINE PHOSPHATASE 219 U/L (46-116); ASPARTATE AMINOTRANSFERASE 53 U/L (15-37); BILIRUBIN,DIRECT 0.4 mg/dL (0.0-0.2); BILIRUBIN,TOTAL 0.7 mg/dL (0.2-1.0); TOTAL PROTEIN, SERUM 7.4 g/dL (6.4-8.2)
--- NOTE | 2019-03-24 20:36 | NUR ---
HEMOCULT COLLECTED BY AND WAS SENT TO THE LAB
--- NOTE | 2019-03-24 20:51 | NUR ---
URINE COLLECTED AND SENT TO THE LAB
[2019-03-24 20:53] LABS: APPEARANCE,URINE HAZY (CLEAR); BILIRUBIN,URINE Negative (NEGATIVE); BLOOD, URINE Trace-intact Ery/uL (NEGATIVE); COLOR,URINE Yellow (YELLOW); KETONES,URINE Negative (NEGATIVE); LEUKOCYTE ESTERASE ,URINE Trace (NEGATIVE); NITRITE, URINE Negative (NEGATIVE); PROTEIN,URINE 30 mg/dl (NEGATIVE); UGLUCOSE Negative (NEGATIVE)
--- NOTE | 2019-03-24 21:18 | NUR ---
RECIEVED BED 307-1
[2019-03-24 21:22] LABS: BACTERIA,URINE Many /HPF (None Seen); SQUAMOUS EPITHELIAL CELL,UR Few /HPF (None Seen)
[2019-03-24 21:23] LABS: RBC,URINE 0-2 /HPF (0-2)
[2019-03-24 21:52] LABS: EOSINOPHILS % (MANUAL) 1 % (0-4); LYMPHOCYTES % (MANUAL) 4 % (16-48); MONOCYTES % (MANUAL) 5 % (0-11.0); NEUTROPHILS % (MANUAL) 90 (42-76)
--- NOTE | 2019-03-24 21:52 | NUR ---
report kady Pearce on third floor
--- NOTE | 2019-03-24 22:01 | NUR ---
skylar farr RECRUITMENT SPECIALIST , hospitalist at the bed side
[2019-03-24] MEDS ORDERED: ACETAMINOPHEN 325 MG TABLET PO PRN (22:30)
[2019-03-24] MEDS ORDERED: MAGNESIUM HYDROXIDE 30 ML UDC PO PRN (22:30)
[2019-03-24] MEDS ORDERED: MAG HYDROX/AL HYDROX/SIMETH 30 ML UDC PO PRN (22:30)
[2019-03-24] MEDS ORDERED: ONDANSETRON HCL/PF 4 MG/2 ML VIAL IVP PRN (22:30)
--- NOTE | 2019-03-24 22:37 | NUR ---
pt was transferred to 307-1 under acls
--- NOTE | 2019-03-24 22:40 | NUR ---
TELE/RN OPENING NOTES PT RECEIVED FROM ER VIA [facility]ing [employer]. A/OX1 (NAME ONLY). ON ROOM AIR, BREATHING EVEN AND UNLABORED. NO S/S OF SOB OR PAIN AT THIS TIME. PLACED ON TELE MONITOR, SHOWING ST 113. RFA PATENT AND INTACT. JOSEFINA MIDLINE IN PLACE FROM SNF. BARNARD IN PLACE (ALSO FROM SNF) DRAINING TO GRAVITY. PT NOTED WITH MULTIPLE PRESSURE SORES. GT CLAMPED. ORIENTED PT TO ROOM AND CALL LIGHT. HOB ELEVATED. SIDE RAILS UPX3 AND BED ALARM FOR SAFETY. WILL CONTINUE TO MONITOR
[2019-03-24 22:54] LABS: OCCULT BLOOD STOOL NEGATIVE (NEGATIVE)
[2019-03-24 23:00] VITALS: BP 132/75
[2019-03-24 23:13] LABS: IRON, SERUM 11 ug/dl (50-175); TOTAL IRON BINDING CAPACITY 111 ug/dl (250-450)
[2019-03-24] MEDS: IV NS 0.9% 1,000 ML IV PRN (23:22)
[2019-03-24] MEDS ORDERED: NS 0.9% IV ONE (23:30)
[2019-03-24] MEDS ORDERED: VANCOMYCIN IV ONE (23:30)
[2019-03-24] MEDS ORDERED: PIPERACILLIN /TAZOBACTAM 3.375 G VIAL IV ONE (23:46)
[2019-03-24] MEDS: PIPERACILLIN /TAZOBACTAM 3.375 G in IV D5W 50 ML IV SCH (23:47)
[2019-03-25] VITALS (15 sets, daily range): BP systolic 117–135; BP diastolic 56–78
[2019-03-25 00:10] LABS: FERRITIN 1388 ng/mL (8-388)
[2019-03-25] MEDS ORDERED: VANCOMYCIN 1 GM VIAL ONE (00:19)
--- NOTE | 2019-03-25 01:44 | NUR ---
TELE/RN NOTES: [facility] NURSING SOLE LEVELER MACHINE FROM [facility] TO ASK WHEN PT RECEIVED FLU/PNA VACCINES. SHE STATES PT RECEIVED BOTH AROUND END OF FEB/BEGINNING OF MARCH THIS YEAR. PT HAS HX OF MRSA, SHE BELIEVES FROM [facility], NO LONGER ON ISOLATION AT FACILITY HE COMPLETED HIS IV ABX TREATMENT. ALSO CLARIFIED IF PT HAS A DPOA OR ASSIGNED DECISION MAKER. PER NURS. SUP, FACILITY INTERDISCIPLINARY TEAM IS HIS DECISION MAKER.
--- NOTE | 2019-03-25 02:49 | NUR ---
TELE/RN NOTES FOLLOWED UP WITH BLOOD BANK REGARDING PENDING 1 UNIT OF BLOOD. DID NOT SEE ORDER, SO I PLACED ANOTHER ORDER FOR 1 UNIT PRBC UNDER LAVELLE CHEN NP. CALLED BACK AND PER BLOOD BAND, FOUND ORIGINAL ORDER FROM ER , DR. MONTILLA AND ASKED TO CANCEL THE ORDER UNDER AAYUSH CHEN. SHE APOLOGIZED AND INFORMED ME THAT THE BLOOD WILL BE READY IN 30 MINS OR LESS
--- NOTE | 2019-03-25 03:01 | NUR ---
TELE/RN NOTES LASHAY FROM BLOOD BANK NOTIFIED ME THAT BLOOD IS READY.
--- NOTE | 2019-03-25 03:42 | NUR ---
TELE/ RN: BLOOD TRANSFUSION 15MIN CHECK V/S 124/602, HR 114, 98.2F ORAL, RR 19, SPO2 100% ON 2LPM O2 VIA NC. BREATHING IS EVEN AND UNLABORED. NO S/S OF SOB NOTED. DENIES PAIN. IN NO ACUTE DISTRESS. NO S/S OF ADVERSE REACTIONS NOTED. WILL CONTINUE TO MONITOR CLOSELY.
--- NOTE | 2019-03-25 03:52 | NUR ---
TELE/RN NOTES SPOKE TO LASHAY FROM BLOOD BANK. ORDER IS ONLY FOR 1 UNIT PRBC BUT BLOOD BANK TAB IS STILL SHOWING 2 UNITS ORDERED DESPITE TRYING TO CANCEL 0200 PRBC ORDER UNDER AAYUSH CHEN. LASHAY IS AWARE, THE REQUEST FOR CANCELLATION WAS RECEIVED. SHE WILL ENDORSE TO THE NEXT SHIFT TO DISREGARD THE 2ND ORDER FOR PRBC. CONFIRMED THAT PT WILL ONLY BE GETTING 1 UNIT PRBC FOR NOW.
--- NOTE | 2019-03-25 05:32 | NUR ---
TELE/RN: BLOOD TRANSFUSION CHECK PT ASLEEP, RESPONSIVE TO NAME. BLOOD TRANSFUSION ON GOING. V/S BP:130/66, HR 118, 98.0F ORALLY, RR 24, SPO2 100% ON 2LPM O2. DENIES SOB. DENIES PAIN. NO S/S OF ADVERSE REACTIONS NOTED. WILL CONTINUE TO MONITOR
[2019-03-25] MEDS ORDERED: PIPERACILLIN /TAZOBACTAM 3.375 G VIAL IV ONE (06:18)
--- NOTE | 2019-03-25 06:47 | NUR ---
TELE/RN NOTES: POST BLOOD TRANSFUSION PT NOTED WITH SPIKE IN TEMP 102.7F ORALLY. BP 118/63, HR 116, RR 25, SPO2 100% ON 2LPM O2. DENIES SOB AND PAIN AT THIS TIME. PT DOES NOT APPEAR TO BE IN DISTRESS. COOLING MEASURES IMPLEMENTED AND SYSTEMS SUPPORT SPECIALIST MADE AWARE. PAGED TO NOTIFY EPIC TEARER.
[2019-03-25] MEDS: PIPERACILLIN /TAZOBACTAM 3.375 G in IV D5W 50 ML IV SCH (06:52)
[2019-03-25] MEDS ORDERED: FEE PK DOSING 1 MIN EA MC ONE (07:02)
--- NOTE | 2019-03-25 07:14 | NUR ---
TELE/RN CLOSING NOTES PT WITH EYES CLOSED. RESPONSIVE TO NAME. REMAINS ON 2LPM O2 VIA NC, BREATHING EVEN AND UNLABORED. DENIES SOB, NO S/S OF PAIN, NO FACIAL GRIMACING NOTED. RFA IV PATENT AND INTACT. JOSEFINA PICC LINE IN PLACE, WAITING FOR MD TO GIVE ORDER "OKAY TO USE". PAGED EPIC BARREL RAISER TO NOTIFY HIM OF PT'S SPIKED TEMP S/P BLOOD TRANSFUSION. COOLING MEASURES IMPLEMENTED. AWAITING CALL BACK FOR FURTHER ORDERS AND IF OKAY TO ADMINISTER TYLENOL PT IS NPO. GT CLAMPED. WOUND CONSULT ORDERED. ON TELE MONITOR SHOWING ST 115 (ST AT BASELINE). BARNARD IN PLACE DRAINING TO GRAVITY. TURNED/REPOSITIONED Q2H. HEELS OFFLOADED. HOB ELEVATED. BED IN LOW/LOCKED POSITION WITH CALL LIGHT IN REACH. SIDE RAILS UPX3. ENDORSED TO DAY SHIFT JAIME PLASCENCIA.
--- NOTE | 2019-03-25 08:04 | NUR ---
RN MS OPENING NOTES Patient received on 2L nasal cannula, no sob noted, patient currently has no temperature at this time. Toussaint cath present and is draining. Patient remains NPO. Patient is s/p blood transfusion, vital signs stable with no temp and bp is normal. Bed at the lowest setting, call light within reach, side rails up x2.
[2019-03-25] MEDS ORDERED: FERR300L GT (08:18)
[2019-03-25] MEDS ORDERED: MAG30ORA GT (08:18)
[2019-03-25] MEDS ORDERED: SACC250C GT (08:18)
[2019-03-25] MEDS ORDERED: NUTR1PAC14 GT (08:18)
[2019-03-25] MEDS ORDERED: NUTR150016 GT (08:18)
[2019-03-25] MEDS ORDERED: OMEP20CA11 GT (08:18)
[2019-03-25] MEDS: PIPERACILLIN /TAZOBACTAM 3.375 G in IV D5W 100 ML IV SCH ×2 (09:58→17:13)
[2019-03-25] MEDS: PANTOPRAZOLE 40 MG VIAL IV SCH ×2 (10:05→17:10)
[2019-03-25 11:20] LABS: BASOPHILS # (AUTO) 0.1 /CMM (0.0-0.2); BASOPHILS % (AUTO) 0.3 % (0.0-2.0); HEMATOCRIT 22 % (39-51); LYMPHOCYTES # (AUTO) 0.8 /CMM (0.8-4.8); LYMPHOCYTES % (AUTO) 4.7 % (20.0-44.0); MEAN CORPUSCULAR HGB CONC 31 g/dl (31.0-36.0); MEAN CORPUSCULAR VOLUME 79 fL (80-96); MONOCYTES # (AUTO) 1.5 /CMM (0.1-1.30); NEUTROPHILS # (AUTO) 14.3 /CMM (1.8-8.9); PLATELET COUNT (AUTO) 290 /CMM (150-450); RED BLOOD CELL COUNT(AUTO) 2.81 MIL/uL (4.5-6.0); WHITE BLOOD COUNT (AUTO) 16.8 K/uL (4.3-11.0)
[2019-03-25 11:37] LABS: CALCIUM, SERUM 8.6 mg/dL (8.5-10.1); HEMOGLOBIN 6.9 g/dL (13.5-17.5); MAGNESIUM 2.2 mg/dL (1.8-2.4); PHOSPHORUS 4.5 mg/dL (2.5-4.9); POTASSIUM 4.1 mmol/L (3.5-5.1)
[2019-03-25 11:55] LABS: LYMPHOCYTES % (MANUAL) 7 % (16-48); MONOCYTES % (MANUAL) 7 % (0-11.0); NEUTROPHILS % (MANUAL) 86 (42-76)
[2019-03-25 12:37] LABS: THYROID STIMULATING HORMONE 3.541 uIU/mL (0.358-3.74)
[2019-03-25] MEDS ORDERED: SOD FERRIC GLUC 125 MG in IV NS 0.9% 100 ML IV SCH (14:00)
[2019-03-25] MEDS: VANCOMYCIN 1 GM in IV D5W 250 ML IV SCH (14:33)
--- NOTE | 2019-03-25 18:43 | NUR ---
RN MS CLOSING NOTES Patient remains on 2L nasal cannula, no sob noted, patient shows no s/s of pain at this time. Patient received another 1 PRBC and vital signs stable post PRBC infusion. Toussaint cath remains draining., JOSEFINA picc line, and RFA 18 NS 75 mL per hour. ed at the lowest setting, call light within reach, side rails up x2. Will give report to NOC RN for THAIS bedside. ed at the lowest setting, call light within reach, side rails up x2. Will give report to NOC RN for THAIS bedside.
--- NOTE | 2019-03-25 19:44 | NUR ---
MS RN NOTES RECEIVED PATIENT ASLEEP IN BED WITH NO DISTRESS NOTED. CALL LIGHT WITHIN REACH. RFA PERIPHERAL LINE AND JOSEFINA PICC LINE INTACT AND PATENT. FC INTACT AND PATENT. GT IN PLACE AND CLAMPED. NO FACIAL GRIMACING OR GROANING TO INDICATE PAIN OR DISCOMFORT. CONTACT ISOLATION MAINTAINED. BED IN LOW LOCK SETTING. ALL BELONGINGS KEPT NEAR BEDSIDE. WILL CONTINUE TO MONITOR.
[2019-03-26] MEDS: VANCOMYCIN 1 GM in IV D5W 250 ML IV SCH ×2 (00:46→17:02)
[2019-03-26] MEDS: PIPERACILLIN /TAZOBACTAM 3.375 G in IV D5W 100 ML IV SCH ×3 (03:34→18:03)
[2019-03-26] MEDS: IV NS 0.9% 1,000 ML IV PRN (06:40)
--- NOTE | 2019-03-26 06:43 | NUR ---
MS RN NOTES RECEIVED ASLEEP IN BED WITH NO DISTRESS NOTED. NO FACIAL GRIMACING OR GROANING TO INDICATE PAIN OR DISCOMFORT. ALL DUE MEDS GIVEN ORDERED WITH NO ASE NOTED. PERIPHERAL LINE AND JOSEFINA PICC LINE INTACT AND PATENT. FC INTACT, PATENT, AND DRAINED 1450ML CLEAR MARY KAY URINE THROUGHOUT SHIFT. GT IN PLACE AND CLAMPED. CONTACT ISOLATION MAINTAINED. BED IN LOW LOCK SETTING. ALL BELONGINGS KEPT NEAR BEDSIDE. WILL CONTINUE TO MONITOR.
--- NOTE | 2019-03-26 07:31 | NUR ---
INITIAL Patient received on 2L nasal cannula, no sob noted, patient currently has no temperature at this time. Toussaint cath present and is draining. Patient remains NPO. Patient is s/p blood transfusion, vital signs stable with no temp and bp is normal. Bed at the lowest setting, call light within reach, side rails up x2
[2019-03-26 08:00] VITALS: BP 133/67
[2019-03-26] MEDS: PANTOPRAZOLE 40 MG VIAL IV SCH ×2 (08:31→16:48)
[2019-03-26] MEDS: HYDROGEL DRESSING 90 GM TUBE TP SCH (08:32)
[2019-03-26 09:21] LABS: BASOPHILS % (AUTO) 0.4 % (0.0-2.0); EOSINOPHILS % (AUTO) 3.5 % (0.0-6.0); HEMATOCRIT 25 % (39-51); HEMOGLOBIN 7.7 g/dL (13.5-17.5); LYMPHOCYTES # (AUTO) 0.8 /CMM (0.8-4.8); LYMPHOCYTES % (AUTO) 7.1 % (20.0-44.0); MEAN CORPUSCULAR HGB CONC 31 g/dl (31.0-36.0); MEAN CORPUSCULAR VOLUME 80 fL (80-96); MONOCYTES # (AUTO) 0.9 /CMM (0.1-1.30); MONOCYTES % (AUTO) 8.4 % (2.0-12.0); NEUTROPHILS # (AUTO) 8.9 /CMM (1.8-8.9); NEUTROPHILS % (AUTO) 80.6 % (43.0-81.0); PLATELET COUNT (AUTO) 300 /CMM (150-450); RED BLOOD CELL COUNT(AUTO) 3.11 MIL/uL (4.5-6.0)
[2019-03-26 09:36] LABS: ALBUMIN 1.5 g/dL (3.4-5.0); BILIRUBIN,TOTAL 0.9 mg/dL (0.2-1.0); CALCIUM, SERUM 9.5 mg/dL (8.5-10.1); CREATININE 0.9 mg/dL (0.6-1.3); MAGNESIUM 2.2 mg/dL (1.8-2.4); PHOSPHORUS 3.8 mg/dL (2.5-4.9); POTASSIUM 3.6 mmol/L (3.5-5.1); TOTAL PROTEIN, SERUM 6.8 g/dL (6.4-8.2)
[2019-03-26] MEDS: SOD FERRIC GLUC 125 MG in IV NS 0.9% 100 ML IV SCH (14:51)
[2019-03-26 16:00] VITALS: BP 132/76
--- NOTE | 2019-03-26 17:31 | NUR ---
CLOSING Patient received on 2L nasal cannula, no sob noted, patient currently has no temperature at this time. Toussaint cath present and is draining. Patient remains NPO. Patient is s/p blood transfusion X 1 DAY, vital signs stable with no temp and bp is normal. Bed at the lowest setting, call light within reach, side rails up x2.
--- NOTE | 2019-03-26 19:15 | NUR ---
RN PM OPENING NOTE BEDSIDE REPORT RECIEVED FROM JOEY SANDOVAL. PT BEDBOUND on 2L nasal cannula, no sob noted, Toussaint cath present and is draining. Patient NPO. Bed at the lowest setting, call light within reach, side rails up x2.JOSEFINA PICC RUNNING IVF WITH NO S/S OF COMPLICATIONS. WILL CONT TO MONITOR.
[2019-03-26 20:00] VITALS: BP 134/70
[2019-03-27] MEDS: HYDROCODONE/APAP 5/325MG 1 EACH TABLET PO PRN ×3 (00:20→21:21)
[2019-03-27] MEDS: PIPERACILLIN /TAZOBACTAM 3.375 G in IV D5W 100 ML IV SCH ×3 (01:48→17:00)
[2019-03-27] MEDS: IV NS 0.9% 1,000 ML IV PRN (03:54)
--- NOTE | 2019-03-27 06:45 | NUR ---
RN PM CLOSING NOTE Patient STILL on 2L nasal cannula, no sob noted, patient currently. Toussaint cath present and is draining ORANGE URINE 450 ML OUT LAST NIGHT. Patient remains NPO. PATIENT MEDICATED FOR PAIN 2X LAST NIGHT VIA GTUBE. GTUBE REMAINS CLAMPED. PATIENT REPOSITIEND EVERY 2 HOURS. HAD 1 BM FORMED LAST NIGHT. Bed at the lowest setting, call light within reach, side rails up x2.
[2019-03-27 07:05] LABS: BASOPHILS % (AUTO) 0.3 % (0.0-2.0); EOSINOPHILS % (AUTO) 3.2 % (0.0-6.0); HEMATOCRIT 26 % (39-51); HEMOGLOBIN 7.8 g/dL (13.5-17.5); LYMPHOCYTES # (AUTO) 0.8 /CMM (0.8-4.8); LYMPHOCYTES % (AUTO) 6.6 % (20.0-44.0); MEAN CORPUSCULAR HGB CONC 31 g/dl (31.0-36.0); MEAN CORPUSCULAR VOLUME 81 fL (80-96); MONOCYTES % (AUTO) 8.3 % (2.0-12.0); NEUTROPHILS # (AUTO) 9.4 /CMM (1.8-8.9); NEUTROPHILS % (AUTO) 81.6 % (43.0-81.0); PLATELET COUNT (AUTO) 313 /CMM (150-450); RED BLOOD CELL COUNT(AUTO) 3.14 MIL/uL (4.5-6.0); WHITE BLOOD COUNT (AUTO) 11.6 K/uL (4.3-11.0)
--- NOTE | 2019-03-27 07:32 | NUR ---
RN OPENING NOTE PT WAS RECEIVED IN BED AT LOWEST AND LOCKED POSITION WITH SIDE RAILS UPX2, A/O X1 BREATHING EVEN AND UNLABORED ON 2L VIA NC, NO S/S OF ANY DISTRESS OR PAIN NOTED, IV IS PATENT AND INTACT WITH IVF RUNNING, BARNARD CATH IN PLACE AND DRAINING, CURRENTLY NPO WITH GTUBE CLAMPED, ON ISOLATION, SAFETY PRECAUTIONS IN PLACE, CALL LIGHT WITHIN REACH, WILL MONITOR ACCORDINGLY
[2019-03-27 07:40] LABS: ALBUMIN 1.5 g/dL (3.4-5.0); BILIRUBIN,TOTAL 0.7 mg/dL (0.2-1.0); CALCIUM, SERUM 8.5 mg/dL (8.5-10.1); CREATININE 0.9 mg/dL (0.6-1.3); PHOSPHORUS 3.7 mg/dL (2.5-4.9); POTASSIUM 3.5 mmol/L (3.5-5.1); TOTAL PROTEIN, SERUM 6.7 g/dL (6.4-8.2)
[2019-03-27 08:00] VITALS: BP 148/71
[2019-03-27] MEDS: HYDROGEL DRESSING 90 GM TUBE TP SCH (08:22)
[2019-03-27] MEDS: PANTOPRAZOLE 40 MG VIAL IV SCH ×2 (08:22→16:00)
--- NOTE | 2019-03-27 11:06 | NUR ---
RN NOTE PER HOSPITALIST PAMELA PERSAUD CERTIFIED ORTHOTIC FITTER OKAY TO START TUBE FEEDING. FACILITY WAS CALLED AND I WAS INFORMED THAT THE PT RECEIVES FIBERSOURCE AT 75CC/HR FOR 20 HOURS. WILL START TUBE FEEDING SOON ABLE TO
[2019-03-27] MEDS: VANCOMYCIN 1 GM in IV D5W 250 ML IV SCH (11:40)
[2019-03-27] MEDS: JEVITY 1.2 CAL 1,000 ML BOTTLE GT PRN (13:41)
[2019-03-27] MEDS: SOD FERRIC GLUC 125 MG in IV NS 0.9% 100 ML IV SCH (14:09)
[2019-03-27 16:00] VITALS: BP 131/70
--- NOTE | 2019-03-27 18:13 | NUR ---
RN CLOSING NOTE PT IN BED AT LOWEST AND LOCKED POSITION WITH SIDE RAILS UPX2, A/O X1 BREATHING EVEN AND UNLABORED WITH NO S/S OF ANY DISTRESS OR PAIN, IV IS PATENT AND INTACT WITH IVF RUNNING, BARNARD CATH IN PLACE WITH 500ML OUT THROUGHOUT THE SHIFT, GTUBE FEEDING RUNNING, SAFETY PRECAUTIONS IN PLACE, CALL LIGHT WITHIN REACH, ALL NEEDS ATTENDED TO, WILL ENDORSE TO NIGHT RN FOR THAIS.
[2019-03-27 20:00] VITALS: BP 125/66
[2019-03-28] MEDS: PIPERACILLIN /TAZOBACTAM 3.375 G in IV D5W 100 ML IV SCH ×3 (01:19→17:16)
[2019-03-28] MEDS: IV NS 0.9% 1,000 ML IV PRN (01:19)
[2019-03-28] MEDS: VANCOMYCIN 1 GM in IV D5W 250 ML IV SCH (06:25)
[2019-03-28] MEDS: HYDROCODONE/APAP 5/325MG 1 EACH TABLET PO PRN (06:26)
--- NOTE | 2019-03-28 07:10 | NUR ---
MS RN INITIAL NOTES Report received at bedside. Patient received in bed, sleeping comfortably, easily aroused. No S&S of distress. No facial grimacing noted. On Gtube feeding. Safety measures in place. Will continue to monitor and assess patient
[2019-03-28 08:00] VITALS: BP 133/71
[2019-03-28 09:03] LABS: BASOPHILS # (AUTO) 0.1 /CMM (0.0-0.2); BASOPHILS % (AUTO) 0.6 % (0.0-2.0); EOSINOPHILS % (AUTO) 3.1 % (0.0-6.0); HEMATOCRIT 27 % (39-51); HEMOGLOBIN 8.1 g/dL (13.5-17.5); LYMPHOCYTES % (AUTO) 5.9 % (20.0-44.0); MEAN CORPUSCULAR HGB CONC 30 g/dl (31.0-36.0); MEAN CORPUSCULAR VOLUME 80 fL (80-96); MONOCYTES # (AUTO) 1.3 /CMM (0.1-1.30); NEUTROPHILS # (AUTO) 13.6 /CMM (1.8-8.9); NEUTROPHILS % (AUTO) 82.4 % (43.0-81.0); PLATELET COUNT (AUTO) 313 /CMM (150-450); RED BLOOD CELL COUNT(AUTO) 3.32 MIL/uL (4.5-6.0); WHITE BLOOD COUNT (AUTO) 16.5 K/uL (4.3-11.0)
[2019-03-28 09:06] LABS: CALCIUM, SERUM 8.3 mg/dL (8.5-10.1); CREATININE 0.9 mg/dL (0.6-1.3); MAGNESIUM 1.8 mg/dL (1.8-2.4); PHOSPHORUS 3.2 mg/dL (2.5-4.9); POTASSIUM 3.9 mmol/L (3.5-5.1)
[2019-03-28] MEDS: PANTOPRAZOLE 40 MG VIAL IV SCH ×2 (09:27→17:16)
[2019-03-28] MEDS: JEVITY 1.2 CAL 1,000 ML BOTTLE GT PRN (09:28)
[2019-03-28] MEDS: HYDROGEL DRESSING 90 GM TUBE TP SCH ×2 (09:28→18:00)
[2019-03-28] MEDS: Z GUARD REMEDY 2 OZ OINT TP PRN (09:28)
[2019-03-28] MEDS ORDERED: SILVER NITRATE APPLICATOR 1 EA BOX TP SCH (10:00)
[2019-03-28] MEDS ORDERED: LIDOCAINE 1%-EPI 1:100,000 20 ML VIAL TP ONE (10:00)
--- NOTE | 2019-03-28 11:05 | NUR ---
MS RN NOTES Follow up on Zosyn IV for 1000 with pharmacist. (N)
--- NOTE | 2019-03-28 11:30 | NUR ---
RN - PROCEDURE CONSENT Called Demarcus Gu's number [phone] - Person to notify and Next of kin on patient's file. The number provided is NOT a working number. Unable to speak to Demarcus to obtain consent for wound debridement. Will notify providers Addendum: 03/28/19 at 1258 by GARLAND LUEVANO RN Called [facility] for alternative phone number for Demarcus Gu. Spoke with Gabrielle (Parliamentary Archivist) and informed me that Demarcus is no longer in charge of Nitin's care/decision making. Demarcus is currently experiencing medical issues and taking care of his own medical problems. No other family member is reported and Nitin is currently on a pending "public guardiaan care'. Charge Nurse and Charlee made aware.
[2019-03-28] MEDS: SOD FERRIC GLUC 125 MG in IV NS 0.9% 100 ML IV SCH (14:35)
[2019-03-28 16:00] VITALS: BP 156/87
[2019-03-28] MEDS: PROSOURCE / PROSTAT (PYXIS) 30 ML UDC GT SCH ×2 (16:24→17:16)
--- NOTE | 2019-03-28 19:10 | NUR ---
RN MS OPENING NOTES RECEIVED PATIENT IN BED AWAKE ALERT AND ORIENTEDX1 NONVERBAL , RESPIRATIONS EVEN AND UNLABORED WITH EQUAL RISE AND FALL OF CHEST, APPEARS TO BE FREE OF PAIN UPON ASSESSMENT, NO MOANING NO FACIAL GRIMACING PRESENT, HEAD OF BED ELEVATED FOR ASPIRATION PRECAUTIONS, GTUBE INTACT AND PATENT, NO RESIDUALS PRESENT, LEFT UPPER ARM MIDLINE INTACT AND PATENT, NO REDNESS, NO INFILTRATION , DRESSING REMAINS C/D/I. REPOSITIONED OFFLOADED AFFECTED WOUND SITES, ALL NEEDS ATTENDED AT THIS TIME, ON CONTACT ISOLATION , PRECAUTIONS RENDERED WILL CONTINUE TO MONITOR AND ATTEND TO NEEDS, LOW AIR LOSS MATTRESS IN PLACE, WORKING WELL, BARNARD CATHETER INTACT AND DRAINING WELL WITH PROPER ALIGNMENT.
--- NOTE | 2019-03-28 19:13 | NUR ---
Patient remained in bed, All due meds given and tolerated. Treatment done as ordered. No SOB/labored breathing noted. Not in any type of distress. Kept patient clean and dry as possible. Continue IV antibiotic. NPO: Gtube feeding with HOB elevated at all times to prevent aspiration. 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 JOSEFINA midline patent and intact with no redness noted. Debridement done by Dr. Miles and Charlee. Photos post-debridement taken. Safety measures in place. Bed in lowest position with bed alarm on and call light within reach. Endorsed to oncoming shift nurse
[2019-03-28 20:00] VITALS: BP 142/75
[2019-03-28] MEDS: DAKINS QUARTER STRENGTH (0.125%) 480 ML BOTTLE TOP SCH (20:13)
[2019-03-28] MEDS: CEFEPIME 1 GM in IV D5W 50 ML IV SCH (20:13)
[2019-03-29] MEDS: VANCOMYCIN 1 GM in IV D5W 250 ML IV SCH ×2 (00:52→17:22)
[2019-03-29] MEDS: JEVITY 1.2 CAL 1,000 ML BOTTLE GT PRN ×2 (03:56→18:31)
--- NOTE | 2019-03-29 06:31 | NUR ---
RN MS CLOSING NOTES PATIENT IN BED AWAKE ALERT AND ORIENTEDX1 NONVERBAL , RESPIRATIONS EVEN AND UNLABORED WITH EQUAL RISE AND FALL OF CHEST ON 2 L VIA NC, APPEARS TO BE FREE OF PAIN UPON ASSESSMENT, NO MOANING NO FACIAL GRIMACING PRESENT, HEAD OF BED ELEVATED FOR ASPIRATION PRECAUTIONS, GTUBE INTACT AND PATENT, TOLERATING WELL ,10CC RESIDUALS PRESENT, LEFT UPPER ARM MIDLINE INTACT AND PATENT, NO REDNESS, NO INFILTRATION , DRESSING REMAINS C/D/I. REPOSITIONED OFFLOADED AFFECTED WOUND SITES, WOUND DRESSINGS CHANGED REMAIN CLEAN AND INTACT, WOUND CULTURES DONE TO OPEN WOUNDS REQUESTED PER ID. FREQUENT REPOSITIONING AND OFFLOADING PROVIDED TO AFFECTED WOUND SITES,ALL NEEDS ATTENDED AT THIS TIME, ON CONTACT ISOLATION , PRECAUTIONS RENDERED WILL CONTINUE TO MONITOR AND ATTEND TO NEEDS, LOW AIR LOSS MATTRESS IN PLACE, WORKING WELL, BARNARD CATHETER INTACT AND DRAINING WELL WITH PROPER ALIGNMENT. ALL NEEDS ATTENDED AT THIS TIME, WILL CONTINUE TO MONITOR AND ENDORSE TO NEXT SHIFT.
[2019-03-29 07:12] LABS: CALCIUM, SERUM 8.4 mg/dL (8.5-10.1); POTASSIUM 3.5 mmol/L (3.5-5.1)
[2019-03-29 08:00] VITALS: BP 131/60
--- NOTE | 2019-03-29 08:05 | NUR ---
RN OPENING NOTES PT RESTING IN BED. PATIENT NONVERBAL. NO APPARENT S/S OF PAIN, DISTRESS OR SOB AT THIS TIME. PT HAS A BARNARD CATHETER INTACT AND DRAINING WELL. PT HAS GTUBE FEEDING RUNNING JEVITY 75ML/HR. PT HAS LEFT UA MIDLINE INTACT. SAFETY PRECAUTIONS IN PLACE, BED IN LOWEST LOCKED POSITION, X3 SIDE RAILS UP AND CALL LIGHT WITHIN REACH. WILL CONTINUE TO MONITOR.
[2019-03-29] MEDS: PROSOURCE / PROSTAT (PYXIS) 30 ML UDC GT SCH ×3 (08:31→17:23)
[2019-03-29] MEDS: PANTOPRAZOLE 40 MG VIAL IV SCH ×2 (08:32→17:22)
[2019-03-29] MEDS: CEFEPIME 1 GM in IV D5W 50 ML IV SCH ×2 (08:32→20:36)
[2019-03-29] MEDS: DAKINS QUARTER STRENGTH (0.125%) 480 ML BOTTLE TOP SCH (08:33)
[2019-03-29] MEDS: HYDROGEL DRESSING 90 GM TUBE TP SCH ×2 (08:33)
--- NOTE | 2019-03-29 14:03 | NUR ---
RN NOTES CALLED PHARMACY AT 1230 FOR FERRLECIT. FOLLOWED UP AT 1400. PER PHARMACY WILL MAKE NOW.
[2019-03-29] MEDS: SOD FERRIC GLUC 125 MG in IV NS 0.9% 100 ML IV SCH (14:17)
[2019-03-29 16:00] VITALS: BP 149/71
--- NOTE | 2019-03-29 19:10 | NUR ---
RN MS OPENING NOTES RECEIVED PATIENT IN BED AWAKE ALERT AND ORIENTEDX1 NONVERBAL , RESPIRATIONS EVEN AND UNLABORED WITH EQUAL RISE AND FALL OF CHEST, 0N 2 L VIA NC,APPEARS TO BE FREE OF PAIN UPON ASSESSMENT, NO MOANING NO FACIAL GRIMACING PRESENT, HEAD OF BED ELEVATED FOR ASPIRATION PRECAUTIONS, GTUBE INTACT AND PATENT, NO RESIDUALS PRESENT, LEFT UPPER ARM MIDLINE INTACT AND PATENT, NO REDNESS, NO INFILTRATION , DRESSING REMAINS C/D/I. REPOSITIONED OFFLOADED AFFECTED WOUND SITES, BARNARD CATHETER INTACT AND DRAINING WELL, ALL NEEDS ATTENDED AT THIS TIME, ON CONTACT ISOLATION , PRECAUTIONS RENDERED WILL CONTINUE TO MONITOR AND ATTEND TO NEEDS, LOW AIR LOSS MATTRESS IN PLACE, WORKING WELL, WILL CONTINUE TO MONITOR AND ATTEND TO NEEDS.
--- NOTE | 2019-03-29 19:28 | NUR ---
RN CLOSING NOTES PT RESTING IN BED. PATIENT NONVERBAL. NO APPARENT S/S OF PAIN, DISTRESS OR SOB AT THIS TIME. PT HAS A BARNARD CATHETER INTACT AND DRAINING WELL. PT HAS GTUBE FEEDING RUNNING JEVITY 75ML/HR. PT HAS LEFT UA MIDLINE INTACT. SAFETY PRECAUTIONS IN PLACE, BED IN LOWEST LOCKED POSITION, X3 SIDE RAILS UP AND CALL LIGHT WITHIN REACH. WILL ENDORSE TO COVER INSPECTOR NURSE FOR CONTINUITY OF CARE.
[2019-03-29 20:00] VITALS: BP 120/64
[2019-03-29 20:49] VITALS: BP 120/64
--- NOTE | 2019-03-30 06:49 | NUR ---
RN MS CLOSING NOTES PATIENT IN BED AWAKE ALERT AND ORIENTEDX1 NONVERBAL , RESPIRATIONS EVEN AND UNLABORED WITH EQUAL RISE AND FALL OF CHEST, 0N 2 L VIA NC,APPEARS TO BE FREE OF PAIN UPON ASSESSMENT, NO MOANING NO FACIAL GRIMACING PRESENT, HEAD OF BED ELEVATED FOR ASPIRATION PRECAUTIONS, GTUBE INTACT AND PATENT, NO RESIDUALS PRESENT, LEFT UPPER ARM MIDLINE INTACT AND PATENT, NO REDNESS, NO INFILTRATION , DRESSING REMAINS C/D/I. REPOSITIONED OFFLOADED AFFECTED WOUND SITES, DRESSINGS CHANGED REMAIN CLEAN DRY AND INTACT, BARNARD CATHETER INTACT AND DRAINING WELL,WITH PROPER ALIGNMENT ,ALL NEEDS ATTENDED AT THIS TIME, ON CONTACT ISOLATION , PRECAUTIONS RENDERED WILL CONTINUE TO MONITOR AND ATTEND TO NEEDS, LOW AIR LOSS MATTRESS IN PLACE, WORKING WELL, WILL CONTINUE TO MONITOR AND ENDORSE TO NEXT SHIFT.
[2019-03-30 07:50] LABS: BASOPHILS % (AUTO) 0.4 % (0.0-2.0); EOSINOPHILS % (AUTO) 5.1 % (0.0-6.0); HEMATOCRIT 24 % (39-51); HEMOGLOBIN 7.3 g/dL (13.5-17.5); LYMPHOCYTES # (AUTO) 0.9 /CMM (0.8-4.8); LYMPHOCYTES % (AUTO) 7.5 % (20.0-44.0); MEAN CORPUSCULAR HGB CONC 31 g/dl (31.0-36.0); MEAN CORPUSCULAR VOLUME 81 fL (80-96); MONOCYTES # (AUTO) 0.7 /CMM (0.1-1.30); MONOCYTES % (AUTO) 6.2 % (2.0-12.0); NEUTROPHILS # (AUTO) 9.2 /CMM (1.8-8.9); NEUTROPHILS % (AUTO) 80.8 % (43.0-81.0); PLATELET COUNT (AUTO) 321 /CMM (150-450); RED BLOOD CELL COUNT(AUTO) 2.94 MIL/uL (4.5-6.0); WHITE BLOOD COUNT (AUTO) 11.4 K/uL (4.3-11.0)
[2019-03-30 08:00] VITALS: BP 138/66
[2019-03-30 08:03] LABS: CALCIUM, SERUM 8.8 mg/dL (8.5-10.1); CREATININE 1.1 mg/dL (0.6-1.3); POTASSIUM 3.5 mmol/L (3.5-5.1)
[2019-03-30] MEDS: CEFEPIME 1 GM in IV D5W 50 ML IV SCH ×2 (08:34→19:49)
[2019-03-30] MEDS: PANTOPRAZOLE 40 MG VIAL IV SCH ×2 (10:34→17:30)
[2019-03-30] MEDS: PROSOURCE / PROSTAT (PYXIS) 30 ML UDC GT SCH ×3 (10:34→17:31)
[2019-03-30] MEDS: DAKINS QUARTER STRENGTH (0.125%) 480 ML BOTTLE TOP SCH (10:35)
[2019-03-30] MEDS: HYDROGEL DRESSING 90 GM TUBE TP SCH ×2 (10:35→10:36)
[2019-03-30] MEDS: VANCOMYCIN 1 GM in IV D5W 250 ML IV SCH (12:24)
[2019-03-30] MEDS: SOD FERRIC GLUC 125 MG in IV NS 0.9% 100 ML IV SCH (15:22)
[2019-03-30 15:39] VITALS: BP 156/76
--- NOTE | 2019-03-30 19:10 | NUR ---
RN OPENING NOTES RECEIVED PATIENT FROM JAIME STOLL, IN BED AWAKE, RESTING COMFORTABLY, WATCHING TELEVISION. ALERT AND ORIENTED X 1, ABLE TO SAY YES OR NO WHEN ANSWERING QUESTIONS FROM ME AND ASSISTANT PURCHASING MANAGER, SHERON Hay NO SIGNS OF RESPIRATORY DISTRESS. RESPIRATIONS EVEN AND UNLABORED, NO SHORTNESS OF BREATH PRESENT. PATIENT SAID "NO", WHEN ASKED IF PAIN WAS PRESENT, NO FACIAL GRIMACING PRESENT, NO MOANING PRESENT. GTUBE INTACT AND PATENT, NO RESIDUALS PRESENT. LEFT UPPER ARM MIDLINE INTACT AND PATENT, NO INFECTION/INFILTRATION. REPOSITIONED PATIENT AND OFFLOADED AFFECTED WOUND SITES, WILL CONTINUE TO DO THAT EVERY 2 HOURS OR PRN. ON CONTACT ISOLATION. SAFETY PRECAUTIONS IMPLEMENTED; CALL LIGHT WITHIN REACH, BED LOWEST POSITION, BED LOCKED, SIDE RAILS UP X2. WILL CONTINUE TO MONITOR.
--- NOTE | 2019-03-30 19:12 | NUR ---
RN NOTES GTUBE WAS PAUSED WHEN INITIALLY CHECKING PATIENT. JEVITY ORDERED AT 75 ML/HR. WILL CONTINUE JEVITY NOW.
[2019-03-30 20:00] VITALS: BP 131/65
[2019-03-31] MEDS: JEVITY 1.2 CAL 1,000 ML BOTTLE GT PRN ×2 (05:53→19:05)
[2019-03-31 06:38] LABS: CALCIUM, SERUM 9.2 mg/dL (8.5-10.1); CREATININE 0.9 mg/dL (0.6-1.3); POTASSIUM 3.8 mmol/L (3.5-5.1)
--- NOTE | 2019-03-31 06:44 | NUR ---
RN CLOSING NOTES PATIENT CURRENTLY IN BED, AWAKE. NO SIGNIFICANT CHANGES THROUGHOUT THE SHIFT. NO SIGNS OF RESPIRATORY DISTRESS. RESPIRATIONS EVEN AND UNLABORED, ON 2 LPM VIA NASAL CANNULA, TOLERATING WELL. PATIENT SAYS "NO" IN A LOW VOICE WITH HEAD SHAKING SHOWING NO. WHEN ASKED IF IN PAIN, NO FACIAL GRIMACING OR DISCOMFORT NOTED. PATIENT SAYS "NO" WHEN INDUSTRIAL ARTS TEACHER, SHERON, AND I TURNED PATIENT. GTUBE INTACT AND PATENT, NO RESIDUALS PRESENT. LEFT UPPER ARM MIDLINE INTACT AND PATENT, NO INFECTION/INFILTRATION. DRESSINGS CHANGED. PATIENT WAS CLEAN, DRY, COMFORTABLE THROUGHOUT THE SHIFT. PATIENT TURNED EVERY 2 HOURS, OFFLOADED AFFECTED WOUNDS. BARNARD CATHETER INTACT AND DRAINING WELL. CONTACT ISOLATION MAINTAINED AT ALL TIMES. ALL NEEDS MET AT THIS TIME. SAFETY PRECAUTIONS IMPLEMENTED; CALL LIGHT WITHIN REACH, BED LOWEST POSITION, BED LOCKED, SIDE RAILS UP X2. WILL ENDORSE TO DAYSHIFT NURSE FOR CONTINUITY OF CARE.
[2019-03-31] MEDS: VANCOMYCIN 1 GM in IV D5W 250 ML IV SCH ×2 (06:54→23:36)
--- NOTE | 2019-03-31 07:20 | NUR ---
RN OPENING NOTES RECEIVED PATIENT IN BED RESTING COMFORTABLY, WATCHING TELEVISION. ALERT AND ORIENTED X 1, ABLE TO SAY YES OR NO WHEN ANSWERING QUESTIONS FROM ME. NO SIGNS OF RESPIRATORY DISTRESS. RESPIRATIONS EVEN AND UNLABORED, NO SHORTNESS OF BREATH PRESENT. PATIENT SAID "NO" WHEN ASKED IF PAIN WAS PRESENT. NO S/S OF DISTRESS NOTED. GTUBE IN PLACE, NO RESIDUALS PRESENT. LEFT UPPER ARM MIDLINE INTACT AND PATENT, NO SIGNS OF INFECTION/INFILTRATION. BARNARD IN PLACE DRAINING URINE WELL. REPOSITIONED PATIENT AND OFFLOADED AFFECTED WOUND SITES, WILL CONTINUE TO DO THAT EVERY 2 HOURS OR PRN. ON CONTACT ISOLATION. SAFETY PRECAUTIONS IMPLEMENTED; CALL LIGHT WITHIN REACH, BED LOWEST POSITION, BED LOCKED, SIDE RAILS UP X2. WILL CONTINUE TO MONITOR.
[2019-03-31 08:00] VITALS: BP 140/75
[2019-03-31 08:32] LABS: BASOPHILS # (AUTO) 0.1 /CMM (0.0-0.2); BASOPHILS % (AUTO) 0.5 % (0.0-2.0); EOSINOPHILS % (AUTO) 6.4 % (0.0-6.0); HEMATOCRIT 25 % (39-51); HEMOGLOBIN 7.7 g/dL (13.5-17.5); LYMPHOCYTES # (AUTO) 1.2 /CMM (0.8-4.8); LYMPHOCYTES % (AUTO) 10.7 % (20.0-44.0); MEAN CORPUSCULAR HGB CONC 31 g/dl (31.0-36.0); MEAN CORPUSCULAR VOLUME 81 fL (80-96); MONOCYTES # (AUTO) 0.8 /CMM (0.1-1.30); MONOCYTES % (AUTO) 7.5 % (2.0-12.0); NEUTROPHILS # (AUTO) 8.3 /CMM (1.8-8.9); NEUTROPHILS % (AUTO) 74.9 % (43.0-81.0); PLATELET COUNT (AUTO) 370 /CMM (150-450); RED BLOOD CELL COUNT(AUTO) 3.09 MIL/uL (4.5-6.0)
[2019-03-31] MEDS: CEFEPIME 1 GM in IV D5W 50 ML IV SCH ×2 (09:41→19:55)
[2019-03-31] MEDS: PROSOURCE / PROSTAT (PYXIS) 30 ML UDC GT SCH ×3 (09:41→18:24)
[2019-03-31] MEDS: PANTOPRAZOLE 40 MG VIAL IV SCH ×2 (09:42→18:24)
[2019-03-31] MEDS: DAKINS QUARTER STRENGTH (0.125%) 480 ML BOTTLE TOP SCH (09:48)
[2019-03-31] MEDS: HYDROGEL DRESSING 90 GM TUBE TP SCH ×2 (09:48)
[2019-03-31] MEDS: HYDROCODONE/APAP 5/325MG 1 EACH TABLET PO PRN (09:54)
[2019-03-31 16:00] VITALS: BP 150/83
--- NOTE | 2019-03-31 19:38 | NUR ---
rn closing notes patient in stable condition. all needs attended and provided. all due medications given as ordered. assisted with adls. turned and repositioned patient every 2hrs as needed. wound care rendered. kept patient safe and comfortable. bed in low/locked postion, siderails upx2,c all light in reach. endorsed to night rn for temi.
[2019-03-31 20:00] VITALS: BP 160/65
[2019-03-31 23:00] VITALS: BP 154/71
--- NOTE | 2019-03-31 23:00 | NUR ---
TRANSFER OF CARE RECEIVE PT IN BED, ON 2LPM VIA NC 02 SAT AT 98%. VS STABLE A/O X1, NO S/S OF DISTRESS. WILL CONT TO MTR
--- NOTE | 2019-04-01 06:12 | NUR ---
MS RN ASLEEP AND EASILY AWAKEN, AM CARE RENDERED. WOUND CARE ORDERED. REPOSITION Q2HR. NO S/S OF DISTRESS, NURSING CARE RENDERED, KEPT CLEAN AND DRY AND COMFORTABLE. NEEDS ATTENDED AND ANTICIPATED. SAFETY MEASURES AT ALL TIMES. ENDORSE TO THE NEXT SHIFT.
[2019-04-01 06:32] LABS: BASOPHILS % (AUTO) 0.3 % (0.0-2.0); EOSINOPHILS % (AUTO) 2.7 % (0.0-6.0); HEMATOCRIT 29 % (39-51); HEMOGLOBIN 8.7 g/dL (13.5-17.5); LYMPHOCYTES # (AUTO) 0.8 /CMM (0.8-4.8); LYMPHOCYTES % (AUTO) 6.9 % (20.0-44.0); MEAN CORPUSCULAR HGB CONC 30 g/dl (31.0-36.0); MEAN CORPUSCULAR VOLUME 81 fL (80-96); MONOCYTES % (AUTO) 8.7 % (2.0-12.0); NEUTROPHILS % (AUTO) 81.4 % (43.0-81.0); PLATELET COUNT (AUTO) 361 /CMM (150-450); RED BLOOD CELL COUNT(AUTO) 3.54 MIL/uL (4.5-6.0); WHITE BLOOD COUNT (AUTO) 11.1 K/uL (4.3-11.0)
[2019-04-01 07:01] LABS: CALCIUM, SERUM 9.2 mg/dL (8.5-10.1); CREATININE 1.1 mg/dL (0.6-1.3); PHOSPHORUS 3.2 mg/dL (2.5-4.9)
[2019-04-01 08:00] VITALS: BP 145/77
[2019-04-01] MEDS: JEVITY 1.2 CAL 1,000 ML BOTTLE GT PRN (08:58)
[2019-04-01] MEDS: CEFEPIME 1 GM in IV D5W 50 ML IV SCH (09:00)
[2019-04-01] MEDS: PROSOURCE / PROSTAT (PYXIS) 30 ML UDC GT SCH (09:01)
[2019-04-01] MEDS: PANTOPRAZOLE 40 MG VIAL IV SCH (09:01)
[2019-04-01] MEDS: HYDROGEL DRESSING 90 GM TUBE TP SCH ×2 (09:04)
[2019-04-01] MEDS: Z GUARD REMEDY 2 OZ OINT TP PRN (09:04)
[2019-04-01] MEDS: DAKINS QUARTER STRENGTH (0.125%) 480 ML BOTTLE TOP SCH (09:09)
[2019-04-01] MEDS ORDERED: CEFE1FRO IV (10:35)
[2019-04-01] MEDS ORDERED: VANC1FRO2 IV (10:35)
--- NOTE | 2019-04-01 12:00 | NUR ---
RN NOTES WOUND CARE RENDERED
--- NOTE | 2019-04-01 15:22 | NUR ---
DISCHARGED PATIENT IN STABLE CONDITION PICKED UP BY JIGNESH. [facility], REPORT GIVEN TO JAIME JASSO, DC INSTRUCTIONS GIVEN, PATIENT TO CONTINUE IV ANTIBIOTIC AT [facility]. DC PAPERWORKS [facility]. NO BELONGINGS NOTED. JOSEFINA MIDLINE INTACT AND PATENT, CHANGED DRESSING C/D/I, SKIN PHOTOS TAKEN.
== END 2019-04-01 15:15 | DRG 853 ==
LOC: ER 19:20 → TELE 21:37 → MED 03-25 08:16
PROVIDERS: ADMIT Nurse Practitioner Acute Care; ATTEND Student in an Organized Health Care Education/Training Program
PROC: 30233N1 Transfusion of Nonautologous Red Blood Cells into Peripheral Vein, Percutaneous Approach (ICD-10-PCS; 2019-03-24)
PROC: 02HV33Z Insertion of Infusion Device into Superior Vena Cava, Percutaneous Approach (ICD-10-PCS; 2019-03-24)
PROC: B548ZZA Ultrasonography of Superior Vena Cava, Guidance (ICD-10-PCS; 2019-03-24)
PROC: 05HA33Z Insertion of Infusion Device into Left Brachial Vein, Percutaneous Approach (ICD-10-PCS; 2019-03-24)
PROC: 0KBS0ZZ Excision of Right Lower Leg Muscle, Open Approach (ICD-10-PCS; principal; 2019-03-28)
PROC: 0KBR0ZZ Excision of Left Upper Leg Muscle, Open Approach (ICD-10-PCS; 2019-03-28)
DX: A41.9 Sepsis, unspecified organism (principal); L89.623 Pressure ulcer of left heel, stage 3; L89.224 Pressure ulcer of left hip, stage 4; L89.894 Pressure ulcer of other site, stage 4; J18.9 Pneumonia, unspecified organism; R53.2 Functional quadriplegia; E43 Unspecified severe protein-calorie malnutrition; K92.2 Gastrointestinal hemorrhage, unspecified; N39.0 Urinary tract infection, site not specified; J98.11 Atelectasis; I69.354 Hemiplegia and hemiparesis following cerebral infarction affecting left non-dominant side; G93.40 Encephalopathy, unspecified; D68.9 Coagulation defect, unspecified; I31.3 Pericardial effusion (noninflammatory); D50.9 Iron deficiency anemia, unspecified; R13.10 Dysphagia, unspecified; N18.9 Chronic kidney disease, unspecified; I12.9 Hypertensive chronic kidney disease with stage 1 through stage 4 chronic kidney disease, or unspecified chronic kidney disease; I25.10 Atherosclerotic heart disease of native coronary artery without angina pectoris; K21.9 Gastro-esophageal reflux disease without esophagitis; R26.9 Unspecified abnormalities of gait and mobility; E78.5 Hyperlipidemia, unspecified; F03.90 Unspecified dementia, unspecified severity, without behavioral disturbance, psychotic disturbance, mood disturbance, and anxiety; F31.9 Bipolar disorder, unspecified; F20.9 Schizophrenia, unspecified; Z91.018 Allergy to other foods; Z79.899 Other long term (current) drug therapy; Z93.1 Gastrostomy status; Z74.01 Bed confinement status; N28.1 Cyst of kidney, acquired; K76.0 Fatty (change of) liver, not elsewhere classified; J44.9 Chronic obstructive pulmonary disease, unspecified; E86.0 Dehydration; L89.510 Pressure ulcer of right ankle, unstageable; L89.890 Pressure ulcer of other site, unstageable; L89.610 Pressure ulcer of right heel, unstageable; Z86.79 Personal history of other diseases of the circulatory system; D63.8 Anemia in other chronic diseases classified elsewhere; B96.5 Pseudomonas (aeruginosa) (mallei) (pseudomallei) as the cause of diseases classified elsewhere; I35.8 Other nonrheumatic aortic valve disorders
CPT/HCPCS: 36415; 71045-TC; 76700-TC; 80048-TC; 80053-TC; 80061-TC; 80076-TC; 80202-TC; 81000-TC; 82272-TC; 82728-TC; 83540-TC; 83605-TC; 83735-TC; 84100-TC; 84443-TC; 84484-TC; 85025-TC; 85385-TC; 85652-TC; 85730-TC; 86140-TC; 86850-TC; 86921-TC; 87040-TC; 87070-TC; 87081-TC; 87086-TC; 87186-TC; 93307-TC; 94799-TC; A6248; A6253; C9113; G0378; J0692; J2543; J2916; J3370; J3490; J7030; J7040; J7050; J7060; P9016-BL

== ENCOUNTER 2019-05-09 12:08 | Inpatient (IN) | payer MEDICARE, OTHER ==
[~2019-05-09] VITALS: Ht 167.6 cm; Wt 72.1 kg
[~2019-05-09 12:08] MED LIST changes: -ACET-868 PO; +CEFE1FRO IV; +FERR300L GT; -FERR325T23 PO; +MAG30ORA GT; -MAG30ORA PO; -MIRT15TA7 PO; +NUTR150016; +NUTR1PAC14 GT; +OMEP20CA11 GT; -PANT40TA2 PO; +SACC250C GT; +VANC1FRO2 IV; -[UNRECOGNIZED DRUG - CODE] PO
[2019-05-09 12:30] LABS: BASOPHILS % (AUTO) 0.4 % (0.0-2.0); EOSINOPHILS % (AUTO) 5.7 % (0.0-6.0); HEMATOCRIT 26 % (39-51); HEMOGLOBIN 7.8 g/dL (13.5-17.5); LYMPHOCYTES # (AUTO) 1.4 /CMM (0.8-4.8); LYMPHOCYTES % (AUTO) 10.9 % (20.0-44.0); MEAN CORPUSCULAR HGB CONC 30 g/dl (31.0-36.0); MEAN CORPUSCULAR VOLUME 83 fL (80-96); MONOCYTES # (AUTO) 0.8 /CMM (0.1-1.30); MONOCYTES % (AUTO) 6.4 % (2.0-12.0); NEUTROPHILS # (AUTO) 9.9 /CMM (1.8-8.9); NEUTROPHILS % (AUTO) 76.6 % (43.0-81.0); PLATELET COUNT (AUTO) 336 /CMM (150-450); RED BLOOD CELL COUNT(AUTO) 3.18 MIL/uL (4.5-6.0); WHITE BLOOD COUNT (AUTO) 12.9 K/uL (4.3-11.0)
[2019-05-09] MEDS ORDERED: VANCOMYCIN 1 GM in IV D5W 250 ML IV ONE (12:30)
[2019-05-09] MEDS ORDERED: PIPERACILLIN /TAZOBACTAM 3.375 G in IV D5W 50 ML IV ONE (12:30)
[2019-05-09] MEDS ORDERED: IV NS 0.9% 500 ML BAG IV ONE (12:30)
--- NOTE | 2019-05-09 12:30 | NUR ---
BIB PA FRM [facility] FOR FEVER EVAL. HIP, SACRAL HEEL ULCER NOTED ASSOCIATE PROFESSOR OF LITERATURE. ON 3LPM VIA NC. CONNECTED TO THE MONITOR AND PULSE OX. KEPT COMFORTABLE, WILL CONTINUE TO MONITOR ACCORDINGLY.
--- NOTE | 2019-05-09 12:34 | NUR ---
urine collected and sent to lab
[2019-05-09 12:38] LABS: APPEARANCE,URINE Cloudy (CLEAR); BILIRUBIN,URINE Negative (NEGATIVE); BLOOD, URINE Trace-intact Ery/uL (NEGATIVE); COLOR,URINE Yellow (YELLOW); KETONES,URINE Negative (NEGATIVE); LEUKOCYTE ESTERASE ,URINE Moderate (NEGATIVE); NITRITE, URINE Negative (NEGATIVE); PROTEIN,URINE Trace mg/dl (NEGATIVE); UGLUCOSE Negative (NEGATIVE); UROBILINOGEN,URINE 0.2 EU/dL (0.2)
--- NOTE | 2019-05-09 12:41 | NUR ---
distance learning technician at bedside for x-ray.
[2019-05-09] MEDS ORDERED: HYDR-4384 PO (12:43)
[2019-05-09 12:50] LABS: ALANINE AMINOTRANSFERASE 86 U/L (12-78); ALBUMIN 1.9 g/dL (3.4-5.0); ALKALINE PHOSPHATASE 165 U/L (46-116); ASPARTATE AMINOTRANSFERASE 63 U/L (15-37); BILIRUBIN,DIRECT 0.1 mg/dL (0.0-0.2); BILIRUBIN,TOTAL 0.2 mg/dL (0.2-1.0); CALCIUM, SERUM 9.9 mg/dL (8.5-10.1); CARBON DIOXIDE 27 mmol/L (21-32); CHLORIDE 107 mmol/L (98-107); GLUCOSE 130 mg/dL (74-106); POTASSIUM 5.5 mmol/L (3.5-5.1); SODIUM SERUM 143 mmol/L (136-145); TOTAL PROTEIN, SERUM 8.6 g/dL (6.4-8.2)
[2019-05-09 12:51] LABS: UREA NITROGEN, BLOOD 84 mg/dL (7-18)
[2019-05-09 12:55] LABS: BACTERIA,URINE Rare /HPF (None Seen)
[2019-05-09] MEDS ORDERED: IV NS 0.9% 1,000 ML BAG IV ONE (14:00)
--- NOTE | 2019-05-09 14:25 | NUR ---
Report given to Belinda SANDOVAL for temi.
--- NOTE | 2019-05-09 15:27 | NUR ---
RECEIVED PT FROM ER VIA [place]. PT AWAKE, NON VERBAL, RESPONSIVE TO NAME AND TOUCH, ON 02 VIA NC 3L/MIN, SATURATING WELL, NO SIGNS OF RESPIRATORY DISTRESS NOTED, RESPIRATIONS EVEN AND UNLABORED. IV SITE ON RIGHT AC G18 INTACT, PATENT, WITH SALINE LOCK. BARNADR CATHETER DRAINING CLEAR YELLOW URINE. GTUBE IN PLACE. HEAD TO TOE ASSESSMENT PERFORMED, MULTIPLE WOUNDS FOUND ON ASSESSMENT, WOUND CONSULT ORDER PLACED, PHOTOS TAKEN AND PLACED INTO CHART, WOUND CARE PLAN ORDER PLACED. BILATERAL LOWER EXTREMITIES CONTRACTED. BED IN LOW POSITION, LOCKED, CALL LIGHT WITHIN REACH.
--- NOTE | 2019-05-09 15:27 | NUR ---
wheeled patient via gurney accompanied by EMT and RN in no distress. Belinda at bedside to assume care.
[2019-05-09] MEDS ORDERED: MAGNESIUM HYDROXIDE 30 ML UDC GT PRN (15:30)
[2019-05-09] MEDS ORDERED: MAGNESIUM HYDROXIDE 30 ML UDC PO PRN (15:30)
[2019-05-09] MEDS ORDERED: ACETAMINOPHEN 325 MG TABLET PO PRN (15:30)
[2019-05-09] MEDS ORDERED: NA PHOS,M-B/NA PHOS,DI-BA 1 EA ENEMA RC PRN (15:30)
[2019-05-09] MEDS ORDERED: MAG HYDROX/AL HYDROX/SIMETH 30 ML UDC PO PRN (15:30)
[2019-05-09] MEDS ORDERED: ONDANSETRON HCL/PF 4 MG/2 ML VIAL IVP PRN (15:30)
[2019-05-09] MEDS ORDERED: MAG HYDROX/AL HYDROX/SIMETH 30 ML UDC GT PRN (15:30)
[2019-05-09] MEDS ORDERED: CLONIDINE HCL 0.1 MG TABLET GT PRN (15:30)
[2019-05-09] MEDS ORDERED: ZOLPIDEM TARTRATE 5 MG TABLET PO PRN (15:30)
[2019-05-09] MEDS ORDERED: BISACODYL SUPP (10 MG) 10 MG/SUPP.RECT SUPP.RECT RC PRN (15:30)
[2019-05-09] MEDS ORDERED: FEE PK DOSING 1 MIN EA MC ONE (15:36)
[2019-05-09] MEDS ORDERED: IPRATROPIUM NEB FS 0.5 MG/2.5 ML AMPUL.NEB NEB PRN (16:00)
[2019-05-09] MEDS: LACTOBACILLUS RHAMNOSUS GG 1 EACH CAP.SPRINK GT SCH (16:22)
[2019-05-09] MEDS: FERROUS SULFATE UDC 300 MG/5 ML UDC GT SCH (16:22)
[2019-05-09] MEDS: BENZTROPINE MESYLATE (1 MG) 1 MG TABLET GT SCH (16:22)
[2019-05-09] MEDS: HALOPERIDOL 5 MG TABLET GT SCH (16:22)
[2019-05-09 16:30] VITALS: BP 90/47
[2019-05-09] MEDS ORDERED: Medication Not On Formulary EA (Arginine/Glutamine/Calcium Hmb (Juven Packet) 1 EACH) GT SCH (17:00)
[2019-05-09] MEDS: ASCORBIC ACID 500 MG TABLET GT SCH (17:26)
[2019-05-09] MEDS: ZINC SULFATE 220 MG CAPSULE GT SCH (17:27)
[2019-05-09] MEDS: PROSOURCE / PROSTAT (PYXIS) 30 ML UDC GT SCH (17:27)
[2019-05-09] MEDS: ZOSYN IVPB 3.375 G in IV D5W 50ml IV SCH ×2 (17:56→23:15)
[2019-05-09] MEDS ORDERED: ALBUTEROL FS 2.5 MG/3 ML VIAL.NEB NEB PRN (19:30)
[2019-05-09 20:00] VITALS: BP 89/53
[2019-05-09] MEDS ORDERED: JEVITY 1.2 CAL 1,000 ML BOTTLE GT PRN (20:00)
--- NOTE | 2019-05-09 20:04 | NUR ---
LEGAL REFEREE CLOSING NOTE PT ASLEEP IN BED, ON 02 VIA NC 3L/MIN, SATURATING WELL, NO SIGNS OF RESPIRATORY DISTRESS NOTED, RESPIRATIONS EVEN AND UNLABORED. IV SITE ON RIGHT AC G18 INTACT, PATENT, WITH SALINE LOCK. BARNARD CATHETER DRAINING CLEAR YELLOW URINE. GTUBE IN PLACE, FLUSHING WELL. SINUS RHYTHM ON NETWORKS COMPUTER CONSULTANT. KCI MATTRESS ORDERED. TURNED AND REPOSITIONED PT EVERY 2 HOURS THROUGHOUT SHIFT, OFFLOADED EXTREMITIES, PROVIDED SAFETY AND COMFORT, ALL DUE MEDS GIVEN. ENDORSED TO [facility] SHIFT NURSE.
[2019-05-09] MEDS: JEVITY 1.2 CAL 1,000 ML BOTTLE GT PRN (20:46)
[2019-05-10] VITALS (10 sets, daily range): BP systolic 94–122; BP diastolic 49–64
[2019-05-10] MEDS: ZOSYN IVPB 3.375 G in IV D5W 50ml IV SCH ×3 (05:08→21:16)
[2019-05-10] MEDS: VANCOMYCIN HCL 0.75 GM in IV D5W 250 ML IV SCH (05:45)
[2019-05-10 07:03] LABS: BASOPHILS % (AUTO) 0.3 % (0.0-2.0); EOSINOPHILS % (AUTO) 6.1 % (0.0-6.0); HEMATOCRIT 22 % (39-51); LYMPHOCYTES # (AUTO) 1.2 /CMM (0.8-4.8); LYMPHOCYTES % (AUTO) 9.6 % (20.0-44.0); MEAN CORPUSCULAR HGB CONC 31 g/dl (31.0-36.0); MEAN CORPUSCULAR VOLUME 82 fL (80-96); MONOCYTES # (AUTO) 0.9 /CMM (0.1-1.30); MONOCYTES % (AUTO) 7.7 % (2.0-12.0); NEUTROPHILS # (AUTO) 9.2 /CMM (1.8-8.9); NEUTROPHILS % (AUTO) 76.3 % (43.0-81.0); PLATELET COUNT (AUTO) 286 /CMM (150-450); RED BLOOD CELL COUNT(AUTO) 2.69 MIL/uL (4.5-6.0)
[2019-05-10 07:29] LABS: ALANINE AMINOTRANSFERASE 73 U/L (12-78); ALBUMIN 1.7 g/dL (3.4-5.0); ALKALINE PHOSPHATASE 149 U/L (46-116); ASPARTATE AMINOTRANSFERASE 54 U/L (15-37); BILIRUBIN,TOTAL 0.2 mg/dL (0.2-1.0); CALCIUM, SERUM 8.9 mg/dL (8.5-10.1); CARBON DIOXIDE 24 mmol/L (21-32); CHLORIDE 110 mmol/L (98-107); CREATININE 1.9 mg/dL (0.6-1.3); GLUCOSE 138 mg/dL (74-106); LIPASE 216 U/L (73-393); MAGNESIUM 2.3 mg/dL (1.8-2.4); PHOSPHORUS 4.5 mg/dL (2.5-4.9); POTASSIUM 5.2 mmol/L (3.5-5.1); SODIUM SERUM 144 mmol/L (136-145); TOTAL PROTEIN, SERUM 7.5 g/dL (6.4-8.2); UREA NITROGEN, BLOOD 72 mg/dL (7-18)
[2019-05-10 07:35] LABS: HEMOGLOBIN 6.8 g/dL (13.5-17.5)
--- NOTE | 2019-05-10 07:43 | NUR ---
RN OPENING NOTES RECEIVED PATIENT SLEEPING IN BED COMFORTABLY, EASILY AROUSED. HE IS AOX1, NON-VERBAL, TRACES WITH EYES AND IS BEDBOUND. HE IS ON 3L OF OXYGEN, TOLERATING WELL, NO S/SX OF RESP DISTRESS OR SOB. TELE MONITOR SHOWING SR. BARNARD IS INTACT AND PATENT, CLEAR AND YELLOW URINE. RHONCHI HEARD DURING AUSCULTATION OF LUNGS. WOUND CONSULT PENDING. GTUBE IS INTACT, INFUSING JEVITY AT 75 ML/HR, NO RESIDUAL. RAC 18 G IS PATENT AND INTACT, TKO. SAFETY MEASURES HAVE BEEN IMPLEMENTED, CALL LIGHT IS WITHIN REACH, BED IS IN LOWEST AND LOCKED POSITION, SIDE RAILS UP X2, WILL CONTINUE TO MONITOR FOR ANY CHANGES.
[2019-05-10 08:04] LABS: CHOLESTEROL 91 mg/dL (<200); FERRITIN 1835 ng/mL (8-388); HDL CHOLESTEROL 18 mg/dL (40-60); LDL 59 mg/dL (0-99); TRIGLYCERIDES 155 mg/dL (30-150)
[2019-05-10 08:13] LABS: EOSINOPHILS % (MANUAL) 6 % (0-4); LYMPHOCYTES % (MANUAL) 8 % (16-48); MONOCYTES % (MANUAL) 7 % (0-11.0); NEUTROPHILS % (MANUAL) 79 (42-76)
[2019-05-10] MEDS ORDERED: Medication Not On Formulary EA (Cran/Vitc/Mannose/Inulin/Brom (Uti-Stat Liquid) 30 ML) PO SCH (09:00)
[2019-05-10 09:19] LABS: IRON, SERUM 17 ug/dl (50-175); TOTAL IRON BINDING CAPACITY 115 ug/dl (250-450)
[2019-05-10] MEDS: PANTOPRAZOLE 40 MG VIAL IV SCH (09:52)
[2019-05-10] MEDS: FERROUS SULFATE UDC 300 MG/5 ML UDC GT SCH ×3 (09:52→16:16)
[2019-05-10] MEDS: HALOPERIDOL 5 MG TABLET GT SCH ×2 (09:52→16:16)
[2019-05-10] MEDS: BENZTROPINE MESYLATE (1 MG) 1 MG TABLET GT SCH ×2 (09:52→16:16)
[2019-05-10] MEDS: LACTOBACILLUS RHAMNOSUS GG 1 EACH CAP.SPRINK GT SCH ×2 (09:52→16:16)
[2019-05-10] MEDS: JEVITY 1.2 CAL 1,000 ML BOTTLE GT PRN (11:45)
[2019-05-10] MEDS ORDERED: diphenhydrAMINE HCL 50 MG CAPSULE MC ONE ×2 (13:00→17:30)
[2019-05-10] MEDS ORDERED: diphenhydrAMINE HCL ELIX 25 MG/10 ML UDC PO ONE (13:30)
[2019-05-10] MEDS: HYDROGEL DRESSING 90 GM TUBE TP SCH (16:50)
[2019-05-10] MEDS: DAKINS QUARTER STRENGTH (0.125%) 480 ML BOTTLE TOP SCH (16:50)
[2019-05-10] MEDS: ASCORBIC ACID 500 MG TABLET GT SCH (17:17)
[2019-05-10] MEDS: ZINC SULFATE 220 MG CAPSULE GT SCH (17:17)
--- NOTE | 2019-05-10 18:00 | NUR ---
RN NOTES IT HAS BEEN 15 MIN SINCE INITIATION OF BLOOD TRANSFUSION, PT IS TOLERATING IT WELL. BP IS STABLE. TEMP IS STABLE. PT WAS PREMEDICATED WITH BENADRYL. NO COMPLAINTS OF ICHINESS, FLANK PAIN, OR SOB. WILL CONTINUE TO MONITOR
[2019-05-10] MEDS: PROSOURCE / PROSTAT (PYXIS) 30 ML UDC GT SCH (18:07)
--- NOTE | 2019-05-10 19:40 | NUR ---
RN CLOSING NOTES PATIENT IS RESTING COMFORTABLY IN BED, S/SX OF DISTRESS. PT IS CURRENTLY RECEIVING BLOOD TRANSFUSION, TOLERATING WELL. NO ACUTE CHANGES OCCURRED THROUGHOUT THE SHIFT, VITAL SIGNS ARE STABLE, PT NEEDS HAVE BEEN MET. SAFETY MEASURES HAVE BEEN IMPLEMENTED, CALL LIGHT IS WITHIN REACH, BED IS IN LOWEST AND LOCKED POSITION, SIDE RAILS UP X2. PT HAS BEEN ENDORSED TO NIGHTSHIFT RN FOR CONTINUITY OF CARE.
[2019-05-10] MEDS: HYDROCODONE/APAP 5/325MG 1 EACH TABLET GT PRN (22:22)
[2019-05-11] VITALS: BP_SYST 140; BP_SYST 98; BP_DIAS 51; BP_DIAS 59
[2019-05-11] MEDS: ZOSYN IVPB 3.375 G in IV D5W 50ml IV SCH ×6 (00:16→23:23)
[2019-05-11] MEDS: VANCOMYCIN HCL 0.75 GM in IV D5W 250 ML IV SCH ×2 (00:17→17:17)
[2019-05-11] MEDS: HYDROCODONE/APAP 5/325MG 1 EACH TABLET GT PRN ×3 (02:25→18:23)
[2019-05-11] MEDS: JEVITY 1.2 CAL 1,000 ML BOTTLE GT PRN ×2 (03:00→05:46)
[2019-05-11 04:00] VITALS: BP 96/58
--- NOTE | 2019-05-11 07:15 | NUR ---
TOP LIFT COMPRESSOR OPENING NOTE RECEIVED REPORT FROM NOC SHIFT NURSE. PT ASLEEP IN BED, NON VERBAL, RESPONSIVE TO NAME AND TOUCH, ON 02 VIA NC 3L/MIN, SATURATING WELL, RESPIRATIONS EVEN AND UNLABORED, NO SIGNS OF RESPIRATORY DISTRESS NOTED. IV SITE ON RIGHT AC G18 PATENT, INTACT WITH HEP LOCK. JEVITY 1.2 INFUSING AT 75CC/HR, PT TOLERATING FEEDING WELL. ON CARDIA CMONITOR SINUS RHYTHM 98. BED IN LOW POSITION,, LOCKED, CALL LIGHT WITHIN REACH.
--- NOTE | 2019-05-11 07:16 | NUR ---
NOC SHIFT RN ENDORSED THAT SHE ADMINISTERED THE 0600 ZOSYN HOWEVER WAS NOT ABLE TO SCAN IT
[2019-05-11 07:22] LABS: BASOPHILS % (AUTO) 0.3 % (0.0-2.0); EOSINOPHILS % (AUTO) 6.4 % (0.0-6.0); HEMATOCRIT 27 % (39-51); HEMOGLOBIN 8.2 g/dL (13.5-17.5); LYMPHOCYTES # (AUTO) 1.1 /CMM (0.8-4.8); LYMPHOCYTES % (AUTO) 9.5 % (20.0-44.0); MEAN CORPUSCULAR HGB CONC 31 g/dl (31.0-36.0); MEAN CORPUSCULAR VOLUME 84 fL (80-96); MONOCYTES # (AUTO) 1.2 /CMM (0.1-1.30); MONOCYTES % (AUTO) 10.4 % (2.0-12.0); NEUTROPHILS # (AUTO) 8.2 /CMM (1.8-8.9); NEUTROPHILS % (AUTO) 73.4 % (43.0-81.0); PLATELET COUNT (AUTO) 259 /CMM (150-450); WHITE BLOOD COUNT (AUTO) 11.1 K/uL (4.3-11.0)
[2019-05-11 07:41] LABS: CALCIUM, SERUM 8.7 mg/dL (8.5-10.1); CARBON DIOXIDE 23 mmol/L (21-32); CHLORIDE 109 mmol/L (98-107); CREATININE 1.8 mg/dL (0.6-1.3); GLUCOSE 138 mg/dL (74-106); SODIUM SERUM 141 mmol/L (136-145); UREA NITROGEN, BLOOD 62 mg/dL (7-18)
[2019-05-11 08:00] VITALS: BP 101/59
[2019-05-11] MEDS: LACTOBACILLUS RHAMNOSUS GG 1 EACH CAP.SPRINK GT SCH ×2 (08:38→16:13)
[2019-05-11] MEDS: HALOPERIDOL 5 MG TABLET GT SCH ×2 (08:38→16:13)
[2019-05-11] MEDS: PANTOPRAZOLE 40 MG VIAL IV SCH (08:38)
[2019-05-11] MEDS: FERROUS SULFATE UDC 300 MG/5 ML UDC GT SCH ×3 (08:38→16:13)
[2019-05-11] MEDS: BENZTROPINE MESYLATE (1 MG) 1 MG TABLET GT SCH ×2 (08:38→16:15)
[2019-05-11] MEDS: DAKINS QUARTER STRENGTH (0.125%) 480 ML BOTTLE TOP SCH ×2 (08:38)
[2019-05-11] MEDS: THERAHONEY GEL 1.5 OZ TUBE TP SCH (08:39)
[2019-05-11] MEDS: HYDROGEL DRESSING 90 GM TUBE TP SCH (08:39)
--- NOTE | 2019-05-11 10:18 | NUR ---
WOUND CARE CONSULT WOUND CARE RECEIVED CONSULT FOR MULTIPLE WOUNDS. WOUND CARE WILL DEFER CONSULT AND ALL TREATMENT PLANS TO PLASTIC SURGICAL TEAM INCLUDING DPMinesh SEGURA WHO ARE ALL FOLLOWING THIS PATIENT. PATIENT WITH WHITLEY AT 10, ALL PRESSURE ULCER PREVENTION MEASURES ARE NOTED TO BE IN PLACE AT THIS TIME. WILL SEE PRN.
[2019-05-11 12:00] VITALS: BP 126/67
--- NOTE | 2019-05-11 15:08 | NUR ---
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 SPOKE WITH SHAMEKA. CHARGE NURSE NOTIFIED. ISOLATION ROOM PENDING.
[2019-05-11 16:00] VITALS: BP 121/64
--- NOTE | 2019-05-11 17:12 | NUR ---
TRANSFERRED PT TO ROOM 110. ISOLATION PRECAUTIONS IN PLACE.
[2019-05-11] MEDS: PROSOURCE / PROSTAT (PYXIS) 30 ML UDC GT SCH (17:13)
[2019-05-11] MEDS: ZINC SULFATE 220 MG CAPSULE GT SCH (17:17)
[2019-05-11] MEDS: ASCORBIC ACID 500 MG TABLET GT SCH (17:17)
[2019-05-11] MEDS: MUPIROCIN OINT 2% 22 GM TUBE SCH ×2 (18:00→20:52)
--- NOTE | 2019-05-11 18:42 | NUR ---
LEGAL SECRETARY CLOSING NOTE PT ASLEEP IN BED, RESPONSIVE TO NAME AND TOUCH, ABLE TO VERBALIZE SOME SHORT WORDS LOW IN VOLUME HARD TO UNDERSTAND. ON 02 VIA NC 3L/MIN, SATURATING WELL, RESPIRATIONS EVEN AND UNLABORED, NO SIGNS OF RESPIRATORY DISTRESS NOTED. IV SITE ON RIGHT AC G18 PATENT, INTACT INFUSING ZOSYN AT 100CC/HR, NO SIGNS OF INFILTRATION NOTED. JEVITY 1.2 INFUSING AT 75CC/HR, PT TOLERATING FEEDING WELL. ON JEEPER OPERATOR SINUS RHYTHM HR 105. BED IN LOW POSITION,, LOCKED, CALL LIGHT WITHIN REACH. PROVIDED SAFETY AND COMFORT TO PT THROUGHOUT SHIFT, ALL DUE MEDS GIVEN, TURNED AND REPOSITIONED EVERY 2 HOURS, OFFLOADED EXTREMITIES. CONTACT ISOLATION PRECAUTIONS IN PLACE. WILL ENDORSE TO NOC SHIFT NURSE.
--- NOTE | 2019-05-11 19:06 | NUR ---
PRESS SECRETARY OPENING NOTES RECEIVED PATIENT RESTING IN BED, A/OX1, ABLE TO ANSWER TO SIMPLE YES OR NO QUESTIONS. PT DENIES ANY PAIN AT THE MOMENT. ON TELE MONITOR SINUS TACHY WITH HR 100'S. ON OXYGEN 3L VIA NASAL CANNULA, TOLERATING WELL. NO SOB AND ACUTE DISTRESS NOTED. IV SITE RIGHT AC #18G, SITE CLEAN, DRY AND INTACT, FLUSHING AND PATENT. IV ANTIBIOTIC RUNNING ORDERED. NO INFILTRATION NOTED. GTF NOTED FLUSHING AND PATENT, RUNNING AT 75CC/HR, MINIMAL RESIDUAL NOTED. FC NOTED OFF THE FLOOR DRAINING YELLOW URINE. SAFETY MEASURES IN PLACE AND MAINTAINED AT ALL TIMES; CALL LIGHT WITHIN REACH, SIDE RAILS UP X2, HOB ELEVATED AT ALL TIMES. WILL CONTINUE TO MONITOR PT CLOSELY.
--- NOTE | 2019-05-11 19:17 | NUR ---
ENDORSED TO NOC SHIFT NURSE ABOUT STANDING ORDER TO OBTAIN STOOL SAMPLE.
[2019-05-11 20:00] VITALS: BP 103/57
[2019-05-12] VITALS (7 sets, daily range): BP systolic 101–131; BP diastolic 57–76
[2019-05-12] MEDS: ZOSYN IVPB 3.375 G in IV D5W 50ml IV SCH ×4 (05:56→23:57)
[2019-05-12 06:54] LABS: CALCIUM, SERUM 8.9 mg/dL (8.5-10.1); CARBON DIOXIDE 25 mmol/L (21-32); CHLORIDE 110 mmol/L (98-107); CREATININE 1.7 mg/dL (0.6-1.3); GLUCOSE 121 mg/dL (74-106); MAGNESIUM 2.3 mg/dL (1.8-2.4); POTASSIUM 5.3 mmol/L (3.5-5.1); SODIUM SERUM 143 mmol/L (136-145); UREA NITROGEN, BLOOD 56 mg/dL (7-18)
--- NOTE | 2019-05-12 07:15 | NUR ---
COURTESY BUS DRIVER CLOSING NOTES PT KEPT CLEAN, DRY, AND COMFORTABLE. NOT IN ANY DISTRESS AT THE MOMENT. NO ACUTE CHANGES THROUGHOUT SHIFT. NO RESPIRATORY OR CARDIAC DISTRESS NOTED AT THE MOMENT. GTF FEEDING INFUSING AT 75CC/HR, PT TOLERATING FEEDING WELL. REPOSITIONED Q2H. SAFETY MEASURES MAINTAINED. ENDORSED TO AM RN FOR THAIS.
--- NOTE | 2019-05-12 07:22 | NUR ---
COMMUNITY EDUCATION COORDINATOR OPENING NOTE RECEIVED REPORT FROM [facility] SHIFT NURSE. PT ASLEEP IN BED, RESPONSIVE TO NAME AND TOUCH, ABLE TO VERBALIZE SOME SHORT WORDS LOW IN VOLUME HARD TO UNDERSTAND. ON 02 VIA NC 3L/MIN, SATURATING WELL, RESPIRATIONS EVEN AND UNLABORED, NO SIGNS OF RESPIRATORY DISTRESS NOTED. IV SITE ON RIGHT AC G18 PATENT, INTACT INFUSING ZOSYN AT 100CC/HR, NO SIGNS OF INFILTRATION NOTED. JEVITY 1.2 INFUSING AT 75CC/HR, PT TOLERATING FEEDING WELL. ON EXTERIOR DOOR INSTALLER SINUS RHYTHM HR 98. BED IN LOW POSITION, LOCKED, CALL LIGHT WITHIN REACH. CONTACT ISOLATION PRECAUTIONS IN PLACE.
[2019-05-12] MEDS: JEVITY 1.2 CAL 1,000 ML BOTTLE GT PRN ×2 (07:29→22:38)
[2019-05-12] MEDS: PANTOPRAZOLE 40 MG VIAL IV SCH (08:19)
[2019-05-12] MEDS: FERROUS SULFATE UDC 300 MG/5 ML UDC GT SCH ×3 (08:19→16:03)
[2019-05-12] MEDS: DAKINS QUARTER STRENGTH (0.125%) 480 ML BOTTLE TOP SCH ×2 (08:20)
[2019-05-12] MEDS: MUPIROCIN OINT 2% 22 GM TUBE SCH ×2 (08:20→21:19)
[2019-05-12] MEDS: BENZTROPINE MESYLATE (1 MG) 1 MG TABLET GT SCH ×2 (08:20→16:03)
[2019-05-12] MEDS: THERAHONEY GEL 1.5 OZ TUBE TP SCH (08:20)
[2019-05-12] MEDS: LACTOBACILLUS RHAMNOSUS GG 1 EACH CAP.SPRINK GT SCH ×2 (08:20→16:03)
[2019-05-12] MEDS: HALOPERIDOL 5 MG TABLET GT SCH ×2 (08:20→16:03)
[2019-05-12] MEDS: HYDROGEL DRESSING 90 GM TUBE TP SCH (08:20)
[2019-05-12 08:24] LABS: BASOPHILS % (AUTO) 0.5 % (0.0-2.0); EOSINOPHILS % (AUTO) 6.7 % (0.0-6.0); HEMATOCRIT 26 % (39-51); HEMOGLOBIN 8.1 g/dL (13.5-17.5); LYMPHOCYTES # (AUTO) 1.1 /CMM (0.8-4.8); LYMPHOCYTES % (AUTO) 10.8 % (20.0-44.0); MEAN CORPUSCULAR HGB CONC 31 g/dl (31.0-36.0); MEAN CORPUSCULAR VOLUME 84 fL (80-96); MONOCYTES # (AUTO) 0.9 /CMM (0.1-1.30); MONOCYTES % (AUTO) 9.2 % (2.0-12.0); NEUTROPHILS # (AUTO) 7.3 /CMM (1.8-8.9); NEUTROPHILS % (AUTO) 72.8 % (43.0-81.0); PLATELET COUNT (AUTO) 250 /CMM (150-450); RED BLOOD CELL COUNT(AUTO) 3.17 MIL/uL (4.5-6.0)
[2019-05-12] MEDS: VANCOMYCIN HCL 0.75 GM in IV D5W 250 ML IV SCH ×2 (12:10→12:58)
[2019-05-12 14:23] LABS: OCCULT BLOOD STOOL NEGATIVE (NEGATIVE)
[2019-05-12] MEDS: ASCORBIC ACID 500 MG TABLET GT SCH (17:41)
[2019-05-12] MEDS: ZINC SULFATE 220 MG CAPSULE GT SCH (17:41)
[2019-05-12] MEDS: BLOOD SUGAR DIAGNOSTIC 1 EACH STRIP IN SCH ×2 (18:00→23:57)
--- NOTE | 2019-05-12 18:50 | NUR ---
OLAP DEVELOPER CLOSING NOTE PT ASLEEP IN BED, RESPONSIVE TO NAME AND TOUCH, ABLE TO ANSWER "YES" AND "NO". ON 02 VIA NC 3L/MIN, SATURATING WELL, RESPIRATIONS EVEN AND UNLABORED, NO SIGNS OF RESPIRATORY DISTRESS NOTED. IV SITE ON RIGHT AC NOT FLUSHING, REMOVED IV, APPLIED DRESSING. ATTEMPTED NEW IV SITE INSERTION ON RIGHT AC, ATTEMPT UNSUCCESSFUL . JEVITY 1.2 INFUSING AT 75CC/HR, PT TOLERATING FEEDING WELL. ON FINISH REPAIR WORKER SINUS TACHY HR 105. ALL DUE MEDS GIVEN, PROVIDED SAFETY AND COMFORT THROUGHOUT SHIFT, TURNED AND REPOSITIONED EVERY 2 HOURS. WILL ENDORSE TO [facility] SHIFT NURSE.
--- NOTE | 2019-05-12 19:40 | NUR ---
DIRECTOR SEARCH MARKETING STRATEGIES NOTE: PATIENT RESTING IN BED, NO ACUTE DISTRESS NOTED. BREATHING EVEN AND UNLABORED, NO SOB NOTED. BARNARD CATHETER IN PLACE, DRAINING CLEAR YELLOW URINE. PATIENT NEEDED A NEW IV SITE, WILL TRY LATER TO START NEW IV. BED LOCKED AND IN LOWEST POSITION, CALL LIGHT IN REACH, WILL CONTINUE TO MONITOR. Addendum: 05/12/19 at 2044 by AURELIO KURTZ RN ISOLATION PRECAUTIONS OBSERVED.
--- NOTE | 2019-05-12 23:00 | NUR ---
COMMERCIAL FISHER NOTE: NEW IV STARTED TO RIGHT HAND #22 WITH GOOD BLOOD RETURN. WILL CONTINUE TO MONITOR.
[2019-05-13] VITALS (8 sets, daily range): BP systolic 105–129; BP diastolic 59–69
--- NOTE | 2019-05-13 00:45 | NUR ---
PROTECTION AGENT NOTE: PATIENT BLOOD SUGAR LEVEL 110MG/DL, NO INSULIN NEEDED, NO S/S OF HYPER/HYPOGLYCEMIA NOTED. WILL CONTINUE TO MONITOR.
[2019-05-13] MEDS: ZOSYN IVPB 3.375 G in IV D5W 50ml IV SCH ×3 (05:53→17:37)
[2019-05-13] MEDS: BLOOD SUGAR DIAGNOSTIC 1 EACH STRIP IN SCH ×4 (05:53→23:47)
--- NOTE | 2019-05-13 06:30 | NUR ---
DREDGE MATE NOTE: PATIENT RESTING IN BED, NO ACUTE DISTRESS NOTED. BREATHING EVEN AND UNLABORED, NO SOB NOTED. BARNARD CATHETER IN PLACE, DRAINED CLEAR YELLOW URINE. IV SITE TO RIGHT HAND IN PLACE. BED LOCKED AND IN LOWEST POSITION, CALL LIGHT IN REACH, WILL ENDORSE TO DAY NURSE TO CONTINUE WITH PLAN OF CARE.
[2019-05-13 06:45] LABS: BASOPHILS % (AUTO) 0.4 % (0.0-2.0); EOSINOPHILS % (AUTO) 7.7 % (0.0-6.0); HEMATOCRIT 28 % (39-51); HEMOGLOBIN 8.5 g/dL (13.5-17.5); LYMPHOCYTES # (AUTO) 1.1 /CMM (0.8-4.8); MEAN CORPUSCULAR HGB CONC 31 g/dl (31.0-36.0); MEAN CORPUSCULAR VOLUME 84 fL (80-96); MONOCYTES # (AUTO) 0.8 /CMM (0.1-1.30); MONOCYTES % (AUTO) 8.6 % (2.0-12.0); NEUTROPHILS # (AUTO) 6.7 /CMM (1.8-8.9); NEUTROPHILS % (AUTO) 71.3 % (43.0-81.0); PLATELET COUNT (AUTO) 266 /CMM (150-450); RED BLOOD CELL COUNT(AUTO) 3.32 MIL/uL (4.5-6.0); WHITE BLOOD COUNT (AUTO) 9.4 K/uL (4.3-11.0)
[2019-05-13] MEDS: VANCOMYCIN HCL 0.75 GM in IV D5W 250 ML IV SCH (06:46)
[2019-05-13 07:02] LABS: CALCIUM, SERUM 9.1 mg/dL (8.5-10.1); CARBON DIOXIDE 27 mmol/L (21-32); CHLORIDE 110 mmol/L (98-107); CREATININE 1.6 mg/dL (0.6-1.3); GLUCOSE 128 mg/dL (74-106); MAGNESIUM 2.1 mg/dL (1.8-2.4); PHOSPHORUS 3.7 mg/dL (2.5-4.9); POTASSIUM 4.9 mmol/L (3.5-5.1); SODIUM SERUM 143 mmol/L (136-145); UREA NITROGEN, BLOOD 50 mg/dL (7-18)
--- NOTE | 2019-05-13 07:30 | NUR ---
TELE/RN OPENING NOTES RECEIVED PATIENT IN BED SLEEPING COMFORTABLY. EASILY AROUSABLE. NO PAIN OR ACUTE DISTRESS AT THIS TIME. RESPIRATION EVEN AND UNLABORED. SKIN IS DRY WARM TO TOUCH. NOTED WITH BARNARD CATHETER IN PLACE, DRAINING CLEAR YELLOW URINE. IV ACCESS ON R HAND #22G INTACT AND PATENT. FLUSHING WELL. NO S/S OF INFECTION OR INFILTRATION.ALL NEEDS ANTICIPATED. CALL LIGHT WITHIN REACHED. BED LOCKED AND IN LOWEST POSITION. SAFETY MAINTAINED. WILL CONTINUE TO MONITOR CLOSELY.
[2019-05-13] MEDS: BENZTROPINE MESYLATE (1 MG) 1 MG TABLET GT SCH ×2 (08:25→17:30)
[2019-05-13] MEDS: FERROUS SULFATE UDC 300 MG/5 ML UDC GT SCH ×3 (08:25→17:30)
[2019-05-13] MEDS: DAKINS QUARTER STRENGTH (0.125%) 480 ML BOTTLE TOP SCH ×2 (08:25→08:30)
[2019-05-13] MEDS: PANTOPRAZOLE 40 MG VIAL IV SCH (08:25)
[2019-05-13] MEDS: LACTOBACILLUS RHAMNOSUS GG 1 EACH CAP.SPRINK GT SCH ×2 (08:25→17:30)
[2019-05-13] MEDS: HALOPERIDOL 5 MG TABLET GT SCH ×2 (08:25→17:30)
[2019-05-13] MEDS: HYDROGEL DRESSING 90 GM TUBE TP SCH (08:26)
[2019-05-13] MEDS: THERAHONEY GEL 1.5 OZ TUBE TP SCH (08:26)
[2019-05-13] MEDS: MUPIROCIN OINT 2% 22 GM TUBE SCH ×2 (08:30→20:54)
[2019-05-13] MEDS: ZINC SULFATE 220 MG CAPSULE GT SCH (17:30)
[2019-05-13] MEDS: ASCORBIC ACID 500 MG TABLET GT SCH (17:30)
[2019-05-13] MEDS: JEVITY 1.2 CAL 1,000 ML BOTTLE GT PRN (17:59)
--- NOTE | 2019-05-13 19:12 | NUR ---
TELE/RN CLOSING NOTES PATIENT CONTINUES TO REMAIN IN STABLE CONDITION THROUGHOUT THE SHIFT. PROVIDED COMFORT AND SAFETY. NOTED WITH BARNARD CATHETER IN PLACE, DRAINING CLEAR YELLOW URINE. IV ACCESS ON R HAND #22G INTACT AND PATENT. FLUSHING WELL. NO S/S OF INFECTION OR INFILTRATION.ALL NEEDS ANTICIPATED. CALL LIGHT WITHIN REACHED. BED LOCKED AND IN LOWEST POSITION. SAFETY MAINTAINED. WILL CONTINUE TO MONITOR CLOSELY. ENDORSED TO PM NURSE FOR THAIS.
--- NOTE | 2019-05-13 19:24 | NUR ---
CONTACT CENTER ASSOCIATE OPENING NOTES RECEIVED PATIENT IN BED SLEEPING, BUT EASY TO AROUSE. PT NONVERBAL. NO PAIN OR ACUTE DISTRESS AT THIS TIME. ON OXYGEN 3L VIA NC, TOLERATING WELL, RESPIRATION EVEN AND UNLABORED. NOTED WITH BARNARD CATHETER IN PLACE, DRAINING CLEAR YELLOW URINE. IV SITE RIGHT HAND #22G FLUSHING AND PATENT, NO S/S OF INFILTRATION. SAFETY MEASURES IN PLACE; CALL LIGHT WITHIN REACH, BED LOCKED AND IN LOW POSITION, SIDE RAILS UP X2. WILL CONTINUE TO MONITOR CLOSELY. Addendum: 05/13/19 at 2054 by NIKI PEREZ RN CLARIFICATION: PATIENT OPENS EYES AND ANSWERS SIMPLE YES/NO QUESTION.
[2019-05-13] MEDS ORDERED: LINEZOLID 600 MG TABLET PEG SCH (23:00)
[2019-05-14] VITALS: BP 118/69
--- NOTE | 2019-05-14 01:36 | NUR ---
WHARF TENDER HELPER NOTES ON TELE MONITOR PT SINUS TACHY WITH HR 117. PT AWAKE, AND STATED YES WHEN ASKED IF HE IS IN PAIN. WILL ADMINISTER PRN PAIN MEDICATION.
[2019-05-14] MEDS: HYDROCODONE/APAP 5/325MG 1 EACH TABLET GT PRN (01:42)
[2019-05-14 04:00] VITALS: BP 102/54
[2019-05-14] MEDS: Z GUARD REMEDY 2 OZ OINT TP PRN (05:08)
[2019-05-14] MEDS: BLOOD SUGAR DIAGNOSTIC 1 EACH STRIP IN SCH ×3 (05:37→17:16)
[2019-05-14] MEDS ORDERED: PIPERACILLIN /TAZOBACTAM 2.25 G VIAL IV ONE (05:40)
[2019-05-14] MEDS: PIPERACILLIN /TAZOBACTAM 2.25 G in IV D5W 50 ML IV SCH ×3 (05:43→21:28)
[2019-05-14] MEDS: JEVITY 1.2 CAL 1,000 ML BOTTLE GT PRN ×2 (05:44→18:15)
--- NOTE | 2019-05-14 06:53 | NUR ---
KNITTER MACHINE CLOSING NOTES PATIENT SLEEPING IN BED, BUT EASY TO AROUSE. ON TELE MONITOR ST WITH HR 100'S. NO PAIN OR ACUTE DISTRESS AT THIS TIME. ON OXYGEN 3L VIA NC, TOLERATING WELL, RESPIRATION EVEN AND UNLABORED. NOTED WITH BARNARD CATHETER IN PLACE, DRAINING CLEAR YELLOW URINE. IV SITE RIGHT HAND #22G FLUSHING AND PATENT, NO S/S OF INFILTRATION. REPOSITIONED Q2H. WOUND TX RENDERED ORDERED. ALL MD ORDERS ATTENDED. ALL NEEDS ANTICIPATED AND MET. SAFETY MEASURES IN PLACE; CALL LIGHT WITHIN REACH, BED LOCKED AND IN LOW POSITION, SIDE RAILS UP X2, HOB ELEVATED AT ALL TIMES. WILL CONTINUE TO MONITOR CLOSELY. WILL ENDORSE TO AM RN FOR THAIS.
--- NOTE | 2019-05-14 07:00 | NUR ---
RUBBER BLOCK LAYER OPENING NOTES RECEIVED PT LYING ON BED,AWAKE AND ABLE TO ANSWER THE QUESTIONS.ON TELE HR IS 95 WITH SR AND INCREASED T WAVE.ON NC 3 LPM O2 CONTINUOUSLY,NO SOB AND ACUTE DISTRESS NOTED.G TUBE IS IN PLACE WITH JEVITY @75CC/HR IS RUNNING,MINIMAL GASTRIC RESIDUAL NOTED.IV LINE IS ON RIGHT HAND G22,IV SITE IS CLEAN,DRY AND INTACT.NO INFILTRATION NOTED.SAFETY IS MAINTAINED AT ALL TIMES,CALL LIGHT IS WITHIN REACH.BED IS IN LOW POSITION AND LOCKED.WILL CONTINUE TO MONITOR THE PT CLOSELY.
[2019-05-14 07:18] LABS: BASOPHILS % (AUTO) 0.4 % (0.0-2.0); EOSINOPHILS % (AUTO) 8.2 % (0.0-6.0); HEMATOCRIT 28 % (39-51); HEMOGLOBIN 8.7 g/dL (13.5-17.5); LYMPHOCYTES # (AUTO) 1.4 /CMM (0.8-4.8); LYMPHOCYTES % (AUTO) 14.1 % (20.0-44.0); MEAN CORPUSCULAR HGB CONC 31 g/dl (31.0-36.0); MEAN CORPUSCULAR VOLUME 83 fL (80-96); MONOCYTES # (AUTO) 0.9 /CMM (0.1-1.30); MONOCYTES % (AUTO) 8.7 % (2.0-12.0); NEUTROPHILS # (AUTO) 6.8 /CMM (1.8-8.9); NEUTROPHILS % (AUTO) 68.6 % (43.0-81.0); PLATELET COUNT (AUTO) 270 /CMM (150-450); RED BLOOD CELL COUNT(AUTO) 3.41 MIL/uL (4.5-6.0)
[2019-05-14 07:37] LABS: CALCIUM, SERUM 9.3 mg/dL (8.5-10.1); CARBON DIOXIDE 24 mmol/L (21-32); CHLORIDE 109 mmol/L (98-107); CREATININE 1.6 mg/dL (0.6-1.3); GLUCOSE 124 mg/dL (74-106); MAGNESIUM 2.1 mg/dL (1.8-2.4); PHOSPHORUS 4.1 mg/dL (2.5-4.9); POTASSIUM 5.3 mmol/L (3.5-5.1); SODIUM SERUM 142 mmol/L (136-145); UREA NITROGEN, BLOOD 45 mg/dL (7-18)
[2019-05-14 08:00] VITALS: BP 116/68
[2019-05-14] MEDS: LINEZOLID 600 MG TABLET PEG SCH ×2 (08:25→21:28)
[2019-05-14] MEDS: LACTOBACILLUS RHAMNOSUS GG 1 EACH CAP.SPRINK GT SCH ×2 (08:25→16:54)
[2019-05-14] MEDS: BENZTROPINE MESYLATE (1 MG) 1 MG TABLET GT SCH ×2 (08:25→16:56)
[2019-05-14] MEDS: PANTOPRAZOLE 40 MG VIAL IV SCH (08:25)
[2019-05-14] MEDS: HALOPERIDOL 5 MG TABLET GT SCH ×2 (08:25→16:54)
[2019-05-14] MEDS: FERROUS SULFATE UDC 300 MG/5 ML UDC GT SCH ×3 (08:25→16:53)
[2019-05-14] MEDS: MUPIROCIN OINT 2% 22 GM TUBE SCH ×2 (08:26→21:28)
[2019-05-14] MEDS: DAKINS QUARTER STRENGTH (0.125%) 480 ML BOTTLE TOP SCH ×2 (08:26)
[2019-05-14] MEDS: THERAHONEY GEL 1.5 OZ TUBE TP SCH (08:27)
[2019-05-14] MEDS: HYDROGEL DRESSING 90 GM TUBE TP SCH (08:27)
[2019-05-14 12:00] VITALS: BP 120/69
[2019-05-14] MEDS ORDERED: SODIUM POLYSTYRENE SULFONATE 15 G/60 ML BOTTLE PO ONE (14:00)
[2019-05-14 16:00] VITALS: BP 113/66
[2019-05-14] MEDS: ZINC SULFATE 220 MG CAPSULE GT SCH (17:01)
[2019-05-14] MEDS: ASCORBIC ACID 500 MG TABLET GT SCH (17:01)
--- NOTE | 2019-05-14 18:53 | NUR ---
MEDICAL RECORDS CLERK CLOSING NOTES PT IS LYING ON BED,ALERT AND CAN OPEN EYES.RESPIRATION IS EVEN AND NONLABORED,NO SIGNIFICANT CHANGES NOTED IN THE SHIFT.WILL ENDORSE TO CREDIT UNION EXAMINER RN FOR THAIS.
--- NOTE | 2019-05-14 19:25 | NUR ---
CASHIER GAMBLING OPENING PM NOTES BEDSIDE REPORT RECIEVED FROM AUDREY SANDOVAL. CONTACT ISOLATION BEING OBSERVED FOR MRSA OF NARES PER REPORT. PT ON AIR MATTRESS BED,ALERT AND CAN OPEN EYES IN SEMIFOWLERS POSITION.RESPIRATION IS EVEN AND NONLABORED, JEVITY INFUSING TO GTUBE AT 75ML PER HOUR. IV TO RIGHT HAND #22 IS PATENT AND FLUSHED. WILL CONTINUE TO MONITOR. Addendum: 05/14/19 at 2047 by LUKE FLORENCE RN TELE REPORTS SR AT 99
[2019-05-14 20:00] VITALS: BP 134/71
[2019-05-15] VITALS: BP 105/54
[2019-05-15] MEDS: BLOOD SUGAR DIAGNOSTIC 1 EACH STRIP IN SCH ×5 (00:43→23:01)
[2019-05-15 04:00] VITALS: BP 112/60
[2019-05-15] MEDS: PIPERACILLIN /TAZOBACTAM 2.25 G in IV D5W 50 ML IV SCH ×2 (04:11→13:06)
--- NOTE | 2019-05-15 05:45 | NUR ---
hypertension; alycen call back. no new orders. dr. cooper called back. reviewed patients bp with andonian and informed pt does not want to be rechecked till 6am. reviewed that i stopped ivf and had aministered nitro tach as well as given hydralazine tablet from our phone call earlier in the night. no new orders recieved. Addendum: 05/15/19 at 0652 by LUKE FLORENCE RN recorded on the wrong patient.
[2019-05-15 07:21] LABS: BASOPHILS # (AUTO) 0.1 /CMM (0.0-0.2); BASOPHILS % (AUTO) 0.6 % (0.0-2.0); EOSINOPHILS % (AUTO) 8.9 % (0.0-6.0); HEMATOCRIT 29 % (39-51); HEMOGLOBIN 8.9 g/dL (13.5-17.5); LYMPHOCYTES # (AUTO) 1.4 /CMM (0.8-4.8); LYMPHOCYTES % (AUTO) 15.2 % (20.0-44.0); MEAN CORPUSCULAR HGB CONC 31 g/dl (31.0-36.0); MEAN CORPUSCULAR VOLUME 84 fL (80-96); MONOCYTES # (AUTO) 0.9 /CMM (0.1-1.30); MONOCYTES % (AUTO) 9.6 % (2.0-12.0); NEUTROPHILS # (AUTO) 6.1 /CMM (1.8-8.9); NEUTROPHILS % (AUTO) 65.7 % (43.0-81.0); PLATELET COUNT (AUTO) 267 /CMM (150-450); RED BLOOD CELL COUNT(AUTO) 3.44 MIL/uL (4.5-6.0); WHITE BLOOD COUNT (AUTO) 9.3 K/uL (4.3-11.0)
[2019-05-15 07:29] LABS: CALCIUM, SERUM 8.8 mg/dL (8.5-10.1); CARBON DIOXIDE 26 mmol/L (21-32); CHLORIDE 110 mmol/L (98-107); CREATININE 1.4 mg/dL (0.6-1.3); GLUCOSE 114 mg/dL (74-106); MAGNESIUM 1.9 mg/dL (1.8-2.4); PHOSPHORUS 4.1 mg/dL (2.5-4.9); POTASSIUM 4.6 mmol/L (3.5-5.1); SODIUM SERUM 145 mmol/L (136-145); UREA NITROGEN, BLOOD 41 mg/dL (7-18)
--- NOTE | 2019-05-15 07:30 | NUR ---
RN OPENING NOTES RECEIVED PATIENT IN BED RESTING. NONVERBAL, OPEN EYES. HOB ELEVATED. NO S/S OF DISTRESS, NO SOB. NO S/S OF PAIN OR DISCOMFORT. ON CONTACT ISOLATION BEING OBSERVED FOR MRSA OF NARES PER REPORT. PATIENT ON AIR MATTRESS BED. JEVITY INFUSING TO GTUBE AT 75ML PER HOUR. IV TO RIGHT HAND #22, INTACT AND PATENT. BED IN LOW/LOCKED POSITION, SIDERAILS UP, CASLL LIGHT IN REACH. WILL CONTINUE TO MONITOR ACCORDINGLY.
[2019-05-15 08:00] VITALS: BP 101/58
[2019-05-15] MEDS: BENZTROPINE MESYLATE (1 MG) 1 MG TABLET GT SCH ×2 (09:21→17:10)
[2019-05-15] MEDS: PANTOPRAZOLE 40 MG VIAL IV SCH (09:21)
[2019-05-15] MEDS: LACTOBACILLUS RHAMNOSUS GG 1 EACH CAP.SPRINK GT SCH ×2 (09:21→17:09)
[2019-05-15] MEDS: LINEZOLID 600 MG TABLET PEG SCH ×2 (09:21→20:34)
[2019-05-15] MEDS: HALOPERIDOL 5 MG TABLET GT SCH ×2 (09:21→17:09)
[2019-05-15] MEDS: FERROUS SULFATE UDC 300 MG/5 ML UDC GT SCH ×3 (09:22→17:08)
[2019-05-15] MEDS: THERAHONEY GEL 1.5 OZ TUBE TP SCH (09:32)
[2019-05-15] MEDS: HYDROGEL DRESSING 90 GM TUBE TP SCH (09:32)
[2019-05-15] MEDS: DAKINS QUARTER STRENGTH (0.125%) 480 ML BOTTLE TOP SCH ×2 (09:32→09:33)
[2019-05-15] MEDS: Z GUARD REMEDY 2 OZ OINT TP PRN (09:33)
[2019-05-15] MEDS: MUPIROCIN OINT 2% 22 GM TUBE SCH ×2 (09:33→20:54)
[2019-05-15 12:00] VITALS: BP 121/70
[2019-05-15 16:00] VITALS: BP 121/70
[2019-05-15] MEDS: ASCORBIC ACID 500 MG TABLET GT SCH (17:09)
[2019-05-15] MEDS: ZINC SULFATE 220 MG CAPSULE GT SCH (17:10)
[2019-05-15] MEDS: CEFTRIAXONE 1 G in IV D5W 50 ML IV SCH (17:12)
[2019-05-15] MEDS: JEVITY 1.2 CAL 1,000 ML BOTTLE GT PRN (17:21)
--- NOTE | 2019-05-15 19:00 | NUR ---
moving picture producer opening notes Received Pt form morning nurse. Pt is resting in bed comfortably. Pt is non verbal, and open eyes to stimuli. Respiration is normal in 2 L NC. No SOB. No S/S of distress noted. IV sites at RFA # 24 is clean, intact, patent and SL. With on going tube feeding intact and patent and running Jevity 1.2 kiara @ 75 ml/hr. Tele monitor showed sinus tachy 102. Toussaint cath is intact, patent and draining yellow urine. Contact precautions is maintained. Safety precautions is maintained. Bed at low position, brakes locked, side rails upX3 and call light is within reach. Will continue to monitor.
--- NOTE | 2019-05-15 19:22 | NUR ---
RN CLOSING NOTES PATIENT IN STABLE CONDITION. ALL NEEDS ATTENDED AND PROVIDED. ALL DUE MEDS GIVEN ORDERED. KEPT PATIENT SAFE AND COMFORTABLE. TURNED AND REPOSITIONED PATIENT EVERY 2HR NEEDED. WOUND CARE RENDERED. BED IN LOW/LOCKED POSITION, SIDERAILS UPX2, CALL LIGHT IN REACH. ENDORSED TO NIGHT RN FOR THAIS.
[2019-05-15 20:00] VITALS: BP 120/74
[2019-05-16] VITALS: BP 142/77
[2019-05-16 04:00] VITALS: BP 113/63
[2019-05-16] MEDS: BLOOD SUGAR DIAGNOSTIC 1 EACH STRIP IN SCH ×3 (05:19→18:18)
[2019-05-16] MEDS: JEVITY 1.2 CAL 1,000 ML BOTTLE GT PRN ×2 (06:12→20:38)
[2019-05-16 06:36] LABS: CALCIUM, SERUM 8.9 mg/dL (8.5-10.1); CARBON DIOXIDE 27 mmol/L (21-32); CHLORIDE 111 mmol/L (98-107); CREATININE 1.4 mg/dL (0.6-1.3); GLUCOSE 116 mg/dL (74-106); POTASSIUM 4.3 mmol/L (3.5-5.1); SODIUM SERUM 147 mmol/L (136-145); UREA NITROGEN, BLOOD 43 mg/dL (7-18)
--- NOTE | 2019-05-16 06:50 | NUR ---
assistant editor closing notes Pt is resting in bed comfortably. Respiration is normal in 2 L NC. No SOB. No S/S of distress noted. IV sites at RFA # 24 is clean, intact, patent and SL. With on going G-tube feeding jevity 1.2 kiara @ 75 ml/hr. VS is stable. Tele monitor showed sinus tachy 105. Routine meds were given as ordered. Pt tolerated well. Wound care and skin care provided as ordered. Pt tolerated activity well. Toussaint cath is intact, patent and draining yellow urine 500 ml. Kept Pt clean, dry, warm and comfortable. Turned and repositioned Q 2hr. Contact precautions is maintained. Safety precautions is maintained. Bed at low position, brakes locked, side rails upx3 and call light is within reach. Will endorse to morning nurse for THAIS.
--- NOTE | 2019-05-16 07:34 | NUR ---
RN OPENING NOTES RECEIVED PATIENT RESTING IN BED COMFORTABLY, SHOWS NO S/SX OF DISTRESS. HE IS AOX1, NON-VERBAL, OPENS EYES AND TRACES, AND IS BEDBOUND. PT IS ON 2L OF O2 VIA NC, TOLERATING WELL, SHOWS NO S/SX OF RESP DISTRESS OR SOB. TELE MONITOR SHOWING ST @ 102 BPM. PT IS RECEIVING TUBE FEED, JEVITY AT 75 ML/HR, TOLERATING WELL, NO RESIDUAL. BARNARD CATHETER IS INTACT AND DRAINING URINE. RFA 24 G SL IS PATENT AND INTACT, NO FLUIDS ARE RUNNING. PT HAS MULTIPLE WOUNDS, WILL ADDRESS ACCORDING TO WOUND CARE PLAN. SAFETY MEASURES HAVE BEEN IMPLEMENTED, CALL LIGHT IS WITHIN REACH, BED IS IN LOWEST AND LOCKED POSITION, SIDE RAILS UP X2, WILL CONTINUE TO MONITOR FOR ANY CHANGES.
[2019-05-16 08:00] VITALS: BP 107/51
[2019-05-16] MEDS: FERROUS SULFATE UDC 300 MG/5 ML UDC GT SCH ×3 (08:17→16:10)
[2019-05-16] MEDS: LACTOBACILLUS RHAMNOSUS GG 1 EACH CAP.SPRINK GT SCH ×2 (08:17→16:10)
[2019-05-16] MEDS: PANTOPRAZOLE 40 MG VIAL IV SCH (08:17)
[2019-05-16] MEDS: LINEZOLID 600 MG TABLET PEG SCH ×2 (08:17→20:32)
[2019-05-16] MEDS: HALOPERIDOL 5 MG TABLET GT SCH ×2 (08:17→16:10)
[2019-05-16] MEDS: BENZTROPINE MESYLATE (1 MG) 1 MG TABLET GT SCH ×2 (08:17→16:10)
[2019-05-16] MEDS: MUPIROCIN OINT 2% 22 GM TUBE SCH ×2 (08:23→20:32)
[2019-05-16] MEDS: HYDROGEL DRESSING 90 GM TUBE TP SCH (08:23)
[2019-05-16] MEDS: DAKINS QUARTER STRENGTH (0.125%) 480 ML BOTTLE TOP SCH ×2 (08:24)
[2019-05-16] MEDS: THERAHONEY GEL 1.5 OZ TUBE TP SCH (08:31)
[2019-05-16 12:00] VITALS: BP 122/66
[2019-05-16 16:00] VITALS: BP 122/67
[2019-05-16] MEDS ORDERED: ACETAMINOPHEN 650 MG/20.3 ML UDC GT PRN (17:30)
[2019-05-16] MEDS: ZINC SULFATE 220 MG CAPSULE GT SCH (18:07)
[2019-05-16] MEDS: ASCORBIC ACID 500 MG TABLET GT SCH (18:07)
[2019-05-16] MEDS: CEFTRIAXONE 1 G in IV D5W 50 ML IV SCH (18:07)
--- NOTE | 2019-05-16 19:08 | NUR ---
RN CLOSING NOTES PATIENT IS RESTING COMFORTABLY IN BED, SHOWS NO S/SX OF PAIN OR DISTRESS. NO ACUTE CHANGES OCCURRED THROUGHOUT THE SHIFT, VITAL SIGNS ARE STABLE, PT NEEDS HAVE BEEN MET. SAFETY MEASURES HAVE BEEN IMPLEMENTED, CALL LIGHT IS WITHIN REACH, BED IS IN LOWEST AND LOCKED POSITION, SIDE RIALS UP X2, WILL ENDORSE TO NIGHTSHIFT RN FOR CONTINUITY OF CARE.
--- NOTE | 2019-05-16 19:30 | NUR ---
RN Notes Received patient awake, non verbal, opens eyes to verbal stimuli. HOB elevated with O2 inhalation at 2LPM via NC and tolerated well. No signs of distress and discomfort noted. Tele monitor reads Sinus rhythm with heart rate at 102. IV access on Right fore arm patent and intact. GT intact with ongoing GT feeding tolerated well. Multiple scattered wound covered with dressing noted. Safety measures and fall precaution in place. Will turn and reposition as scheduled. Will continue to monitor patient.
[2019-05-16 20:00] VITALS: BP 114/62
[2019-05-17] VITALS: BP 105/56
[2019-05-17] MEDS: BLOOD SUGAR DIAGNOSTIC 1 EACH STRIP IN SCH ×4 (00:15→17:13)
[2019-05-17 04:00] VITALS: BP 110/59
[2019-05-17 06:23] LABS: CARBON DIOXIDE 27 mmol/L (21-32); CHLORIDE 112 mmol/L (98-107); CREATININE 1.4 mg/dL (0.6-1.3); GLUCOSE 110 mg/dL (74-106); POTASSIUM 4.8 mmol/L (3.5-5.1); SODIUM SERUM 147 mmol/L (136-145); UREA NITROGEN, BLOOD 45 mg/dL (7-18)
--- NOTE | 2019-05-17 07:10 | NUR ---
RN Notes No significant change in condition noted, vital signs stable, afebrile. Tele monitor reads Sinus Tach with heart rate at 106. GT intact, feeding tolerated well. Turned and repositioned per protocol. Wound care done. Kept clean and dry. Safety measures and fall precaution observed. Will endorse accordingly.
[2019-05-17 08:00] VITALS: BP 113/63
[2019-05-17] MEDS: MUPIROCIN OINT 2% 22 GM TUBE SCH ×2 (08:53→20:59)
[2019-05-17] MEDS: HYDROGEL DRESSING 90 GM TUBE TP SCH (08:53)
[2019-05-17] MEDS: THERAHONEY GEL 1.5 OZ TUBE TP SCH (08:54)
[2019-05-17] MEDS: LINEZOLID 600 MG TABLET PEG SCH ×2 (08:55→20:58)
[2019-05-17] MEDS: FERROUS SULFATE UDC 300 MG/5 ML UDC GT SCH ×3 (08:55→17:08)
[2019-05-17] MEDS: DAKINS QUARTER STRENGTH (0.125%) 480 ML BOTTLE TOP SCH ×2 (08:55)
[2019-05-17] MEDS: HALOPERIDOL 5 MG TABLET GT SCH ×2 (08:55→17:08)
[2019-05-17] MEDS: BENZTROPINE MESYLATE (1 MG) 1 MG TABLET GT SCH ×2 (08:56→17:08)
[2019-05-17] MEDS: LACTOBACILLUS RHAMNOSUS GG 1 EACH CAP.SPRINK GT SCH ×2 (08:56→17:08)
[2019-05-17] MEDS: PANTOPRAZOLE 40 MG VIAL IV SCH (08:56)
[2019-05-17] MEDS: JEVITY 1.2 CAL 1,000 ML BOTTLE GT PRN (11:47)
[2019-05-17 16:00] VITALS: BP 107/55
[2019-05-17] MEDS: ASCORBIC ACID 500 MG TABLET GT SCH (17:10)
[2019-05-17] MEDS: ZINC SULFATE 220 MG CAPSULE GT SCH (17:10)
[2019-05-17] MEDS: CEFTRIAXONE 1 G in IV D5W 50 ML IV SCH (17:13)
--- NOTE | 2019-05-17 19:00 | NUR ---
MS RN closing No significant change throughout shift, afebrile. Patient remains A/Ox1, able to follow command, responds to name, opens eyes. 2L O2 via NC, no SOB noted. Tele monitor attached, sinus tachy HR 100-102. GTF running @75Ml/hr. R FA 24G C/D/I, patent, SL. Toussaint catheter draining urine to gravity. Wound care completed, turned per protocol. Endorsed to sonali SANDOVAL for THAIS
--- NOTE | 2019-05-17 19:30 | NUR ---
MS RN NOTE: RECEIVED PT ON BED WITH NO APPARENT DISTRESS NOTED. NO FACIAL GRIMACING OR ANY SIGNS OF PAIN NOTED. ON 2LPM NASAL CANNULA, NO SOB NOTED. IV ON RIGHT FOREARM #24 INTACT AND PATENT, FLUSHING WELL. BARNARD CATH INTACT AND DRAINING WELL. KEPT CLEAN, DRY AND COMFORTABLE. SAFETY AND FALL PRECAUTIONS OBSERVED AND MAINTAINED. WILL CONTINUE TO MONITOR PT.
[2019-05-17 20:00] VITALS: BP 127/59
[2019-05-18] MEDS: BLOOD SUGAR DIAGNOSTIC 1 EACH STRIP IN SCH ×3 (00:18→12:19)
--- NOTE | 2019-05-18 01:10 | NUR ---
RN NOTES, ENDORSED PATIENT FROM [facility] FOR CONTINUATION OF CARE, PATIENT ON 2LPM VIA NC, BREATHING EVEN AND UNLABORED, NO SOB/ACUTE DISTRESS NOTED, C/O GENERALIZED PAIN, WILL ADMINISTER PAIN MEDICATION.
[2019-05-18] MEDS: HYDROCODONE/APAP 5/325MG 1 EACH TABLET GT PRN (01:30)
[2019-05-18] MEDS: JEVITY 1.2 CAL 1,000 ML BOTTLE GT PRN (03:09)
[2019-05-18 04:00] VITALS: BP 127/66
[2019-05-18 06:37] LABS: BASOPHILS % (AUTO) 0.5 % (0.0-2.0); EOSINOPHILS % (AUTO) 8.5 % (0.0-6.0); HEMATOCRIT 26 % (39-51); LYMPHOCYTES # (AUTO) 1.3 /CMM (0.8-4.8); LYMPHOCYTES % (AUTO) 13.5 % (20.0-44.0); MEAN CORPUSCULAR HGB CONC 30 g/dl (31.0-36.0); MEAN CORPUSCULAR VOLUME 85 fL (80-96); MONOCYTES # (AUTO) 0.9 /CMM (0.1-1.30); NEUTROPHILS # (AUTO) 6.7 /CMM (1.8-8.9); NEUTROPHILS % (AUTO) 68.5 % (43.0-81.0); PLATELET COUNT (AUTO) 242 /CMM (150-450); RED BLOOD CELL COUNT(AUTO) 3.11 MIL/uL (4.5-6.0); WHITE BLOOD COUNT (AUTO) 9.9 K/uL (4.3-11.0)
[2019-05-18 06:41] LABS: CREATININE 1.3 mg/dL (0.6-1.3); MAGNESIUM 2.1 mg/dL (1.8-2.4); PHOSPHORUS 4.1 mg/dL (2.5-4.9); POTASSIUM 5.1 mmol/L (3.5-5.1)
--- NOTE | 2019-05-18 06:41 | NUR ---
RN NOTES, NO SIGNIFICANT CHANGE IN CONDITION DURING THE NIGHT, WILL ENDORSE CONTINUITY OF CARE TO ONCOMING NURSE
--- NOTE | 2019-05-18 07:14 | NUR ---
MS RN NOTES RECEIVED PATIENT A/OX 1, NON VERBAL. ON 2 L NASAL CANNULA. NO SOB OR DISCOMFORT NOTED. ON JEVITY @75 ML/H. RIGHT FOREARM 24 G SALINE PATENT. BED AT THE LOWEST POSITION AND LOCKED. CALL LIGHT WITHIN REACH.
[2019-05-18] MEDS: THERAHONEY GEL 1.5 OZ TUBE TP SCH (08:49)
[2019-05-18] MEDS: DAKINS QUARTER STRENGTH (0.125%) 480 ML BOTTLE TOP SCH ×2 (08:49)
[2019-05-18] MEDS: HYDROGEL DRESSING 90 GM TUBE TP SCH (08:50)
[2019-05-18] MEDS: BENZTROPINE MESYLATE (1 MG) 1 MG TABLET GT SCH (08:51)
[2019-05-18] MEDS: MUPIROCIN OINT 2% 22 GM TUBE SCH (08:51)
[2019-05-18] MEDS: LINEZOLID 600 MG TABLET PEG SCH (08:51)
[2019-05-18] MEDS: FERROUS SULFATE UDC 300 MG/5 ML UDC GT SCH ×2 (08:52→13:57)
[2019-05-18] MEDS: LACTOBACILLUS RHAMNOSUS GG 1 EACH CAP.SPRINK GT SCH (08:52)
[2019-05-18] MEDS: HALOPERIDOL 5 MG TABLET GT SCH (08:52)
[2019-05-18] MEDS: PANTOPRAZOLE 40 MG VIAL IV SCH (08:53)
[2019-05-18] MEDS ORDERED: COLL30OI TP (11:36)
[2019-05-18] MEDS ORDERED: DAPT350V IV (11:36)
[2019-05-18 12:00] VITALS: BP 127/66
--- NOTE | 2019-05-18 20:14 | NUR ---
MS RN NOTES PATIENT TRANSFERRED SAFELY BY [facility] TO [place]. NANCY SARGENT #35 PICC LINE INSERTED BY NURSE. REPORT GIVEN TO ELOY. VITALS 114/60 HR 107 O2 99% 2 L NASAL CANNULA.
== END 2019-05-18 18:30 | DRG 853 ==
LOC: ER 12:13 → TELE-TD 14:29 → TELE1 15:58 → MEDSG1 05-17 10:15
PROVIDERS: ADMIT Hospitalist; ATTEND Student in an Organized Health Care Education/Training Program
PROC: 0KBV0ZZ Excision of Right Foot Muscle, Open Approach (ICD-10-PCS; principal; 2019-05-10)
PROC: 0LBV0ZZ Excision of Right Foot Tendon, Open Approach (ICD-10-PCS; 2019-05-10)
PROC: 0KBS0ZZ Excision of Right Lower Leg Muscle, Open Approach (ICD-10-PCS; 2019-05-10)
PROC: 0QB20ZZ Excision of Right Pelvic Bone, Open Approach (ICD-10-PCS; 2019-05-10)
PROC: 0KBN0ZZ Excision of Right Hip Muscle, Open Approach (ICD-10-PCS; 2019-05-10)
PROC: 30233N1 Transfusion of Nonautologous Red Blood Cells into Peripheral Vein, Percutaneous Approach (ICD-10-PCS; 2019-05-10)
PROC: 0KBN0ZZ Excision of Right Hip Muscle, Open Approach (ICD-10-PCS; 2019-05-17)
PROC: 02HV33Z Insertion of Infusion Device into Superior Vena Cava, Percutaneous Approach (ICD-10-PCS; 2019-05-18)
PROC: B548ZZA Ultrasonography of Superior Vena Cava, Guidance (ICD-10-PCS; 2019-05-18)
DX: A41.9 Sepsis, unspecified organism (principal); L89.224 Pressure ulcer of left hip, stage 4; L89.214 Pressure ulcer of right hip, stage 4; L89.894 Pressure ulcer of other site, stage 4; G93.41 Metabolic encephalopathy; N17.0 Acute kidney failure with tubular necrosis; R53.2 Functional quadriplegia; N39.0 Urinary tract infection, site not specified; I69.354 Hemiplegia and hemiparesis following cerebral infarction affecting left non-dominant side; L97.409 Non-pressure chronic ulcer of unspecified heel and midfoot with unspecified severity; E87.0 Hyperosmolality and hypernatremia; D50.9 Iron deficiency anemia, unspecified; Z93.1 Gastrostomy status; J44.9 Chronic obstructive pulmonary disease, unspecified; D63.8 Anemia in other chronic diseases classified elsewhere; I25.10 Atherosclerotic heart disease of native coronary artery without angina pectoris; E87.5 Hyperkalemia; I12.9 Hypertensive chronic kidney disease with stage 1 through stage 4 chronic kidney disease, or unspecified chronic kidney disease; F20.9 Schizophrenia, unspecified; F31.9 Bipolar disorder, unspecified; F03.90 Unspecified dementia, unspecified severity, without behavioral disturbance, psychotic disturbance, mood disturbance, and anxiety; F41.9 Anxiety disorder, unspecified; R13.10 Dysphagia, unspecified; N18.9 Chronic kidney disease, unspecified; Z74.01 Bed confinement status; Z87.440 Personal history of urinary (tract) infections; Z79.899 Other long term (current) drug therapy; M24.552 Contracture, left hip; M24.551 Contracture, right hip; E78.5 Hyperlipidemia, unspecified; B95.2 Enterococcus as the cause of diseases classified elsewhere; B95.8 Unspecified staphylococcus as the cause of diseases classified elsewhere
CPT/HCPCS: 36415; 71045-TC; 80048-TC; 80053-TC; 80061-TC; 80076-TC; 80202-TC; 81000-TC; 82272-TC; 82728-TC; 82962-TC; 83540-TC; 83605-TC; 83690-TC; 83735-TC; 84100-TC; 84484-TC; 85025-TC; 85730-TC; 86850-TC; 86921-TC; 87040-TC; 87070-TC; 87081-TC; 87086-TC; 87186-TC; A6248; A6253; A6403; C9113; G0378; J0696; J2543; J3370; J7030; J7040; J7050; J7060; P9016-BL; Q0163

== ENCOUNTER 2019-05-26 14:22 | Inpatient (IN) | payer MEDICARE, OTHER ==
[2019-05-26] VITALS (16 sets, daily range): BP systolic 80–105; BP diastolic 44–59
[~2019-05-26] VITALS: Ht 170.2 cm; Wt 69.9 kg
[~2019-05-26 14:22] MED LIST changes: -AMLO10TA4 GT; -CEFE1FRO IV; +COLL30OI TP; -CRAN450C PO; +DAPT350V IV; +HYDR-4384 PO; -LOSA25TA27 GT; -MULT-24 GT; -VANC1FRO2 IV
[2019-05-26] MEDS ORDERED: PIPERACILLIN /TAZOBACTAM 3.375 G VIAL IV ONE (14:53)
[2019-05-26] MEDS ORDERED: ACETAMINOPHEN 650 MG/SUPP.RECT RC ONE ×2 (14:53→15:00)
[2019-05-26 14:56] LABS: BASOPHILS # (AUTO) 0.1 /CMM (0.0-0.2); BASOPHILS % (AUTO) 0.6 % (0.0-2.0); EOSINOPHILS % (AUTO) 1.3 % (0.0-6.0); HEMATOCRIT 26 % (39-51); HEMOGLOBIN 7.7 g/dL (13.5-17.5); LYMPHOCYTES # (AUTO) 0.9 /CMM (0.8-4.8); LYMPHOCYTES % (AUTO) 5.1 % (20.0-44.0); MEAN CORPUSCULAR HGB CONC 30 g/dl (31.0-36.0); MEAN CORPUSCULAR VOLUME 85 fL (80-96); MONOCYTES # (AUTO) 1.8 /CMM (0.1-1.30); MONOCYTES % (AUTO) 10.6 % (2.0-12.0); NEUTROPHILS # (AUTO) 13.8 /CMM (1.8-8.9); NEUTROPHILS % (AUTO) 82.4 % (43.0-81.0); PLATELET COUNT (AUTO) 241 /CMM (150-450); RED BLOOD CELL COUNT(AUTO) 3.01 MIL/uL (4.5-6.0); WHITE BLOOD COUNT (AUTO) 16.8 K/uL (4.3-11.0)
[2019-05-26 14:59] LABS: APPEARANCE,URINE Cloudy (CLEAR); BILIRUBIN,URINE Negative (NEGATIVE); BLOOD, URINE Large Ery/uL (NEGATIVE); COLOR,URINE Yellow (YELLOW); KETONES,URINE Negative (NEGATIVE); LEUKOCYTE ESTERASE ,URINE Small (NEGATIVE); NITRITE, URINE Positive (NEGATIVE); PROTEIN,URINE 100 mg/dl (NEGATIVE); UGLUCOSE Negative (NEGATIVE); UROBILINOGEN,URINE 0.2 EU/dL (0.2)
[2019-05-26] MEDS ORDERED: VANCOMYCIN 1 GM in IV D5W 250 ML IV ONE (15:00)
[2019-05-26] MEDS ORDERED: PIPERACILLIN /TAZOBACTAM 3.375 G in IV D5W 50 ML IV ONE (15:00)
[2019-05-26] MEDS ORDERED: Calcium Gluconate 1GM/10ML 4.65 MEQ in IV NS 0.9% 40 ML IV ONE (15:00)
[2019-05-26] MEDS ORDERED: LEVOFLOXACIN 750 MG /D5W 150ML 150 ML IV ONE ×2 (15:00→17:26)
[2019-05-26] MEDS ORDERED: IV NS 0.9% 1,000 ML BAG IV ONE (15:00)
[2019-05-26 15:08] LABS: ALANINE AMINOTRANSFERASE 86 U/L (12-78); ALBUMIN 1.6 g/dL (3.4-5.0); ALKALINE PHOSPHATASE 126 U/L (46-116); ASPARTATE AMINOTRANSFERASE 77 U/L (15-37); BILIRUBIN,DIRECT 0.1 mg/dL (0.0-0.2); BILIRUBIN,TOTAL 0.4 mg/dL (0.2-1.0); CALCIUM, SERUM 9.2 mg/dL (8.5-10.1); CARBON DIOXIDE 28 mmol/L (21-32); CHLORIDE 109 mmol/L (98-107); CREATININE 2.2 mg/dL (0.6-1.3); GLUCOSE 126 mg/dL (74-106); POTASSIUM 4.8 mmol/L (3.5-5.1); SODIUM SERUM 146 mmol/L (136-145); TOTAL PROTEIN, SERUM 7.5 g/dL (6.4-8.2)
[2019-05-26 15:14] LABS: UREA NITROGEN, BLOOD 83 mg/dL (7-18)
[2019-05-26 15:21] LABS: BACTERIA,URINE Many /HPF (None Seen); RBC,URINE 20-50 /HPF (0-2); SQUAMOUS EPITHELIAL CELL,UR Few /HPF (None Seen); WBC,URINE 50-80 /HPF (0-3)
[2019-05-26] MEDS ORDERED: VANCOMYCIN 1 GM VIAL ONE (15:53)
[2019-05-26] MEDS ORDERED: IV NS 0.9% 1,000 ML IV PRN ×2 (16:52→21:00)
[2019-05-26] MEDS ORDERED: MAG HYDROX/AL HYDROX/SIMETH 30 ML UDC PO PRN (17:00)
[2019-05-26] MEDS ORDERED: DAPTOMYCIN 350 MG IV SCH (17:00)
[2019-05-26] MEDS ORDERED: Z GUARD REMEDY 2 OZ OINT TP PRN (17:00)
[2019-05-26] MEDS ORDERED: DOCUSATE SODIUM 100 MG CAPSULE PO SCH (17:00)
[2019-05-26] MEDS ORDERED: BISACODYL SUPP (10 MG) 10 MG/SUPP.RECT SUPP.RECT RC PRN (17:00)
[2019-05-26] MEDS ORDERED: HALOPERIDOL 5 MG TABLET GT SCH (17:00)
[2019-05-26] MEDS ORDERED: ONDANSETRON HCL/PF 4 MG/2 ML VIAL IVP PRN (17:00)
[2019-05-26] MEDS ORDERED: Medication Not On Formulary EA (Cran/Vitc/Mannose/Inulin/Brom (Uti-Stat Liquid) 30 ML) PO SCH (17:00)
[2019-05-26] MEDS ORDERED: MAGNESIUM HYDROXIDE 30 ML UDC PO PRN (17:00)
[2019-05-26] MEDS ORDERED: FEE PK DOSING 1 MIN EA MC ONE (17:46)
[2019-05-26] MEDS ORDERED: IPRATROPIUM NEB FS 0.5 MG/2.5 ML AMPUL.NEB NEB PRN (18:00)
[2019-05-26] MEDS ORDERED: ALBUTEROL FS 2.5 MG/0.5 ML VIAL.NEB NEB PRN (19:30)
[2019-05-26] MEDS: IV NS 0.9% 1,000 ML IV PRN (20:50)
[2019-05-26] MEDS ORDERED: NOREPINEPHRINE 8 MG in IV D5W 500 ML IV PRN (21:00)
[2019-05-26] MEDS: ALBUTEROL FS 2.5 MG/0.5 ML VIAL.NEB NEB SCH (21:14)
[2019-05-26] MEDS: IPRATROPIUM NEB FS 0.5 MG/2.5 ML AMPUL.NEB NEB SCH (21:15)
[2019-05-26] MEDS: ASCORBIC ACID 500 MG TABLET GT SCH (21:37)
[2019-05-26] MEDS: LACTOBACILLUS RHAMNOSUS GG 1 EACH CAP.SPRINK GT SCH (21:38)
[2019-05-26] MEDS: PROSOURCE / PROSTAT (PYXIS) 30 ML UDC GT SCH (21:38)
[2019-05-26] MEDS: PIPERACILLIN /TAZOBACTAM 2.25 G in IV D5W 50 ML IV SCH (21:38)
[2019-05-26] MEDS: ZINC SULFATE 220 MG CAPSULE GT SCH (21:38)
[2019-05-26] MEDS: THERAHONEY GEL 1.5 OZ TUBE TP SCH (21:50)
[2019-05-27] VITALS (37 sets, daily range): BP systolic 85–125; BP diastolic 45–79
[2019-05-27] MEDS: ALBUTEROL FS 2.5 MG/0.5 ML VIAL.NEB NEB SCH ×4 (01:30→19:28)
[2019-05-27] MEDS: IPRATROPIUM NEB FS 0.5 MG/2.5 ML AMPUL.NEB NEB SCH ×4 (01:30→19:28)
[2019-05-27] MEDS: PIPERACILLIN /TAZOBACTAM 2.25 G in IV D5W 50 ML IV SCH ×4 (03:30→21:42)
[2019-05-27] MEDS: HYDROCODONE/APAP 5/325MG 1 EACH TABLET GT PRN ×2 (03:55→22:07)
[2019-05-27 04:44] LABS: BASOPHILS % (AUTO) 0.3 % (0.0-2.0); EOSINOPHILS % (AUTO) 0.8 % (0.0-6.0); LYMPHOCYTES # (AUTO) 0.8 /CMM (0.8-4.8); LYMPHOCYTES % (AUTO) 7.2 % (20.0-44.0); MEAN CORPUSCULAR HGB CONC 31 g/dl (31.0-36.0); MEAN CORPUSCULAR VOLUME 86 fL (80-96); NEUTROPHILS % (AUTO) 82.7 % (43.0-81.0); PLATELET COUNT (AUTO) 170 /CMM (150-450); RED BLOOD CELL COUNT(AUTO) 2.38 MIL/uL (4.5-6.0); WHITE BLOOD COUNT (AUTO) 10.8 K/uL (4.3-11.0)
[2019-05-27 05:21] LABS: CALCIUM, SERUM 8.1 mg/dL (8.5-10.1); CARBON DIOXIDE 24 mmol/L (21-32); CHLORIDE 114 mmol/L (98-107); CREATININE 1.8 mg/dL (0.6-1.3); GLUCOSE 103 mg/dL (74-106); MAGNESIUM 2.2 mg/dL (1.8-2.4); PHOSPHORUS 3.7 mg/dL (2.5-4.9); POTASSIUM 4.1 mmol/L (3.5-5.1); SODIUM SERUM 148 mmol/L (136-145); UREA NITROGEN, BLOOD 70 mg/dL (7-18)
[2019-05-27 05:36] LABS: HEMATOCRIT 20 % (39-51); HEMOGLOBIN 6.3 g/dL (13.5-17.5)
[2019-05-27 05:41] LABS: CHOLESTEROL 79 mg/dL (<200); HDL CHOLESTEROL 15 mg/dL (40-60); LDL 49 mg/dL (0-99); THYROID STIMULATING HORMONE 2.842 uIU/mL (0.358-3.74); TRIGLYCERIDES 96 mg/dL (30-150)
[2019-05-27 05:44] LABS: LYMPHOCYTES % (MANUAL) 9 % (16-48); NEUTROPHILS % (MANUAL) 91 (42-76)
[2019-05-27] MEDS: IV NS 0.9% 1,000 ML IV PRN ×2 (06:04→16:53)
[2019-05-27 06:48] LABS: BASOPHILS % (AUTO) 0.3 % (0.0-2.0); EOSINOPHILS % (AUTO) 0.7 % (0.0-6.0); HEMATOCRIT 21 % (39-51); LYMPHOCYTES # (AUTO) 0.7 /CMM (0.8-4.8); LYMPHOCYTES % (AUTO) 6.9 % (20.0-44.0); MEAN CORPUSCULAR HGB CONC 31 g/dl (31.0-36.0); MEAN CORPUSCULAR VOLUME 85 fL (80-96); MONOCYTES # (AUTO) 0.8 /CMM (0.1-1.30); MONOCYTES % (AUTO) 8.4 % (2.0-12.0); NEUTROPHILS # (AUTO) 8.3 /CMM (1.8-8.9); NEUTROPHILS % (AUTO) 83.7 % (43.0-81.0); PLATELET COUNT (AUTO) 170 /CMM (150-450); WHITE BLOOD COUNT (AUTO) 9.9 K/uL (4.3-11.0)
[2019-05-27 07:03] LABS: HEMOGLOBIN 6.6 g/dL (13.5-17.5)
[2019-05-27] MEDS: HALOPERIDOL 1 MG TABLET GT SCH ×2 (09:00→17:39)
[2019-05-27] MEDS: PANTOPRAZOLE 40 MG/PACK PACK GT SCH (09:19)
[2019-05-27] MEDS: LACTOBACILLUS RHAMNOSUS GG 1 EACH CAP.SPRINK GT SCH ×2 (09:19→17:38)
[2019-05-27] MEDS: THERAHONEY GEL 1.5 OZ TUBE TP SCH (09:20)
[2019-05-27] MEDS: BENZTROPINE MESYLATE (1 MG) 1 MG TABLET GT SCH ×2 (09:20→17:38)
[2019-05-27] MEDS: DOCUSATE SODIUM LIQ 100 MG/10 ML UDC GT SCH ×2 (09:29→17:38)
[2019-05-27] MEDS: VANCOMYCIN 0.75 GM in IV D5W 250 ML IV SCH (10:19)
[2019-05-27] MEDS: HYDROGEL DRESSING 90 GM TUBE TP SCH (12:51)
[2019-05-27] MEDS: DAKINS QUARTER STRENGTH (0.125%) 480 ML BOTTLE TOP SCH (12:51)
[2019-05-27 14:08] LABS: ABG BASE EXCESS -2.5 mmol/L; ABG OXYGEN SATURATION 98.1 % (92.0-98.5); ABG PCO2 37.3 mmHg (35.0-45.0); ABG PH 7.392 (7.350-7.450); ABG PO2 122.9 mmHg (75.0-100.0); AaDO2 47.2 mmHg; COHb 0.4 % (0.5-1.5); MetHb 0.5 % (0.0-1.5); O2Hb 97.2 % (94.0-97.0); SITE, ABG Right Radial; VENT MODE, BG NC 3L
[2019-05-27] MEDS: ASCORBIC ACID 500 MG TABLET GT SCH (17:38)
[2019-05-27] MEDS: ZINC SULFATE 220 MG CAPSULE GT SCH (17:38)
[2019-05-27] MEDS: PROSOURCE / PROSTAT (PYXIS) 30 ML UDC GT SCH (17:44)
[2019-05-27 18:18] LABS: HEMOGLOBIN 7.3 g/dL (13.5-17.5)
[2019-05-27] MEDS: IV 1/2NS 1000 ML 1,000 ML IV PRN (21:42)
[2019-05-28] VITALS (9 sets, daily range): BP systolic 105–140; BP diastolic 59–78
[2019-05-28] MEDS: IPRATROPIUM NEB FS 0.5 MG/2.5 ML AMPUL.NEB NEB SCH ×4 (01:07→19:52)
[2019-05-28] MEDS: ALBUTEROL FS 2.5 MG/0.5 ML VIAL.NEB NEB SCH ×4 (01:07→19:52)
[2019-05-28] MEDS: PIPERACILLIN /TAZOBACTAM 2.25 G in IV D5W 50 ML IV SCH ×2 (03:18→09:57)
[2019-05-28] MEDS: VANCOMYCIN 0.75 GM in IV D5W 250 ML IV SCH ×2 (04:36→21:16)
[2019-05-28 07:26] LABS: BASOPHILS % (AUTO) 0.3 % (0.0-2.0); EOSINOPHILS % (AUTO) 1.7 % (0.0-6.0); HEMATOCRIT 26 % (39-51); LYMPHOCYTES # (AUTO) 0.7 /CMM (0.8-4.8); LYMPHOCYTES % (AUTO) 6.8 % (20.0-44.0); MEAN CORPUSCULAR HGB CONC 31 g/dl (31.0-36.0); MEAN CORPUSCULAR VOLUME 87 fL (80-96); MONOCYTES # (AUTO) 1.1 /CMM (0.1-1.30); NEUTROPHILS # (AUTO) 8.7 /CMM (1.8-8.9); NEUTROPHILS % (AUTO) 81.2 % (43.0-81.0); PLATELET COUNT (AUTO) 180 /CMM (150-450); RED BLOOD CELL COUNT(AUTO) 2.98 MIL/uL (4.5-6.0); WHITE BLOOD COUNT (AUTO) 10.7 K/uL (4.3-11.0)
[2019-05-28 07:46] LABS: CALCIUM, SERUM 8.7 mg/dL (8.5-10.1); CREATININE 1.3 mg/dL (0.6-1.3); POTASSIUM 3.7 mmol/L (3.5-5.1)
[2019-05-28] MEDS ORDERED: DAKINS QUARTER STRENGTH (0.125%) 480 ML BOTTLE TOP SCH (09:00)
[2019-05-28] MEDS: LACTOBACILLUS RHAMNOSUS GG 1 EACH CAP.SPRINK GT SCH ×2 (09:22→17:20)
[2019-05-28] MEDS: HALOPERIDOL 1 MG TABLET GT SCH ×2 (09:22→17:20)
[2019-05-28] MEDS: PANTOPRAZOLE 40 MG/PACK PACK GT SCH (09:22)
[2019-05-28] MEDS: BENZTROPINE MESYLATE (1 MG) 1 MG TABLET GT SCH ×2 (09:22→17:20)
[2019-05-28] MEDS: DOCUSATE SODIUM LIQ 100 MG/10 ML UDC GT SCH ×2 (09:22→17:20)
[2019-05-28] MEDS: SILVER SULFADIAZINE 50 GM JAR TP SCH (09:23)
[2019-05-28] MEDS: DAKINS QUARTER STRENGTH (0.125%) 480 ML BOTTLE TOP SCH (09:23)
[2019-05-28] MEDS: HYDROGEL DRESSING 90 GM TUBE TP SCH (09:23)
[2019-05-28] MEDS: THERAHONEY GEL 1.5 OZ TUBE TP SCH (09:24)
[2019-05-28] MEDS: IV 1/2NS 1000 ML 1,000 ML IV PRN ×3 (10:34→23:44)
[2019-05-28] MEDS: MEROPENEM 1 G in IV NS 0.9% 100 ML IV SCH (13:11)
[2019-05-28] MEDS: ZINC SULFATE 220 MG CAPSULE GT SCH (17:20)
[2019-05-28] MEDS: PROSOURCE / PROSTAT (PYXIS) 30 ML UDC GT SCH (17:20)
[2019-05-28] MEDS: ASCORBIC ACID 500 MG TABLET GT SCH (17:20)
[2019-05-28 23:20] LABS: OCCULT BLOOD STOOL NEGATIVE (NEGATIVE)
[2019-05-29] VITALS (7 sets, daily range): BP systolic 116–159; BP diastolic 58–84
[2019-05-29] MEDS: IPRATROPIUM NEB FS 0.5 MG/2.5 ML AMPUL.NEB NEB SCH ×4 (02:03→20:04)
[2019-05-29] MEDS: ALBUTEROL FS 2.5 MG/0.5 ML VIAL.NEB NEB SCH ×4 (02:03→20:04)
[2019-05-29] MEDS: HYDROCODONE/APAP 5/325MG 1 EACH TABLET GT PRN (03:15)
[2019-05-29 07:18] LABS: BASOPHILS % (AUTO) 0.3 % (0.0-2.0); EOSINOPHILS % (AUTO) 2.4 % (0.0-6.0); HEMATOCRIT 23 % (39-51); HEMOGLOBIN 7.1 g/dL (13.5-17.5); LYMPHOCYTES # (AUTO) 0.6 /CMM (0.8-4.8); LYMPHOCYTES % (AUTO) 6.8 % (20.0-44.0); MEAN CORPUSCULAR HGB CONC 31 g/dl (31.0-36.0); MEAN CORPUSCULAR VOLUME 85 fL (80-96); MONOCYTES # (AUTO) 0.6 /CMM (0.1-1.30); MONOCYTES % (AUTO) 6.8 % (2.0-12.0); NEUTROPHILS # (AUTO) 7.9 /CMM (1.8-8.9); NEUTROPHILS % (AUTO) 83.7 % (43.0-81.0); PLATELET COUNT (AUTO) 190 /CMM (150-450); RED BLOOD CELL COUNT(AUTO) 2.71 MIL/uL (4.5-6.0); WHITE BLOOD COUNT (AUTO) 9.4 K/uL (4.3-11.0)
[2019-05-29 07:20] LABS: CALCIUM, SERUM 8.5 mg/dL (8.5-10.1); CREATININE 1.1 mg/dL (0.6-1.3); POTASSIUM 3.3 mmol/L (3.5-5.1)
[2019-05-29] MEDS: DOCUSATE SODIUM LIQ 100 MG/10 ML UDC GT SCH ×2 (08:03→16:13)
[2019-05-29] MEDS: LACTOBACILLUS RHAMNOSUS GG 1 EACH CAP.SPRINK GT SCH ×2 (08:04→16:13)
[2019-05-29] MEDS: HALOPERIDOL 1 MG TABLET GT SCH ×2 (08:04→16:14)
[2019-05-29] MEDS: PANTOPRAZOLE 40 MG/PACK PACK GT SCH (08:04)
[2019-05-29] MEDS: BENZTROPINE MESYLATE (1 MG) 1 MG TABLET GT SCH ×2 (08:04→16:13)
[2019-05-29] MEDS: HYDROGEL DRESSING 90 GM TUBE TP SCH (08:05)
[2019-05-29] MEDS: DAKINS QUARTER STRENGTH (0.125%) 480 ML BOTTLE TOP SCH (08:05)
[2019-05-29] MEDS: THERAHONEY GEL 1.5 OZ TUBE TP SCH (08:06)
[2019-05-29] MEDS: SILVER SULFADIAZINE 50 GM JAR TP SCH (08:06)
[2019-05-29] MEDS: POTASSIUM CL. PREMIX PERIPHER. 50 ML IV SCH ×2 (10:02→11:07)
[2019-05-29] MEDS: JEVITY 1.2 CAL 1,000 ML BOTTLE GT PRN (12:10)
[2019-05-29] MEDS: MEROPENEM 1 G in IV NS 0.9% 100 ML IV SCH ×3 (12:23)
[2019-05-29] MEDS: IV 1/2NS 1000 ML 1,000 ML IV PRN (13:13)
[2019-05-29] MEDS: VANCOMYCIN 0.75 GM in IV D5W 250 ML IV SCH (15:16)
[2019-05-29] MEDS: PROSOURCE / PROSTAT (PYXIS) 30 ML UDC GT SCH (17:05)
[2019-05-29] MEDS: ASCORBIC ACID 500 MG TABLET GT SCH (17:10)
[2019-05-29] MEDS: ZINC SULFATE 220 MG CAPSULE GT SCH (17:10)
[2019-05-29 18:26] LABS: HEMOGLOBIN 7.3 g/dL (13.5-17.5)
[2019-05-30] VITALS: BP 146/76
[2019-05-30] MEDS: MEROPENEM 1 G in IV NS 0.9% 100 ML IV SCH ×2 (01:00→12:44)
[2019-05-30] MEDS: ALBUTEROL FS 2.5 MG/0.5 ML VIAL.NEB NEB SCH ×4 (01:32→19:49)
[2019-05-30] MEDS: IPRATROPIUM NEB FS 0.5 MG/2.5 ML AMPUL.NEB NEB SCH ×4 (01:32→19:49)
[2019-05-30 04:00] VITALS: BP 140/75
[2019-05-30 06:41] LABS: BASOPHILS % (AUTO) 0.3 % (0.0-2.0); EOSINOPHILS % (AUTO) 2.3 % (0.0-6.0); HEMATOCRIT 24 % (39-51); HEMOGLOBIN 7.5 g/dL (13.5-17.5); LYMPHOCYTES # (AUTO) 0.4 /CMM (0.8-4.8); LYMPHOCYTES % (AUTO) 4.7 % (20.0-44.0); MEAN CORPUSCULAR HGB CONC 31 g/dl (31.0-36.0); MEAN CORPUSCULAR VOLUME 85 fL (80-96); MONOCYTES # (AUTO) 0.7 /CMM (0.1-1.30); MONOCYTES % (AUTO) 9.3 % (2.0-12.0); NEUTROPHILS # (AUTO) 6.6 /CMM (1.8-8.9); NEUTROPHILS % (AUTO) 83.4 % (43.0-81.0); PLATELET COUNT (AUTO) 201 /CMM (150-450); RED BLOOD CELL COUNT(AUTO) 2.82 MIL/uL (4.5-6.0); WHITE BLOOD COUNT (AUTO) 7.8 K/uL (4.3-11.0)
[2019-05-30 07:05] LABS: CALCIUM, SERUM 8.4 mg/dL (8.5-10.1); CREATININE 0.8 mg/dL (0.6-1.3); POTASSIUM 3.2 mmol/L (3.5-5.1)
[2019-05-30] MEDS: HYDROCODONE/APAP 5/325MG 1 EACH TABLET GT PRN ×2 (07:39→23:54)
[2019-05-30 08:00] VITALS: BP 96/43
[2019-05-30] MEDS: PANTOPRAZOLE 40 MG/PACK PACK GT SCH (08:35)
[2019-05-30] MEDS: ACETAMINOPHEN 325 MG TABLET PO PRN (08:35)
[2019-05-30] MEDS: DOCUSATE SODIUM LIQ 100 MG/10 ML UDC GT SCH ×2 (08:35→16:45)
[2019-05-30] MEDS: HALOPERIDOL 1 MG TABLET GT SCH ×2 (08:35→16:45)
[2019-05-30] MEDS: LACTOBACILLUS RHAMNOSUS GG 1 EACH CAP.SPRINK GT SCH ×2 (08:35→16:46)
[2019-05-30] MEDS: BENZTROPINE MESYLATE (1 MG) 1 MG TABLET GT SCH ×2 (08:36→16:45)
[2019-05-30] MEDS: SILVER SULFADIAZINE 50 GM JAR TP SCH (08:37)
[2019-05-30] MEDS: THERAHONEY GEL 1.5 OZ TUBE TP SCH (08:38)
[2019-05-30] MEDS: HYDROGEL DRESSING 90 GM TUBE TP SCH (08:38)
[2019-05-30] MEDS: VANCOMYCIN 0.75 GM in IV D5W 250 ML IV SCH (10:19)
[2019-05-30] MEDS: DAKINS QUARTER STRENGTH (0.125%) 480 ML BOTTLE TOP SCH (10:20)
[2019-05-30] MEDS ORDERED: POTASSIUM CHLORIDE 20 MEQ TAB.PRT.SR PO SCH (10:30)
[2019-05-30] MEDS ORDERED: LIDOCAINE 1%-EPI 1:100,000 50 ML VIAL IJ ONE (11:30)
[2019-05-30] MEDS ORDERED: SILVER NITRATE APPLICATOR 1 EA BOX TP SCH (11:30)
[2019-05-30] MEDS ORDERED: POTASSIUM CHLORIDE 20 MEQ POWDER PACKET GT ONE (11:30)
[2019-05-30] MEDS: IV 1/2NS 1000 ML 1,000 ML IV PRN ×3 (11:31→22:41)
[2019-05-30 12:00] VITALS: BP 132/54
[2019-05-30 16:00] VITALS: BP 156/85
[2019-05-30] MEDS: PROSOURCE / PROSTAT (PYXIS) 30 ML UDC GT SCH (16:46)
[2019-05-30] MEDS: ASCORBIC ACID 500 MG TABLET GT SCH (17:04)
[2019-05-30] MEDS: ZINC SULFATE 220 MG CAPSULE GT SCH (17:05)
[2019-05-30] MEDS: JEVITY 1.2 CAL 1,000 ML BOTTLE GT PRN (19:01)
[2019-05-30 20:00] VITALS: BP 157/59
[2019-05-31] VITALS: BP 129/78
[2019-05-31] MEDS: MEROPENEM 1 G in IV NS 0.9% 100 ML IV SCH ×2 (00:01→12:11)
[2019-05-31] MEDS: IPRATROPIUM NEB FS 0.5 MG/2.5 ML AMPUL.NEB NEB SCH ×4 (02:34→19:52)
[2019-05-31] MEDS: ALBUTEROL FS 2.5 MG/0.5 ML VIAL.NEB NEB SCH ×4 (02:34→19:51)
[2019-05-31 03:20] LABS: BASOPHILS % (AUTO) 0.4 % (0.0-2.0); CALCIUM, SERUM 7.6 mg/dL (8.5-10.1); CREATININE 0.9 mg/dL (0.6-1.3); EOSINOPHILS % (AUTO) 3.5 % (0.0-6.0); HEMATOCRIT 23 % (39-51); HEMOGLOBIN 7.3 g/dL (13.5-17.5); LYMPHOCYTES # (AUTO) 0.6 /CMM (0.8-4.8); LYMPHOCYTES % (AUTO) 8.9 % (20.0-44.0); MEAN CORPUSCULAR HGB CONC 32 g/dl (31.0-36.0); MEAN CORPUSCULAR VOLUME 84 fL (80-96); MONOCYTES # (AUTO) 0.9 /CMM (0.1-1.30); MONOCYTES % (AUTO) 11.8 % (2.0-12.0); NEUTROPHILS # (AUTO) 5.5 /CMM (1.8-8.9); NEUTROPHILS % (AUTO) 75.4 % (43.0-81.0); PLATELET COUNT (AUTO) 219 /CMM (150-450); POTASSIUM 3.8 mmol/L (3.5-5.1); RED BLOOD CELL COUNT(AUTO) 2.74 MIL/uL (4.5-6.0); WHITE BLOOD COUNT (AUTO) 7.3 K/uL (4.3-11.0)
[2019-05-31] MEDS: VANCOMYCIN 0.75 GM in IV D5W 250 ML IV SCH ×2 (03:56→21:10)
[2019-05-31 04:00] VITALS: BP 127/71
[2019-05-31] MEDS ORDERED: LIDOCAINE 1% INJ 50 ML MDV IJ ONE (06:30)
[2019-05-31] MEDS: JEVITY 1.2 CAL 1,000 ML BOTTLE GT PRN ×2 (07:48→23:57)
[2019-05-31 08:00] VITALS: BP_SYST 106; BP_SYST 135; BP_DIAS 70
[2019-05-31] MEDS: PANTOPRAZOLE 40 MG/PACK PACK GT SCH (08:33)
[2019-05-31] MEDS: DOCUSATE SODIUM LIQ 100 MG/10 ML UDC GT SCH ×2 (08:33→16:52)
[2019-05-31] MEDS: MULTIVITAMINS,THERAGRAN 1 UDTAB TABLET PO SCH (08:33)
[2019-05-31] MEDS: PROSOURCE / PROSTAT (PYXIS) 30 ML UDC GT SCH ×2 (08:33→16:53)
[2019-05-31] MEDS: HALOPERIDOL 1 MG TABLET GT SCH ×2 (08:34→16:53)
[2019-05-31] MEDS: BENZTROPINE MESYLATE (1 MG) 1 MG TABLET GT SCH ×2 (08:34→16:53)
[2019-05-31] MEDS: LACTOBACILLUS RHAMNOSUS GG 1 EACH CAP.SPRINK GT SCH ×2 (08:34→16:53)
[2019-05-31] MEDS: DAKINS QUARTER STRENGTH (0.125%) 480 ML BOTTLE TOP SCH (08:35)
[2019-05-31] MEDS: HYDROGEL DRESSING 90 GM TUBE TP SCH (08:35)
[2019-05-31] MEDS: SILVER SULFADIAZINE 50 GM JAR TP SCH (08:35)
[2019-05-31] MEDS: THERAHONEY GEL 1.5 OZ TUBE TP SCH (08:37)
[2019-05-31] MEDS ORDERED: SILVER NITRATE APPLICATOR 1 EA BOX TP ONE (09:00)
[2019-05-31 16:00] VITALS: BP 108/61
[2019-05-31] MEDS: ASCORBIC ACID 500 MG TABLET GT SCH (17:07)
[2019-05-31] MEDS: ZINC SULFATE 220 MG CAPSULE GT SCH (17:08)
[2019-05-31 20:00] VITALS: BP 128/68
[2019-06-01] VITALS (11 sets, daily range): BP systolic 117–136; BP diastolic 63–71
[2019-06-01] MEDS: ALBUTEROL FS 2.5 MG/0.5 ML VIAL.NEB NEB SCH ×4 (01:44→19:48)
[2019-06-01] MEDS: IPRATROPIUM NEB FS 0.5 MG/2.5 ML AMPUL.NEB NEB SCH ×4 (01:44→19:48)
[2019-06-01] MEDS: MEROPENEM 1 G in IV NS 0.9% 100 ML IV SCH ×2 (01:57→14:24)
[2019-06-01 06:28] LABS: BASOPHILS % (AUTO) 0.4 % (0.0-2.0); HEMATOCRIT 21 % (39-51); LYMPHOCYTES # (AUTO) 0.7 /CMM (0.8-4.8); LYMPHOCYTES % (AUTO) 8.8 % (20.0-44.0); MEAN CORPUSCULAR HGB CONC 32 g/dl (31.0-36.0); MEAN CORPUSCULAR VOLUME 84 fL (80-96); MONOCYTES # (AUTO) 1.3 /CMM (0.1-1.30); MONOCYTES % (AUTO) 15.2 % (2.0-12.0); NEUTROPHILS # (AUTO) 5.9 /CMM (1.8-8.9); NEUTROPHILS % (AUTO) 71.6 % (43.0-81.0); PLATELET COUNT (AUTO) 207 /CMM (150-450); RED BLOOD CELL COUNT(AUTO) 2.55 MIL/uL (4.5-6.0); WHITE BLOOD COUNT (AUTO) 8.2 K/uL (4.3-11.0)
[2019-06-01 06:37] LABS: BILIRUBIN,TOTAL 0.3 mg/dL (0.2-1.0); CALCIUM, SERUM 7.6 mg/dL (8.5-10.1); CREATININE 0.9 mg/dL (0.6-1.3); MAGNESIUM 1.7 mg/dL (1.8-2.4); PHOSPHORUS 2.3 mg/dL (2.5-4.9); POTASSIUM 3.9 mmol/L (3.5-5.1); TOTAL PROTEIN, SERUM 5.7 g/dL (6.4-8.2)
[2019-06-01 06:43] LABS: HEMOGLOBIN 6.9 g/dL (13.5-17.5)
[2019-06-01 07:41] LABS: ALBUMIN 1.3 g/dL (3.4-5.0)
[2019-06-01 08:51] LABS: EOSINOPHILS % (MANUAL) 10 % (0-4); LYMPHOCYTES % (MANUAL) 9 % (16-48); MONOCYTES % (MANUAL) 8 % (0-11.0); NEUTROPHILS % (MANUAL) 73 (42-76)
[2019-06-01] MEDS: PROSOURCE / PROSTAT (PYXIS) 30 ML UDC GT SCH ×2 (09:37→16:56)
[2019-06-01] MEDS: LACTOBACILLUS RHAMNOSUS GG 1 EACH CAP.SPRINK GT SCH ×2 (09:37→16:55)
[2019-06-01] MEDS: PANTOPRAZOLE 40 MG/PACK PACK GT SCH (09:38)
[2019-06-01] MEDS: DOCUSATE SODIUM LIQ 100 MG/10 ML UDC GT SCH ×2 (09:38→16:55)
[2019-06-01] MEDS: HALOPERIDOL 1 MG TABLET GT SCH ×2 (09:38→16:56)
[2019-06-01] MEDS: MULTIVITAMINS,THERAGRAN 1 UDTAB TABLET PO SCH (09:39)
[2019-06-01] MEDS: BENZTROPINE MESYLATE (1 MG) 1 MG TABLET GT SCH ×2 (09:39→16:55)
[2019-06-01] MEDS: SILVER SULFADIAZINE 50 GM JAR TP SCH (09:40)
[2019-06-01] MEDS: DAKINS QUARTER STRENGTH (0.125%) 480 ML BOTTLE TOP SCH (09:40)
[2019-06-01] MEDS: HYDROGEL DRESSING 90 GM TUBE TP SCH (09:42)
[2019-06-01] MEDS: THERAHONEY GEL 1.5 OZ TUBE TP SCH (09:43)
[2019-06-01] MEDS: Magnesium 1GM/D5W 100ML PREMIX 100 ML IV SCH ×2 (10:03→11:13)
[2019-06-01] MEDS ORDERED: BUMETANIDE INJ 2 MG in IV NS 0.9% 32 ML IV ONE (11:30)
[2019-06-01] MEDS ORDERED: NEUTRA PHOS 1 POWD.PACKET GT ONE (12:30)
[2019-06-01] MEDS: ZINC SULFATE 220 MG CAPSULE GT SCH (17:07)
[2019-06-01] MEDS: ASCORBIC ACID 500 MG TABLET GT SCH (17:07)
[2019-06-01] MEDS: ACETAMINOPHEN 325 MG TABLET PO PRN (20:03)
[2019-06-01] MEDS: CEFTAZIDIME 1 G in IV D5W 50 ML IV SCH (21:20)
[2019-06-01] MEDS: VANCOMYCIN 1 GM in IV D5W 250 ML IV SCH (21:57)
[2019-06-01] MEDS: JEVITY 1.2 CAL 1,000 ML BOTTLE GT PRN (22:44)
[2019-06-02] MEDS: MEROPENEM 1 G in IV NS 0.9% 100 ML IV SCH ×2 (00:20→13:18)
[2019-06-02] MEDS: IPRATROPIUM NEB FS 0.5 MG/2.5 ML AMPUL.NEB NEB SCH ×4 (01:46→20:02)
[2019-06-02] MEDS: ALBUTEROL FS 2.5 MG/0.5 ML VIAL.NEB NEB SCH ×4 (01:46→20:02)
[2019-06-02 04:00] VITALS: BP 127/67
[2019-06-02] MEDS: CEFTAZIDIME 1 G in IV D5W 50 ML IV SCH ×3 (04:51→20:45)
[2019-06-02 06:26] LABS: BASOPHILS % (AUTO) 0.4 % (0.0-2.0); EOSINOPHILS % (AUTO) 5.7 % (0.0-6.0); HEMATOCRIT 24 % (39-51); HEMOGLOBIN 7.6 g/dL (13.5-17.5); LYMPHOCYTES # (AUTO) 0.7 /CMM (0.8-4.8); LYMPHOCYTES % (AUTO) 10.2 % (20.0-44.0); MEAN CORPUSCULAR HGB CONC 32 g/dl (31.0-36.0); MEAN CORPUSCULAR VOLUME 84 fL (80-96); MONOCYTES # (AUTO) 1.2 /CMM (0.1-1.30); MONOCYTES % (AUTO) 16.6 % (2.0-12.0); NEUTROPHILS # (AUTO) 4.7 /CMM (1.8-8.9); NEUTROPHILS % (AUTO) 67.1 % (43.0-81.0); PLATELET COUNT (AUTO) 195 /CMM (150-450); RED BLOOD CELL COUNT(AUTO) 2.81 MIL/uL (4.5-6.0)
[2019-06-02 07:18] LABS: CALCIUM, SERUM 7.8 mg/dL (8.5-10.1); CREATININE 0.8 mg/dL (0.6-1.3); MAGNESIUM 1.9 mg/dL (1.8-2.4); PHOSPHORUS 2.9 mg/dL (2.5-4.9); POTASSIUM 3.6 mmol/L (3.5-5.1)
[2019-06-02 08:00] VITALS: BP 133/72
[2019-06-02] MEDS: LACTOBACILLUS RHAMNOSUS GG 1 EACH CAP.SPRINK GT SCH ×2 (08:43→16:13)
[2019-06-02] MEDS: HALOPERIDOL 1 MG TABLET GT SCH ×2 (08:43→16:13)
[2019-06-02] MEDS: PANTOPRAZOLE 40 MG/PACK PACK GT SCH (08:43)
[2019-06-02] MEDS: BENZTROPINE MESYLATE (1 MG) 1 MG TABLET GT SCH ×2 (08:43→16:13)
[2019-06-02] MEDS: DOCUSATE SODIUM LIQ 100 MG/10 ML UDC GT SCH ×2 (08:43→16:13)
[2019-06-02] MEDS: MULTIVITAMINS,THERAGRAN 1 UDTAB TABLET PO SCH (08:43)
[2019-06-02] MEDS: SILVER SULFADIAZINE CREAM 25 GM TUBE TP SCH (10:44)
[2019-06-02] MEDS: HYDROGEL DRESSING 90 GM TUBE TP SCH (10:44)
[2019-06-02] MEDS: THERAHONEY GEL 1.5 OZ TUBE TP SCH (10:44)
[2019-06-02] MEDS: DAKINS QUARTER STRENGTH (0.125%) 480 ML BOTTLE TOP SCH (10:45)
[2019-06-02] MEDS: PROSOURCE / PROSTAT (PYXIS) 30 ML UDC GT SCH ×2 (10:46→16:13)
[2019-06-02] MEDS ORDERED: CEFT1VIA55 IJ (11:14)
[2019-06-02] MEDS ORDERED: VANC1PLA9 IV (11:14)
[2019-06-02] MEDS ORDERED: MERO1VIA IV (11:14)
[2019-06-02 16:00] VITALS: BP 124/68
[2019-06-02] MEDS: ZINC SULFATE 220 MG CAPSULE GT SCH (17:58)
[2019-06-02] MEDS: ASCORBIC ACID 500 MG TABLET GT SCH (17:58)
[2019-06-02] MEDS: JEVITY 1.2 CAL 1,000 ML BOTTLE GT PRN (18:17)
[2019-06-02 20:00] VITALS: BP 131/66
[2019-06-02] MEDS: VANCOMYCIN 1 GM in IV D5W 250 ML IV SCH (21:28)
[2019-06-02] MEDS: HYDROCODONE/APAP 5/325MG 1 EACH TABLET GT PRN (22:48)
[2019-06-03] VITALS (8 sets, daily range): BP systolic 125–144; BP diastolic 64–88
[2019-06-03] MEDS: MEROPENEM 1 G in IV NS 0.9% 100 ML IV SCH ×2 (00:20→14:55)
[2019-06-03] MEDS: IPRATROPIUM NEB FS 0.5 MG/2.5 ML AMPUL.NEB NEB SCH ×4 (01:56→20:03)
[2019-06-03] MEDS: ALBUTEROL FS 2.5 MG/0.5 ML VIAL.NEB NEB SCH ×4 (01:56→20:03)
[2019-06-03] MEDS: CEFTAZIDIME 1 G in IV D5W 50 ML IV SCH ×3 (04:38→21:08)
[2019-06-03] MEDS: JEVITY 1.2 CAL 1,000 ML BOTTLE GT PRN (06:00)
[2019-06-03 06:30] LABS: BASOPHILS % (AUTO) 0.3 % (0.0-2.0); EOSINOPHILS % (AUTO) 3.6 % (0.0-6.0); HEMATOCRIT 24 % (39-51); HEMOGLOBIN 7.7 g/dL (13.5-17.5); LYMPHOCYTES # (AUTO) 0.9 /CMM (0.8-4.8); LYMPHOCYTES % (AUTO) 8.5 % (20.0-44.0); MEAN CORPUSCULAR HGB CONC 32 g/dl (31.0-36.0); MEAN CORPUSCULAR VOLUME 85 fL (80-96); MONOCYTES # (AUTO) 1.2 /CMM (0.1-1.30); MONOCYTES % (AUTO) 11.5 % (2.0-12.0); NEUTROPHILS # (AUTO) 8.2 /CMM (1.8-8.9); NEUTROPHILS % (AUTO) 76.1 % (43.0-81.0); PLATELET COUNT (AUTO) 187 /CMM (150-450); RED BLOOD CELL COUNT(AUTO) 2.85 MIL/uL (4.5-6.0); WHITE BLOOD COUNT (AUTO) 10.8 K/uL (4.3-11.0)
[2019-06-03 06:47] LABS: CALCIUM, SERUM 7.8 mg/dL (8.5-10.1); CREATININE 0.9 mg/dL (0.6-1.3); MAGNESIUM 1.9 mg/dL (1.8-2.4); PHOSPHORUS 2.8 mg/dL (2.5-4.9); POTASSIUM 3.8 mmol/L (3.5-5.1)
[2019-06-03] MEDS: LACTOBACILLUS RHAMNOSUS GG 1 EACH CAP.SPRINK GT SCH ×2 (08:28→18:18)
[2019-06-03] MEDS: MULTIVITAMINS,THERAGRAN 1 UDTAB TABLET PO SCH (08:28)
[2019-06-03] MEDS: DOCUSATE SODIUM LIQ 100 MG/10 ML UDC GT SCH ×2 (08:28→18:18)
[2019-06-03] MEDS: BENZTROPINE MESYLATE (1 MG) 1 MG TABLET GT SCH ×2 (08:29→18:18)
[2019-06-03] MEDS: HALOPERIDOL 1 MG TABLET GT SCH ×2 (08:29→18:17)
[2019-06-03] MEDS: PANTOPRAZOLE 40 MG/PACK PACK GT SCH (08:29)
[2019-06-03] MEDS: HYDROGEL DRESSING 90 GM TUBE TP SCH (08:30)
[2019-06-03] MEDS: PROSOURCE / PROSTAT (PYXIS) 30 ML UDC GT SCH ×2 (08:30→17:00)
[2019-06-03] MEDS: DAKINS QUARTER STRENGTH (0.125%) 480 ML BOTTLE TOP SCH (08:30)
[2019-06-03] MEDS: SILVER SULFADIAZINE CREAM 25 GM TUBE TP SCH (08:31)
[2019-06-03] MEDS: THERAHONEY GEL 1.5 OZ TUBE TP SCH (08:31)
[2019-06-03] MEDS ORDERED: SILVER SULFADIAZINE CREAM 25 GM TUBE TP SCH (09:00)
[2019-06-03] MEDS: ZINC SULFATE 220 MG CAPSULE GT SCH (18:18)
[2019-06-03] MEDS: ASCORBIC ACID 500 MG TABLET GT SCH (18:19)
[2019-06-03] MEDS ORDERED: VANCOMYCIN 1 GM VIAL ONE (21:08)
[2019-06-03] MEDS: VANCOMYCIN 1 GM in IV D5W 250 ML IV SCH (23:01)
[2019-06-04] MEDS: MEROPENEM 1 G in IV NS 0.9% 100 ML IV SCH ×2 (01:07→11:51)
[2019-06-04] MEDS: IPRATROPIUM NEB FS 0.5 MG/2.5 ML AMPUL.NEB NEB SCH ×3 (02:00→13:30)
[2019-06-04] MEDS: ALBUTEROL FS 2.5 MG/0.5 ML VIAL.NEB NEB SCH ×3 (02:00→13:30)
[2019-06-04] MEDS: CEFTAZIDIME 1 G in IV D5W 50 ML IV SCH ×2 (05:22→11:51)
[2019-06-04 07:01] LABS: BASOPHILS % (AUTO) 0.2 % (0.0-2.0); EOSINOPHILS % (AUTO) 5.1 % (0.0-6.0); HEMATOCRIT 24 % (39-51); HEMOGLOBIN 7.8 g/dL (13.5-17.5); LYMPHOCYTES % (AUTO) 10.8 % (20.0-44.0); MEAN CORPUSCULAR HGB CONC 32 g/dl (31.0-36.0); MEAN CORPUSCULAR VOLUME 84 fL (80-96); MONOCYTES # (AUTO) 1.1 /CMM (0.1-1.30); MONOCYTES % (AUTO) 11.7 % (2.0-12.0); NEUTROPHILS # (AUTO) 6.9 /CMM (1.8-8.9); NEUTROPHILS % (AUTO) 72.2 % (43.0-81.0); PLATELET COUNT (AUTO) 203 /CMM (150-450); RED BLOOD CELL COUNT(AUTO) 2.89 MIL/uL (4.5-6.0); WHITE BLOOD COUNT (AUTO) 9.6 K/uL (4.3-11.0)
[2019-06-04 07:18] LABS: CREATININE 0.7 mg/dL (0.6-1.3); MAGNESIUM 2.1 mg/dL (1.8-2.4); PHOSPHORUS 2.8 mg/dL (2.5-4.9)
[2019-06-04 08:00] VITALS: BP 129/67
[2019-06-04] MEDS: DOCUSATE SODIUM LIQ 100 MG/10 ML UDC GT SCH (08:41)
[2019-06-04] MEDS: MULTIVITAMINS,THERAGRAN 1 UDTAB TABLET PO SCH (08:41)
[2019-06-04] MEDS: PANTOPRAZOLE 40 MG/PACK PACK GT SCH (08:41)
[2019-06-04] MEDS: BENZTROPINE MESYLATE (1 MG) 1 MG TABLET GT SCH (08:41)
[2019-06-04] MEDS: HALOPERIDOL 1 MG TABLET GT SCH (08:41)
[2019-06-04] MEDS: LACTOBACILLUS RHAMNOSUS GG 1 EACH CAP.SPRINK GT SCH (08:41)
[2019-06-04] MEDS: SILVER SULFADIAZINE CREAM 25 GM TUBE TP SCH (08:42)
[2019-06-04] MEDS: THERAHONEY GEL 1.5 OZ TUBE TP SCH (08:42)
[2019-06-04] MEDS: HYDROGEL DRESSING 90 GM TUBE TP SCH (08:43)
[2019-06-04] MEDS: PROSOURCE / PROSTAT (PYXIS) 30 ML UDC GT SCH (08:43)
[2019-06-04] MEDS: DAKINS QUARTER STRENGTH (0.125%) 480 ML BOTTLE TOP SCH (08:44)
[2019-06-04 09:15] VITALS: BP 129/67
== END 2019-06-04 13:30 | DRG 853 ==
LOC: ER 14:29 → ICU 17:27 → TELE-TD 05-28 01:51 → TELE1 05-28 09:23 → MEDSG1 05-31 09:53
PROVIDERS: ADMIT Nurse Practitioner Acute Care; ATTEND Nurse Practitioner Acute Care
PROC: 02HV33Z Insertion of Infusion Device into Superior Vena Cava, Percutaneous Approach (ICD-10-PCS; 2019-05-26)
PROC: B548ZZA Ultrasonography of Superior Vena Cava, Guidance (ICD-10-PCS; 2019-05-26)
PROC: 0KBS0ZZ Excision of Right Lower Leg Muscle, Open Approach (ICD-10-PCS; principal; 2019-05-30)
PROC: 0KBN0ZZ Excision of Right Hip Muscle, Open Approach (ICD-10-PCS; 2019-05-30)
PROC: 0QB30ZZ Excision of Left Pelvic Bone, Open Approach (ICD-10-PCS; 2019-05-30)
PROC: 0KBP0ZZ Excision of Left Hip Muscle, Open Approach (ICD-10-PCS; 2019-05-31)
PROC: 0KBN0ZZ Excision of Right Hip Muscle, Open Approach (ICD-10-PCS; 2019-05-31)
PROC: 0QB30ZZ Excision of Left Pelvic Bone, Open Approach (ICD-10-PCS; 2019-06-02)
PROC: 02HV33Z Insertion of Infusion Device into Superior Vena Cava, Percutaneous Approach (ICD-10-PCS; 2019-06-03)
PROC: B548ZZA Ultrasonography of Superior Vena Cava, Guidance (ICD-10-PCS; 2019-06-03)
DX: A41.9 Sepsis, unspecified organism (principal); L89.894 Pressure ulcer of other site, stage 4; L89.224 Pressure ulcer of left hip, stage 4; L89.214 Pressure ulcer of right hip, stage 4; I21.A1 Myocardial infarction type 2; R53.2 Functional quadriplegia; E43 Unspecified severe protein-calorie malnutrition; N17.0 Acute kidney failure with tubular necrosis; J96.01 Acute respiratory failure with hypoxia; J15.9 Unspecified bacterial pneumonia; R65.21 Severe sepsis with septic shock; J96.21 Acute and chronic respiratory failure with hypoxia; J18.9 Pneumonia, unspecified organism; N39.0 Urinary tract infection, site not specified; E87.0 Hyperosmolality and hypernatremia; I69.354 Hemiplegia and hemiparesis following cerebral infarction affecting left non-dominant side; J98.11 Atelectasis; Z16.12 Extended spectrum beta lactamase (ESBL) resistance; E87.2 Acidosis; M46.28 Osteomyelitis of vertebra, sacral and sacrococcygeal region; L97.829 Non-pressure chronic ulcer of other part of left lower leg with unspecified severity; L97.819 Non-pressure chronic ulcer of other part of right lower leg with unspecified severity; Z93.1 Gastrostomy status; N18.9 Chronic kidney disease, unspecified; I25.2 Old myocardial infarction; E78.5 Hyperlipidemia, unspecified; B96.1 Klebsiella pneumoniae [K. pneumoniae] as the cause of diseases classified elsewhere; B96.20 Unspecified Escherichia coli [E. coli] as the cause of diseases classified elsewhere; G30.9 Alzheimer's disease, unspecified; I12.9 Hypertensive chronic kidney disease with stage 1 through stage 4 chronic kidney disease, or unspecified chronic kidney disease; J44.9 Chronic obstructive pulmonary disease, unspecified; I25.10 Atherosclerotic heart disease of native coronary artery without angina pectoris; K21.9 Gastro-esophageal reflux disease without esophagitis; R26.9 Unspecified abnormalities of gait and mobility; R13.10 Dysphagia, unspecified; Z91.018 Allergy to other foods; Z79.51 Long term (current) use of inhaled steroids; Z79.899 Other long term (current) drug therapy; Z87.440 Personal history of urinary (tract) infections; Z74.01 Bed confinement status; Z86.14 Personal history of Methicillin resistant Staphylococcus aureus infection; Y95 Nosocomial condition; F31.9 Bipolar disorder, unspecified; F02.80 Dementia in other diseases classified elsewhere, unspecified severity, without behavioral disturbance, psychotic disturbance, mood disturbance, and anxiety; D64.9 Anemia, unspecified; I73.9 Peripheral vascular disease, unspecified; F20.9 Schizophrenia, unspecified; E86.1 Hypovolemia; N48.5 Ulcer of penis; M24.562 Contracture, left knee; M24.561 Contracture, right knee
CPT/HCPCS: 36415; 36600; 71045-TC; 80048-TC; 80053-TC; 80061-TC; 80076-TC; 80202-TC; 81000-TC; 82272-TC; 82803-TC; 83605-TC; 83735-TC; 84100-TC; 84443-TC; 84484-TC; 85025-TC; 85027-TC; 85730-TC; 86850-TC; 86921-TC; 87040-TC; 87081-TC; 87086-TC; 87186-TC; 94799-TC; A4216; A6248; A6253; A6403; C1751; G0378; J0610; J0713; J1956; J2185; J2543; J3370; J3475; J3480; J3490; J7030; J7040; J7050; J7060; P9016-BL

== ENCOUNTER 2019-07-07 10:49 | Emergency (ER) | payer MEDICARE, OTHER ==
[~2019-07-07] VITALS: Ht 167.6 cm; Wt 65.8 kg
[~2019-07-07 10:49] MED LIST changes: +ASCO-352 GT; -ASCO500T9 GT; +CEFT1VIA55 IJ; -CLON0.1T GT; -DAPT350V IV; -FERR300L GT; -HYDR-4384 PO; +MERO1VIA IV; -NUTR150016; +NUTR150016 GT; -OMEP20CA11 GT; +OMEP20CA15 GT; +VANC1PLA9 IV; +ZINC1CAP2 GT; -ZINC220C8 GT
[2019-07-07 11:27] LABS: BASOPHILS # (AUTO) 0.1 /CMM (0.0-0.2); BASOPHILS % (AUTO) 0.7 % (0.0-2.0); EOSINOPHILS % (AUTO) 5.3 % (0.0-6.0); HEMATOCRIT 22 % (39-51); LYMPHOCYTES # (AUTO) 1.5 /CMM (0.8-4.8); LYMPHOCYTES % (AUTO) 11.6 % (20.0-44.0); MEAN CORPUSCULAR HGB CONC 31 g/dl (31.0-36.0); MEAN CORPUSCULAR VOLUME 82 fL (80-96); MONOCYTES # (AUTO) 1.3 /CMM (0.1-1.30); MONOCYTES % (AUTO) 9.8 % (2.0-12.0); NEUTROPHILS # (AUTO) 9.4 /CMM (1.8-8.9); NEUTROPHILS % (AUTO) 72.6 % (43.0-81.0); PLATELET COUNT (AUTO) 333 /CMM (150-450); RED BLOOD CELL COUNT(AUTO) 2.71 MIL/uL (4.5-6.0); WHITE BLOOD COUNT (AUTO) 12.9 K/uL (4.3-11.0)
--- NOTE | 2019-07-07 11:30 | NUR ---
[facility] from [facility] for abnormal labs "Low H/H". PT EYES OPEN, NON VERBAL, VSS, RR EVEN & UNLABORED, SKIN PALE. PT SEEN & EVAL'D BY DR. MONTILLA. PLACED ON INSPECTOR PRODUCTION PLASTIC PARTS, SR. WILL CONT TO MONITOR.
[2019-07-07 11:32] LABS: CALCIUM, SERUM 9.3 mg/dL (8.5-10.1); POTASSIUM 4.5 mmol/L (3.5-5.1)
[2019-07-07 11:37] LABS: BILIRUBIN,TOTAL 0.3 mg/dL (0.2-1.0); TOTAL PROTEIN, SERUM 7.2 g/dL (6.4-8.2)
[2019-07-07 11:42] LABS: ALBUMIN 1.4 g/dL (3.4-5.0)
[2019-07-07] MEDS ORDERED: ATOR10TA GT (12:39)
[2019-07-07] MEDS ORDERED: VANC1VIA IV (12:39)
--- NOTE | 2019-07-07 14:30 | NUR ---
PT ASLEEP, WILL ANSWER WHEN CALLED BY NAME. VSS. RR EVEN & UNLABORED. NAD NOTED @ THIS TIME & WILL CONT TO MONITOR.
--- NOTE | 2019-07-07 17:15 | NUR ---
BLOOD TRANSFUSION STARTED, VERIFIED WITH 2ND RN. PT JUAN WELL. NO ADVERSE SYMPTOMS NOTED @ THIS TIME. WILL CONT TO MONITOR.
--- NOTE | 2019-07-07 17:45 | NUR ---
VSS. BLOOD INFUSING WELL. NO SIGNS OF RASH, SOB, N/V OR ANY ADVERSE REACTION NOTED @ THIS TIME & WILL CONT TO MONITOR.
--- NOTE | 2019-07-07 19:05 | NUR ---
REPORT REC'D FROM JAIME CONLEY
--- NOTE | 2019-07-07 19:52 | NUR ---
REPORT WAS GIVEN TO THE FACILITY BY JAIME CONLEY
--- NOTE | 2019-07-07 19:52 | NUR ---
IV removed. Catheter intact and site benign. Pressure and 4x4 applied to site. No bleeding noted. REPORT GIVEN TO JAIME LYONS [facility] FOR THAIS.
--- NOTE | 2019-07-07 20:22 | NUR ---
[facility] ETA 2200. #[id number]
--- NOTE | 2019-07-07 20:42 | NUR ---
PT APPEARS TO BE RESTING COMFORTABLY WITH NO S/S OF PAIN OR DISTRESS.
--- NOTE | 2019-07-07 21:51 | NUR ---
Per AJ from [facility], eta is 2300
--- NOTE | 2019-07-07 22:48 | NUR ---
PT APPEARS TO BE RESTING COMFORTABLY WITH NO S/S OF PAIN OR DISTRESS.
--- NOTE | 2019-07-07 23:05 | NUR ---
CALLED [facility] NEW ETA: 0030
--- NOTE | 2019-07-07 23:09 | NUR ---
[facility] ETA 45 MINS OR LESS.
--- NOTE | 2019-07-07 23:13 | NUR ---
CALLING [facility] TO CANCEL CALL. [facility] TO TRANSPORT PT BACK.
--- NOTE | 2019-07-07 23:31 | NUR ---
CALLING [facility] RE: CANCEL TRANSPORT.
--- NOTE | 2019-07-07 23:33 | NUR ---
SPOKE TO CHERYL AT [facility] TO UPDATE THEM ON TRANSPORT
[2019-07-07 23:34] VITALS: BP 129/71
== END 2019-07-07 23:34 | disposition home or self-care (01) ==
LOC: ER 10:50
DX: D64.9 Anemia, unspecified (principal); I10 Essential (primary) hypertension; J44.9 Chronic obstructive pulmonary disease, unspecified; F31.9 Bipolar disorder, unspecified; F41.9 Anxiety disorder, unspecified; F20.9 Schizophrenia, unspecified; Z86.73 Personal history of transient ischemic attack (TIA), and cerebral infarction without residual deficits; Z91.018 Allergy to other foods; Z79.899 Other long term (current) drug therapy
CPT/HCPCS: 36415; 36430; 80053; 85025; 85730; 86850; 86921; 99285; J7030; P9016-BL

== ENCOUNTER 2019-07-27 19:05 | Inpatient (IN) | payer MEDICARE, OTHER ==
[~2019-07-27] VITALS: Ht 170.2 cm; Wt 68.0 kg
[~2019-07-27 19:05] MED LIST changes: -ASCO-352 GT; +ASCO500T9 GT; +ATOR10TA GT; -CEFT1VIA55 IJ; -COLL30OI TP; -MERO1VIA IV; -VANC1PLA9 IV; +VANC1VIA IV
--- NOTE | 2019-07-27 19:30 | NUR ---
RECTAL TEMP 99.1. AWARE.
--- NOTE | 2019-07-27 19:35 | NUR ---
TECH AT BEDSIDE FOR EKG
--- NOTE | 2019-07-27 19:53 | NUR ---
RADIOLOGY AT BEDSIDE FOR XRAY
[2019-07-27] MEDS ORDERED: IV NS 0.9% 1,000 ML BAG IV ONE (20:00)
--- NOTE | 2019-07-27 20:05 | NUR ---
PHLEB AT BEDSIDE FOR BLOOD DRAW
[2019-07-27 20:14] LABS: BASOPHILS % (AUTO) 0.4 % (0.0-2.0); EOSINOPHILS % (AUTO) 4.2 % (0.0-6.0); LYMPHOCYTES # (AUTO) 0.9 /CMM (0.8-4.8); LYMPHOCYTES % (AUTO) 8.3 % (20.0-44.0); MEAN CORPUSCULAR HGB CONC 30 g/dl (31.0-36.0); MEAN CORPUSCULAR VOLUME 84 fL (80-96); MONOCYTES # (AUTO) 1.5 /CMM (0.1-1.30); NEUTROPHILS # (AUTO) 8.3 /CMM (1.8-8.9); NEUTROPHILS % (AUTO) 74.1 % (43.0-81.0); PLATELET COUNT (AUTO) 295 /CMM (150-450); WHITE BLOOD COUNT (AUTO) 11.1 K/uL (4.3-11.0)
[2019-07-27 20:16] LABS: HEMATOCRIT 20 % (39-51); HEMOGLOBIN 6.1 g/dL (13.5-17.5)
--- NOTE | 2019-07-27 20:34 | NUR ---
URINE COLLECTED AND SENT TO LAB
[2019-07-27 20:43] LABS: ALANINE AMINOTRANSFERASE 434 U/L (12-78); ALKALINE PHOSPHATASE 368 U/L (46-116); ASPARTATE AMINOTRANSFERASE 357 U/L (15-37); BILIRUBIN,DIRECT 0.2 mg/dL (0.0-0.2); BILIRUBIN,TOTAL 0.4 mg/dL (0.2-1.0); CALCIUM, SERUM 9.4 mg/dL (8.5-10.1); CARBON DIOXIDE 29 mmol/L (21-32); CHLORIDE 107 mmol/L (98-107); CREATININE 1.7 mg/dL (0.6-1.3); GLUCOSE 141 mg/dL (74-106); POTASSIUM 5.4 mmol/L (3.5-5.1); SODIUM SERUM 143 mmol/L (136-145); TOTAL PROTEIN, SERUM 7.6 g/dL (6.4-8.2)
[2019-07-27 20:56] LABS: APPEARANCE,URINE Cloudy (CLEAR); BILIRUBIN,URINE Negative (NEGATIVE); BLOOD, URINE Moderate Ery/uL (NEGATIVE); COLOR,URINE Dark (YELLOW); KETONES,URINE Negative (NEGATIVE); LEUKOCYTE ESTERASE ,URINE Large (NEGATIVE); NITRITE, URINE Negative (NEGATIVE); PROTEIN,URINE 100 mg/dl (NEGATIVE); UGLUCOSE Negative (NEGATIVE); UROBILINOGEN,URINE 0.2 EU/dL (0.2)
[2019-07-27 21:01] LABS: ALBUMIN 1.3 g/dL (3.4-5.0); UREA NITROGEN, BLOOD 112 mg/dL (7-18)
[2019-07-27 21:09] LABS: BACTERIA,URINE Many /HPF (None Seen); SQUAMOUS EPITHELIAL CELL,UR Rare /HPF (None Seen); URINE AMORPHOUS PHOSPHATES Many /HPF (None Seen)
--- NOTE | 2019-07-27 21:13 | NUR ---
CALLED [facility] FOR TELE BED.
[2019-07-27 21:16] LABS: NEUTROPHILS % (MANUAL) 77 (42-76)
[2019-07-27 21:17] LABS: BAND % (MANUAL) 2 % (0.0-5.0); EOSINOPHILS % (MANUAL) 4 % (0-4); LYMPHOCYTES % (MANUAL) 6 % (16-48); MONOCYTES % (MANUAL) 11 % (0-11.0)
[2019-07-27] MEDS ORDERED: PIPERACILLIN /TAZOBACTAM 3.375 G VIAL IV ONE (21:18)
[2019-07-27] MEDS ORDERED: MORPHINE SULFATE INJ 2 MG/ML DISP.SYRIN IV PRN (21:30)
[2019-07-27] MEDS ORDERED: HYDROCODONE/APAP 5/325MG 1 EACH TABLET PO PRN (21:30)
[2019-07-27] MEDS ORDERED: PIPERACILLIN /TAZOBACTAM 3.375 G in IV D5W 50 ML IV ONE (21:30)
[2019-07-27] MEDS ORDERED: MEROPENEM 500 MG in IV NS 0.9% 50 ML IV SCH (21:30)
[2019-07-27] MEDS ORDERED: ACETAMINOPHEN 325 MG TABLET MC PRN (21:30)
[2019-07-27] MEDS ORDERED: ACETAMINOPHEN 325 MG TABLET PO PRN (22:23)
--- NOTE | 2019-07-27 22:25 | NUR ---
REPORT GIVEN TO JAIME MARTIN FOR THAIS
[2019-07-27] MEDS ORDERED: VANCOMYCIN 1 GM in IV D5W 250ml IV ONE (22:30)
[2019-07-27 23:00] VITALS: BP 127/69
--- NOTE | 2019-07-27 23:00 | NUR ---
PARALLEL COMPUTING SOFTWARE ENGINEER ADMITTING NOTES RECEIVED PT FROM ER VIA [place] IN STABLE CONDITION. PT A/O X1. RESPIRATIONS EVEN AND UNLABORED WITH NO S/S OF ACUTE DISTRESS OR SOB NOTED AT THIS TIME. NO COMPLAINTS OF PAIN AT THIS TIME. PT NOTED WITH RFA #18G PATENT AND INTACT AND SL. SAFETY MEASURES IN PLACE WITH BED IN LOWEST LOCKED POSITION WITH SIDE RAILS UP X2. CALL LIGHT WITHIN REACH. WILL CONTINUE TO MONITOR.
[2019-07-27] MEDS ORDERED: MEROPENEM 500 MG VIAL IV ONE (23:16)
[2019-07-27] MEDS ORDERED: VANCOMYCIN 1 GM VIAL ONE (23:17)
[2019-07-27] MEDS: IV NS 0.9% 1,000 ML IV PRN (23:32)
[2019-07-28] VITALS (7 sets, daily range): BP systolic 98–116; BP diastolic 57–84
[2019-07-28] MEDS ORDERED: MEROPENEM 500 MG in IV NS 0.9% 50 ML IV ONE ×2
--- NOTE | 2019-07-28 03:30 | NUR ---
SUPPLY CHAIN TECH NOTES MD CONTACTED ABOUT BLOOD TRANSFUSION. CLARIFIED TO GIVE PT ONLY 1 UNIT PRBC AT THIS TIME. WILL CONTINUE TO MONITOR.
[2019-07-28] MEDS ORDERED: FEE PK DOSING 1 MIN EA MC ONE (07:06)
--- NOTE | 2019-07-28 07:53 | NUR ---
RADIATOR SPECIALIST NOTES PT IN BED RESTING. PT A/O X1. RESPIRATIONS EVEN AND UNLABORED WITH NO S/S OF ACUTE DISTRESS OR SOB NOTED THROUGHOUT SHIFT. NO COMPLAINTS OF PAIN AT THIS TIME. PT NOTED WITH RFA #18G PATENT AND INFUSING NS@ 75CC/HR. PT TURNED Q2 HOURS THROUGHOUT SHIFT. PT KEPT CLEAN, DRY, AND COMFORTABLE. SAFETY MEASURES IN PLACE WITH BED IN LOWEST LOCKED POSITION WITH SIDE RAILS UP X2. PT S/P 1 UNIT BLOOD TRANSFUSION WITH NO ADVERSE EFFECTS. CALL LIGHT WITHIN REACH. WILL ENDORSE TO ONCOMING NURSE FOR THAIS.
[2019-07-28] MEDS ORDERED: SILVER NITRATE APPLICATOR 1 EA BOX TP SCH (08:00)
[2019-07-28] MEDS ORDERED: LIDOCAINE 1%-EPI 1:100,000 20 ML VIAL TP ONE (08:00)
--- NOTE | 2019-07-28 08:17 | NUR ---
DOORPERSON OR LUGGAGE PORTER NOTES RECEIVED PATIENT IN BED, ASLEEP. PATIENT ON OXYGEN THERAPY AT 4 LPM VIA NASAL CANULA; BREATHING EVEN AND UNLABORED WITH NO SIGNS OF DISTRESS AT THIS MOMENT. NO SIGNS OF PAIN NOTED SUCH FACIAL GRIMACING OR MOANING. PATIENT ON EXTERNAL CARDIAC MONITORING WITH A CURRENT READING OF SINUS TACHYCARDIA 113. RFA GAUGE # 18 PRESENT AND INFUSING NS AT 75 CC/HR. SAFETY PRECAUTIONS IN PLACE; BED IN LOW POSITION AND LOCKED, RAILS UP X 2, CALL LIGHT WITHIN REACH. WILL CONTINUE TO MONITOR PATIENT.
[2019-07-28] MEDS ORDERED: FERR325T23 GT (08:21)
[2019-07-28] MEDS ORDERED: MULT-447 GT (08:21)
[2019-07-28 08:42] LABS: BASOPHILS # (AUTO) 0.1 /CMM (0.0-0.2); BASOPHILS % (AUTO) 0.6 % (0.0-2.0); EOSINOPHILS % (AUTO) 4.3 % (0.0-6.0); HEMATOCRIT 25 % (39-51); HEMOGLOBIN 7.8 g/dL (13.5-17.5); LYMPHOCYTES # (AUTO) 0.9 /CMM (0.8-4.8); LYMPHOCYTES % (AUTO) 9.4 % (20.0-44.0); MEAN CORPUSCULAR HGB CONC 31 g/dl (31.0-36.0); MEAN CORPUSCULAR VOLUME 84 fL (80-96); MONOCYTES # (AUTO) 1.2 /CMM (0.1-1.30); MONOCYTES % (AUTO) 11.9 % (2.0-12.0); NEUTROPHILS # (AUTO) 7.3 /CMM (1.8-8.9); NEUTROPHILS % (AUTO) 73.8 % (43.0-81.0); PLATELET COUNT (AUTO) 278 /CMM (150-450); RED BLOOD CELL COUNT(AUTO) 2.94 MIL/uL (4.5-6.0); WHITE BLOOD COUNT (AUTO) 9.9 K/uL (4.3-11.0)
[2019-07-28] MEDS: MEROPENEM 500 MG in IV NS 0.9% 100 ML IV SCH ×2 (09:06→21:00)
[2019-07-28 09:18] LABS: CALCIUM, SERUM 9.2 mg/dL (8.5-10.1); CARBON DIOXIDE 26 mmol/L (21-32); CHLORIDE 107 mmol/L (98-107); CREATININE 1.4 mg/dL (0.6-1.3); GLUCOSE 99 mg/dL (74-106); MAGNESIUM 2.3 mg/dL (1.8-2.4); PHOSPHORUS 4.4 mg/dL (2.5-4.9); SODIUM SERUM 143 mmol/L (136-145)
[2019-07-28 09:24] LABS: UREA NITROGEN, BLOOD 91 mg/dL (7-18)
--- NOTE | 2019-07-28 09:35 | NUR ---
NATIONAL SALES ASSOCIATE NOTES RECEIVED A CALL FROM LAB AT [phone] REGARDING CRITICAL LAB VALUE OF BUN 91. NOTIFIED.
[2019-07-28] MEDS: IPRATROPIUM NEB FS 0.5 MG/2.5 ML AMPUL.NEB NEB SCH ×3 (10:00→19:37)
[2019-07-28] MEDS: ALBUTEROL HALF STRENGTH 1.25 MG/3 ML VIAL.NEB NEB SCH ×3 (10:00→19:37)
[2019-07-28] MEDS: DAKINS QUARTER STRENGTH (0.125%) 480 ML BOTTLE TOP SCH (10:30)
[2019-07-28] MEDS: HYDROGEL DRESSING 90 GM TUBE TP SCH ×2 (10:30→13:32)
[2019-07-28] MEDS: SILVER SULFADIAZINE 50 GM JAR TP SCH (13:33)
[2019-07-28 14:47] LABS: OCCULT BLOOD STOOL NEGATIVE (NEGATIVE)
[2019-07-28] MEDS: VANCOMYCIN 1 GM in IV D5W 250 ML IV SCH (17:39)
--- NOTE | 2019-07-28 18:40 | NUR ---
MS RN NOTES PATIENT CURRENTLY IN BED, ASLEEP. PATIENT HAS BEEN IN AND OUT OF SLEEP ENTIRE DAY. WHEN AWAKE, A/O X 1. PATIENT DENIES PAIN. PATIENT ON ROOM AIR BREATHING EVENLY AND WITH NO S/S OF SOB AT THE MOMENT. BARNARD CATH IN PLACE DRAINING DARK YELLOW URINE. RFA GAUGE # 18 PRESENT AND INFUSING NS AT 75 CC HR. MULTIPLE WOUNDS WERE TAKEN CARE OF TODAY ORDERED. ALL NEEDS ATTENDED TOO. SAFETY PRECAUTIONS IN PLACE; BED IN LOW POSITION AND LOCKED, RAILS UP X2, CALL LIGHT WITHIN REACH. WILL ENDORSE TO VISUAL AND STOCK ASSOCIATE NURSE.
--- NOTE | 2019-07-28 19:10 | NUR ---
MS RN NOTES RECEIVED PT PT IN BED RESTING. PT A/O X1. RESPIRATIONS EVEN AND UNLABORED WITH NO S/S OF ACUTE DISTRESS OR SOB NOTED. NO COMPLAINTS OF PAIN AT THIS TIME. PT NOTED WITH RFA #18G PATENT AND INFUSING NS@ 75CC/HR. PT TURNED Q2 HOURS THROUGHOUT SHIFT. SAFETY MEASURES IN PLACE WITH BED IN LOWEST LOCKED POSITION WITH SIDE RAILS UP X2. CALL LIGHT WITHIN REACH. WILL CONTINUE TO MONITOR.
[2019-07-28] MEDS: PANTOPRAZOLE 40 MG VIAL IV SCH (21:00)
[2019-07-28] MEDS: IV NS 0.9% 1,000 ML IV PRN (23:54)
[2019-07-29] MEDS: IPRATROPIUM NEB FS 0.5 MG/2.5 ML AMPUL.NEB NEB SCH ×4 (01:31→20:03)
[2019-07-29] MEDS: ALBUTEROL HALF STRENGTH 1.25 MG/3 ML VIAL.NEB NEB SCH ×4 (01:31→20:03)
--- NOTE | 2019-07-29 06:42 | NUR ---
MS RN NOTES PT IN BED RESTING. PT A/O X1. RESPIRATIONS EVEN AND UNLABORED WITH NO S/S OF ACUTE DISTRESS OR SOB NOTED THROUGHOUT SHIFT. NO COMPLAINTS OF PAIN AT THIS TIME. PT NOTED WITH RFA #18G PATENT AND INFUSING NS@ 75CC/HR. PT TURNED Q2 HOURS THROUGHOUT SHIFT. PT KEPT CLEAN, DRY, AND COMFORTABLE. SAFETY MEASURES IN PLACE WITH BED IN LOWEST LOCKED POSITION WITH SIDE RAILS UP X2. CALL LIGHT WITHIN REACH. WILL ENDORSE TO ONCOMING NURSE FOR THAIS.
[2019-07-29 07:37] LABS: BASOPHILS # (AUTO) 0.1 /CMM (0.0-0.2); BASOPHILS % (AUTO) 0.6 % (0.0-2.0); EOSINOPHILS % (AUTO) 5.3 % (0.0-6.0); HEMATOCRIT 27 % (39-51); HEMOGLOBIN 8.4 g/dL (13.5-17.5); LYMPHOCYTES # (AUTO) 0.8 /CMM (0.8-4.8); LYMPHOCYTES % (AUTO) 9.5 % (20.0-44.0); MEAN CORPUSCULAR HGB CONC 31 g/dl (31.0-36.0); MEAN CORPUSCULAR VOLUME 85 fL (80-96); MONOCYTES # (AUTO) 1.1 /CMM (0.1-1.30); MONOCYTES % (AUTO) 12.4 % (2.0-12.0); NEUTROPHILS # (AUTO) 6.4 /CMM (1.8-8.9); NEUTROPHILS % (AUTO) 72.2 % (43.0-81.0); PLATELET COUNT (AUTO) 253 /CMM (150-450); RED BLOOD CELL COUNT(AUTO) 3.18 MIL/uL (4.5-6.0); WHITE BLOOD COUNT (AUTO) 8.8 K/uL (4.3-11.0)
--- NOTE | 2019-07-29 08:00 | NUR ---
MS RN OPENING NOTES Received Patient asleep and resting in bed. A/O x 1. Patient in stable condition with no acute distress. Breathing even and unlabored on 3LPM via NC with no respiratory distress. Denies pain. No signs and symptoms of pain. Toussaint Cath in place and patent with clear estefanía coloured output noted. 18g PIV on RFA clean, intact, patent and flushing well with NS infusing at 75ml/hr. Isolation precautions in place. Safety precautions in place. Bed locked and set to lowest position with side rails x 3 up. All needs rendered at this time. Call light within reach. Will continue to monitor.
[2019-07-29 08:29] LABS: ALANINE AMINOTRANSFERASE 383 U/L (12-78); ALKALINE PHOSPHATASE 302 U/L (46-116); ASPARTATE AMINOTRANSFERASE 240 U/L (15-37); BILIRUBIN,TOTAL 0.5 mg/dL (0.2-1.0); CALCIUM, SERUM 9.6 mg/dL (8.5-10.1); CARBON DIOXIDE 21 mmol/L (21-32); CHLORIDE 110 mmol/L (98-107); CREATININE 1.5 mg/dL (0.6-1.3); GLUCOSE 86 mg/dL (74-106); MAGNESIUM 2.6 mg/dL (1.8-2.4); PHOSPHORUS 4.8 mg/dL (2.5-4.9); POTASSIUM 4.6 mmol/L (3.5-5.1); SODIUM SERUM 147 mmol/L (136-145); TOTAL PROTEIN, SERUM 7.7 g/dL (6.4-8.2)
[2019-07-29 08:36] LABS: ALBUMIN 1.4 g/dL (3.4-5.0); UREA NITROGEN, BLOOD 81 mg/dL (7-18)
[2019-07-29 08:37] LABS: CREATINE KINASE, TOTAL < 7 U/L (39-308)
[2019-07-29 08:42] VITALS: BP 132/73
--- NOTE | 2019-07-29 09:04 | NUR ---
WOUND CARE CONSULT; PT FOLLOWED BY SURGICAL AND PODIATRY TEAMS FOR MULTIPLE WOUNDS, PRESENT ON ADMISSION. DEFER TO SURGICAL TEAMS FOR WOUND TREATMENT PLAN. DISCUSSED SKIN PROTECTION WITH NURSING STAFF. PT ON FIRST STEP LYN VAUGHN AIRSS MATTRESS.
[2019-07-29] MEDS ORDERED: Z GUARD REMEDY 2 OZ OINT TP PRN (09:30)
[2019-07-29] MEDS: PANTOPRAZOLE 40 MG VIAL IV SCH ×2 (09:36→20:25)
[2019-07-29] MEDS: HYDROGEL DRESSING 90 GM TUBE TP SCH (09:36)
[2019-07-29] MEDS: MEROPENEM 500 MG in IV NS 0.9% 100 ML IV SCH ×2 (09:36→20:15)
[2019-07-29] MEDS: DAKINS QUARTER STRENGTH (0.125%) 480 ML BOTTLE TOP SCH (09:36)
[2019-07-29] MEDS: Z GUARD REMEDY 2 OZ OINT TP SCH (09:36)
[2019-07-29] MEDS: VANCOMYCIN 1 GM in IV D5W 250 ML IV SCH (12:04)
[2019-07-29 16:15] VITALS: BP 98/54
--- NOTE | 2019-07-29 16:20 | NUR ---
MS STREETCAR DISPATCHER NOTES Patient discharged for home at this time. Patient in stable condition. VS stable with no acute distress. Breathing even and unlabored on room air with no respiratory distress. Denies pain. Skin intact. Medication and reconciliation and discharge orders reviewed and explained to Patient. Patient verbalized understanding. All belongings with Patient. Patient will follow up with Transportation Museum Helper in 1 week. Patient homeless. Provided tap card. Escorted Patient to the Lobby for safety. Addendum: 07/29/19 at 1827 by LISA PIERSON RN ERROR PLEASE DISREGARD NOTE ABOVE, WRONG PATIENT
--- NOTE | 2019-07-29 18:27 | NUR ---
MS RN NOTES Per Kamilla VÁSQUEZ, may begin Gtube feeding per dietary recommendation. Orders noted and carried out. Patient in stable condition. Will continue to monitor.
--- NOTE | 2019-07-29 19:11 | NUR ---
MS RN CLOSING NOTES Patient asleep and resting in bed. A/O x 1. Patient in stable condition with no acute distress. Breathing even and unlabored on 3LPM via NC with no respiratory distress. No signs and symptoms of pain. Gtube in place and patent. Toussaint Cath in place and patent with clear estefanía coloured output noted. 18g PIV on RFA clean, intact, patent and flushing well with NS infusing at 75ml/hr. Isolation precautions in place. Safety precautions in place. Bed locked and set to lowest position with side rails x 3 up. All needs rendered at this time. Call light within reach. Will endorse plan of care to oncoming shift.
--- NOTE | 2019-07-29 19:15 | NUR ---
MS/RN OPENING NOTES: Received patient asleep and resting in bed. A/O x 1. In stable condition with no acute distress. Breathing even and unlabored on 3LPM via NC with no respiratory distress. Denies pain. No signs and symptoms of pain. Toussaint Cath in place and patent with clear estefanía coloured output noted. 18g PIV on RFA clean, intact, patent and flushing well with NS infusing at 75ml/hr. Isolation precautions in place. Safety precautions in place. Bed is locked and set to lowest position with side rails x 3 up. All needs rendered at this time. Call light within reach. Will continue to monitor.
[2019-07-29 20:00] VITALS: BP 125/73
[2019-07-29] MEDS: IV NS 0.9% 1,000 ML IV PRN (20:16)
[2019-07-29] MEDS: JEVITY 1.2 CAL 1,000 ML BOTTLE GT PRN (20:25)
--- NOTE | 2019-07-29 20:25 | NUR ---
MS/RN NOTES: STARTED GTUBE FEEDING AT 2024. JEVITY 1.2 BONNIE RUNNING AT 20ML/HR. INTACT AND PATENT. WILL CONTINUE TO MONITOR PATIENT IF FEEDING IS TOLERATED WELL IN 6-8 HOURS.
[2019-07-30] MEDS: IPRATROPIUM NEB FS 0.5 MG/2.5 ML AMPUL.NEB NEB SCH ×4 (02:17→19:54)
[2019-07-30] MEDS: ALBUTEROL HALF STRENGTH 1.25 MG/3 ML VIAL.NEB NEB SCH ×4 (02:17→19:54)
--- NOTE | 2019-07-30 03:00 | NUR ---
MS/RN NOTES: Patient was turned and repositioned with 2 person assist. Changed patient's gown, linens, and gave a bed bath, and performed wound care dressing, Dressing is now dry and intact. No s/s of pain or discomfort at this time. Kept patient warm and dry at att times. Kept patient clean and dry throughout the shift. All needs and met and rendered at this time. Will continue monitoring patient accordingly.
--- NOTE | 2019-07-30 04:33 | NUR ---
MS/RN NOTES: G-TUBE FEEDING IS BEING TOLERATED WELL BY THE PATIENT. RESIDUAL OF 10 ML. INCREASED RATE TO 10 ML/HR. JEVITY 1.2 BONNIE NOW RUNNING AT 30ML/HR. WILL CONTINUE TO MONITOR PATIENT ACCORDINGLY.
[2019-07-30] MEDS: VANCOMYCIN 1 GM in IV D5W 250 ML IV SCH (05:06)
--- NOTE | 2019-07-30 06:23 | NUR ---
MS/RN CLOSING NOTES: Patent is awake and resting in bed. A/O x 1. Body is contracted yet opens eyes when talked to. Patient in stable condition with no acute distress. Breathing even and unlabored on 3LPM via NC with no respiratory distress. No signs and symptoms of pain. G-tube in place and patent infusing Jevity 1.2 kiara at 30 cc/hour. Tolerating well. HOB elevated to prevent aspiration. Toussaint Cath in place and patent with clear estefanía coloured output noted. 18g PIV on RFA clean, intact, patent and flushing well with NS infusing at 75ml/hr. Isolation precautions in place. Safety precautions in place. Bed locked and set to lowest position with side rails x 3 up. All needs rendered at this time. Call light within reach. Will endorse plan of care to oncoming day shift.
--- NOTE | 2019-07-30 07:54 | NUR ---
MS RN OPENING NOTES Received Patent asleep and resting in bed. A/O x 1. VS stable with no acute distress. Breathing even and unlabored on 3LPM via NC with no respiratory distress. No signs and symptoms of pain. G-tube in place and patent with Jevity 1.2 running at 30ml/hr. HOB elevated to prevent aspiration. Toussaint Cath in place and patent with clear estefanía coloured output noted. 18g PIV on RFA clean, intact, patent and flushing well with NS infusing at 75ml/hr. Isolation precautions in place. Safety precautions in place. Bed locked and set to lowest position with side rails x 3 up. All needs rendered at this time. Call light within reach. Will continue to monitor.
[2019-07-30 08:00] VITALS: BP 116/60
[2019-07-30] MEDS: PANTOPRAZOLE 40 MG VIAL IV SCH ×2 (09:40→20:07)
[2019-07-30] MEDS: MEROPENEM 500 MG in IV NS 0.9% 100 ML IV SCH ×2 (09:40→20:07)
[2019-07-30] MEDS: DAKINS QUARTER STRENGTH (0.125%) 480 ML BOTTLE TOP SCH (09:41)
[2019-07-30] MEDS: HYDROGEL DRESSING 90 GM TUBE TP SCH ×2 (09:41→09:42)
[2019-07-30] MEDS: SILVER SULFADIAZINE 50 GM JAR TP SCH (09:42)
[2019-07-30] MEDS: Z GUARD REMEDY 2 OZ OINT TP SCH (09:42)
--- NOTE | 2019-07-30 12:35 | NUR ---
MS RN NOTES Noted 10ml GTube residual. Increased 10ml of feeding from 30m/hr to 40ml/hr. Patient in stable condition. Will continue to monitor.
[2019-07-30 13:07] LABS: CALCIUM, SERUM 9.1 mg/dL (8.5-10.1); POTASSIUM 5.4 mmol/L (3.5-5.1)
[2019-07-30 16:00] VITALS: BP 103/62
--- NOTE | 2019-07-30 18:40 | NUR ---
MS RN NOTES Collected and obtained urine sample via Toussaint Cath and placed in fridge at this time. Patient in stable condition. Will continue to monitor.
--- NOTE | 2019-07-30 19:30 | NUR ---
MS RN OPENING NOTE PATIENT ON CONTACT ISOLATION FOR ESBL/ PATIENT IS A/O X1. ON OXYGEN 3L/MIN VIA NASAL CANNULA. RESPIRATIONS ARE EVEN AND UNLABORED. NO S/S SOB NOTED. IN NO APPARENT DISTRESS. IV ACCESS IN RFA#18 RUNNING NS#75ML/HR. BARNARD CATHETER IS PRESENT, DRAINING TO GRAVITY, URINE IS MARY KAY AND CLEAR. GTUBE FEEDING IS PRESENT, PLACEMENT CHECK, ASPIRATED, 10ML RESIDUAL, FLUSHED 30ML OF WATER WITH NO RESISTANCE, RUNNING JEVITY1.2 @40ML/HR. BED IS LOW AND LOCKED, ON KCI MATRESS, HOB ELEVATED ABOVE 30 DEGREES, SIDE RIALS UIP X2,. CALL LIGHT WITHIN REACH. WILL CONTINUE TO MONITOR.
[2019-07-30] MEDS: IV NS 0.9% 1,000 ML IV PRN (19:40)
[2019-07-30 20:00] VITALS: BP 118/92
--- NOTE | 2019-07-30 20:00 | NUR ---
MS RN NOTE INCREASED TUBE FEEDING JEVITY 1.2 TO 50ML D/T GOAL IS 70ML, RESIDUAL CHECKED, TOLERATING FEEDING WELL. WILL CONTINUE TO MONITOR.
[2019-07-30 20:02] VITALS: BP 118/92
[2019-07-30 20:48] LABS: APPEARANCE,URINE SL CLOUDY (CLEAR); BILIRUBIN,URINE NEGATIVE (NEGATIVE); BLOOD, URINE SMALL Ery/uL (NEGATIVE); COLOR,URINE YELLOW (YELLOW); KETONES,URINE NEGATIVE (NEGATIVE); LEUKOCYTE ESTERASE ,URINE NEGATIVE (NEGATIVE); NITRITE, URINE NEGATIVE (NEGATIVE); PROTEIN,URINE 100 mg/dl (NEGATIVE); UGLUCOSE NEGATIVE (NEGATIVE); UROBILINOGEN,URINE 0.2 EU/dL (0.2)
[2019-07-30 20:56] LABS: BACTERIA,URINE 3+ /HPF (None Seen); SQUAMOUS EPITHELIAL CELL,UR 0-2 /HPF (None Seen); URIC ACID CRYSTALS,URINE Few /HPF (None Seen); YEAST,URINE Few /HPF (None Seen)
[2019-07-30 21:07] LABS: CREATININE, URINE 68.6 MG/DL (30.0-125.0); URINE TOTAL PROTEIN 107.2 mg/dL (0-11.9)
[2019-07-30 21:55] LABS: EOSINOPHIL,URINE None Seen
[2019-07-31] VITALS (10 sets, daily range): BP systolic 93–145; BP diastolic 50–75
[2019-07-31] MEDS: VANCOMYCIN 1 GM in IV D5W 250 ML IV SCH ×2
[2019-07-31] MEDS: IPRATROPIUM NEB FS 0.5 MG/2.5 ML AMPUL.NEB NEB SCH ×4 (00:39→20:02)
[2019-07-31] MEDS: ALBUTEROL HALF STRENGTH 1.25 MG/3 ML VIAL.NEB NEB SCH ×4 (00:39→20:02)
--- NOTE | 2019-07-31 01:58 | NUR ---
MS RN NOTE DID NOT ADMINISTER VANCO 07/31/19 0000 DOSE D/T VANCO TROUGH AT 0050 SHOWS A HIGH LEVEL OF 23. WILL CONTINUE TO MONITOR.
[2019-07-31] MEDS: JEVITY 1.2 CAL 1,000 ML BOTTLE GT PRN ×2 (04:08→18:39)
--- NOTE | 2019-07-31 04:21 | NUR ---
MS RN NOTE INCREASED JEVITY 1.2 TO 60ML, D/T GOAL 70ML AND PREVIOUS FEEDING AT 60ML IS BEING TOLERATING WELL , EVIDENCE BY RESIDUAL BEING 10ML.
[2019-07-31 06:26] LABS: BASOPHILS % (AUTO) 0.4 % (0.0-2.0); EOSINOPHILS % (AUTO) 5.1 % (0.0-6.0); HEMATOCRIT 24 % (39-51); HEMOGLOBIN 7.2 g/dL (13.5-17.5); LYMPHOCYTES # (AUTO) 0.9 /CMM (0.8-4.8); MEAN CORPUSCULAR HGB CONC 31 g/dl (31.0-36.0); MEAN CORPUSCULAR VOLUME 86 fL (80-96); MONOCYTES # (AUTO) 0.9 /CMM (0.1-1.30); MONOCYTES % (AUTO) 9.3 % (2.0-12.0); NEUTROPHILS # (AUTO) 7.5 /CMM (1.8-8.9); NEUTROPHILS % (AUTO) 76.2 % (43.0-81.0); PLATELET COUNT (AUTO) 333 /CMM (150-450); RED BLOOD CELL COUNT(AUTO) 2.74 MIL/uL (4.5-6.0); WHITE BLOOD COUNT (AUTO) 9.9 K/uL (4.3-11.0)
--- NOTE | 2019-07-31 06:45 | NUR ---
MS RN CLOSING NOTE PATIENT REMAINS ON CONTACT ISOLATION FOR ESBL. PATIENT IS A/O X1. ON OXYGEN 3L/MIN VIA NASAL CANNULA. RESPIRATIONS REMAIN EVEN AND UNLABORED. NO SOB NOTED. NO DISTRESS NOTED. IV ACCESS MAINTAINED IN RFA#18 RUNNING NS@75ML/HR. BARNARD CATHETER IS MAINTAINED, DRAINING TO GRAVITY, URINE IS MARY KAY, OUTPUT 400. GTUBE FEEDING IS MAINTAINED JEVITY1.2 INCREASED @60ML/HR, TOLERATED 50ML/HR WELL FOR 8 HOURS, 10ML RESIDUAL. BED REMAINS LOW AND LOCKED, ON KCI MATRASS, HOB ELEVATED ABOVE 30 DEGREES, SIDE RIALS UIP X2. CALL LIGHT WITHIN REACH. WILL ENDORSE TO NEXT SHIFT.
[2019-07-31 06:56] LABS: CALCIUM, SERUM 8.9 mg/dL (8.5-10.1); CREATININE 1.2 mg/dL (0.6-1.3); MAGNESIUM 2.2 mg/dL (1.8-2.4); PHOSPHORUS 3.6 mg/dL (2.5-4.9); POTASSIUM 3.5 mmol/L (3.5-5.1)
--- NOTE | 2019-07-31 07:28 | NUR ---
RN OPENING NOTE PT RECEIVED IN BED AT LOWEST AND LOCKED POSITION WITH SIDE RAILS UP X2, A/O X1 BREATHING EVEN AND UNLABORED ON 3L VIA NC, NO S/S OF DISTRESS OR PAIN NOTED AT THIS TIME, IV IS PATENT AND INTACT WITH IVF RUNNING, GTUBE IN PLACE WITH NO RESIDUAL NOTED AND FEEDING CURRENTLY RUNNING AT 60 ML/HR, BARNARD IN PLACE AND DRAINING AND NOTED TO HAVE DARK YELLOW URINE, SAFETY PRECAUTIONS IN PLACE, CALL LIGHT IN REACH, WILL MONITOR ACCORDINGLY
--- NOTE | 2019-07-31 08:00 | NUR ---
JAIME FABIAN [place] HOSPITALIST FELIPE BELCHER, TRANSFUSE 1 UNIT OF PRBC FOR DOWN TRENDING HGB FROM 8.4 TO 7.2 Addendum: 07/31/19 at 1059 by MARIA HARRELL RN WITNESSED BY JAIME JOE
[2019-07-31] MEDS: MEROPENEM 500 MG in IV NS 0.9% 100 ML IV SCH ×2 (08:06→21:11)
[2019-07-31] MEDS: PANTOPRAZOLE 40 MG VIAL IV SCH ×2 (08:06→21:08)
[2019-07-31] MEDS: HYDROGEL DRESSING 90 GM TUBE TP SCH ×2 (08:07)
[2019-07-31] MEDS: Z GUARD REMEDY 2 OZ OINT TP SCH (08:07)
[2019-07-31] MEDS: SILVER SULFADIAZINE 50 GM JAR TP SCH (08:08)
[2019-07-31] MEDS: DAKINS QUARTER STRENGTH (0.125%) 480 ML BOTTLE TOP SCH (08:08)
--- NOTE | 2019-07-31 09:43 | NUR ---
RN NOTE CALL RECEIVED FROM LAB THAT BLOOD WILL TAKE SOME TIME TO BE READY DUE TO BLOOD TYPE BEING O NEGATIVE, WILL AWAIT FOR UPDATE
[2019-07-31] MEDS ORDERED: IV D5W 1,000 ML IV ONE (10:30)
--- NOTE | 2019-07-31 13:14 | NUR ---
RN NOTE TUBE FEEDING INCREASED FROM 60 ML/HR TO 70 ML/HR, NO RESIDUAL NOTED AT THIS TIME
[2019-07-31] MEDS: VANCOMYCIN HCL 0.75 GM in IV D5W 250 ML IV SCH (13:49)
--- NOTE | 2019-07-31 16:25 | NUR ---
RN NOTE TRANSFUSION STARTED AT THIS TIME, WILL CONTINUE TO MONITOR
[2019-07-31] MEDS: FLUCONAZOLE (100 MG) 100 MG TABLET PO SCH (16:51)
--- NOTE | 2019-07-31 18:36 | NUR ---
RN CLOSING NOTE PT IN BED AT LOWEST AND LOCKED POSITION WITH SIDE RAILS UP X2, A/O X1 BREATHING EVEN AND UNLABORED ON 3L VIA NC, NO DISTRESS OR PAIN NOTED, IV IS PATENT AND INTACT WITH BLOOD TRANSFUSING AT THIS TIME, GTUBE IN PLACE WITH FEEDING RUNNING AT 70 ML/HR, BARNARD IN PLACE WITH 450CC OUT, SAFETY PRECAUTIONS IN PLACE, CALL LIGHT IN REACH, ALL NEEDS ATTENDED TO, WILL ENDORSE TO NIGHT RN FOR THAIS.
--- NOTE | 2019-07-31 18:54 | NUR ---
RN NOTE TRANSFUSION FINISHED AT THIS TIME
[2019-07-31 20:37] LABS: HEMOGLOBIN 7.6 g/dL (13.5-17.5)
[2019-08-01] MEDS: ALBUTEROL HALF STRENGTH 1.25 MG/3 ML VIAL.NEB NEB SCH ×5 (01:23→20:24)
[2019-08-01] MEDS: IPRATROPIUM NEB FS 0.5 MG/2.5 ML AMPUL.NEB NEB SCH ×5 (01:23→20:24)
--- NOTE | 2019-08-01 06:13 | NUR ---
MS RN NOTES AWAKE & ALERT. NOT IN ANY DISTRESS. NO SOB NOTED. NO S/SX OF ANY PAIN OR DISCOMFORT AT THIS TIME. WITH IV-HL PATENT & INTACT. WITH GTF INFUSING WELL. AM CARE DONE. MONITORED ACCORDINGLY. CALL LIGHT WITHIN REACH. BED IN LOWEST POSITION. SR UP X 3 WITH BED ALARM ON FOR SAFETY. WILL ENDORSE TO NEXT SHIFT.
[2019-08-01 06:27] LABS: BASOPHILS % (AUTO) 0.4 % (0.0-2.0); EOSINOPHILS % (AUTO) 5.9 % (0.0-6.0); HEMATOCRIT 26 % (39-51); HEMOGLOBIN 7.9 g/dL (13.5-17.5); LYMPHOCYTES % (AUTO) 9.8 % (20.0-44.0); MEAN CORPUSCULAR HGB CONC 31 g/dl (31.0-36.0); MEAN CORPUSCULAR VOLUME 87 fL (80-96); MONOCYTES # (AUTO) 0.8 /CMM (0.1-1.30); NEUTROPHILS # (AUTO) 7.6 /CMM (1.8-8.9); NEUTROPHILS % (AUTO) 75.9 % (43.0-81.0); PLATELET COUNT (AUTO) 302 /CMM (150-450); RED BLOOD CELL COUNT(AUTO) 2.93 MIL/uL (4.5-6.0); WHITE BLOOD COUNT (AUTO) 10.1 K/uL (4.3-11.0)
[2019-08-01 06:40] LABS: BILIRUBIN,TOTAL 0.3 mg/dL (0.2-1.0); CALCIUM, SERUM 8.7 mg/dL (8.5-10.1); MAGNESIUM 2.1 mg/dL (1.8-2.4); PHOSPHORUS 3.4 mg/dL (2.5-4.9); POTASSIUM 3.7 mmol/L (3.5-5.1); TOTAL PROTEIN, SERUM 6.9 g/dL (6.4-8.2)
[2019-08-01 06:42] LABS: ALBUMIN 1.3 g/dL (3.4-5.0)
[2019-08-01 08:00] VITALS: BP 140/70
--- NOTE | 2019-08-01 08:00 | NUR ---
MS RN OPENING NOTES Received Patent asleep and resting in bed. A/O x 1. VS stable with no acute distress. Breathing even and unlabored on 3LPM via NC with no respiratory distress. No signs and symptoms of pain. G-tube in place and patent with Jevity 1.2 running at 70ml/hr. HOB elevated to prevent aspiration. Toussaint Cath in place and patent. 18g PIV on NANCY clean, intact, patent and flushing well. Isolation precautions in place. Safety precautions in place. Bed locked and set to lowest position with side rails x 3 up. All needs rendered at this time. Call light within reach. Will continue to monitor.
[2019-08-01] MEDS: PANTOPRAZOLE 40 MG VIAL IV SCH ×2 (08:53→20:27)
[2019-08-01] MEDS: MEROPENEM 500 MG in IV NS 0.9% 100 ML IV SCH ×2 (08:54→20:27)
[2019-08-01] MEDS: HYDROGEL DRESSING 90 GM TUBE TP SCH ×2 (08:55)
[2019-08-01] MEDS: DAKINS QUARTER STRENGTH (0.125%) 480 ML BOTTLE TOP SCH (08:55)
[2019-08-01] MEDS: SILVER SULFADIAZINE 50 GM JAR TP SCH (08:56)
[2019-08-01] MEDS: Z GUARD REMEDY 2 OZ OINT TP SCH (08:56)
--- NOTE | 2019-08-01 12:19 | NUR ---
MS RN NOTES Called Kilo VÁSQUEZ to clarify when MD will come for consult. Per MDs machine shop specialist, Kilo VÁSQUEZ is on vacation this week. Notified Andonian . NNO at this time. Patient in stable condition. Will continue to monitor.
[2019-08-01] MEDS: VANCOMYCIN HCL 0.75 GM in IV D5W 250 ML IV SCH (14:12)
[2019-08-01 16:00] VITALS: BP 140/70
[2019-08-01] MEDS: FLUCONAZOLE (100 MG) 100 MG TABLET PO SCH (16:37)
[2019-08-01] MEDS: JEVITY 1.2 CAL 1,000 ML BOTTLE GT PRN (16:41)
--- NOTE | 2019-08-01 18:32 | NUR ---
MS RN CLOSING NOTES Patient asleep and resting in bed. A/O x 1. VS stable with no acute distress. Breathing even and unlabored on 3LPM via NC with no respiratory distress. No signs and symptoms of pain. G-tube in place and patent with Jevity 1.2 running at 70ml/hr. HOB elevated to prevent aspiration. Toussaint Cath in place and patent with clear estefanía coloured output noted. 18g PIV on NANCY clean, intact, patent and flushing well. Isolation precautions in place. Safety precautions in place. Bed locked and set to lowest position with side rails x 3 up. All needs rendered at this time. Call light within reach. Will endorse plan of care to oncoming shift.
--- NOTE | 2019-08-01 19:29 | NUR ---
MS RN OPENING NOTES Patient asleep and resting in bed. A/O x 1. . Breathing even and unlabored on 3LPM via NC with no respiratory distress. No signs of acute distress noted. No signs and symptoms of pain. G-tube in place and patent with Jevity 1.2 running at 70ml/hr. HOB elevated to prevent aspiration. Toussaint Cath in place and patent with clear estefanía coloured output noted. 18g PIV on NANCY clean, intact, patent and flushing well. Isolation precautions in place. Safety precautions in place. Bed locked and set to lowest position with side rails x 3 up, call light within reach. Will continue to monitor.
--- NOTE | 2019-08-01 19:37 | NUR ---
MS RN NOTES Called dietary to bring more feeding of Jevity 1.2 for patient incase feeding will run out throughout the night. No answer- left a message. Will follow up.
[2019-08-01 20:00] VITALS: BP 124/65
[2019-08-01 20:07] VITALS: BP 124/65
[2019-08-02] MEDS: IPRATROPIUM NEB FS 0.5 MG/2.5 ML AMPUL.NEB NEB SCH ×4 (02:06→19:48)
[2019-08-02] MEDS: ALBUTEROL HALF STRENGTH 1.25 MG/3 ML VIAL.NEB NEB SCH ×4 (02:06→19:48)
--- NOTE | 2019-08-02 06:43 | NUR ---
MS RN CLOSING NOTES Patient resting in bed. A/O x 1. Able to nod head yes and no. No acute distress. Breathing even and unlabored on 3LPM via NC with no respiratory distress. No signs and symptoms of pain. G-tube in place and patent with Jevity 1.2 running at 70ml/hr. HOB elevated to prevent aspiration. Toussaint Cath in place and patent with clear estefanía coloured output noted. 18g PIV on NANCY clean, intact, patent and flushing well. Isolation precautions in place. Safety precautions in place. Bed locked and set to lowest position with side rails x 2 up. Call light within reach. All needs attended to, patient was kept clean and dry, wounds care done. Will endorse to oncoming shift about temi.
[2019-08-02 08:00] VITALS: BP 119/62
[2019-08-02] MEDS: SILVER SULFADIAZINE 50 GM JAR TP SCH (09:00)
[2019-08-02] MEDS: HYDROGEL DRESSING 90 GM TUBE TP SCH ×2 (09:00)
[2019-08-02] MEDS: DAKINS QUARTER STRENGTH (0.125%) 480 ML BOTTLE TOP SCH (09:00)
--- NOTE | 2019-08-02 09:00 | NUR ---
m/s lightning protection installer: md visit seen and examined by dr. cooper at this time. continue plan of care per md. case management following. will continue to monitor. Addendum: 08/02/19 at 1029 by JORGE FARIASN all tx done by noc nurse around 4 o' clock in the morning as stated and will reinforce as needed if soiled. will continue to monitor.
[2019-08-02] MEDS: JEVITY 1.2 CAL 1,000 ML BOTTLE GT PRN (09:07)
[2019-08-02] MEDS: Z GUARD REMEDY 2 OZ OINT TP SCH (09:11)
[2019-08-02] MEDS: MEROPENEM 500 MG in IV NS 0.9% 100 ML IV SCH ×2 (09:20→20:17)
[2019-08-02] MEDS: PANTOPRAZOLE 40 MG VIAL IV SCH ×2 (09:20→20:17)
[2019-08-02 09:54] LABS: BASOPHILS % (AUTO) 0.4 % (0.0-2.0); EOSINOPHILS % (AUTO) 5.3 % (0.0-6.0); HEMATOCRIT 25 % (39-51); LYMPHOCYTES # (AUTO) 1.1 /CMM (0.8-4.8); LYMPHOCYTES % (AUTO) 11.5 % (20.0-44.0); MEAN CORPUSCULAR HGB CONC 32 g/dl (31.0-36.0); MEAN CORPUSCULAR VOLUME 87 fL (80-96); MONOCYTES # (AUTO) 0.7 /CMM (0.1-1.30); NEUTROPHILS # (AUTO) 7.5 /CMM (1.8-8.9); NEUTROPHILS % (AUTO) 75.8 % (43.0-81.0); PLATELET COUNT (AUTO) 284 /CMM (150-450); RED BLOOD CELL COUNT(AUTO) 2.93 MIL/uL (4.5-6.0); WHITE BLOOD COUNT (AUTO) 9.9 K/uL (4.3-11.0)
[2019-08-02 10:07] LABS: CALCIUM, SERUM 8.3 mg/dL (8.5-10.1); CREATININE 0.9 mg/dL (0.6-1.3); POTASSIUM 3.9 mmol/L (3.5-5.1)
--- NOTE | 2019-08-02 11:15 | NUR ---
m/s order entry representative: notes sodium level 157. dr. adams (nephro) increase his free water flush 250ml q [address] left message to [address]. cooper via exchange.
--- NOTE | 2019-08-02 11:35 | NUR ---
m/s change management lead: notes dr. cooper called and informed md re: [id number] with no new order. informed md that dr. adams increase his water flush to q 4hours of 250ml.
--- NOTE | 2019-08-02 13:36 | NUR ---
m/s plant operations vice president: notes vanco trough=[phone]. pharmacist notified and made aware, spoke to
[2019-08-02] MEDS: VANCOMYCIN HCL 0.75 GM in IV D5W 250 ML IV SCH (14:04)
--- NOTE | 2019-08-02 15:00 | NUR ---
m/s water/wastewater engineer: notes turned and repositioned, kept comfortable. tolerating g-tube feeding. no residual obtained. continue on 250ml of free water flush q 4 hours as ordered. call light within reach.
[2019-08-02 16:00] VITALS: BP 131/75
[2019-08-02] MEDS: FLUCONAZOLE (100 MG) 100 MG TABLET PO SCH (17:05)
--- NOTE | 2019-08-02 18:45 | NUR ---
m/s physical medicine teacher: notes incontinent of bowel rendered. kept clean and dry. turned and repositioned. kept comfortable. needs attended. will continue to monitor.
--- NOTE | 2019-08-02 19:20 | NUR ---
m/robyn application administrator: notes bedside report given to stepan jacobson) for continuity of care. Addendum: 08/02/19 at 1928 by JORGE MOCK LVN above charting error: report given to valery jacobson) for continuity of care
--- NOTE | 2019-08-02 19:30 | NUR ---
MS RN OPENING NOTE PATIENT ON CONTACT ISOLATION FOR ESBL URINE. PATIENT IS A/O X1. ON OXYGEN 2L/MIN VIA NASAL CANNULA. RESPIRATIONS ARE EVEN AND UNLABORED. NO S/S SOB NOTED. IN NO APPARENT DISTRESS. IV ACCESS IN NANCY#18 RUNNING NS#75ML/HR. BARNARD CATHETER IS PRESENT, DRAINING TO GRAVITY, URINE IS MARY KAY WITH SEDIMENTS. GTUBE FEEDING IS PRESENT, PLACEMENT CHECK, ASPIRATED, 20ML RESIDUAL, FLUSHED 250ML OF WATER WITH NO RESISTANCE, RUNNING JEVITY1.2 @70ML/HR. BED IS LOW AND LOCKED, ON KCI MATRASS, HOB ELEVATED ABOVE 30 DEGREES, SIDE RIALS UIP X2,. CALL LIGHT WITHIN REACH. WILL CONTINUE TO MONITOR.
[2019-08-02 20:00] VITALS: BP 115/57
--- NOTE | 2019-08-03 | NUR ---
MS RN NOTE FLUSHED GTUBE WITH 250ML ORDERED Q4HR.
[2019-08-03] MEDS: ALBUTEROL HALF STRENGTH 1.25 MG/3 ML VIAL.NEB NEB SCH ×4 (00:52→20:25)
[2019-08-03] MEDS: IPRATROPIUM NEB FS 0.5 MG/2.5 ML AMPUL.NEB NEB SCH ×4 (00:52→20:25)
--- NOTE | 2019-08-03 04:00 | NUR ---
MS RN NOTES FLUSHED GTUBE WITH 250ML PER ORDER.
[2019-08-03] MEDS: JEVITY 1.2 CAL 1,000 ML BOTTLE GT PRN ×2 (05:38→20:14)
--- NOTE | 2019-08-03 07:02 | NUR ---
MS RN CLOSING NOTE PATIENT REMAINS ON CONTACT ISOLATION FOR ESBL URINE. PATIENT IS A/O X1. ON OXYGEN 2L/MIN VIA NASAL CANNULA. RESPIRATIONS ARE EVEN AND UNLABORED. NO SOB NOTED. NO DISTRESS NOTED. IV ACCESS MAINTAINED IN NANCY#18 RUNNING NS#75ML/HR. BARNARD CATHETER IS MAINTAINED, DRAINING TO GRAVITY, URINE IS MARY KAY WITH SEDIMENTS, OUTPUT IS 500ML. GTUBE FEEDING IS MAINTAINED, RUNNING JEVITY1.2 @70ML/HR, FLUSHED WITH 750ML THROUGHOUT SHIFT. BED IS LOW AND LOCKED, ON KCI MATRASS, HOB ELEVATED ABOVE 30 DEGREES, SIDE RIA UIP X2,. CALL LIGHT WITHIN REACH. WILL ENDORSE TO NEXT SHIFT
[2019-08-03 07:06] LABS: BASOPHILS % (AUTO) 0.5 % (0.0-2.0); EOSINOPHILS % (AUTO) 7.6 % (0.0-6.0); HEMATOCRIT 29 % (39-51); HEMOGLOBIN 8.6 g/dL (13.5-17.5); MEAN CORPUSCULAR HGB CONC 29 g/dl (31.0-36.0); MEAN CORPUSCULAR VOLUME 94 fL (80-96); MONOCYTES # (AUTO) 0.5 /CMM (0.1-1.30); MONOCYTES % (AUTO) 6.8 % (2.0-12.0); NEUTROPHILS # (AUTO) 5.4 /CMM (1.8-8.9); NEUTROPHILS % (AUTO) 72.1 % (43.0-81.0); PLATELET COUNT (AUTO) 246 /CMM (150-450); RED BLOOD CELL COUNT(AUTO) 3.12 MIL/uL (4.5-6.0); WHITE BLOOD COUNT (AUTO) 7.5 K/uL (4.3-11.0)
--- NOTE | 2019-08-03 07:30 | NUR ---
RN OPENING NOTES RECEIVED PATIENT IN BED. ON CONTACT ISOLATION FOR ESBL URINE. PATIENT IS A/O X1. ON OXYGEN 2L/MIN VIA NASAL CANNULA. RESPIRATIONS ARE EVEN AND UNLABORED. NO S/S SOB NOTED. IN NO APPARENT DISTRESS. IV ACCESS IN NANCY#18 RUNNING NS#75ML/HR. BARNARD CATHETER IN PLACED, DRAINING TO GRAVITY, URINE IS MARY KAY WITH SEDIMENTS. GTUBE FEEDING IN PLACED, FLUSHED 250ML OF WATER WITH NO RESISTANCE, RUNNING JEVITY1.2 @70ML/HR. BED IS LOW AND LOCKED, ON KCI MATRASS, HOB ELEVATED ABOVE 30 DEGREES, SIDE RIALS UIP X2,. CALL LIGHT WITHIN REACH. WILL CONTINUE TO MONITOR.
[2019-08-03 07:45] LABS: CALCIUM, SERUM 8.2 mg/dL (8.5-10.1); CREATININE 0.8 mg/dL (0.6-1.3); POTASSIUM 4.3 mmol/L (3.5-5.1)
[2019-08-03 08:00] VITALS: BP 145/100
[2019-08-03] MEDS: MEROPENEM 500 MG in IV NS 0.9% 100 ML IV SCH ×3 (09:56→23:43)
[2019-08-03] MEDS: PANTOPRAZOLE 40 MG VIAL IV SCH ×2 (09:56→20:14)
[2019-08-03] MEDS: Z GUARD REMEDY 2 OZ OINT TP SCH (09:57)
[2019-08-03] MEDS: SILVER SULFADIAZINE 50 GM JAR TP SCH (09:57)
[2019-08-03] MEDS: HYDROGEL DRESSING 90 GM TUBE TP SCH ×2 (09:58→09:59)
[2019-08-03] MEDS: DAKINS QUARTER STRENGTH (0.125%) 480 ML BOTTLE TOP SCH (12:21)
[2019-08-03] MEDS ORDERED: MEROPENEM 500 MG in IV NS 0.9% 100 ML IV SCH (15:30)
[2019-08-03 16:00] VITALS: BP 146/76
[2019-08-03] MEDS: FLUCONAZOLE (100 MG) 100 MG TABLET PO SCH (17:58)
--- NOTE | 2019-08-03 19:30 | NUR ---
RN CLOSING NOTES PATIENT IN STABLE CONDITION. ALL NEEDS ATTENDED AND PROVIDED. ALL DUE MEDS GIVEN ORDERED. TURNED AND REPOSITIONED EVERY 2 HRS AND NEEDED. WOUND CARE RENDERED. BED IN LOW/LOCKED POSITION, SIDERAILS UPX2, CALL LIGHT IN REACH HOB ELEVATED. ENDORSED ACCORDINGLY.
--- NOTE | 2019-08-03 19:30 | NUR ---
MS RN OPENING NOTE PATIENT ON CONTACT ISOLATION FOR ESBL URINE. PATIENT IS A/O X1. ON OXYGEN 2L/MIN VIA NASAL CANNULA. RESPIRATIONS ARE EVEN AND UNLABORED. NO S/S SOB NOTED. IN NO APPARENT DISTRESS. IV ACCESS IN NANCY#18 RUNNING NS@75ML/HR. BARNARD CATHETER IS PRESENT, DRAINING TO GRAVITY, URINE IS MARY KAY WITH SEDIMENTS. GTUBE FEEDING IS PRESENT, PLACEMENT CHECK, ASPIRATED, 10ML RESIDUAL, FLUSHED 250ML OF WATER WITH NO RESISTANCE, RUNNING JEVITY1.2 @70ML/HR. BED IS LOW AND LOCKED, ON KCI MATRASS, HOB ELEVATED ABOVE 30 DEGREES, SIDE RIALS UIP X2,. CALL LIGHT WITHIN REACH. WILL CONTINUE TO MONITOR.
[2019-08-03 20:00] VITALS: BP 138/72
--- NOTE | 2019-08-04 | NUR ---
MS RN NOTE FLUSHED WITH 250ML WATER ORDERED.
[2019-08-04] MEDS: ALBUTEROL HALF STRENGTH 1.25 MG/3 ML VIAL.NEB NEB SCH ×3 (01:12→14:26)
[2019-08-04] MEDS: IPRATROPIUM NEB FS 0.5 MG/2.5 ML AMPUL.NEB NEB SCH ×3 (01:12→14:26)
[2019-08-04] MEDS ORDERED: VANCOMYCIN 1 GM in IV D5W 250 ML IV SCH (02:00)
[2019-08-04] MEDS: VANCOMYCIN 0.75 GM in IV D5W 250 ML IV SCH ×2 (02:57→14:46)
--- NOTE | 2019-08-04 04:00 | NUR ---
MS RN NOTE FLUSHED GTUBE WITH 250ML ORDERED.
--- NOTE | 2019-08-04 07:35 | NUR ---
MS RN CLOSING NOTE PATIENT REMAINS ON CONTACT ISOLATION FOR ESBL URINE. PATIENT IS A/O X1. ON OXYGEN 2L/MIN VIA NASAL CANNULA. RESPIRATIONS ARE EVEN AND UNLABORED. NO SOB NOTED. NO DISTRESS NOTED. IV ACCESS MAINTAINED IN NANCY#22 RUNNING NS@75ML/HR. BARNARD CATHETER IS MAINTAINED, DRAINING TO GRAVITY, URINE IS MARY KAY WITH SEDIMENTS OUTPUT IS 600. GTUBE FEEDING FLUSHED 250ML Q4H WITH WATER WITH NO RESISTANCE, RUNNING JEVITY1.2 @70ML/HR. BED IS LOW AND LOCKED, ON KCI MATRASS, HOB ELEVATED ABOVE 30 DEGREES, SIDE RIALS UIP X2,. CALL LIGHT WITHIN REACH. WILL ENDORSE TO NEXT SHIFT.
--- NOTE | 2019-08-04 07:42 | NUR ---
MS RN NOTE RECEIVED PATIENT IN BED RESTING COMFORTABLY IN MODERATE HIGH BACK REST. ON CONTACT ISOLATION FOR ESBL URINE. PATIENT IS A/O X1. ON OXYGEN 2L/MIN VIA NASAL CANNULA. RESPIRATIONS ARE EVEN AND UNLABORED. NO SIGNS OF DISTRESS AT THIS TIME. IV ACCESS MAINTAINED IN NANCY#22, PATENT AND INTACT. BARNARD CATHETER IS MAINTAINED, DRAINING TO GRAVITY.. GTUBE FEEDING FLUSHED 250ML Q4H WITH WATER WITH NO RESISTANCE, RUNNING JEVITY1.2 @70ML/HR. SAFETY MEASURES IN PLACE, BED IS LOW AND LOCKED, ON KCI MATTRESS, SIDE RIALS UP X2, CALL LIGHT WITHIN REACH. WILL CONTINUE TO MONITOR.
[2019-08-04 08:10] VITALS: BP 127/71
[2019-08-04] MEDS: MEROPENEM 500 MG in IV NS 0.9% 100 ML IV SCH (08:21)
[2019-08-04] MEDS: PANTOPRAZOLE 40 MG VIAL IV SCH (08:27)
[2019-08-04] MEDS: DAKINS QUARTER STRENGTH (0.125%) 480 ML BOTTLE TOP SCH (08:28)
[2019-08-04] MEDS: Z GUARD REMEDY 2 OZ OINT TP SCH (08:30)
[2019-08-04] MEDS: SILVER SULFADIAZINE 50 GM JAR TP SCH (08:31)
[2019-08-04] MEDS: HYDROGEL DRESSING 90 GM TUBE TP SCH ×2 (08:31→08:32)
[2019-08-04 09:04] LABS: CALCIUM, SERUM 8.3 mg/dL (8.5-10.1); CREATININE 0.7 mg/dL (0.6-1.3); POTASSIUM 4.3 mmol/L (3.5-5.1)
[2019-08-04 10:25] LABS: BASOPHILS % (AUTO) 0.2 % (0.0-2.0); EOSINOPHILS % (AUTO) 6.1 % (0.0-6.0); HEMATOCRIT 28 % (39-51); HEMOGLOBIN 8.6 g/dL (13.5-17.5); LYMPHOCYTES # (AUTO) 0.8 /CMM (0.8-4.8); MEAN CORPUSCULAR HGB CONC 31 g/dl (31.0-36.0); MEAN CORPUSCULAR VOLUME 89 fL (80-96); MONOCYTES # (AUTO) 0.4 /CMM (0.1-1.30); MONOCYTES % (AUTO) 5.3 % (2.0-12.0); NEUTROPHILS # (AUTO) 6.5 /CMM (1.8-8.9); NEUTROPHILS % (AUTO) 78.4 % (43.0-81.0); PLATELET COUNT (AUTO) 263 /CMM (150-450); RED BLOOD CELL COUNT(AUTO) 3.15 MIL/uL (4.5-6.0); WHITE BLOOD COUNT (AUTO) 8.3 K/uL (4.3-11.0)
--- NOTE | 2019-08-04 14:30 | NUR ---
RN NOTES PER LAB, PATIENT IS A HARD STICK, UNABLE TO GET BLOOD SAMPLE. INFORMED THE PHARMACIST REGARDING VANCO DOSING PER ZACKARY IT IS OKAY TO GIVE THE DOSE. WILL CONTINUE TO MONITOR.
--- NOTE | 2019-08-04 15:56 | NUR ---
SERVOMECHANISM ASSEMBLER NOTES PATIENT DISCHARGED IN STABLE CONDITION. A/O X1, NON-VERBAL.V/S TAKEN, STABLE AND RECORDED. PATIENT HAS MULTIPLE SKIN ISSUES, WOUND CARE DONE AND PICTURES FILED ON CHART. PATIENT WILL BE DISCHARGE WITH IV ACCESS ON NANCY #22, PATENT AND INTACT. F/C DRAINING FREELY, INTACT. NAME ARM BAND REMOVED. NO BELONGINGS NOTED. PATIENT IS GOING BACK TO SNF ([facility]), REPORT GIVEN TO JAIME LYONS. PATIENT LEFT UNIT VIA GURNEY WITH 2 AMBULANCE STAFF. NO SIGNS OF DISTRESS NOTED. CHARGE NURSE AWARE OF DISCHARGED.
== END 2019-08-04 16:00 | DRG 871 ==
LOC: ER 19:06 → TELE 22:14 → MED 07-28 10:06
PROVIDERS: ADMIT Nurse Practitioner Acute Care; ATTEND Internal Medicine
PROC: 30233N1 Transfusion of Nonautologous Red Blood Cells into Peripheral Vein, Percutaneous Approach (ICD-10-PCS; principal; 2019-07-27)
DX: A41.51 Sepsis due to Escherichia coli [E. coli] (principal); G93.41 Metabolic encephalopathy; R53.2 Functional quadriplegia; N17.0 Acute kidney failure with tubular necrosis; E43 Unspecified severe protein-calorie malnutrition; N39.0 Urinary tract infection, site not specified; K92.2 Gastrointestinal hemorrhage, unspecified; D68.59 Other primary thrombophilia; J98.11 Atelectasis; I69.354 Hemiplegia and hemiparesis following cerebral infarction affecting left non-dominant side; R64 Cachexia; E87.0 Hyperosmolality and hypernatremia; I12.9 Hypertensive chronic kidney disease with stage 1 through stage 4 chronic kidney disease, or unspecified chronic kidney disease; N18.9 Chronic kidney disease, unspecified; E78.5 Hyperlipidemia, unspecified; F02.80 Dementia in other diseases classified elsewhere, unspecified severity, without behavioral disturbance, psychotic disturbance, mood disturbance, and anxiety; G30.9 Alzheimer's disease, unspecified; F41.9 Anxiety disorder, unspecified; K21.9 Gastro-esophageal reflux disease without esophagitis; I25.119 Atherosclerotic heart disease of native coronary artery with unspecified angina pectoris; R26.9 Unspecified abnormalities of gait and mobility; F25.0 Schizoaffective disorder, bipolar type; Z91.018 Allergy to other foods; Z79.51 Long term (current) use of inhaled steroids; Z79.899 Other long term (current) drug therapy; R13.10 Dysphagia, unspecified; Z93.1 Gastrostomy status; Z87.440 Personal history of urinary (tract) infections; Z86.79 Personal history of other diseases of the circulatory system; Z74.01 Bed confinement status; I73.9 Peripheral vascular disease, unspecified; D64.9 Anemia, unspecified; B96.20 Unspecified Escherichia coli [E. coli] as the cause of diseases classified elsewhere
CPT/HCPCS: 36415; 71045-TC; 76770-TC; 80048-TC; 80053-TC; 80076-TC; 80202-TC; 81000-TC; 82272-TC; 82550-TC; 82570-TC; 83605-TC; 83735-TC; 83970; 84100-TC; 84155-TC; 84300-TC; 84484-TC; 85025-TC; 85027-TC; 85730-TC; 86850-TC; 86921-TC; 87040-TC; 87081-TC; 87086-TC; 87186-TC; 94799-TC; A4216; A6248; A6253; A6403; C9113; G0378; J2185; J2543; J3370; J3490; J7030; J7050; J7060; J7070; P9016-BL

== ENCOUNTER 2019-08-25 18:36 | Inpatient (IN) | payer MEDICARE, OTHER ==
[~2019-08-25] VITALS: Ht 167.6 cm; Wt 78.0 kg
[~2019-08-25 18:36] MED LIST changes: +FERR325T23 GT; +MULT-447 GT; -VANC1VIA IV
[2019-08-25 19:35] LABS: BASOPHILS # (AUTO) 0.2 /CMM (0.0-0.2); BASOPHILS % (AUTO) 1.1 % (0.0-2.0); EOSINOPHILS % (AUTO) 0.8 % (0.0-6.0); HEMATOCRIT 23 % (39-51); HEMOGLOBIN 7.1 g/dL (13.5-17.5); LYMPHOCYTES # (AUTO) 0.8 /CMM (0.8-4.8); LYMPHOCYTES % (AUTO) 4.9 % (20.0-44.0); MEAN CORPUSCULAR HGB CONC 31 g/dl (31.0-36.0); MEAN CORPUSCULAR VOLUME 87 fL (80-96); MONOCYTES # (AUTO) 1.2 /CMM (0.1-1.30); MONOCYTES % (AUTO) 7.4 % (2.0-12.0); NEUTROPHILS # (AUTO) 14.5 /CMM (1.8-8.9); NEUTROPHILS % (AUTO) 85.8 % (43.0-81.0); PLATELET COUNT (AUTO) 367 /CMM (150-450); RED BLOOD CELL COUNT(AUTO) 2.64 MIL/uL (4.5-6.0); WHITE BLOOD COUNT (AUTO) 16.9 K/uL (4.3-11.0)
[2019-08-25 19:36] LABS: APPEARANCE,URINE Clear (CLEAR); BILIRUBIN,URINE Negative (NEGATIVE); BLOOD, URINE Trace-intact Ery/uL (NEGATIVE); COLOR,URINE Orange (YELLOW); KETONES,URINE Negative (NEGATIVE); LEUKOCYTE ESTERASE ,URINE Negative (NEGATIVE); NITRITE, URINE Negative (NEGATIVE); PH,URINE 5.5 (5.0-8.0); PROTEIN,URINE 100 mg/dl (NEGATIVE); UGLUCOSE Negative (NEGATIVE); UROBILINOGEN,URINE 0.2 EU/dL (0.2)
[2019-08-25 19:44] LABS: CALCIUM, SERUM 8.3 mg/dL (8.5-10.1); CREATININE 0.9 mg/dL (0.6-1.3); POTASSIUM 3.6 mmol/L (3.5-5.1)
[2019-08-25 19:56] LABS: BILIRUBIN,DIRECT 0.2 mg/dL (0.0-0.2); BILIRUBIN,TOTAL 0.3 mg/dL (0.2-1.0)
[2019-08-25] MEDS ORDERED: CEFEPIME 1 GM VIAL ONE (19:56)
[2019-08-25] MEDS ORDERED: VANCOMYCIN 1 GM VIAL ONE (19:57)
[2019-08-25] MEDS ORDERED: VANCOMYCIN 1 GM in IV D5W 250 ML IV ONE (20:00)
[2019-08-25] MEDS ORDERED: CEFEPIME 1 GM in IV D5W 50 ML IV ONE (20:00)
--- NOTE | 2019-08-25 20:06 | NUR ---
ERWIN FROM SNF. TO ER BED BED 10. AAOX0. NOT IN RESP DISTRESS, BREATHING EVEN AND UNLABORED. BEDBOUND. BROUGHT IN FOR FEVER. PER REPORT PT WAS RECENTLY DISCHARGED FROM [facility]. PT WAS STARTED ON ROCEPHINE. RECETAL TEMP NOTED 99.7. PT PRESENT WITH CONTRATURE ON BILAT UPPER AND BILAT LOWER EXTREMETIES. NOTED MULTIPLE WOUNDS - PRESSURE ULCERS ON R EAR, L ELBOW, R HIP, SACRAL, BILAT KNEES AND BILAT FOOT. MD WAS AT BEDSIDE. ORDERS RECEIVED NOPTED AND CARRIED OUT. PT PRESENTED WITH MIDLINE 1 LUMEN ON NANCY. IV LINE STARTED ON L HAND W 22G. BLOOD DRAW AND GIVEN TO PANEL WIRER AT BEDSIDE. PT PLACE ON O2 VIA NC @ 2 LPM. WILL CONTINUE TO MONITOR
--- NOTE | 2019-08-25 20:13 | NUR ---
PAGED SUPERVISOR ELECTRIC EMELINA
[2019-08-25 20:17] LABS: BACTERIA,URINE Few /HPF (None Seen); SQUAMOUS EPITHELIAL CELL,UR Few /HPF (None Seen); WBC,URINE 0-2 /HPF (0-3)
[2019-08-25] MEDS ORDERED: IV NS 0.9% 1,000 ML BAG IV ONE (21:30)
--- NOTE | 2019-08-25 21:30 | NUR ---
REPORT GIVEN TO JAIME GONZALEZ
--- NOTE | 2019-08-25 21:39 | NUR ---
TRANSPORTED TO UNIT
--- NOTE | 2019-08-25 21:39 | NUR ---
PT TRANSPORTED TO UNIT ON GURNEY WITH EMT AND RN AT BEDSIDE W/ ACLS PROTOCOL. NAD NOTED DURING TRANSPORT.
--- NOTE | 2019-08-25 21:40 | NUR ---
TELE/RN ADMITTING NOTES: RECEIVED PATIENT REPORT FROM DAVID MONTES NURSE. PT. ARRIVED TO THE UNIT VIA GURNEY UNDER ACLS PROTOCOL. ON 2L OF OXYGEN VIA NC. PATIENT IS A/OX0-1, IN A CONTRACTED POSITION. RESPONDS BY OPENING HIS EYES WHEN CALLED BY NAME. IV SITE IS LOCATED ON THE RIGHT UPPER ARM MIDLINE, LEFT HAND #22G. WAITING FOR ORDERS RIGHT NOW. PATIENT HAS MULTIPLE WOUND ON GERSON. HIPS, SACRUM, KNEES, AND ELBOW, RIGHT EAR. ALL SKIN ISSUES ASSESSED, APPLIED MEPILEX FOR NOW, PHOTO TAKEN AND DOCUMENTED ON THE CHART. WOUND CONSULT ORDERED FOR THE MORNING. ON ASPIRATION PRECAUTION, FALL PRECAUTION, SAFTEY PRECAUTIONS. BED IN LOW, LOCKED POSITION DENIS SR UP X2. CALL LIGHT WITHIN REACH, WILL CONTINUE MONITORING PT. ACCORDINGLY.
[2019-08-25 22:00] VITALS: BP 150/77
[2019-08-25] MEDS ORDERED: ACETAMINOPHEN 325 MG TABLET PO PRN (22:30)
[2019-08-25] MEDS ORDERED: MAG HYDROX/AL HYDROX/SIMETH 30 ML UDC PO PRN (22:30)
[2019-08-25] MEDS ORDERED: ZOLPIDEM TARTRATE 5 MG TABLET PO PRN (22:30)
[2019-08-25] MEDS ORDERED: MAGNESIUM HYDROXIDE 30 ML UDC PO PRN (22:30)
[2019-08-25] MEDS ORDERED: MORPHINE SULFATE INJ 2 MG/ML DISP.SYRIN IV PRN (22:30)
[2019-08-25] MEDS ORDERED: HYDROCODONE/APAP 5/325MG 1 EACH TABLET PO PRN (22:30)
[2019-08-25] MEDS ORDERED: ONDANSETRON HCL/PF 4 MG/2 ML VIAL IVP PRN (22:30)
[2019-08-25] MEDS ORDERED: Z GUARD REMEDY 2 OZ OINT TP PRN (22:30)
[2019-08-25 23:00] VITALS: BP 150/77
[2019-08-26] VITALS (12 sets, daily range): BP systolic 115–178; BP diastolic 56–75
[2019-08-26] MEDS ORDERED: CEFEPIME 1 GM VIAL ONE (04:52)
[2019-08-26] MEDS: CEFEPIME 2 GM in IV D5W 100 ML IV SCH ×3 (05:02→20:53)
[2019-08-26] MEDS: IV NS 0.9% 1,000 ML IV PRN (05:04)
[2019-08-26 06:51] LABS: BASOPHILS # (AUTO) 0.1 /CMM (0.0-0.2); BASOPHILS % (AUTO) 0.4 % (0.0-2.0); EOSINOPHILS % (AUTO) 1.3 % (0.0-6.0); HEMATOCRIT 23 % (39-51); LYMPHOCYTES # (AUTO) 0.7 /CMM (0.8-4.8); LYMPHOCYTES % (AUTO) 4.6 % (20.0-44.0); MEAN CORPUSCULAR HGB CONC 30 g/dl (31.0-36.0); MEAN CORPUSCULAR VOLUME 89 fL (80-96); MONOCYTES # (AUTO) 1.1 /CMM (0.1-1.30); MONOCYTES % (AUTO) 7.9 % (2.0-12.0); NEUTROPHILS # (AUTO) 12.5 /CMM (1.8-8.9); NEUTROPHILS % (AUTO) 85.8 % (43.0-81.0); PLATELET COUNT (AUTO) 331 /CMM (150-450); WHITE BLOOD COUNT (AUTO) 14.5 K/uL (4.3-11.0)
[2019-08-26 07:26] LABS: BILIRUBIN,TOTAL 0.4 mg/dL (0.2-1.0); CALCIUM, SERUM 8.2 mg/dL (8.5-10.1); CREATININE 0.8 mg/dL (0.6-1.3); PHOSPHORUS 2.7 mg/dL (2.5-4.9); POTASSIUM 3.8 mmol/L (3.5-5.1); TOTAL PROTEIN, SERUM 5.6 g/dL (6.4-8.2)
--- NOTE | 2019-08-26 07:29 | NUR ---
TEXTILE WORKER NOTES RECEIVED REPORT ON PATIENT FROM PM NURSE. PATIENT IS CURRENTLY LAYING IN BED WITH NO SOB/ RESPIRATORY DISTRESS NOTED. BED IN LOWEST LOCKED POSITION WITH SIDE RAILS UP. CALL LIGHT WITHIN REACH. APPEARS TO BE COMFORTABLE. WILL CONTINUE TO MONITOR PATIENT.
--- NOTE | 2019-08-26 07:30 | NUR ---
TELE/RN NOTES: PATIENT STABLE AT THIS TIME. NO SIGNIFICANT CHANGES IN CONDITION, VS WNL. ON 2 L OF OXYGEN VIA NC SATURATING AT 97%. TELE MONITORING WITH READING OF SR 80-90. ALL NEEDS MET AND RENDERED. NO S/S OF PAIN AT THIS TIME. REPOSITIONED EVERY [address] MEAS[address] IN PLACE. BED IN LOW, LOCKED POSITION WITH SR UP X2, WILL ENDORSE TO DAY SHIFT FOR THAIS.
[2019-08-26 07:33] LABS: ALBUMIN 0.8 g/dL (3.4-5.0)
[2019-08-26] MEDS ORDERED: FEE PK DOSING 1 MIN EA MC ONE (07:33)
[2019-08-26 08:09] LABS: THYROID STIMULATING HORMONE 2.948 uIU/mL (0.358-3.74)
[2019-08-26 08:10] LABS: HEMOGLOBIN 6.9 g/dL (13.5-17.5)
[2019-08-26] MEDS: VANCOMYCIN 1 GM in IV D5W 250ml IV SCH ×2 (08:25→19:55)
[2019-08-26 08:59] LABS: EOSINOPHILS % (MANUAL) 1 % (0-4); LYMPHOCYTES % (MANUAL) 9 % (16-48); MONOCYTES % (MANUAL) 8 % (0-11.0); NEUTROPHILS % (MANUAL) 82 (42-76)
--- NOTE | 2019-08-26 09:05 | NUR ---
RETICLE PRINTER NOTES CONTACTED PATIENT'S BROTHER, ALTHEA NAVARRETE REGARDING CONSENT FOR BLOOD TRANSFUSION. PATIENT'S BROTHER DID NOT ANSWER PHONE, WILL TRY AGAIN LATER.
--- NOTE | 2019-08-26 09:38 | NUR ---
WOUND CARE CONSULT: PT FOLLOWED BY SURGICAL AND PODIATRY TEAMS FOR WOUND CARE. DR SULTANA AND DR SEGURA NOTIFIED OF CONSULT REQUESTS. FIRST STEP LOW AIRLOSS MATTRESS ON ORDER. DISCUSSED SKIN PROTECTION WITH NURSING STAFF. DEFER TO SURGICAL TEAMS FOR WOUND TREATMENT PLAN. WILL SEE PRN.
[2019-08-26] MEDS ORDERED: CEFT1VIA15 IV (10:41)
--- NOTE | 2019-08-26 12:00 | NUR ---
MS RN NOTES CONFIRMED WITH PAMELA LOONEY TO KEEP PATIENT NPO FOR TODAY. WILL CONTINUE TO MONITOR.
--- NOTE | 2019-08-26 17:00 | NUR ---
MS RN NOTES FOLLOWED UP WITH PAMELA LOONEY TO REVIEW MED. RECON WILL CONTINUE TO MONITOR.
[2019-08-26] MEDS: DAKINS QUARTER STRENGTH (0.125%) 480 ML BOTTLE TOP SCH (17:38)
[2019-08-26] MEDS: HYDROGEL DRESSING 90 GM TUBE TP SCH (18:56)
--- NOTE | 2019-08-26 19:00 | NUR ---
RN trinidadsurlong opening notes Received Pt from morning nurse with ongoing blood transfusion. Pt is resting in bed comfortably. Respiration is normal in 2 L NC. No SOB. No S/S of distress noted. VS is stable. NANCY midline is clean, intact, patent and infusing well blood transfusion. L hand # 22 is clean, intact, patent and SL. Contact precautions for MRSA is maintained. Safety precautions is maintained. Bed at low position, brakes locked, side railsX3 and call light is within reach. Will continue to monitor.
--- NOTE | 2019-08-26 19:16 | NUR ---
MS RN CLOSING NOTES PATIENT IS LAYING IN BED RECEIVING BLOOD TRANSFUSION, TOLERATING WELL. VITAL SIGNS HAVE BEEN STABLE. NO SOB/ RESPIRATORY DISTRESS NOTED. PATIENT APPEARS COMFORTABLE, NO COMPLAINTS OF PAIN. CALL LIGHT WITHIN REACH. BED IN LOWEST LOCKED POSITION WITH SIDE RAILS UP. WILL ENDORSE REPORT TO PM NURSE.
--- NOTE | 2019-08-26 20:46 | NUR ---
RN estelita notes 1 unit of Blood transfusion is done transfusing. VS is stable. No transfusion reaction noted. Pt tolerated well. BP 133/73, PULSE 89, TEMP 98.6, RESP 18, O2 SAT IS 100%. Will continue to monitor.
--- NOTE | 2019-08-26 22:24 | NUR ---
Patient has hx of dementia and is poor historian. He resides at [facility] [phone]. He is confined to chair and bed most of time. Requires max assist with adl's. Pcp is Dr. Tamir Starkey. Current dc plan is to return to SNF, bedhold x7days. Addendum: 08/26/19 at 2225 by LYNDA LOPEZ RN Amended: Links added.
[2019-08-27] MEDS: IV NS 0.9% 1,000 ML IV PRN (00:36)
[2019-08-27] MEDS: CEFEPIME 2 GM in IV D5W 100 ML IV SCH ×2 (04:13→12:33)
[2019-08-27 07:07] LABS: BASOPHILS % (AUTO) 0.2 % (0.0-2.0); EOSINOPHILS % (AUTO) 2.8 % (0.0-6.0); HEMATOCRIT 27 % (39-51); HEMOGLOBIN 8.2 g/dL (13.5-17.5); LYMPHOCYTES # (AUTO) 0.9 /CMM (0.8-4.8); LYMPHOCYTES % (AUTO) 5.5 % (20.0-44.0); MEAN CORPUSCULAR HGB CONC 31 g/dl (31.0-36.0); MEAN CORPUSCULAR VOLUME 90 fL (80-96); MONOCYTES % (AUTO) 6.5 % (2.0-12.0); NEUTROPHILS # (AUTO) 13.6 /CMM (1.8-8.9); PLATELET COUNT (AUTO) 343 /CMM (150-450); RED BLOOD CELL COUNT(AUTO) 2.98 MIL/uL (4.5-6.0); WHITE BLOOD COUNT (AUTO) 16.1 K/uL (4.3-11.0)
--- NOTE | 2019-08-27 07:10 | NUR ---
RN medsurg closing notes Pt is resting in bed comfortably. Respiration is normal in 2 L NC. No SOB. No S/S of distress noted. VS is stable. NANCY midline is clean, intact, patent, SL. IV sites at L hand # 22 is clean, intact, patent and infusing well NS @ 75 ml/hr. Routine meds were given as ordered. Wound care and skin care provided. Toussaint cath is intact and draining yellow urine. Kept Pt clean, dry and comfortable. Contact precautions is maintained. Safety precautions is maintained. Bed at low position, brakes locked, side rails upX2 and call light is within reach. Will endorse to morning nurse for THAIS.
[2019-08-27 07:28] LABS: CALCIUM, SERUM 8.2 mg/dL (8.5-10.1); CREATININE 0.7 mg/dL (0.6-1.3); MAGNESIUM 2.1 mg/dL (1.8-2.4); PHOSPHORUS 3.8 mg/dL (2.5-4.9); POTASSIUM 3.9 mmol/L (3.5-5.1)
--- NOTE | 2019-08-27 07:45 | NUR ---
MS RN NOTES RECEIVED PATIENT IN BED RESTING COMFORTABLY IN MODERATE HIGH BACK REST. NO SIGNS OF DISTRESS NOTED AT THIS TIME. IV FLUIDS OF NS RUNNING @ 75ML/HR, PATENT AND INTACT. SAFETY MEASURES IN PLACE, CALL LIGHT WITHIN REACH. BED IN LOWEST LOCKED POSITION WITH SIDE RAILS UP. WILL CONTINUE TO MONITOR.
[2019-08-27 08:00] VITALS: BP 140/73
[2019-08-27] MEDS: VANCOMYCIN 1 GM in IV D5W 250ml IV SCH (08:10)
[2019-08-27] MEDS: DAKINS QUARTER STRENGTH (0.125%) 480 ML BOTTLE TOP SCH (08:45)
[2019-08-27] MEDS: HYDROGEL DRESSING 90 GM TUBE TP SCH (08:46)
[2019-08-27] MEDS ORDERED: SILVER SULFADIAZINE 50 GM JAR TP SCH (09:00)
[2019-08-27] MEDS ORDERED: HYDROGEL DRESSING 90 GM TUBE TP SCH (09:00)
[2019-08-27] MEDS ORDERED: RXVAN XX (12:39)
[2019-08-27] MEDS ORDERED: HYDR-3972 PO (12:39)
[2019-08-27] MEDS ORDERED: CEFA2PLA9 IV (12:39)
--- NOTE | 2019-08-27 16:50 | NUR ---
FIG WASHER NOTES PATIENT DISCHARGED IN STABLE CONDITION, CAN OPEN EYES BUT NON-VERBAL. V/S TAKEN, STABLE AND RECORDED. DC PATIENT WITH IV ACCESS TO CONTINUE IV ATB IN THE SNF. NAME ARM BAND REMOVED. NO BELONGINGS, TOOK PICTURES OF ALL SKIN ISSUES AND FILED ON CHART. PATIENT WAS PICKED UP VIA GURNEY WITH 2 AMBULANCE STAFF, GOING TO [facility], REPORT GIVEN TO MI, NURSING RETAIL LOAN ORIGINATOR. NOT IN ANY SIGNS OF DISTRESS. CHARGE NURSE AWARE OF DISCHARGED.
== END 2019-08-27 17:00 | DRG 871 ==
LOC: ER 18:42 → TELE 21:13 → MED 08-26 08:29
PROVIDERS: ADMIT Hospitalist; ATTEND Hospitalist
PROC: 05HB33Z Insertion of Infusion Device into Right Basilic Vein, Percutaneous Approach (ICD-10-PCS; principal; 2019-08-25)
DX: A41.9 Sepsis, unspecified organism (principal); L89.154 Pressure ulcer of sacral region, stage 4; J18.9 Pneumonia, unspecified organism; G93.41 Metabolic encephalopathy; E43 Unspecified severe protein-calorie malnutrition; R53.2 Functional quadriplegia; E87.0 Hyperosmolality and hypernatremia; N39.0 Urinary tract infection, site not specified; I69.354 Hemiplegia and hemiparesis following cerebral infarction affecting left non-dominant side; J96.10 Chronic respiratory failure, unspecified whether with hypoxia or hypercapnia; J44.0 Chronic obstructive pulmonary disease with (acute) lower respiratory infection; L97.419 Non-pressure chronic ulcer of right heel and midfoot with unspecified severity; L97.229 Non-pressure chronic ulcer of left calf with unspecified severity; L97.829 Non-pressure chronic ulcer of other part of left lower leg with unspecified severity; I12.9 Hypertensive chronic kidney disease with stage 1 through stage 4 chronic kidney disease, or unspecified chronic kidney disease; N18.9 Chronic kidney disease, unspecified; I25.10 Atherosclerotic heart disease of native coronary artery without angina pectoris; Z66 Do not resuscitate; R13.10 Dysphagia, unspecified; K21.9 Gastro-esophageal reflux disease without esophagitis; F03.90 Unspecified dementia, unspecified severity, without behavioral disturbance, psychotic disturbance, mood disturbance, and anxiety; F31.9 Bipolar disorder, unspecified; F41.9 Anxiety disorder, unspecified; E78.5 Hyperlipidemia, unspecified; Z74.01 Bed confinement status; Z79.899 Other long term (current) drug therapy; Z93.1 Gastrostomy status; Y95 Nosocomial condition; E86.0 Dehydration; F25.9 Schizoaffective disorder, unspecified; R26.9 Unspecified abnormalities of gait and mobility; Z91.018 Allergy to other foods; Z79.51 Long term (current) use of inhaled steroids; D50.9 Iron deficiency anemia, unspecified; D63.8 Anemia in other chronic diseases classified elsewhere; E87.8 Other disorders of electrolyte and fluid balance, not elsewhere classified; I73.9 Peripheral vascular disease, unspecified; L97.529 Non-pressure chronic ulcer of other part of left foot with unspecified severity; L97.519 Non-pressure chronic ulcer of other part of right foot with unspecified severity
CPT/HCPCS: 36415; 71045-TC; 80048-TC; 80053-TC; 80061-TC; 80076-TC; 80202-TC; 81000-TC; 83605-TC; 83735-TC; 84100-TC; 84443-TC; 84484-TC; 85025-TC; 85730-TC; 86850-TC; 86921-TC; 87040-TC; 87081-TC; 87086-TC; A6248; A6253; A6403; G0378; J0692; J3370; J7030; J7050; J7060; P9016-BL

== ENCOUNTER 2019-08-31 06:50 | Inpatient (IN) | payer MEDICARE, OTHER ==
[~2019-08-31] VITALS: Ht 167.6 cm; Wt 76.4 kg
[~2019-08-31 06:50] MED LIST changes: -AMIN30LI27 GT; +CEFA2PLA9 IV; +CEFT1VIA15 IV; -CRAN3875 PO; -FERR325T23 GT; +HYDR-3972 PO; -MAG30ORA GT; -NUTR1PAC14 GT; +RXVAN XX
[2019-08-31] MEDS ORDERED: PIPERACILLIN /TAZOBACTAM 3.375 G in IV D5W 50 ML IV ONE (07:00)
[2019-08-31] MEDS ORDERED: VANCOMYCIN 1 GM in IV D5W 250 ML IV ONE (07:00)
[2019-08-31] MEDS ORDERED: IV NS 0.9% 1,000 ML BAG IV ONE (07:00)
[2019-08-31] MEDS ORDERED: ACETAMINOPHEN ES 500 MG TABLET PO ONE (07:00)
--- NOTE | 2019-08-31 07:00 | NUR ---
PT [id number] FR [facility] FOR TACHYCARDIA, HR 120'S UPON ARRIVAL FEVER 100.4, SEVERE PENILE & SCROTAL EDEMA, ON VANCOMYCIN FOR SEPSIS. PT PLACED ON 2 LITERS O2 NC. SATTING 91% ON RA. PT CONNECTED TO THE JUVENILE JUSTICE SPECIALIST AND POX
--- NOTE | 2019-08-31 07:05 | NUR ---
EKG AT BEDSIDE
--- NOTE | 2019-08-31 07:10 | NUR ---
DIRECTOR BROADCAST AT BEDSIDE FOR LAB CULTURES.
[2019-08-31] MEDS ORDERED: ACETAMINOPHEN 650 MG/SUPP.RECT RC ONE ×2 (07:14→07:30)
[2019-08-31 07:19] LABS: BASOPHILS % (AUTO) 0.2 % (0.0-2.0); EOSINOPHILS % (AUTO) 2.1 % (0.0-6.0); HEMATOCRIT 26 % (39-51); HEMOGLOBIN 8.1 g/dL (13.5-17.5); LYMPHOCYTES # (AUTO) 1.3 /CMM (0.8-4.8); LYMPHOCYTES % (AUTO) 6.7 % (20.0-44.0); MEAN CORPUSCULAR HGB CONC 31 g/dl (31.0-36.0); MEAN CORPUSCULAR VOLUME 88 fL (80-96); MONOCYTES # (AUTO) 1.1 /CMM (0.1-1.30); MONOCYTES % (AUTO) 5.6 % (2.0-12.0); NEUTROPHILS # (AUTO) 16.2 /CMM (1.8-8.9); NEUTROPHILS % (AUTO) 85.4 % (43.0-81.0); PLATELET COUNT (AUTO) 363 /CMM (150-450); RED BLOOD CELL COUNT(AUTO) 2.99 MIL/uL (4.5-6.0); WHITE BLOOD COUNT (AUTO) 18.9 K/uL (4.3-11.0)
--- NOTE | 2019-08-31 07:23 | NUR ---
URINE COLLECTED AND SENT TO LAB
--- NOTE | 2019-08-31 07:28 | NUR ---
INF SENT TO LAB
[2019-08-31 07:29] LABS: CALCIUM, SERUM 8.1 mg/dL (8.5-10.1); CARBON DIOXIDE 26 mmol/L (21-32); CHLORIDE 109 mmol/L (98-107); CREATININE 0.8 mg/dL (0.6-1.3); GLUCOSE 93 mg/dL (74-106); POTASSIUM 3.7 mmol/L (3.5-5.1); SODIUM SERUM 142 mmol/L (136-145); UREA NITROGEN, BLOOD 36 mg/dL (7-18)
--- NOTE | 2019-08-31 07:36 | NUR ---
PATIENT ALSO CAME IN W/ SACRAL, LEFT AND RIGHT HEEL, R AND LEFT KNEE WOUND
[2019-08-31 07:39] LABS: APPEARANCE,URINE CLOUDY (CLEAR); BILIRUBIN,URINE NEGATIVE (NEGATIVE); BLOOD, URINE LARGE Ery/uL (NEGATIVE); COLOR,URINE YELLOW (YELLOW); KETONES,URINE NEGATIVE (NEGATIVE); LEUKOCYTE ESTERASE ,URINE NEGATIVE (NEGATIVE); NITRITE, URINE NEGATIVE (NEGATIVE); PROTEIN,URINE 30 mg/dl (NEGATIVE); UGLUCOSE NEGATIVE (NEGATIVE); UROBILINOGEN,URINE 0.2 EU/dL (0.2)
--- NOTE | 2019-08-31 07:41 | NUR ---
REPORT GIVEN TO JAIME JIMÉNEZ FOR THAIS
[2019-08-31 07:43] LABS: ALANINE AMINOTRANSFERASE 14 U/L (12-78); ALKALINE PHOSPHATASE 176 U/L (46-116); ASPARTATE AMINOTRANSFERASE 29 U/L (15-37); B-TYPE NATRIURETIC PEPTIDE 4605 PG/ML (0-125); BILIRUBIN,DIRECT 0.1 mg/dL (0.0-0.2); BILIRUBIN,TOTAL 0.2 mg/dL (0.2-1.0); TOTAL PROTEIN, SERUM 5.9 g/dL (6.4-8.2)
[2019-08-31 07:47] LABS: ALBUMIN 0.9 g/dL (3.4-5.0)
[2019-08-31] MEDS ORDERED: VANC500F2 IV (08:02)
[2019-08-31] MEDS ORDERED: AMIN30LI27 GT (08:02)
[2019-08-31] MEDS ORDERED: NUTR1PAC14 GT (08:02)
--- NOTE | 2019-08-31 08:12 | NUR ---
Assumed care repiort given by Marimar RN ,patient is non verbal noted no family awake eyes open follow tracts multilple lesion noted to coccyx,Rt heel ,left knee ,Rt hip .
[2019-08-31 08:26] LABS: RBC,URINE 81-100 /HPF (0-2)
[2019-08-31 08:27] LABS: BACTERIA,URINE 2+ /HPF (None Seen); MUCUS,URINE Moderate /LPF (None Seen); SQUAMOUS EPITHELIAL CELL,UR Few /HPF (None Seen); URINE AMORPHOUS URATE Many /HPF (None Seen)
--- NOTE | 2019-08-31 09:02 | NUR ---
PAGED [facility].
--- NOTE | 2019-08-31 09:17 | NUR ---
CALLED REPORT TO [phone] Mike
--- NOTE | 2019-08-31 09:29 | NUR ---
Patient bilateral upper and lower ext are contracted needs 2 staff to reposition patient he is awake alert to self non verbal x 1 BM keep ptient clean and dry ,Report gievn to Vik SANDOVAL made aware patient has multiple ulcers and and patient has GT secured ,fall precaution side rails up x 2 for safety
--- NOTE | 2019-08-31 09:40 | NUR ---
SECOND ATTEMPT FOR [facility].
[2019-08-31] MEDS ORDERED: MAG HYDROX/AL HYDROX/SIMETH 30 ML UDC PO PRN (10:30)
[2019-08-31] MEDS ORDERED: HYDROCODONE/APAP 5/325MG 1 EACH TABLET PO PRN (10:30)
[2019-08-31] MEDS ORDERED: ACETAMINOPHEN 650 MG/20.3 ML UDC GT PRN (10:30)
[2019-08-31] MEDS ORDERED: Medication Not On Formulary EA (Ipratropium/Albuterol Sulfate (Duoneb 2.5-0.5 Mg/3 Ml So IH PRN (10:30)
[2019-08-31] MEDS ORDERED: BISACODYL SUPP (10 MG) 10 MG/SUPP.RECT SUPP.RECT RC PRN (10:30)
[2019-08-31] MEDS ORDERED: HYDROCODONE/APAP 5/325MG 1 EACH TABLET GT PRN ×2 (10:30→10:57)
[2019-08-31] MEDS ORDERED: MAGNESIUM HYDROXIDE 30 ML UDC PO PRN (10:30)
[2019-08-31] MEDS ORDERED: MAGNESIUM HYDROXIDE 30 ML UDC GT PRN ×2 (10:30→10:57)
[2019-08-31] MEDS ORDERED: ONDANSETRON HCL/PF 4 MG/2 ML VIAL IVP PRN (10:30)
[2019-08-31] MEDS ORDERED: ACETAMINOPHEN 325 MG TABLET PO PRN (10:30)
[2019-08-31] MEDS ORDERED: NA PHOS,M-B/NA PHOS,DI-BA 1 EA ENEMA RC PRN (10:30)
[2019-08-31] MEDS ORDERED: Z GUARD REMEDY 2 OZ OINT TP PRN (10:30)
--- NOTE | 2019-08-31 10:44 | NUR ---
Transfer patient to room 103 per RN
[2019-08-31] MEDS ORDERED: FEE PK DOSING 1 MIN EA MC ONE (10:54)
[2019-08-31] MEDS ORDERED: MAG HYDROX/AL HYDROX/SIMETH 30 ML UDC GT PRN (10:57)
[2019-08-31] MEDS ORDERED: IPRATROPIUM NEB FS 0.5 MG/2.5 ML AMPUL.NEB NEB PRN (11:00)
[2019-08-31] MEDS ORDERED: ALBUTEROL FS 2.5 MG/0.5 ML VIAL.NEB NEB PRN (11:00)
[2019-08-31 12:00] VITALS: BP 165/84
[2019-08-31] MEDS ORDERED: CEFEPIME 2 GM in IV NS 0.9% 50 ML IV SCH (13:00)
[2019-08-31] MEDS: CEFEPIME 2 GM in IV D5W 100 ML IV SCH ×2 (13:17→21:04)
[2019-08-31] MEDS: PROSOURCE / PROSTAT (PYXIS) 30 ML UDC GT SCH ×2 (13:17→17:42)
[2019-08-31] MEDS: PANTOPRAZOLE 40 MG/PACK PACK GT SCH (13:17)
[2019-08-31 16:00] VITALS: BP_SYST 131; BP_SYST 134; BP_DIAS 64; BP_DIAS 65
[2019-08-31 16:35] VITALS: BP 134/64
[2019-08-31] MEDS: DOCUSATE SODIUM LIQ 100 MG/10 ML UDC GT SCH (16:50)
[2019-08-31] MEDS: LACTOBACILLUS RHAMNOSUS GG 1 EACH CAP.SPRINK GT SCH (16:50)
[2019-08-31] MEDS: BENZTROPINE MESYLATE (1 MG) 1 MG TABLET GT SCH (16:50)
[2019-08-31] MEDS: HALOPERIDOL 5 MG TABLET GT SCH (16:51)
[2019-08-31] MEDS: SILVER SULFADIAZINE 50 GM JAR TP SCH (16:53)
[2019-08-31] MEDS: DAKINS QUARTER STRENGTH (0.125%) 480 ML BOTTLE TOP SCH (16:53)
[2019-08-31] MEDS: HYDROGEL DRESSING 90 GM TUBE TP SCH (16:54)
[2019-08-31] MEDS ORDERED: ARGININE/GLUTAMINE/CALCIUM BMB 1 EACH POWD.PACK GT SCH (17:00)
[2019-08-31] MEDS ORDERED: DOCUSATE SODIUM 100 MG CAPSULE PO SCH (17:00)
[2019-08-31] MEDS: JEVITY 1.2 CAL 1,000 ML BOTTLE GT PRN (17:42)
[2019-08-31] MEDS: ASCORBIC ACID 500 MG TABLET GT SCH (17:47)
[2019-08-31] MEDS: ZINC SULFATE 220 MG CAPSULE GT SCH (17:48)
--- NOTE | 2019-08-31 19:30 | NUR ---
MS1 RN NOTES RECEIVED ON BED A/O X1,OPEN EYES TO NAME,HOB ELEVATED FOR ASPIRATION PRECAUTION,HT FEEDING OF JEVITY 1.2 AT 40ML/HR RATE,TOLERATED WELL.NO RESIDUAL VOLUME NOTED.GT PLACE MENT PATENT.WITH SALINE LOCK RIGHT HAND #22 INTACT AND PATENT.NOTED MULTIPLE WOUNDS NOTED.WILL ORDER SPECIALTY MATTRESS.O2 AT 2L/NC IN USED02 SAT 92%.WILL CONTINUE TO MONITOR STATUS.
[2019-08-31 20:00] VITALS: BP 127/62
[2019-08-31] MEDS: VANCOMYCIN 0.75 GM in IV D5W 250 ML IV SCH (20:15)
--- NOTE | 2019-08-31 20:30 | NUR ---
MS1 RN NOTES VANCO TROUGH AT 1900 17,DOSE ADMINISTER
[2019-08-31] MEDS: HYDROCODONE/APAP 5/325MG 1 EACH TABLET GT SCH (20:31)
--- NOTE | 2019-08-31 20:31 | NUR ---
MS1 RN NOTES ORAL TEMP 100.3,NORCO 5/325,1 TAB GIVEN PER GT FOR INCREASED TEMP.
[2019-08-31] MEDS ORDERED: ZOLPIDEM TARTRATE 5 MG TABLET GT PRN (22:00)
[2019-08-31] MEDS: ATORVASTATIN 10 MG TABLET GT SCH (22:26)
--- NOTE | 2019-09-01 00:30 | NUR ---
MS1 RN NOTES MORNING CARE RENDERED.DRESSING CHANGE DONE ON MULTIPLE WOUNDS
[2019-09-01 04:00] VITALS: BP 121/44
[2019-09-01] MEDS: CEFEPIME 2 GM in IV D5W 100 ML IV SCH ×3 (05:04→21:30)
--- NOTE | 2019-09-01 06:13 | NUR ---
MS1 RN NOTES AFEBRILE AT 98.0,GT FEEDING TOLERATED WELL,WOUND DRESSING CHANGE TO MULTIPLE WOUNDS DONE.PLAN SERIAL DEBRIDEMENT ON MULTIPLET WOUND.IN NO ACUTE DISTRESS.WILL ENDORSE TO DAY NURSE FOR THAIS.
[2019-09-01 06:22] LABS: BASOPHILS % (AUTO) 0.2 % (0.0-2.0); EOSINOPHILS % (AUTO) 2.1 % (0.0-6.0); HEMATOCRIT 25 % (39-51); HEMOGLOBIN 7.9 g/dL (13.5-17.5); LYMPHOCYTES % (AUTO) 5.9 % (20.0-44.0); MEAN CORPUSCULAR HGB CONC 31 g/dl (31.0-36.0); MEAN CORPUSCULAR VOLUME 87 fL (80-96); MONOCYTES # (AUTO) 1.2 /CMM (0.1-1.30); MONOCYTES % (AUTO) 6.8 % (2.0-12.0); NEUTROPHILS # (AUTO) 14.4 /CMM (1.8-8.9); PLATELET COUNT (AUTO) 339 /CMM (150-450); RED BLOOD CELL COUNT(AUTO) 2.89 MIL/uL (4.5-6.0); WHITE BLOOD COUNT (AUTO) 16.9 K/uL (4.3-11.0)
[2019-09-01 06:38] LABS: CREATININE 0.9 mg/dL (0.6-1.3); MAGNESIUM 1.9 mg/dL (1.8-2.4); PHOSPHORUS 3.1 mg/dL (2.5-4.9); POTASSIUM 3.7 mmol/L (3.5-5.1)
--- NOTE | 2019-09-01 07:15 | NUR ---
RN OPENING NOTE RECEIVED PATIENT ASLEEP IN BED HOB ELEVATED. APPEARS CALM & RELAXED. NO SIGNS OF DISTRESS. AO X1. ON NC 2L. TOLERATING WELL. R. HAND IV LINE NOTED. WILL DC LINE. GT IN PLACE AND PATENT. NOTED WITH 40ML RESIDUAL GT FEEDING RUNNING AT 40ML/HR. BOWEL SOUNDS PRESENT. HEART SOUNDS WITHIN NORMAL LIMITS. LUNG SOUNDS CLEAR. SAFETY MEASURES REINFORCED. BED ON LOWEST AND LOCKED POSITION. CALL LIGHT WITHIN REACH. WILL CONTINUE TO MONITOR.
[2019-09-01 08:00] VITALS: BP 125/61
[2019-09-01] MEDS: VANCOMYCIN 0.75 GM in IV D5W 250 ML IV SCH ×2 (09:07→19:55)
[2019-09-01] MEDS: LACTOBACILLUS RHAMNOSUS GG 1 EACH CAP.SPRINK GT SCH ×2 (09:11→16:09)
[2019-09-01] MEDS: MULTIVIT W/MINERALS 1 TAB TABLET GT SCH (09:11)
[2019-09-01] MEDS: HALOPERIDOL 5 MG TABLET GT SCH ×2 (09:11→16:09)
[2019-09-01] MEDS: HYDROCODONE/APAP 5/325MG 1 EACH TABLET GT SCH ×4 (09:12→21:29)
[2019-09-01] MEDS: BENZTROPINE MESYLATE (1 MG) 1 MG TABLET GT SCH ×2 (09:13→16:09)
[2019-09-01] MEDS: DOCUSATE SODIUM LIQ 100 MG/10 ML UDC GT SCH ×2 (09:13→16:09)
[2019-09-01] MEDS: DAKINS QUARTER STRENGTH (0.125%) 480 ML BOTTLE TOP SCH (09:15)
[2019-09-01] MEDS: HYDROGEL DRESSING 90 GM TUBE TP SCH (09:16)
--- NOTE | 2019-09-01 10:38 | NUR ---
RN NOTE NORCO 5-325MG GIVEN AT 9:12AM.
--- NOTE | 2019-09-01 10:51 | NUR ---
MS RN NOTE SPOKE WITH DR SMITH THAT SAT 92% THAT EARLIER O2 SAT 92%, OK TO INCREASE TO 4L OF 02 AT THIS TIME ALSO NOTIFIED HAT MID LINE UNABLE TO FLUSH AND UNABLE TO USE FOR MEDICATION Addendum: 09/01/19 at 1055 by NAYE MITCHELL RN TELEPHONE CONSENT OBTAINED FOR FOOT DEBRIDEMENT, SPOKE WITH BROTHDAVID
[2019-09-01] MEDS: PANTOPRAZOLE 40 MG/PACK PACK GT SCH (10:53)
[2019-09-01] MEDS ORDERED: ALTEPLASE CATHFLO 2 MG/VIAL XX ONE (11:30)
--- NOTE | 2019-09-01 12:24 | NUR ---
MS RN NOTE TURN REPOSITION G TUBE FLUSHED WITH 120 ML ORDERED
--- NOTE | 2019-09-01 14:36 | NUR ---
MS RN NOTE DR. BOBBY VAUGHN AT BEDSIDE. EXAMINED PICC LINE. MID LINE IS NOT PATENT. REMOVED MIDLINE. PT TOLERATED. NO HEAVY BLEEDING. APPLIED PRESSURE & DRESSING.
--- NOTE | 2019-09-01 15:35 | NUR ---
ms urias note all needs attended ,cont on 4l nc no sob noted ,will cont to monitor Addendum: 09/01/19 at 1730 by NAYE MITCHELL RN called to central supply to bring kci matrass fo skin management
--- NOTE | 2019-09-01 16:54 | NUR ---
Readmitted <7days with pneumonia probable CAP. Patient is poor historian, with hx of dementia. He resides at [facility] [phone]. He is confined to chair and bed most of time. Requires max assist with adl's. Pcp is Dr. Tamir Starkey. Current dc plan is to return to SNF, bedhold x7days. Addendum: 09/01/19 at 1655 by LYNDA LOPEZ RN Amended: Links added.
[2019-09-01 17:15] VITALS: BP 149/76
[2019-09-01] MEDS: ASCORBIC ACID 500 MG TABLET GT SCH (17:24)
[2019-09-01] MEDS: ZINC SULFATE 220 MG CAPSULE GT SCH (17:24)
[2019-09-01] MEDS: PROSOURCE / PROSTAT (PYXIS) 30 ML UDC GT SCH (17:24)
[2019-09-01 17:40] VITALS: BP 149/76
[2019-09-01] MEDS ORDERED: LIDOCAINE 1%-EPI 1:100,000 20 ML VIAL TP ONE (18:30)
[2019-09-01] MEDS ORDERED: SILVER NITRATE APPLICATOR 1 EA BOX TP ONE (18:30)
--- NOTE | 2019-09-01 18:32 | NUR ---
RN CLOSING NOTE PT ASLEEP IN BED HOB ELEVATED. NO SIGNS OF DISTRESS. AO X4. ON NC 3L. TOLERATING WELL. ON GT FEEDING RUNNING @ 40CC/HR. NO DISTENTION. RESIDUAL IS 20ML. WOUND DRESSING INTACT. VITAL SIGNS WITHIN NORMAL LIMITS. SAFETY MEASURES REINFORCED. CALL LIGHT WITHIN REACH. BED ON LOWEST AND LOCKED POSITION. WILL ENDORSE TO SUPERVISORY AIR INTERCEPT CONTROLLER NURSE.
--- NOTE | 2019-09-01 18:58 | NUR ---
rn note seen by alex urias reference and instruction librarian id [id number] to place choi cath for wound management
--- NOTE | 2019-09-01 19:21 | NUR ---
RN CLOSING NOTE ENDORSED TO FOLDER TAPER OPERATOR FOR THAIS.
--- NOTE | 2019-09-01 19:35 | NUR ---
RN OPENING NOTE PT AWAKE IN BED HOB ELEVATED. NO SIGNS OF DISTRESS. A/O X1, ON O2 VIA NC 3L. TOLERATING WELL. ON GT FEEDING RUNNING @ 40CC/HR WITH MINIMAL RESIDUAL 10CC, NO ABDOMINAL DISTENTION. WOUND DRESSING INTACT. INSERTED BARNARD CATH 16 FR USED, URINE YELLOW AND DRAINING, PT TOLERATED WELL. CALL LIGHT WITHIN REACH. BED LOCKED AND IN LOWEST POSITION. WILL CONTINUE TO MONITOR PT.
[2019-09-01 20:00] VITALS: BP 136/67
[2019-09-01] MEDS: ATORVASTATIN 10 MG TABLET GT SCH (21:29)
[2019-09-02] MEDS: JEVITY 1.2 CAL 1,000 ML BOTTLE GT PRN ×2 (02:50→22:04)
[2019-09-02 04:00] VITALS: BP 131/59
[2019-09-02] MEDS: CEFEPIME 2 GM in IV D5W 100 ML IV SCH ×3 (05:46→21:43)
--- NOTE | 2019-09-02 07:05 | NUR ---
RN CLOSING NOTE PT AWAKE IN BED HOB ELEVATED. NO SIGNS OF DISTRESS. A/O X1, ON O2 VIA NC 4L. TOLERATING WELL. ON GT FEEDING RUNNING @ 60 CC/HR WITH MINIMAL RESIDUAL 10CC, NURSE AWARE TO INCREASE TO 70 ML/HR. NO ABDOMINAL DISTENTION. WOUND DRESSINGS CHANGED AND INTACT. URINE YELLOW AND DRAINING, CALL LIGHT WITHIN REACH. BED LOCKED AND IN LOWEST POSITION. WILL ENDORSE TO AM NURSE FOR THAIS.
[2019-09-02 07:33] LABS: CALCIUM, SERUM 7.9 mg/dL (8.5-10.1); CREATININE 0.8 mg/dL (0.6-1.3); POTASSIUM 3.3 mmol/L (3.5-5.1)
[2019-09-02 07:57] LABS: BASOPHILS % (AUTO) 0.2 % (0.0-2.0)
[2019-09-02 08:00] VITALS: BP_SYST 109; BP_SYST 141; BP_DIAS 65; BP_DIAS 67
[2019-09-02] MEDS: HALOPERIDOL 5 MG TABLET GT SCH ×2 (08:12→16:40)
[2019-09-02] MEDS: HYDROCODONE/APAP 5/325MG 1 EACH TABLET GT SCH ×2 (08:13→21:43)
[2019-09-02] MEDS: MULTIVIT W/MINERALS 1 TAB TABLET GT SCH (08:14)
[2019-09-02] MEDS: BENZTROPINE MESYLATE (1 MG) 1 MG TABLET GT SCH ×2 (08:14→16:41)
[2019-09-02] MEDS: LACTOBACILLUS RHAMNOSUS GG 1 EACH CAP.SPRINK GT SCH ×2 (08:14→16:40)
[2019-09-02] MEDS: DAKINS QUARTER STRENGTH (0.125%) 480 ML BOTTLE TOP SCH (08:15)
[2019-09-02] MEDS: SILVER SULFADIAZINE 50 GM JAR TP SCH (08:16)
[2019-09-02] MEDS: HYDROGEL DRESSING 90 GM TUBE TP SCH (08:16)
[2019-09-02] MEDS: DOCUSATE SODIUM LIQ 100 MG/10 ML UDC GT SCH ×2 (08:16→16:41)
[2019-09-02] MEDS: VANCOMYCIN 0.75 GM in IV D5W 250 ML IV SCH (08:17)
[2019-09-02 08:56] LABS: EOSINOPHILS % (AUTO) 2.4 % (0.0-6.0); HEMATOCRIT 26 % (39-51); LYMPHOCYTES # (AUTO) 0.7 /CMM (0.8-4.8); LYMPHOCYTES % (AUTO) 5.1 % (20.0-44.0); MEAN CORPUSCULAR HGB CONC 31 g/dl (31.0-36.0); MEAN CORPUSCULAR VOLUME 88 fL (80-96); MONOCYTES # (AUTO) 0.9 /CMM (0.1-1.30); MONOCYTES % (AUTO) 6.5 % (2.0-12.0); NEUTROPHILS # (AUTO) 12.2 /CMM (1.8-8.9); NEUTROPHILS % (AUTO) 85.8 % (43.0-81.0); PLATELET COUNT (AUTO) 328 /CMM (150-450); RED BLOOD CELL COUNT(AUTO) 2.95 MIL/uL (4.5-6.0); WHITE BLOOD COUNT (AUTO) 14.2 K/uL (4.3-11.0)
[2019-09-02] MEDS ORDERED: POTASSIUM CHLORIDE 20 MEQ TAB.PRT.SR PO ONE (10:30)
[2019-09-02] MEDS: PANTOPRAZOLE 40 MG/PACK PACK GT SCH (10:57)
[2019-09-02 12:00] VITALS: BP 143/44
[2019-09-02 16:00] VITALS: BP 109/67
--- NOTE | 2019-09-02 16:40 | NUR ---
MS RN Notes Feeding tube rate adjusted to 70mL per hour. 5mL residual, tolerating feeding well.
[2019-09-02] MEDS: PROSOURCE / PROSTAT (PYXIS) 30 ML UDC GT SCH (18:25)
[2019-09-02] MEDS: ASCORBIC ACID 500 MG TABLET GT SCH (18:26)
[2019-09-02] MEDS: ZINC SULFATE 220 MG CAPSULE GT SCH (18:26)
--- NOTE | 2019-09-02 18:36 | NUR ---
MS RN Notes Troponin level elevated recieved from lab from [facility]. Will endorse to manufacturing supervisor 2nd shift. Downtrending. 1230 3.073 and 1752 2.087. Librado WRAPPER STRIPPER Aware.
--- NOTE | 2019-09-02 19:30 | NUR ---
MS RN Notes 0700- Patient is A and Ox 0 responsive to name non-verbal. Patient is severely contracted in upper and lower extremities. FLACC pain score 1. Incontinent, bowel sounds present in 4 quadrants. Feeding at 65cc per hour with plan to titrate up to 70cc. G-Tube with skin intact. No residual. IV TKO 3mL with two sites. 22RH. 24RUE. No acute events noted. Plan for debriedment of wounds at bedside today with PA and MAGALIM. Bed in lowest position, call light within reach, all measures taken to ensure client safety. Will continue to monitor. Closing- No acute changes on shift. Bedside debridement done with JAYESH and DPM. Dressings changed and marked to keep track of bleeding. All meds given as ordered. All treatments done as ordered. No acute events noted at this time. Will endorse care to oncoming RN. Bed in lowest position, call light within reach, all measures taken to ensure client safety.
--- NOTE | 2019-09-02 19:48 | NUR ---
RECEIVED PT IN BED A/O X 1 STABLE AND NOT IN DISTRESS.SAFETY MEASURES AT ALL TIMES. WILL CONT TO MONITOR.
[2019-09-02 20:00] VITALS: BP 142/73
[2019-09-02] MEDS: VANCOMYCIN 500 MG in IV D5W 100 ML IV SCH (20:34)
[2019-09-02] MEDS: ATORVASTATIN 10 MG TABLET GT SCH (21:44)
[2019-09-03 04:00] VITALS: BP 131/92
[2019-09-03] MEDS: CEFEPIME 2 GM in IV D5W 100 ML IV SCH ×3 (05:26→21:04)
--- NOTE | 2019-09-03 06:12 | NUR ---
MS RN NO SIGNIFICANT CHANGES THROUGHOUT THE SHIFT. ON 3LPM VIA NC 02 SAT 93%. IN STABLE AND NOT IN DISTRESS, MONITORED ACCORDINGLY, ALL NEEDS ATTENDED AND ANTICIPATED, CHANGED WOUND DRESSINGS SOILED PRN. GOOD SKIN CARE AT ALL TIMES. OFFLOAD HEELS AND ELBOWS. AM CARE RENDERED. F/C CARE PROVIDED. ASSISTED REPOSITION PT. SAFETY MEASURES AT ALL TIMES. ENDORSE TO NEXT SHIFT.
--- NOTE | 2019-09-03 06:37 | NUR ---
LEFT A VOICEMAIL PERSON TO NOTIFY ROSALBA WARD BROTHER PRIMARY DECISION MAKER FOR SERIAL DEBRIDEMENT CONSENTS NO ANSWER MULTIPLE CALLS ATTEMPTS NO ANSWER. CALLED ALTHEA NAVARRETE NO ANSWER CALLED MULTIPLE TIMES. WILL ENDORSE NEXT SHIFT
--- NOTE | 2019-09-03 07:33 | NUR ---
MS RN OPENING NOTES RECEIVED PT IN BED, AWAKE,A/O X1. ON SUPPLEMENTARY OXYGEN AT 4L, WITH NO ACUTE RESPIRATORY DISTRESS NOTED. PT DENIES ANY PAIN OR DISCOMFORT AT THIS TIME. ALSO DENIES ANY CONCERNS OR QUESTIONS. ON GOING GT FEEDING JEVITY 70ML/HR, INTACT WITH NO RESIDUAL. PIV TO RIGHT HAND G22, FLUSHED WITH NS, INTACT AND OPERATIONAL. PT KEPT COMFORTABLE IN BED. PT'S BED IN LOWEST,LOCKED POSITION, WITH SR X3. CALL LIGHT KEPT WITHIN REACH. WILL CONTINUE TO PLAN OF CARE.
[2019-09-03 07:45] LABS: BASOPHILS % (AUTO) 0.1 % (0.0-2.0); EOSINOPHILS % (AUTO) 1.5 % (0.0-6.0); HEMATOCRIT 29 % (39-51); HEMOGLOBIN 9.1 g/dL (13.5-17.5); LYMPHOCYTES # (AUTO) 0.7 /CMM (0.8-4.8); LYMPHOCYTES % (AUTO) 4.3 % (20.0-44.0); MEAN CORPUSCULAR HGB CONC 31 g/dl (31.0-36.0); MEAN CORPUSCULAR VOLUME 87 fL (80-96); MONOCYTES % (AUTO) 6.6 % (2.0-12.0); NEUTROPHILS # (AUTO) 13.8 /CMM (1.8-8.9); NEUTROPHILS % (AUTO) 87.5 % (43.0-81.0); PLATELET COUNT (AUTO) 361 /CMM (150-450); RED BLOOD CELL COUNT(AUTO) 3.36 MIL/uL (4.5-6.0); WHITE BLOOD COUNT (AUTO) 15.7 K/uL (4.3-11.0)
[2019-09-03 08:00] VITALS: BP 143/63
[2019-09-03 08:01] LABS: CALCIUM, SERUM 8.1 mg/dL (8.5-10.1); CREATININE 0.9 mg/dL (0.6-1.3)
[2019-09-03] MEDS: DOCUSATE SODIUM LIQ 100 MG/10 ML UDC GT SCH ×2 (08:12→16:10)
[2019-09-03] MEDS: LACTOBACILLUS RHAMNOSUS GG 1 EACH CAP.SPRINK GT SCH ×2 (08:12→16:10)
[2019-09-03] MEDS: VANCOMYCIN 500 MG in IV D5W 100 ML IV SCH ×2 (08:12→21:01)
[2019-09-03] MEDS: HALOPERIDOL 5 MG TABLET GT SCH ×2 (08:12→16:10)
[2019-09-03] MEDS: HYDROCODONE/APAP 5/325MG 1 EACH TABLET GT SCH ×2 (08:12→21:03)
[2019-09-03] MEDS: BENZTROPINE MESYLATE (1 MG) 1 MG TABLET GT SCH ×2 (08:12→16:10)
[2019-09-03] MEDS: MULTIVIT W/MINERALS 1 TAB TABLET GT SCH (08:12)
[2019-09-03] MEDS: DAKINS QUARTER STRENGTH (0.125%) 480 ML BOTTLE TOP SCH (08:19)
--- NOTE | 2019-09-03 09:50 | NUR ---
MS RN NOTES SEEN AND EVALUATED BY MD/GA, NO ORDERS NOTED. WILL CONTINUE TO MONITOR PT.
--- NOTE | 2019-09-03 10:30 | NUR ---
MS RN NOTES ALL WOUND TREATMENT PROVIDED TO PT.
--- NOTE | 2019-09-03 10:45 | NUR ---
MS RN NOTES CALLED BROTHER REGARDING GETTING CONSENT FOR SERIAL DEBRIDEMENT OF SACRUM. NO ANSWER AT THIS TIME.
[2019-09-03] MEDS: HYDROGEL DRESSING 90 GM TUBE TP SCH (11:22)
[2019-09-03] MEDS: SILVER SULFADIAZINE 50 GM JAR TP SCH (11:23)
[2019-09-03] MEDS: PANTOPRAZOLE 40 MG/PACK PACK GT SCH (11:44)
[2019-09-03 16:00] VITALS: BP 141/88
[2019-09-03] MEDS: JEVITY 1.2 CAL 1,000 ML BOTTLE GT PRN (16:16)
[2019-09-03] MEDS: ASCORBIC ACID 500 MG TABLET GT SCH (17:21)
[2019-09-03] MEDS: ZINC SULFATE 220 MG CAPSULE GT SCH (17:21)
[2019-09-03] MEDS: PROSOURCE / PROSTAT (PYXIS) 30 ML UDC GT SCH (17:21)
--- NOTE | 2019-09-03 18:37 | NUR ---
MS RN CLOSING NOTES PT REMAINS IN BED, AWAKE,A/O X1. ON SUPPLEMENTARY OXYGEN AT 4L, WITH NO ACUTE RESPIRATORY DISTRESS NOTED. PT NOT EXHIBITING PAIN OR DISCOMFORT AT THIS TIME. ON GOING GT FEEDING JEVITY 1.2 70ML/HR, INTACT WITH NO RESIDUAL. PIV TO RIGHT HAND G22, FLUSHED WITH NS, INTACT AND OPERATIONAL. FC IN PLACE WITH CLEAR YELLOW URINE, OUTPUT OF 700ML. ALL NEEDS AND CARE ATTENDED. PT KEPT COMFORTABLE IN BED, HOB KEPT ELEVATED. PT'S BED IN LOWEST,LOCKED POSITION, WITH SR X3. CALL LIGHT KEPT WITHIN REACH. WILL ENDORSE TO INCOMING NIGHT NURSE FOR THAIS.
[2019-09-03 20:00] VITALS: BP 139/70
[2019-09-03] MEDS: ATORVASTATIN 10 MG TABLET GT SCH (21:04)
[2019-09-04 04:00] VITALS: BP 140/69
[2019-09-04] MEDS: CEFEPIME 2 GM in IV D5W 100 ML IV SCH ×2 (04:30→12:17)
[2019-09-04 07:30] LABS: BASOPHILS % (AUTO) 0.3 % (0.0-2.0); EOSINOPHILS % (AUTO) 1.6 % (0.0-6.0); HEMATOCRIT 28 % (39-51); HEMOGLOBIN 8.8 g/dL (13.5-17.5); LYMPHOCYTES # (AUTO) 0.8 /CMM (0.8-4.8); LYMPHOCYTES % (AUTO) 5.5 % (20.0-44.0); MEAN CORPUSCULAR HGB CONC 32 g/dl (31.0-36.0); MEAN CORPUSCULAR VOLUME 87 fL (80-96); MONOCYTES # (AUTO) 1.1 /CMM (0.1-1.30); MONOCYTES % (AUTO) 7.8 % (2.0-12.0); NEUTROPHILS # (AUTO) 11.7 /CMM (1.8-8.9); NEUTROPHILS % (AUTO) 84.8 % (43.0-81.0); PLATELET COUNT (AUTO) 334 /CMM (150-450); RED BLOOD CELL COUNT(AUTO) 3.19 MIL/uL (4.5-6.0); WHITE BLOOD COUNT (AUTO) 13.9 K/uL (4.3-11.0)
[2019-09-04 07:44] LABS: CALCIUM, SERUM 8.1 mg/dL (8.5-10.1); CREATININE 0.9 mg/dL (0.6-1.3)
[2019-09-04 08:00] VITALS: BP 126/70
[2019-09-04] MEDS: VANCOMYCIN 500 MG in IV D5W 100 ML IV SCH (08:16)
[2019-09-04] MEDS: DOCUSATE SODIUM LIQ 100 MG/10 ML UDC GT SCH (09:54)
[2019-09-04] MEDS: HALOPERIDOL 5 MG TABLET GT SCH (09:54)
[2019-09-04] MEDS: LACTOBACILLUS RHAMNOSUS GG 1 EACH CAP.SPRINK GT SCH (09:54)
[2019-09-04] MEDS: BENZTROPINE MESYLATE (1 MG) 1 MG TABLET GT SCH (09:54)
[2019-09-04] MEDS: MULTIVIT W/MINERALS 1 TAB TABLET GT SCH (09:54)
[2019-09-04] MEDS: DAKINS QUARTER STRENGTH (0.125%) 480 ML BOTTLE TOP SCH (09:55)
[2019-09-04] MEDS: HYDROCODONE/APAP 5/325MG 1 EACH TABLET GT SCH (09:55)
[2019-09-04] MEDS: HYDROGEL DRESSING 90 GM TUBE TP SCH (09:55)
[2019-09-04] MEDS: SILVER SULFADIAZINE 50 GM JAR TP SCH (09:56)
[2019-09-04] MEDS: PANTOPRAZOLE 40 MG/PACK PACK GT SCH (12:19)
== END 2019-09-04 15:10 | DRG 853 ==
LOC: ER 06:54 → TELE1 10:24 → MEDSG1 10:45
PROVIDERS: ADMIT Family Medicine; ATTEND Nurse Practitioner Acute Care
PROC: 0KBW0ZZ Excision of Left Foot Muscle, Open Approach (ICD-10-PCS; principal; 2019-09-02)
PROC: 0KBS0ZZ Excision of Right Lower Leg Muscle, Open Approach (ICD-10-PCS; 2019-09-02)
PROC: 0KBT0ZZ Excision of Left Lower Leg Muscle, Open Approach (ICD-10-PCS; 2019-09-02)
PROC: 0KBV0ZZ Excision of Right Foot Muscle, Open Approach (ICD-10-PCS; 2019-09-02)
PROC: 0QB30ZZ Excision of Left Pelvic Bone, Open Approach (ICD-10-PCS; 2019-09-02)
PROC: 0QB10ZZ Excision of Sacrum, Open Approach (ICD-10-PCS; 2019-09-02)
PROC: 0KBN0ZZ Excision of Right Hip Muscle, Open Approach (ICD-10-PCS; 2019-09-02)
PROC: 0JBN0ZZ Excision of Right Lower Leg Subcutaneous Tissue and Fascia, Open Approach (ICD-10-PCS; 2019-09-02)
DX: A41.9 Sepsis, unspecified organism (principal); L89.014 Pressure ulcer of right elbow, stage 4; L89.894 Pressure ulcer of other site, stage 4; L89.224 Pressure ulcer of left hip, stage 4; L89.214 Pressure ulcer of right hip, stage 4; L89.154 Pressure ulcer of sacral region, stage 4; L89.024 Pressure ulcer of left elbow, stage 4; E43 Unspecified severe protein-calorie malnutrition; N17.0 Acute kidney failure with tubular necrosis; J18.9 Pneumonia, unspecified organism; R53.2 Functional quadriplegia; J96.01 Acute respiratory failure with hypoxia; I69.354 Hemiplegia and hemiparesis following cerebral infarction affecting left non-dominant side; J98.11 Atelectasis; J44.0 Chronic obstructive pulmonary disease with (acute) lower respiratory infection; R64 Cachexia; F03.90 Unspecified dementia, unspecified severity, without behavioral disturbance, psychotic disturbance, mood disturbance, and anxiety; E86.9 Volume depletion, unspecified; Z93.1 Gastrostomy status; R26.9 Unspecified abnormalities of gait and mobility; D63.8 Anemia in other chronic diseases classified elsewhere; E78.5 Hyperlipidemia, unspecified; F41.9 Anxiety disorder, unspecified; F20.9 Schizophrenia, unspecified; F31.9 Bipolar disorder, unspecified; I25.10 Atherosclerotic heart disease of native coronary artery without angina pectoris; Z91.018 Allergy to other foods; Z79.899 Other long term (current) drug therapy; Z79.51 Long term (current) use of inhaled steroids; Z66 Do not resuscitate; Z51.5 Encounter for palliative care; R13.10 Dysphagia, unspecified; Z74.01 Bed confinement status; N18.9 Chronic kidney disease, unspecified; K21.9 Gastro-esophageal reflux disease without esophagitis; I12.9 Hypertensive chronic kidney disease with stage 1 through stage 4 chronic kidney disease, or unspecified chronic kidney disease; L97.519 Non-pressure chronic ulcer of other part of right foot with unspecified severity; I73.9 Peripheral vascular disease, unspecified; M62.562 Muscle wasting and atrophy, not elsewhere classified, left lower leg; M62.49 Contracture of muscle, multiple sites; M62.561 Muscle wasting and atrophy, not elsewhere classified, right lower leg
CPT/HCPCS: 36415; 71045-TC; 80048-TC; 80061-TC; 80076-TC; 80202-TC; 81000-TC; 82962-TC; 83605-TC; 83735-TC; 83880; 84100-TC; 84484-TC; 85025-TC; 85730-TC; 87040-TC; 87081-TC; 87086-TC; 93307-TC; 94799-TC; A4216; A6248; A6253; A6403; A6407; G0378; J0692; J2543; J2997; J3370; J3490; J7030; J7050; J7060